=== PATIENT | female | born 1995 | race Caucasian/White ===

== ENCOUNTER 2023-07-31 13:17 | Emergency (ER) | payer MEDICARE, OTHER, SELFPAY ==
[2023-07-31 13:24] VITALS: BP 147/107
[2023-07-31 13:53] LABS: % Basophils 0.4 % (0-2); % Eosinophils 1.4 % (0-6); % Immature Granulocytes 0.5 % (0-0.5); % Lymphocytes 12.6 % (20.5-51.1); % Monocytes 3.6 % (1.7-9.3); % Neutrophils 81.5 % (42.2-75.2); Absolute Eosinophils 0.2 10^3/uL (0-0.7); Absolute Immature Granulocytes 0.1 10^3/uL (0-0.05); Absolute Lymphocytes 1.4 10^3/uL (1.2-3.4); Absolute Monocytes 0.4 10^3/uL (0.1-0.6); Hematocrit 39.5 % (37.0-47.0); Mean Corp Hgb Conc. 32.9 g/dL (33.0-37.0); Mean Corpuscular Hgb 26.1 pg (27.0-31.0); Mean Corpuscular Volume 79.3 fL (81.0-99.0); Nucleated Red Blood Cells % 0 %; Platelet Count 373 10^3/uL (130-400); Red Blood Cell Count 4.98 10^6/uL (4.20-5.40)
[2023-07-31 14:00] VITALS: BP 166/121
[2023-07-31 14:05] LABS: D-Dimer < 0.27 ug/mlFEU (0.00-0.50)
[2023-07-31 14:11] LABS: ALT (SGPT) 25 U/L (0-35); AST (SGOT) 21 U/L (14-36); Albumin 3.9 g/dl (3.5-5.0); Alkaline Phosphatase 86 U/L (38-126); Blood Urea Nitrogen 16 mg/dl (7-17); Calcium 9.4 mg/dl (8.4-10.2); Carbon Dioxide 31 mmol/L (22-30); Chloride 104 mmol/L (98-107); Glucose 126 mg/dl (70-99); Potassium 4.2 mmol/L (3.5-5.1); Sodium 138 mmol/L (135-145); Total Bilirubin 0.5 mg/dl (0.2-1.3); Total Protein 6.8 g/dl (6.3-8.2); eGFR > 60.00
[2023-07-31 14:12] LABS: Alcohol None Detected
[2023-07-31 14:18] LABS: Troponin I < 0.012 ng/ml
[2023-07-31 15:00] VITALS: BP 122/81
--- NOTE | 2023-07-31 17:02 | ED.GENMED ---
History of Present Illness
General
Chief Complaint: Chest Pain
Source: patient and family
Exam Limitations: none
Time Seen by Provider: 07/31/23 13:18
Nursing documentation reviewed up to this point in time: agreed with
Travel History
Have you had any contact with someone who has COVID-19?: No
Do you have any symptoms of coronavirus? Fever > 100 degrees, chills, cough, shortness of breath, sore throat, loss of taste or smell, muscle aches, or headache?: No
History of Present Illness
History of Present Illness:
28-year-old female with past medical history of dementia delay, hypertension, previous DVT coming Arnie to bipolar, PTSD presenting to the emergency department today with concerns of left-sided chest discomfort rating to her left arm while she was
at physical therapy. She comes this feels similar to previous episodes of anxiety. She also claims that she has thoughts of harming self and was planning on cutting or self this evening as well as potentially taking medications if the cutting of
herself did not improve her anxiety. Denies specific shortness of breath she claims the chest pain has improved denies numbness weakness vomiting fevers
Past History
Past History
ED Past Medical History: HTN, Psychiatric (Autism, alcohol syndrome, learning disability, major depression, anxiety, PTSD, Bipolar Schitzo affective disorder) and Other (Headaches, gastric emptying issues, Vertigo, Arthritis, DVT, )
ED Past Surgical History: Bowel resection, Orthopedic (Right club foot repair, ) and Other (Neck surgery )
Social History
Tobacco: 2nd hand smoke exposure
Alcohol: None
Drug: None
Personal: Single
Living: with family
Employment: Employed
Family History
Family History: Other (Noncontributory)
Review of Systems
Review of Systems
Allergies reviewed?: Yes
All Other Systems: ROS reviewed and negative except as documented in HPI and ROS
Phy Exam
Physical Exam
Physical Exam:
GENERAL: Alert , in no apparent distress
EYE: pupils equal and reactive
NECK: Supple, no significant adenopathy.
ENT: o/p clr, mmm.
CARDIAC: Regular rate and rhythm .
LUNGS: Clear breath sounds bilaterally, no acute respiratory distress, no wheezes/rales/rhonchi
ABDOMEN: Soft, without focal tenderness, no r/g, no cvat
NEUROLOGICAL: Alert and oriented, no focal neuro deficits
SKIN: Warm and dry, skin intact.
MUSCULOSKELETAL: No edema, well perfused.
PSYCH: Normal and appropriate interaction.
Scores
Heart Score for Chest Pain Patients
STEMI patient?: No
History: Slightly or Non-Suspicious
ECG: Normal
Age: </= 45 years
Risk Factors: No Risk Factors
Troponin: </= Normal Limit
Heart Score for Chest Pain Patients: 0
Heart Score Risk: 2.5% MACE over next 6 weeks
Course
Orders/Labs/Results
Orders:
Orders
07/31/23 13:30
Crisis Consult Urgent
Reason for Consult: suicidal
07/31/23 13:31
Electrocardiogram (*1) Stat
Reason for Study: Other
Other Reason for Exam: chest pain
EKG- Treatment ONCE
CR Chest Portable - 1 View Urgent
Comment:
Reason For Exam: cp
Reason Study Needs to be Portable: Unable to Transport
07/31/23 13:40
Alcohol Urgent
Complete Blood Count/With Diff Urgent
Comprehensive Metabolic Panel Urgent
Troponin I Urgent
07/31/23 13:45
Add On- LAB Urgent
Tests Added?: dimer
07/31/23 13:49
D-Dimer Urgent
07/31/23 14:53
Miscellaneous Order As Directed
Miscellaneous order: 15-minute checks please
Abnormal Lab Results
07/31/23
13:40
WBC 11.0 H 10^3/uL
(4.8-10.8)
MCV 79.3 L fL
(81.0-99.0)
MCH 26.1 L pg
(27.0-31.0)
MCHC 32.9 L g/dL
(33.0-37.0)
RDW 15.0 H %
(11.5-14.5)
Abs Immat Gran (auto) 0.1 H 10^3/uL
(0-0.05)
Absolute Neuts (auto) 9.0 H 10^3/uL
(1.4-6.5)
Neutrophils % 81.5 H %
(42.2-75.2)
Lymphocytes % 12.6 L %
(20.5-51.1)
Carbon Dioxide 31 H mmol/L
(22-30)
Glucose 126 H mg/dl
(70-99)
07/31/23 13:40
07/31/23 13:40
Vital Signs
Initial and Last Documented VS:
Initial Vital Signs
Temp Pulse Resp BP Pulse Ox
97.9 F 125 17 147/107 98
07/31/23 13:24 07/31/23 13:24 07/31/23 13:24 07/31/23 13:24 07/31/23 13:24
Last Documented Vital Signs
Temp Pulse Resp BP Pulse Ox
97.9 F 102 26 122/81 97
07/31/23 13:24 07/31/23 15:45 07/31/23 15:45 07/31/23 15:00 07/31/23 15:45
MDM/Problems Addressed
MDM/Problems Addressed:
28-year-old female presenting to the emergency department today with concerns of left-sided chest discomfort times achy while at physical therapy raise on her left arm which has resolved. Upon arrival she was tachycardic but this improved to 100
even without specific treatment. EKG without ischemic changes or concerning features for arrhythmia labs unremarkable troponin negative. Chest x-ray without emergent findings. She did claim to have concerns of harming herself. She does have a
plan. Case was discussed with crisis and patient was sent directly to [facility] for further assessment of this after being medically cleared.
*Critical Care Note
Total Time (30-74mins, 75-104mins- exclusive of procedures): Not Applicable
ED Attending Note
-
Portions of this chart may have been created with voice recognition software.� Occasional wrong word or��sound alike� substitutions may have occurred due to the inherent limitations of voice recognition software.
Discharge Plan
Departure
Patient Disposition: [facility]
Date of Disposition: 07/31/23
Time of Disposition: 16:04
Patient with high blood pressure during this ER visit?: No
Condition: Good
Covid-19: Not Applicable
Discharge Problem:
Chest pain, Suicidal ideation
Instructions: Chest Pain PCP Follow Up
Prescriptions:
No Action
loratadine 10 MG tablet
10 mg PO DAILY
amlodipine 5 MG tablet
5 mg PO DAILY Qty: 90 0RF
paroxetine HCl [Paxil] 20 mg Tablet
20 mg PO DAILY
clozapine [Clozaril] 200 mg Tablet
100 mg PO BID
prazosin 5 mg Capsule
5 mg PO HS
multivitamin Tablet
1 tab PO DAILY
acetaminophen [acetaminophen] 325 mg tablet
650 mg PO Q6HPRN PRN (Reason: mild pain) Qty: 14 0RF
ibuprofen 600 mg tablet
600 mg PO Q6H PRN (Reason: pain) Qty: 14 0RF
Referrals:
Steven Ordonez DO [Family Provider] -
Activity Restrictions/Additional Instructions:
Go immediately to crisis for placement
Interventions
Interventions:
*Risk Screen - Suicide Last Done: 07/31/23 14:12
*General Assessment Last Done: 07/31/23 13:25
*Neglect/Abuse Screening Last Done: 07/31/23 14:12
ED- Fall Risk Assessment Last Done: 07/31/23 14:12
*ED COVID-19 Vaccine History Last Done: 07/31/23 13:25
*Nursing Disposition Last Done: 07/31/23 16:05
ED- Cardiac Assessment Last Done: 07/31/23 13:28
Discharge Date and Time
Discharge Date/Time: 07/31/23 16:05
== END 2023-07-31 16:05 ==
LOC: EMR 13:17
PROVIDERS: Physician Assistant; EMERGENCY PHYSICIAN Emergency Medicine; FAMILY PHYSICIAN Family Medicine
DX: R45.851 Suicidal ideations (principal); R07.89 Other chest pain; R00.0 Tachycardia, unspecified; M79.602 Pain in left arm; F03.93 Unspecified dementia, unspecified severity, with mood disturbance; I10 Essential (primary) hypertension; F43.10 Post-traumatic stress disorder, unspecified; F31.9 Bipolar disorder, unspecified; F41.9 Anxiety disorder, unspecified; F32.9 Major depressive disorder, single episode, unspecified; F25.9 Schizoaffective disorder, unspecified; M19.90 Unspecified osteoarthritis, unspecified site; G43.909 Migraine, unspecified, not intractable, without status migrainosus; F84.0 Autistic disorder; Z77.22 Contact with and (suspected) exposure to environmental tobacco smoke (acute) (chronic); Z86.718 Personal history of other venous thrombosis and embolism; Z98.0 Intestinal bypass and anastomosis status; Z88.0 Allergy status to penicillin; Z88.1 Allergy status to other antibiotic agents; Z91.018 Allergy to other foods
CPT/HCPCS: 99284; 71045; 80053; 82077; 84484; 85025; 85379; 93005

== ENCOUNTER 2023-10-01 18:49 | Emergency (ER) | payer MEDICARE, OTHER, SELFPAY ==
[2023-10-01 18:49] VITALS: BMI 46.0
[2023-10-01 18:52] VITALS: BP 153/96
[2023-10-01 18:54] VITALS: BP 153/96
[2023-10-01 19:00] VITALS: BP 153/97
--- NOTE | 2023-10-01 19:01 | ED.GENMED ---
History of Present Illness
General
Chief Complaint: Dizziness
Time Seen by Provider: 10/01/23 19:01
Travel History
Have you had any contact with someone who has COVID-19?: No
Do you have any symptoms of coronavirus? Fever > 100 degrees, chills, cough, shortness of breath, sore throat, loss of taste or smell, muscle aches, or headache?: No
History of Present Illness
History of Present Illness:
HPI: Patient came in by ambulance. She was not feeling well earlier. She apparently was dizzy and lightheaded. She has not been taking her medication including her blood pressure medication and mental health medication. She said she is not due
for Abilify now but she is due for amlodipine and hydroxyzine. She also reports some left-sided abdominal discomfort but she has had this in the past. Her symptoms were associated with left-sided chest pain with radiation and tingling into the
left upper extremity.
EXAM:
GENERAL: Well appearing in no distress, elevated BMI
HEENT: Moist oral mucosa
CARDIOVASCULAR: No murmurs, normal heart rate, regular rhythm, No chest wall tenderness
PULMONARY: No respiratory distress, breath sounds are clear and equal
ABDOMEN: Soft with no peritoneal signs, no tenderness
NEUROLOGIC: Excellent strength all extremities, no coordination deficits
PSYCHIATRIC: Appropriate mental status, normal insight and judgement
EXTREMITIES: Nontender, no edema, moves all extremities equally
SKIN: No rash, no lesions
TIME OF INITIAL ENCOUNTER: 7:20 PM
NUMBER AND COMPLEXITY OF PROBLEMS ADDRESSED AT THE ENCOUNTER
� Chronic conditions affecting care: Developmental delay, has had dizziness, DVT, high blood pressure, anxiety/bipolar, PTSD, SI, depression
� Acute Exacerbation and/or Progression of Chronic Illness: This is an acute problem
� Differential Diagnosis includes: Nonspecific dizziness, ACS unlikely
AMOUNT AND/OR COMPLEXITY OF DATA TO BE REVIEWED AND ANALYZED
� I performed an independent evaluation of and my interpretation is:
EKG: Sinus 101, normal axis, QTc 425 ms, no acute ST abnormality
CT:
X-rays:
Laboratory Studies: White count slightly high, hemoglobin normal, chemistries and troponin negative
Other:
� Review of other/old records: I reviewed old labs�leukocytosis has been seen multiple times in the past
� Clinical information was obtained by an independent historian: I reviewed the EMS report
� Prescriptions/Medications Considered but not given:
� Further testing considered but not performed:
RISK OF COMPLICATIONS AND/OR MORBIDITY OR MORTALITY OF PATIENT MANAGEMENT
� Social determinants of health affecting care: Lives at home
� Discussion with other providers:
� Escalation of care including admission/observation vs risk of discharge considered: The patient appears comfortable throughout her stay in the ED. Other than leukocytosis which is chronic, lab work including troponin is
unremarkable. She was given IV fluids earlier. The patient appears very comfortable on reassessment at 9:40 PM
Past History
Past History
ED Past Medical History: HTN, Psychiatric (Autism, alcohol syndrome, learning disability, major depression, anxiety, PTSD, Bipolar Schitzo affective disorder) and Other (Headaches, gastric emptying issues, Vertigo, Arthritis, DVT, )
ED Past Surgical History: Bowel resection, Orthopedic (Right club foot repair, ) and Other (Neck surgery )
Social History
Tobacco: 2nd hand smoke exposure
Alcohol: None
Drug: None
Personal: Single
Living: with family
Employment: Employed
Family History
Family History: Other (Noncontributory)
Phy Exam
Physical Exam
Physical Exam:
See HPI
Course
Orders/Labs/Results
Orders:
Orders
10/01/23 18:59
Electrocardiogram (*1) Urgent
Reason for Study: QTc Monitoring
EKG- Treatment ONCE
10/01/23 19:00
Complete Blood Count/With Diff Urgent
Comprehensive Metabolic Panel Urgent
10/01/23 19:03
0.9% Sodium Chloride 1000 ml [Nss] 1,000 ml IV BOLUS
10/01/23 19:16
Troponin I Urgent
10/01/23 19:18
Amlodipine [Norvasc] 5 mg PO NOW STA
HydrOXYZINE [Atarax] 25 mg PO NOW STA
10/01/23 20:07
Electrocardiogram (*1) Urgent
Reason for Study: Chest Pain
EKG- Treatment ONCE
Abnormal Lab Results
10/01/23
19:00
WBC 13.9 H 10^3/uL
(4.8-10.8)
MCH 26.6 L pg
(27.0-31.0)
MCHC 32.0 L g/dL
(33.0-37.0)
RDW 14.6 H %
(11.5-14.5)
Absolute Neuts (auto) 11.3 H 10^3/uL
(1.4-6.5)
Neutrophils % 80.9 H %
(42.2-75.2)
Lymphocytes % 13.9 L %
(20.5-51.1)
10/01/23 19:00
10/01/23 19:00
Vital Signs
Initial and Last Documented VS:
Initial Vital Signs
Temp Pulse Resp BP Pulse Ox
98.9 F 108 21 153/96 99
10/01/23 18:52 10/01/23 18:52 10/01/23 18:52 10/01/23 18:52 10/01/23 18:52
Last Documented Vital Signs
Temp Pulse Resp BP Pulse Ox
98.9 F 102 20 140/85 100
10/01/23 18:52 10/01/23 21:15 10/01/23 21:15 10/01/23 21:00 10/01/23 21:15
*Critical Care Note
Total Time (30-74mins, 75-104mins- exclusive of procedures): Not Applicable
ED Attending Note
-
Portions of this chart may have been created with voice recognition software.� Occasional wrong word or��sound alike� substitutions may have occurred due to the inherent limitations of voice recognition software.
Discharge Plan
Departure
Patient Disposition: Home (Routine Discharge)
Date of Disposition: 10/01/23
Time of Disposition: 21:41
Patient with high blood pressure during this ER visit?: Yes
Discharge Problem:
Dizziness
Instructions: Dizziness, BLOOD PRESSURE
Prescriptions:
No Action
loratadine 10 MG tablet
10 mg PO DAILY
amlodipine 5 MG tablet
5 mg PO DAILY Qty: 90 0RF
paroxetine HCl [Paxil] 20 mg Tablet
20 mg PO DAILY
clozapine [Clozaril] 200 mg Tablet
100 mg PO BID
prazosin 5 mg Capsule
5 mg PO HS
multivitamin Tablet
1 tab PO DAILY
acetaminophen [acetaminophen] 325 mg tablet
650 mg PO Q6HPRN PRN (Reason: mild pain) Qty: 14 0RF
ibuprofen 600 mg tablet
600 mg PO Q6H PRN (Reason: pain) Qty: 14 0RF
Referrals:
Ankita Reyes MD [Family Provider] -
Activity Restrictions/Additional Instructions:
The cause of your symptoms is unclear. Basic blood work is relatively unremarkable including cardiac blood work that shows no sign of heart attack. EKG also shows no sign of heart attack. We did give you some IV fluid as well as some medication
that you missed earlier. Return here if worse.
Interventions
Interventions:
*Risk Screen - Suicide Last Done: 10/01/23 18:52
*General Assessment Last Done: 10/01/23 18:52
*Neglect/Abuse Screening Last Done: 10/01/23 18:52
ED- Fall Risk Assessment Last Done: 10/01/23 19:30
ED- Neurological Assessment Last Done: 10/01/23 19:30
ED- Cardiac Assessment Last Done: 10/01/23 19:30
ED Swallowing Screen Last Done: 10/01/23 19:30
Discharge Date and Time
Print Language: GEORGIAN
[2023-10-01 19:07] LABS: % Basophils 0.5 % (0-2); % Eosinophils 0.6 % (0-6); % Immature Granulocytes 0.3 % (0-0.5); % Lymphocytes 13.9 % (20.5-51.1); % Monocytes 3.8 % (1.7-9.3); % Neutrophils 80.9 % (42.2-75.2); Absolute Basophils 0.1 10^3/uL (0-0.2); Absolute Eosinophils 0.1 10^3/uL (0-0.7); Absolute Lymphocytes 1.9 10^3/uL (1.2-3.4); Absolute Monocytes 0.5 10^3/uL (0.1-0.6); Absolute Neutrophils 11.3 10^3/uL (1.4-6.5); Hematocrit 38.7 % (37.0-47.0); Hemoglobin 12.4 g/dL (12.0-16.0); Mean Corpuscular Hgb 26.6 pg (27.0-31.0); Mean Platelet Volume 9.2 fL (7.4-10.4); Nucleated Red Blood Cells % 0 %; Platelet Count 335 10^3/uL (130-400); Red Blood Cell Count 4.66 10^6/uL (4.20-5.40); Red Cell Dist. Width 14.6 % (11.5-14.5); White Blood Cell Count 13.9 10^3/uL (4.8-10.8)
[2023-10-01] MEDS: NSS 1000 IV (19:09)
[2023-10-01 19:21] LABS: Chloride 100 mmol/L (98-107); Sodium 135 mmol/L (135-145)
[2023-10-01] MEDS: ATARAX 25 MG PO (19:24)
[2023-10-01] MEDS: NORVASC 5 MG PO (19:24)
[2023-10-01 19:30] LABS: ALT (SGPT) 20 U/L (0-35); AST (SGOT) 19 U/L (14-36); Albumin 4.1 g/dl (3.5-5.0); Alkaline Phosphatase 99 U/L (38-126); Blood Urea Nitrogen 15 mg/dl (7-17); Calcium 9.7 mg/dl (8.4-10.2); Carbon Dioxide 28 mmol/L (22-30); Estimated Creatinine Clearance > 125 ml/min; Glucose 94 mg/dl (70-99); Total Bilirubin 0.4 mg/dl (0.2-1.3); Total Protein 7.1 g/dl (6.3-8.2); eGFR > 60.00
[2023-10-01 19:46] LABS: Troponin I < 0.012 ng/ml
[2023-10-01 20:00] VITALS: BP 142/87
[2023-10-01 21:00] VITALS: BP 140/85
== END 2023-10-01 22:14 | disposition home or self-care (01) ==
LOC: EMR 18:49
PROVIDERS: Emergency Medicine; EMERGENCY PHYSICIAN Emergency Medicine; FAMILY PHYSICIAN Emergency Medicine
DX: R42 Dizziness and giddiness (principal); I10 Essential (primary) hypertension
CPT/HCPCS: 99284; 80053; 84484; 85025; 93005

== ENCOUNTER → 2023-10-30 09:44 | Outpatient (REF) | payer MEDICARE, OTHER, SELFPAY ==
[2023-10-30 10:52] LABS: % Basophils 0.6 % (0-2); % Eosinophils 1.6 % (0-6); % Immature Granulocytes 0.3 % (0-0.5); % Lymphocytes 13.6 % (20.5-51.1); % Monocytes 3.5 % (1.7-9.3); % Neutrophils 80.4 % (42.2-75.2); Absolute Basophils 0.1 10^3/uL (0-0.2); Absolute Eosinophils 0.2 10^3/uL (0-0.7); Absolute Lymphocytes 1.8 10^3/uL (1.2-3.4); Absolute Monocytes 0.5 10^3/uL (0.1-0.6); Absolute Neutrophils 10.7 10^3/uL (1.4-6.5); Hematocrit 38.2 % (37.0-47.0); Hemoglobin 12.5 g/dL (12.0-16.0); Mean Corp Hgb Conc. 32.7 g/dL (33.0-37.0); Mean Corpuscular Hgb 26.3 pg (27.0-31.0); Mean Corpuscular Volume 80.4 fL (81.0-99.0); Mean Platelet Volume 9.3 fL (7.4-10.4); Nucleated Red Blood Cells % 0 %; Platelet Count 336 10^3/uL (130-400); Red Blood Cell Count 4.75 10^6/uL (4.20-5.40); Red Cell Dist. Width 14.4 % (11.5-14.5); White Blood Cell Count 13.3 10^3/uL (4.8-10.8)
[2023-10-30 11:26] LABS: ALT (SGPT) 18 U/L (0-35); AST (SGOT) 17 U/L (14-36); Alkaline Phosphatase 95 U/L (38-126); Blood Urea Nitrogen 19 mg/dl (7-17); Calcium 9.2 mg/dl (8.4-10.2); Carbon Dioxide 28 mmol/L (22-30); Chloride 104 mmol/L (98-107); Glucose 90 mg/dl (70-99); HDL Cholesterol 52 mg/dl; LDL Cholesterol, Calculated 95 mg/dl; Potassium 4.6 mmol/L (3.5-5.1); Sodium 139 mmol/L (135-145); Total Bilirubin 0.4 mg/dl (0.2-1.3); Total Cholesterol 174 mg/dl (50-199); Triglyceride 136 mg/dl (10-149); Very Low Density Lipoprotein 27 mg/dl (0-30); eGFR > 60.00
[2023-10-30 12:10] LABS: TSH Reflex To Free T4 1.56 uIU/ml (0.47-4.68)
[2023-10-30 13:54] LABS: Glycohemoglobin (HgbA1c) 5.5 % (4.0-5.6)
== END ==
LOC: REG 09:44
PROVIDERS: ATTENDING PHYSICIAN Emergency Medicine
DX: I10 Essential (primary) hypertension (principal); K76.0 Fatty (change of) liver, not elsewhere classified; R73.03 Prediabetes
CPT/HCPCS: 36415; 80053; 80061; 83036; 84443; 85025

== ENCOUNTER → 2023-12-31 13:50 | Outpatient (REF) | payer MEDICARE, OTHER, SELFPAY ==
[2023-12-31 14:48] LABS: % Basophils 0.5 % (0-2); % Immature Granulocytes 0.4 % (0-0.5); % Lymphocytes 10.7 % (20.5-51.1); % Monocytes 3.4 % (1.7-9.3); Absolute Basophils 0.1 10^3/uL (0-0.2); Absolute Eosinophils 0.2 10^3/uL (0-0.7); Absolute Immature Granulocytes 0.1 10^3/uL (0-0.05); Absolute Lymphocytes 1.9 10^3/uL (1.2-3.4); Absolute Monocytes 0.6 10^3/uL (0.1-0.6); Hematocrit 41.6 % (37.0-47.0); Hemoglobin 13.2 g/dL (12.0-16.0); Mean Corp Hgb Conc. 31.7 g/dL (33.0-37.0); Mean Corpuscular Hgb 25.9 pg (27.0-31.0); Mean Corpuscular Volume 81.7 fL (81.0-99.0); Mean Platelet Volume 9.1 fL (7.4-10.4); Nucleated Red Blood Cells % 0 %; Platelet Count 353 10^3/uL (130-400); Red Blood Cell Count 5.09 10^6/uL (4.20-5.40); Red Cell Dist. Width 15.3 % (11.5-14.5); White Blood Cell Count 17.9 10^3/uL (4.8-10.8)
[2023-12-31 15:40] LABS: Blood Urea Nitrogen 16 mg/dl (7-17); Calcium 10.1 mg/dl (8.4-10.2); Carbon Dioxide 31 mmol/L (22-30); Chloride 101 mmol/L (98-107); Glucose 94 mg/dl (70-99); Iron 51 ug/dl (37-170); Magnesium 2.1 mg/dl (1.6-2.3); Potassium 4.7 mmol/L (3.5-5.1); Sodium 141 mmol/L (135-145); eGFR > 60.00
[2023-12-31 16:03] LABS: Ferritin 20.1 ng/ml (6.24-137)
[2023-12-31 16:35] LABS: Folate 6.6 ng/ml (2.76-20); Vitamin B12 399 pg/ml (239-931)
== END ==
LOC: REG 13:50
PROVIDERS: ATTENDING PHYSICIAN Family Medicine
DX: D64.9 Anemia, unspecified (principal); D72.9 Disorder of white blood cells, unspecified; E87.6 Hypokalemia
CPT/HCPCS: 36415; 80048; 82607; 82728; 82746; 83540; 83735; 85025

== ENCOUNTER 2024-03-07 17:01 | Emergency (ER) | payer MEDICARE, OTHER, SELFPAY ==
[2024-03-07 17:19] VITALS: BP 176/109
--- NOTE | 2024-03-07 17:39 | ED.GENMED ---
History of Present Illness
<Abi Ewing PA-C - Last Filed: 03/07/24 20:40>
General
Chief Complaint: Musculo-Skeletal Complaint
Source: patient
Exam Limitations: none
Time Seen by Provider: 03/07/24 17:39
Nursing documentation reviewed up to this point in time: agreed with
History of Present Illness
History of Present Illness:
This is a 28 y/o female with past medical history of developmental delay, clubfoot status postrepair, PTSD, depression, anxiety presenting to the emergency department today with concerns of right foot pain. Patient notes this in the heel of her
foot as well as the posterior aspect. Patient states that she has had this pain for the past 3 days and compares it to when she had tendinopathy in the past. Patient states at that time, her symptoms were treated and resolved with physical therapy
and a walking boot. 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 Patient states that she has pain with ambulation. Patient
notes that in the same leg she has a history of a blood clot for which she still takes a blood thinner for. Patient states that she is unable to take NSAIDs.
Past History
<Abi Ewing PA-C - Last Filed: 03/07/24 20:40>
Past History
ED Past Medical History: HTN, Psychiatric (Autism, alcohol syndrome, learning disability, major depression, anxiety, PTSD, Bipolar Schitzo affective disorder) and Other (Headaches, gastric emptying issues, Vertigo, Arthritis, DVT, )
ED Past Surgical History: Bowel resection, Orthopedic (Right club foot repair, ) and Other (Neck surgery )
Social History
Tobacco: 2nd hand smoke exposure
Alcohol: None
Drug: None
Personal: Single
Living: with family
Employment: Employed
Family History
Family History: Other (Noncontributory)
Review of Systems
<Abi Ewing PA-C - Last Filed: 03/07/24 20:40>
Review of Systems
All Other Systems: ROS reviewed and negative except as documented in HPI and ROS
Phy Exam
<Abi Ewing PA-C - Last Filed: 03/07/24 20:40>
Physical Exam
Physical Exam:
General: Patient is well appearing and in no acute distress; non-toxic
Skin: Warm and dry, no rashes or lesions
Head: Normocephalic, atraumatic
Eyes: Sclera non-icteric. EOMs intact. PERRLA.
Cardiac: Regular rate
Peripheral Vascular: Mild swelling noted to right foot and lateral ankle noted
Pulm: Normal respiratory effort
Musculoskeletal: Negative brown's test. Tenderness palpation and mild swelling noted over the right Achilles tendon, tenderness palpation in the medial ankle, negative anterior drawer, no obvious ligamentous instability
Neuro: CN II-XII intact, no focal neurologic deficits.
Psychiatric: Appropriate mood and affect.
Course
<Abi Ewing PA-C - Last Filed: 03/07/24 20:40>
Orders/Labs/Results
Orders:
Orders
03/07/24 17:03
CR Ankle - Right Min 3 Views * Urgent
Comment:
Reason For Exam: injury, pain
03/07/24 18:24
Acetaminophen [Tylenol] 1,000 mg PO NOW STA
03/07/24 18:25
boot [Ortho Boot Right- Treatment] ONCE
Short or tall?: Short
Vital Signs
Initial and Last Documented VS:
Initial Vital Signs
Temp Pulse Resp BP Pulse Ox
98.4 F 108 16 176/109 98
03/07/24 17:19 03/07/24 17:19 03/07/24 17:19 03/07/24 17:19 03/07/24 17:19
Last Documented Vital Signs
Temp Pulse Resp BP Pulse Ox
98.2 F 95 20 158/98 100
03/07/24 19:01 03/07/24 19:01 03/07/24 19:01 03/07/24 19:01 03/07/24 19:01
<Alber Reeves DO - Last Filed: 03/07/24 18:27>
Orders/Labs/Results
Orders:
Orders
03/07/24 17:03
CR Ankle - Right Min 3 Views * Urgent
Comment:
Reason For Exam: injury, pain
03/07/24 18:24
Acetaminophen [Tylenol] 1,000 mg PO NOW STA
03/07/24 18:25
boot [Ortho Boot Right- Treatment] ONCE
Short or tall?: Short
Vital Signs
Initial and Last Documented VS:
Initial Vital Signs
Temp Pulse Resp BP Pulse Ox
98.4 F 108 16 176/109 98
03/07/24 17:19 03/07/24 17:19 03/07/24 17:19 03/07/24 17:19 03/07/24 17:19
Last Documented Vital Signs
Temp Pulse Resp BP Pulse Ox
98.2 F 95 20 158/98 100
03/07/24 19:01 03/07/24 19:01 03/07/24 19:01 03/07/24 19:01 03/07/24 19:01
<Abi Ewing PA-C - Last Filed: 03/07/24 20:40>
MDM/Problems Addressed
Differential Diagnosis Includes:
ddx include Achilles tendinitis, plantar fasciitis, ankle sprain, ankle fracture
MDM/Problems Addressed:
This is a 28 y/o female with past medical history of developmental delay, clubfoot status postrepair, PTSD, depression, anxiety presenting to the emergency department today with concerns of right foot pain. Patient states that this feels like when
she had tendinitis in the past. Her pain is localized to the right Achilles and medial ankle, no evidence of tendon rupture. No proximal tenderness. Patient is able to ambulate without difficulty. 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 Her x-ray is negative for any acute fracture. Suspect Achilles tendinitis. Patient states that physical therapy and walking boot has helped her with this in the past. Patient given walking boot, observed her ambulating
okay. Patient stable for discharge.
Chronic conditions affecting care:
Psychiatric illness, history of DVT, hypertension, history of clubfoot
<Abi Ewing PA-C - Last Filed: 03/07/24 20:40>
*Radiology
Radiology exam reviewed: preliminary read by ED provider (no acute fracture or dislocation)
*Pulse Oximetry
Patient hypoxic: no
*Critical Care Note
Total Time (30-74mins, 75-104mins- exclusive of procedures): Not Applicable
Data Reviewed
Review of Other/Old Records Reveals: Records (Reviewed previous ER physician documentation from 04/03/2023 oh patient was seen for ankle pain, does appear that she has chronic foot)
Source: patient and records
<Abi Ewing PA-C - Last Filed: 03/07/24 20:40>
Patient Management
Escalation/DeEscalation of care consider admission/obs:
Admit not indicated, patient stable for discharge
ED Attending Note
<ORLY Ying Last Filed: 03/07/24 20:40>
-
Portions of this chart may have been created with voice recognition software.� Occasional wrong word or��sound alike� substitutions may have occurred due to the inherent limitations of voice recognition software.
<Alber Reeves DO - Last Filed: 03/07/24 18:27>
ED Attending Note
Patient seen and examined by attending physician: Yes
I performed the substantive portion of visit, reviewed & personally made and approve the management plan that is documented in note by myself or MAT.: Yes
ED Attending Note:
Seen with PA examined independently agree with assessment and plan, status post clubfoot surgery, twisted her ankle, x-ray noted, will mobilize follow-up podiatry/orthopedics
Discharge Plan
Departure
Patient Disposition: Home (Routine Discharge)
Date of Disposition: 03/07/24
Time of Disposition: 18:34
Patient with high blood pressure during this ER visit?: Yes
Condition: Good
Discharge Problem:
Tendonitis of ankle or foot
Instructions: Achilles Tendinopathy (DC), Walking Boot, BLOOD PRESSURE
Prescriptions:
No Action
loratadine 10 MG tablet
10 mg PO DAILY
amlodipine 5 MG tablet
5 mg PO DAILY Qty: 90 0RF
paroxetine HCl [Paxil] 20 mg Tablet
20 mg PO DAILY
clozapine [Clozaril] 200 mg Tablet
100 mg PO BID
prazosin 5 mg Capsule
5 mg PO HS
multivitamin Tablet
1 tab PO DAILY
acetaminophen [acetaminophen] 325 mg tablet
650 mg PO Q6HPRN PRN (Reason: mild pain) Qty: 14 0RF
ibuprofen 600 mg tablet
600 mg PO Q6H PRN (Reason: pain) Qty: 14 0RF
Referrals:
Steven Ordonez DO [Family Provider] -
Yogi Navarro DPM [Active] - Call in 1-3 days for appt
Stand Alone Forms: Return to Work
Activity Restrictions/Additional Instructions:
Your x-ray did not show any evidence of fracture.
Please call the attached number to schedule an appointment with Dr. Navarro. Please say you were evaluated in the emergency department.
Please return emergency department should you develop the inability to ambulate.
Please return emergency department if you develop the inability to ambulate, further falls, increasing pain, redness or swelling, chest pain, shortness of breath, or any signs or symptoms concerning to you.
Interventions
Interventions:
*Risk Screen - Suicide Last Done: 03/07/24 17:19
*General Assessment Last Done: 03/07/24 17:47
*Neglect/Abuse Screening Last Done: 03/07/24 17:19
ED- Fall Risk Assessment Last Done: 03/07/24 19:01
*ED COVID-19 Vaccine History Last Done: 03/07/24 17:47
*Nursing Disposition Last Done: 03/07/24 19:01
ED-Musculoskeletal Assessment Last Done: 03/07/24 17:47
Discharge Date and Time
Discharge Date/Time: 03/07/24 20:00
Print Language: BENGALI
[2024-03-07] MEDS: TYLENOL 1000 MG PO (18:28)
[2024-03-07 19:01] VITALS: BP 158/98
== END 2024-03-07 20:00 | disposition home or self-care (01) ==
LOC: EMR 17:01
PROVIDERS: EMERGENCY PHYSICIAN Emergency Medicine; FAMILY PHYSICIAN Family Medicine
DX: M77.8 Other enthesopathies, not elsewhere classified (principal); M25.571 Pain in right ankle and joints of right foot; M79.89 Other specified soft tissue disorders; W18.39XA Other fall on same level, initial encounter; Y93.K1 Activity, walking an animal; Y92.89 Other specified places as the place of occurrence of the external cause; Y99.0 Civilian activity done for income or pay; F32.A Depression, unspecified; F41.9 Anxiety disorder, unspecified; I10 Essential (primary) hypertension; F84.0 Autistic disorder; F31.9 Bipolar disorder, unspecified; F25.9 Schizoaffective disorder, unspecified; G43.909 Migraine, unspecified, not intractable, without status migrainosus; F43.10 Post-traumatic stress disorder, unspecified; M19.90 Unspecified osteoarthritis, unspecified site; Z77.22 Contact with and (suspected) exposure to environmental tobacco smoke (acute) (chronic); Z79.01 Long term (current) use of anticoagulants; Z91.51 Personal history of suicidal behavior; Z86.718 Personal history of other venous thrombosis and embolism; Z98.0 Intestinal bypass and anastomosis status; Z88.0 Allergy status to penicillin; Z88.1 Allergy status to other antibiotic agents; Z91.018 Allergy to other foods
CPT/HCPCS: 99283; 29515; 73610

== ENCOUNTER → 2024-03-09 11:29 | Outpatient (REF) | payer MEDICARE, OTHER, SELFPAY | LOC: RAD 11:29 | PROVIDERS: ATTENDING PHYSICIAN Student in an Organized Health Care Education/Training Program; FAMILY PHYSICIAN Emergency Medicine | DX: M79.661 Pain in right lower leg (principal) | CPT/HCPCS: 93971 ==

== ENCOUNTER 2024-03-12 09:52 | Emergency (ER) | payer OTHER, MEDICARE, SELFPAY ==
[2024-03-12 09:54] VITALS: BP 154/89
--- NOTE | 2024-03-12 10:55 | ED.GENMED ---
History of Present Illness
General
Chief Complaint: Crisis Evaluation
Source: patient
Exam Limitations: none
Time Seen by Provider: 03/12/24 10:11
Nursing documentation reviewed up to this point in time: agreed with
History of Present Illness
History of Present Illness:
Patient is a 28-year-old female with past medical history of anxiety bipolar depression DVT currently on Xarelto presents to the ER for suicidal ideation. She does report she has been thinking about a plan and will take pills and is planning to do
this on her birthday [birth year].
She reports she lives with family, father and brother and took an Uber here.
Past History
Past History
ED Past Medical History: HTN, Psychiatric (Autism, alcohol syndrome, learning disability, major depression, anxiety, PTSD, Bipolar Schitzo affective disorder) and Other (Headaches, gastric emptying issues, Vertigo, Arthritis, DVT, )
ED Past Surgical History: Bowel resection, Orthopedic (Right club foot repair, ) and Other (Neck surgery )
Social History
Tobacco: 2nd hand smoke exposure
Alcohol: None
Drug: None
Personal: Single
Living: with family
Employment: Employed
Family History
Family History: Other (Noncontributory)
Review of Systems
Review of Systems
Allergies reviewed?: Yes
All Other Systems: ROS reviewed and negative except as documented in HPI and ROS
Constitutional: Reports no symptoms; Denies fever, fatigue or chills
Respiratory: Reports no symptoms
Cardiac: Reports no symptoms
ABD/GI: Reports no symptoms
: Reports no symptoms
Musculoskeletal: Reports no symptoms
Skin: Reports no symptoms
Psychiatric: Reports suicidal
Phy Exam
General Physical Exam
General Presentation: no apparent distress
General age: appears stated age
General Skin: warm and dry
General Habitus: normal
General Mental: alert
General Hydration: appears well hydrated
Cardiovascular Exam
Cardiovascular Exam: regular rate/rhythm, no murmur and normal peripheral pulses
Pulmonary Exam
Pulmonary Exam: lungs clear and no respiratory distress
Neurological Exam
Neurological Exam: alert and oriented x3
Musculoskeletal Exam
Musculoskeletal Exam: full ROM
Skin Exam
Skin Exam: normal color and warm/dry
Psychiatric Exam
Psychiatric Exam: normal mood/affect
Course
Orders/Labs/Results
Orders:
Orders
03/12/24 10:02
1:1 Observation - Suicide/ Violent Behavior As Directed
03/12/24 11:03
Crisis Consult Urgent
Reason for Consult: suicidal ideation
03/12/24 12:07
Urine Drug Abuse Screen Urgent
03/12/24 12:08
Test Result ONCE
03/12/24 12:21
Acetaminophen Urgent
Alcohol Urgent
Complete Blood Count/With Diff Urgent
Comprehensive Metabolic Panel Urgent
HCG, Serum Qualitative Screen Urgent
Salicylate Urgent
Abnormal Lab Results
03/12/24
12:21
MCV 78.3 L fL
(81.0-99.0)
MCH 24.9 L pg
(27.0-31.0)
MCHC 31.7 L g/dL
(33.0-37.0)
RDW 15.3 H %
(11.5-14.5)
Abs Immat Gran (auto) 0.1 H 10^3/uL
(0-0.05)
Absolute Neuts (auto) 7.8 H 10^3/uL
(1.4-6.5)
Absolute Lymphs (auto) 1.0 L 10^3/uL
(1.2-3.4)
Neutrophils % 84.6 H %
(42.2-75.2)
Lymphocytes % 11.1 L %
(20.5-51.1)
Glucose 111 H mg/dl
(70-99)
Salicylates < 1.0 L mg/dl
(2.0-20.0)
Acetaminophen < 10 L ug/ml
(10-30)
03/12/24 12:21
03/12/24 12:21
Vital Signs
Initial and Last Documented VS:
Initial Vital Signs
Temp Pulse Resp BP Pulse Ox
98.2 F 100 16 154/89 98
03/12/24 09:54 03/12/24 09:54 03/12/24 09:54 03/12/24 09:54 03/12/24 09:54
Last Documented Vital Signs
Temp Pulse Resp BP Pulse Ox
98.2 F 102 16 130/76 98
03/12/24 09:54 03/12/24 13:47 03/12/24 13:47 03/12/24 13:47 03/12/24 13:47
MDM/Problems Addressed
MDM/Problems Addressed:
Patient is a 28-year-old female who presented for crisis evaluation. Patient complains of feeling suicidal she is not sure if it is related to her medications but does express a plan to take pills and plans to do it on her birthday which is
[birth year]. She is volunteering to take an Uber here. She was eval by crisis she will be placed .
As requested by crisis labs ordered. Patient has no physical complaints.
1540: Patient resting comfortably as per crisis patient will be discharged to [facility]. Pt to be picked up.
Chronic conditions affecting care:
depression
*Critical Care Note
Total Time (30-74mins, 75-104mins- exclusive of procedures): Not Applicable
ED Attending Note
-
Portions of this chart may have been created with voice recognition software.� Occasional wrong word or��sound alike� substitutions may have occurred due to the inherent limitations of voice recognition software.
Discharge Plan
Departure
Patient Disposition: Psych Facility
Date of Disposition: 03/12/24
Time of Disposition: 15:38
Patient with high blood pressure during this ER visit?: Yes
Condition: Fair
Covid-19: Not Applicable
Discharge Problem:
Suicidal ideation
Prescriptions:
No Action
loratadine 10 MG tablet
10 mg PO DAILY
amlodipine 5 MG tablet
5 mg PO DAILY Qty: 90 0RF
paroxetine HCl [Paxil] 20 mg Tablet
20 mg PO DAILY
clozapine [Clozaril] 200 mg Tablet
100 mg PO BID
prazosin 5 mg Capsule
5 mg PO HS
multivitamin Tablet
1 tab PO DAILY
acetaminophen [acetaminophen] 325 mg tablet
650 mg PO Q6HPRN PRN (Reason: mild pain) Qty: 14 0RF
ibuprofen 600 mg tablet
600 mg PO Q6H PRN (Reason: pain) Qty: 14 0RF
Referrals:
Steven Ordonez DO [Family Provider] -
Interventions
Interventions:
*Risk Screen - Suicide Last Done: 03/12/24 09:54
*General Assessment Last Done: 03/12/24 09:54
*Neglect/Abuse Screening Last Done: 03/12/24 09:54
*ED COVID-19 Vaccine History Last Done: 03/12/24 10:46
ED-Psychological Assessment Last Done: 03/12/24 10:46
Discharge Date and Time
Print Language: SAMMARINESE
[2024-03-12 12:33] LABS: % Basophils 0.4 % (0-2); % Eosinophils 0.4 % (0-6); % Immature Granulocytes 0.5 % (0-0.5); % Lymphocytes 11.1 % (20.5-51.1); % Neutrophils 84.6 % (42.2-75.2); Absolute Immature Granulocytes 0.1 10^3/uL (0-0.05); Absolute Monocytes 0.3 10^3/uL (0.1-0.6); Absolute Neutrophils 7.8 10^3/uL (1.4-6.5); Hematocrit 39.7 % (37.0-47.0); Hemoglobin 12.6 g/dL (12.0-16.0); Mean Corp Hgb Conc. 31.7 g/dL (33.0-37.0); Mean Corpuscular Hgb 24.9 pg (27.0-31.0); Mean Corpuscular Volume 78.3 fL (81.0-99.0); Mean Platelet Volume 8.7 fL (7.4-10.4); Nucleated Red Blood Cells % 0 %; Platelet Count 337 10^3/uL (130-400); Red Blood Cell Count 5.07 10^6/uL (4.20-5.40); Red Cell Dist. Width 15.3 % (11.5-14.5); White Blood Cell Count 9.3 10^3/uL (4.8-10.8)
[2024-03-12 13:00] LABS: HCG, Serum Qualitative Screen Negative
[2024-03-12 13:01] LABS: ALT (SGPT) 32 U/L (0-35); AST (SGOT) 28 U/L (14-36); Acetaminophen < 10 ug/ml (10-30); Albumin 4.3 g/dl (3.5-5.0); Alkaline Phosphatase 81 U/L (38-126); Blood Urea Nitrogen 13 mg/dl (7-17); Calcium 9.9 mg/dl (8.4-10.2); Carbon Dioxide 26 mmol/L (22-30); Chloride 103 mmol/L (98-107); Glucose 111 mg/dl (70-99); Potassium 4.5 mmol/L (3.5-5.1); Salicylate < 1.0 mg/dl (2.0-20.0); Sodium 138 mmol/L (135-145); Total Bilirubin 0.5 mg/dl (0.2-1.3); Total Protein 7.3 g/dl (6.3-8.2); eGFR > 60.00
[2024-03-12 13:10] LABS: Alcohol None Detected
[2024-03-12 13:47] VITALS: BP 130/76
[2024-03-12 18:28] LABS: Amphetamines Negative (Negative); Barbiturates Negative (Negative); Benzodiazepines Negative (Negative); Buprenorphine Negative (Negative); Cocaine Negative (Negative); Marijuana Negative (Negative); Methadone Negative (Negative); Methamphetamines Negative (Negative); Opiates Negative (Negative); Phencyclidine Negative (Negative); Tricyclic Antidepressants Negative (Negative)
[2024-03-12 18:39] VITALS: BP 154/86
== END 2024-03-12 19:36 ==
LOC: EMR 09:52
PROVIDERS: Nurse Practitioner; EMERGENCY PHYSICIAN Emergency Medicine; FAMILY PHYSICIAN Family Medicine
DX: R45.851 Suicidal ideations (principal); I10 Essential (primary) hypertension; F31.9 Bipolar disorder, unspecified
CPT/HCPCS: 99285; 80053; 80143; 80179; 80306; 82077; 84703; 85025

== ENCOUNTER 2024-04-05 13:26 | Emergency (ER) | payer OTHER, MEDICARE, SELFPAY ==
[2024-04-05 14:02] VITALS: BP 164/98
[2024-04-05 14:33] LABS: % Basophils 0.4 % (0-2); % Eosinophils 0.8 % (0-6); % Immature Granulocytes 0.4 % (0-0.5); % Lymphocytes 14.6 % (20.5-51.1); % Monocytes 4.3 % (1.7-9.3); % Neutrophils 79.5 % (42.2-75.2); Absolute Basophils 0.1 10^3/uL (0-0.2); Absolute Eosinophils 0.1 10^3/uL (0-0.7); Absolute Immature Granulocytes 0.1 10^3/uL (0-0.05); Absolute Lymphocytes 2.1 10^3/uL (1.2-3.4); Absolute Monocytes 0.6 10^3/uL (0.1-0.6); Absolute Neutrophils 11.3 10^3/uL (1.4-6.5); Hematocrit 38.4 % (37.0-47.0); Hemoglobin 12.1 g/dL (12.0-16.0); Mean Corp Hgb Conc. 31.5 g/dL (33.0-37.0); Mean Corpuscular Hgb 25.9 pg (27.0-31.0); Mean Corpuscular Volume 82.2 fL (81.0-99.0); Mean Platelet Volume 8.8 fL (7.4-10.4); Nucleated Red Blood Cells % 0 %; Platelet Count 376 10^3/uL (130-400); Red Blood Cell Count 4.67 10^6/uL (4.20-5.40); Red Cell Dist. Width 15.2 % (11.5-14.5); White Blood Cell Count 14.2 10^3/uL (4.8-10.8)
[2024-04-05 14:45] LABS: HCG, Serum Qualitative Screen Negative
[2024-04-05 14:52] LABS: ALT (SGPT) 19 U/L (0-35); AST (SGOT) 14 U/L (14-36); Albumin 4.1 g/dl (3.5-5.0); Alkaline Phosphatase 82 U/L (38-126); Blood Urea Nitrogen 16 mg/dl (7-17); Calcium 9.6 mg/dl (8.4-10.2); Carbon Dioxide 31 mmol/L (22-30); Chloride 101 mmol/L (98-107); Glucose 82 mg/dl (70-99); Potassium 4.6 mmol/L (3.5-5.1); Sodium 142 mmol/L (135-145); Total Bilirubin 0.3 mg/dl (0.2-1.3); eGFR > 60.00
[2024-04-05 15:16] LABS: Lipase 74 U/L (23-300)
--- NOTE | 2024-04-05 17:36 | ED.GENMED ---
History of Present Illness
General
Chief Complaint: Abdominal Symptoms
Source: patient
Time Seen by Provider: 04/05/24 16:52
History of Present Illness
History of Present Illness:
28-year-old female with past medical history of developmental delay, psychiatric issues, 'gastric emptying issue', hypertension, DVT presenting to the emergency department for evaluation of a multitude of symptoms including upper abdominal pain,
nausea, left shoulder pain, lightheadedness, back discomfort and generally feeling unwell. Patient states that most of these issues are chronic however the upper abdominal pain is somewhat new. Patient points to the right upper quadrant as to
where the pain is the worst. Notes no change in oral intake. Yesterday was nauseous but no vomiting. Did not take anything for symptoms today. No other concerns presently.
Past History
Past History
ED Past Medical History: HTN, Psychiatric (Autism, alcohol syndrome, learning disability, major depression, anxiety, PTSD, Bipolar Schitzo affective disorder) and Other (Headaches, gastric emptying issues, Vertigo, Arthritis, DVT, )
ED Past Surgical History: Bowel resection, Orthopedic (Right club foot repair, ) and Other (Neck surgery )
Social History
Tobacco: 2nd hand smoke exposure
Alcohol: None
Drug: None
Personal: Single
Living: with family
Employment: Employed
Family History
Family History: Other (Noncontributory)
Review of Systems
Review of Systems
All Other Systems: ROS reviewed and negative except as documented in HPI and ROS
Phy Exam
Physical Exam
Physical Exam:
GENERAL: Alert , in no apparent distress, overweight
EYE: clear conjunctiva b/l
HEAD: NCAT
ENT: o/p clr, mmm.
CARDIAC: Regular rate and rhythm .
LUNGS: Clear breath sounds bilaterally, no acute respiratory distress, no wheezes/rales/rhonchi
ABDOMEN: Soft, without focal tenderness, no r/g, no cvat, negative Iniguez sign, no tenderness at McBurney's point
NEUROLOGICAL: Alert and oriented
SKIN: Warm and dry, skin intact.
MUSCULOSKELETAL: No edema, well perfused.
PSYCH: Normal and appropriate interaction.
Scores
Heart Failure Risk
Heart Failure Risk Score: Not Applicable
Heart Score for Chest Pain Patients
STEMI patient?: Not applicable
Withdrawal Assessment of Alcohol
Withdrawal Assessment Completed?: Not applicable
Course
Orders/Labs/Results
Orders:
Orders
04/05/24 14:06
Electrocardiogram (*1) Urgent
Reason for Study: Abdominal Pain
EKG- Treatment ONCE
Test Result ONCE
04/05/24 14:12
Complete Blood Count/With Diff Urgent
Comprehensive Metabolic Panel Urgent
HCG, Serum Qualitative Screen Urgent
Comment: Notify provider if positive test present
Lipase Urgent
04/05/24 16:58
Ibuprofen [Motrin] 600 mg PO NOW STA
Ondansetron Orally Disint [Zofran Odt (Orally Disintegrating)] 4 mg PO NOW STA
04/05/24 17:04
US Abdomen Complete/Upper Urgent
Comment:
Reason For Exam: RUQ abd pain
Abnormal Lab Results
04/05/24
14:12
WBC 14.2 H 10^3/uL
(4.8-10.8)
MCH 25.9 L pg
(27.0-31.0)
MCHC 31.5 L g/dL
(33.0-37.0)
RDW 15.2 H %
(11.5-14.5)
Abs Immat Gran (auto) 0.1 H 10^3/uL
(0-0.05)
Absolute Neuts (auto) 11.3 H 10^3/uL
(1.4-6.5)
Neutrophils % 79.5 H %
(42.2-75.2)
Lymphocytes % 14.6 L %
(20.5-51.1)
Carbon Dioxide 31 H mmol/L
(22-30)
04/05/24 14:12
04/05/24 14:12
Vital Signs
Initial and Last Documented VS:
Initial Vital Signs
Temp Pulse Resp BP Pulse Ox
98.4 F 101 16 164/98 98
04/05/24 14:02 04/05/24 14:02 04/05/24 14:02 04/05/24 14:02 04/05/24 14:02
Last Documented Vital Signs
Temp Pulse Resp BP Pulse Ox
98.4 F 95 18 139/77 100
04/05/24 14:02 04/05/24 19:23 04/05/24 19:23 04/05/24 19:23 04/05/24 19:23
MDM/Problems Addressed
Differential Diagnosis Includes:
GERD, gastritis, peptic ulcer disease, cholelithiasis, cholecystitis, no concern for ACS
Shoulder pain could be bursitis, tendinitis, no concern for dislocation or fracture given no trauma
MDM/Problems Addressed:
28-year-old female presenting to the emergency department for evaluation of a multitude of symptoms that have been ongoing for an extended period of time however today patient noting more symptoms in the abdomen however she is stating me her biggest
concern is her left shoulder. Patient is in no acute distress and is otherwise well-appearing. Abdominal exam reassuring. Labs were initiated in triage. Patient does have a leukocytosis but this does appear chronic based off of previous labs.
Chemistry unremarkable. EKG does show some sinus tachycardia. Will obtain an ultrasound to evaluate the gallbladder. Anticipate discharge home. Zofran and Motrin ordered for symptoms.
*Radiology
Radiology exam reviewed: radiology read reviewed
*Pulse Oximetry
Patient hypoxic: no
*EKG
Heart Rate: 101
Rate: tachycardiac
Rhythm: sinus
[place]: normal axis
Ischemia: no ischemia
*Critical Care Note
Total Time (30-74mins, 75-104mins- exclusive of procedures): Not Applicable
Data Reviewed
Review of Other/Old Records Reveals: Labs and Records
Patient Management
Escalation/DeEscalation of care consider admission/obs:
Ultrasound showing fatty liver but otherwise unremarkable study. Patient resting comfortably, tolerating p.o. and in no acute distress. Stable for discharge home and outpatient management. Patient aware of return cautions to the ER.
ED Attending Note
-
Portions of this chart may have been created with voice recognition software.� Occasional wrong word or��sound alike� substitutions may have occurred due to the inherent limitations of voice recognition software.
Discharge Plan
Departure
Patient Disposition: Home (Routine Discharge)
Date of Disposition: 04/05/24
Time of Disposition: 18:18
Patient with high blood pressure during this ER visit?: Yes
Discharge Problem:
Abdominal pain
Instructions: Abdominal Pain
Prescriptions:
New
ondansetron 4 mg Tablet,Disintegrating
4 mg PO TIDPRN PRN (Reason: nausea/vomiting) Qty: 8 0RF
No Action
loratadine 10 MG tablet
10 mg PO DAILY
amlodipine 5 MG tablet
5 mg PO DAILY Qty: 90 0RF
paroxetine HCl [Paxil] 20 mg Tablet
20 mg PO DAILY
clozapine [Clozaril] 200 mg Tablet
100 mg PO BID
prazosin 5 mg Capsule
5 mg PO HS
multivitamin Tablet
1 tab PO DAILY
acetaminophen [acetaminophen] 325 mg tablet
650 mg PO Q6HPRN PRN (Reason: mild pain) Qty: 14 0RF
ibuprofen 600 mg tablet
600 mg PO Q6H PRN (Reason: pain) Qty: 14 0RF
Referrals:
Steven Ordonez DO [Family Provider] -
Interventions
Interventions:
*Risk Screen - Suicide Last Done: 04/05/24 14:02
*General Assessment Last Done: 04/05/24 14:02
*Neglect/Abuse Screening Last Done: 04/05/24 14:02
*Nursing Disposition Last Done: 04/05/24 19:23
HI-Lshvlt-Fznpoldbbh Assessment Last Done: 04/05/24 19:23
Discharge Date and Time
Discharge Date/Time: 04/05/24 19:24
Print Language: CITIZEN OF [place]
[2024-04-05] MEDS: MOTRIN 600 MG PO (18:12)
[2024-04-05] MEDS: ZOFRAN ODT (ORALLY DISINTEGRATING) 4 MG PO (18:12)
[2024-04-05 19:23] VITALS: BP 139/77
== END 2024-04-05 19:24 | disposition home or self-care (01) ==
LOC: EMR 13:26
PROVIDERS: Emergency Medicine; EMERGENCY PHYSICIAN Emergency Medicine; FAMILY PHYSICIAN Family Medicine
DX: R10.9 Unspecified abdominal pain (principal); R62.50 Unspecified lack of expected normal physiological development in childhood; I10 Essential (primary) hypertension; F84.0 Autistic disorder; Q86.0 Fetal alcohol syndrome (dysmorphic); F81.9 Developmental disorder of scholastic skills, unspecified; F32.9 Major depressive disorder, single episode, unspecified; F41.9 Anxiety disorder, unspecified; F43.10 Post-traumatic stress disorder, unspecified; M19.90 Unspecified osteoarthritis, unspecified site; Z77.22 Contact with and (suspected) exposure to environmental tobacco smoke (acute) (chronic); Z86.718 Personal history of other venous thrombosis and embolism
CPT/HCPCS: 99284; 76700; 80053; 83690; 84703; 85025; 93005

== ENCOUNTER 2024-04-11 13:17 | Emergency (ER) | payer OTHER, MEDICARE, SELFPAY ==
[2024-04-11 13:23] VITALS: BP 147/108
[2024-04-11 13:47] LABS: % Basophils 0.2 % (0-2); % Immature Granulocytes 0.9 % (0-0.5); % Lymphocytes 8.2 % (20.5-51.1); % Monocytes 1.5 % (1.7-9.3); % Neutrophils 89.2 % (42.2-75.2); Absolute Immature Granulocytes 0.2 10^3/uL (0-0.05); Absolute Lymphocytes 1.4 10^3/uL (1.2-3.4); Absolute Monocytes 0.3 10^3/uL (0.1-0.6); Absolute Neutrophils 15.7 10^3/uL (1.4-6.5); Hematocrit 41.1 % (37.0-47.0); Hemoglobin 13.3 g/dL (12.0-16.0); Mean Corp Hgb Conc. 32.4 g/dL (33.0-37.0); Mean Corpuscular Hgb 26.3 pg (27.0-31.0); Mean Corpuscular Volume 81.4 fL (81.0-99.0); Nucleated Red Blood Cells % 0 %; Platelet Count 428 10^3/uL (130-400); Red Blood Cell Count 5.05 10^6/uL (4.20-5.40); Red Cell Dist. Width 14.9 % (11.5-14.5); White Blood Cell Count 17.6 10^3/uL (4.8-10.8)
[2024-04-11 14:09] LABS: ALT (SGPT) 20 U/L (0-35); AST (SGOT) 16 U/L (14-36); Albumin 4.6 g/dl (3.5-5.0); Alkaline Phosphatase 76 U/L (38-126); Blood Urea Nitrogen 25 mg/dl (7-17); Calcium 10.1 mg/dl (8.4-10.2); Chloride 101 mmol/L (98-107); Glucose 113 mg/dl (70-99); Lipase 71 U/L (23-300); Potassium 5.1 mmol/L (3.5-5.1); Sodium 140 mmol/L (135-145); Total Bilirubin 0.2 mg/dl (0.2-1.3); Total Protein 7.8 g/dl (6.3-8.2); eGFR > 60.00
[2024-04-11 14:11] LABS: Carbon Dioxide 27 mmol/L (22-30)
--- NOTE | 2024-04-11 15:54 | ED.GENMED ---
History of Present Illness
General
Chief Complaint: Abdominal Pain
Source: patient and records
Time Seen by Provider: 04/11/24 15:36
History of Present Illness
History of Present Illness:
28yoF with a history of bipolar disorder, hypertension, GERD, hypothyroidism, anxiety, and depression presenting for evaluation of abdominal pain. Patient reports 2 weeks of right upper quadrant pain and nausea/vomiting. She was seen in the ED
04/05/24 and upper abdominal ultrasound was normal at that time. She was discharged with Zofran which has not been effective. Her pain is now radiating to the R flank and RLQ. She was seen by her PCP today and sent back to the ED for evaluation. She
states she is urinating more than usual but she denies any dysuria or hematuria. No fevers. No previous abdominal surgeries.
Past History
Past History
ED Past Medical History: HTN, Psychiatric (Autism, alcohol syndrome, learning disability, major depression, anxiety, PTSD, Bipolar Schitzo affective disorder) and Other (Headaches, gastric emptying issues, Vertigo, Arthritis, DVT, )
ED Past Surgical History: Bowel resection, Orthopedic (Right club foot repair, ) and Other (Neck surgery )
Social History
Tobacco: 2nd hand smoke exposure
Alcohol: None
Drug: None
Personal: Single
Living: with family
Employment: Employed
Family History
Family History: Other (Noncontributory)
Phy Exam
General Physical Exam
General Presentation: well appearing and no apparent distress
General age: appears stated age
General Skin: warm and dry
General Habitus: normal
General Mental: alert
ENT Exam
ENT Exam: normocephalic
Cardiovascular Exam
Cardiovascular Exam: regular rate/rhythm and no murmur
Pulmonary Exam
Pulmonary Exam: lungs clear, no respiratory distress, no crackles and no wheezing
Gastrointestinal Exam
Gastrointestinal Exam: soft, non distended and other (+Tenderness to RUQ and RLQ. +R CVA tenderness. Abdomen soft, obese. No rebound tenderness or guarding. )
Skin Exam
Skin Exam: normal color and warm/dry
Psychiatric Exam
Psychiatric Exam: normal mood/affect
Course
Orders/Labs/Results
Orders:
Orders
04/11/24 13:32
Complete Blood Count/With Diff Urgent
Comprehensive Metabolic Panel Urgent
HCG, Serum Qualitative Screen Urgent
Comment: HCG QUALITATIVE ADDED ON BY FLOOR 4:30PM 04-11-24
Lipase Urgent
04/11/24 15:54
0.9% Sodium Chloride 500 ml [Nss] 500 ml IV BOLUS
04/11/24 15:55
CT Abd/pelvis W Iv Cont Urgent
Comment:
Reason For Exam: R sided abd pain, flank pain
04/11/24 16:29
Add On- LAB Urgent
Tests Added?: Qualitative HCG
04/11/24 16:34
[place] Urgent
04/11/24 16:47
Promethazine [Phenergan] 25 mg IM NOW STA
04/11/24 17:37
Urinalysis Reflex To Culture Urgent
Date Specimen was Collected: 04/11/24
Time Specimen was Collected: 13:26
Abnormal Lab Results
04/11/24 04/11/24
13:32 16:34
WBC 17.6 H 10^3/uL
(4.8-10.8)
MCH 26.3 L pg
(27.0-31.0)
MCHC 32.4 L g/dL
(33.0-37.0)
RDW 14.9 H %
(11.5-14.5)
Plt Count 428 H 10^3/uL
(130-400)
Abs Immat Gran (auto) 0.2 H 10^3/uL
(0-0.05)
Absolute Neuts (auto) 15.7 H 10^3/uL
(1.4-6.5)
Immature Gran % 0.9 H %
(0-0.5)
Neutrophils % 89.2 H %
(42.2-75.2)
Lymphocytes % 8.2 L %
(20.5-51.1)
Monocytes % 1.5 L %
(1.7-9.3)
BUN 25 H mg/dl
(7-17)
Glucose 113 H mg/dl
(70-99)
[place] < 0.2 L mmol/L
(0.6-1.2)
04/11/24 13:32
04/11/24 13:32
Vital Signs
Initial and Last Documented VS:
Initial Vital Signs
Temp Pulse BP Pulse Ox
98.0 F 120 147/108 95
04/11/24 13:23 04/11/24 13:23 04/11/24 13:23 04/11/24 13:23
Last Documented Vital Signs
Temp Pulse Resp BP Pulse Ox
98.0 F 100 16 152/92 99
04/11/24 13:23 04/11/24 20:45 04/11/24 20:45 04/11/24 20:45 04/11/24 20:45
MDM/Problems Addressed
Differential Diagnosis Includes:
28yoF here with RUQ pain and n/v x 2 weeks. Seen here last week for the same. Here with persistent symptoms and now pain is radiating to the R flank/RLQ. Sent here by PCP. HR 120 in triage. Remainder of vitals stable. She is well appearing in no
distress. No signs of peritonitis on abdominal exam. Differential diagnosis includes but is not limited to: appendicitis, colitis, kidney stone, pyelonephritis, gastroenteritis, nonspecific abdominal pain
Initial ED plan: Abdominal labs obtained in triage. White count is 17. Upon review of prior labs, she does appear to have a chronic leukocytosis although WBC is slightly worse than slight week (14.2 at that time). This is nonspecific and may be
reactive 2/2 vomiting. Remainder of labs unremarkable including normal electrolytes, lipase, renal function, LFTs. Will add on HCG, lithium level, UA, and CT abdomen. IM phenergan and fluid bolus for symptoms.
*Critical Care Note
Total Time (30-74mins, 75-104mins- exclusive of procedures): Not Applicable
Update Note
Update Note:
[place] level is low. HCG negative. UA bland without signs of infection. CT abdomen is negative for acute findings. There is a lung nodule seen incidentally which patient was notified of. She denies any history of smoking. She was advised to
follow-up with her PCP for this finding. Patient is feeling much better on reassessment and she states the Phenergan worked much better than Zofran. No episodes of vomiting during ED stay. She is stable for discharge. Prescription for Phenergan
provided. Advise follow-up with gastroenterology. ED return precautions discussed. She expressed understanding and is agreeable to plan. She was discharged in stable condition.
ED Attending Note
-
Portions of this chart may have been created with voice recognition software.� Occasional wrong word or��sound alike� substitutions may have occurred due to the inherent limitations of voice recognition software.
Discharge Plan
Departure
Patient Disposition: Home (Routine Discharge)
Date of Disposition: 04/11/24
Time of Disposition: 20:07
Patient with high blood pressure during this ER visit?: No
Discharge Problem:
Nonspecific abdominal pain, Nausea & vomiting, Incidental lung nodule
Instructions: Nausea and Vomiting, Adult (DC)
Prescriptions:
New
promethazine 25 mg tablet
25 mg PO TID PRN (Reason: nausea and vomiting) Qty: 15 0RF
No Action
loratadine 10 MG tablet
10 mg PO DAILY
amlodipine 5 MG tablet
5 mg PO DAILY Qty: 90 0RF
paroxetine HCl [Paxil] 20 mg Tablet
20 mg PO DAILY
clozapine [Clozaril] 200 mg Tablet
100 mg PO BID
prazosin 5 mg Capsule
5 mg PO HS
multivitamin Tablet
1 tab PO DAILY
acetaminophen [acetaminophen] 325 mg tablet
650 mg PO Q6HPRN PRN (Reason: mild pain) Qty: 14 0RF
ibuprofen 600 mg tablet
600 mg PO Q6H PRN (Reason: pain) Qty: 14 0RF
ondansetron 4 mg Tablet,Disintegrating
4 mg PO TIDPRN PRN (Reason: nausea/vomiting) Qty: 8 0RF
Referrals:
João Zelaya MD [Active] -
Steven Ordonez DO [Family Provider] -
Activity Restrictions/Additional Instructions:
Take Phenergan as needed for nausea. Do not take this with Zofran. Drink plenty of fluids and eat a bland diet (bananas, rice, applesauce, toast).
Please follow-up with your family doctor and gastroenterology. Return to the ER with any new or worsening symptoms.
Interventions
Interventions:
*Risk Screen - Suicide Last Done: 04/11/24 13:24
*General Assessment Last Done: 04/11/24 16:40
*Neglect/Abuse Screening Last Done: 04/11/24 13:24
ED- Fall Risk Assessment Last Done: 04/11/24 20:45
*ED COVID-19 Vaccine History Last Done: 04/11/24 16:40
*Nursing Disposition Last Done: 04/11/24 20:45
HP-Dkiptu-Ohrolrliai Assessment Last Done: 04/11/24 16:40
Discharge Date and Time
Discharge Date/Time: 04/11/24 20:45
Print Language: KOSOVAN
[2024-04-11 16:39] VITALS: BMI 45.7
[2024-04-11 16:42] VITALS: BP 137/87
[2024-04-11] MEDS: NSS 500 IV (17:00)
[2024-04-11 17:03] LABS: Lithium < 0.2 mmol/L (0.6-1.2)
[2024-04-11] MEDS: PHENERGAN 25 MG IM (17:34)
[2024-04-11 18:07] LABS: HCG, Serum Qualitative Screen Negative
[2024-04-11 18:09] LABS: Urine Albumin Negative (Neg - Trace); Urine Bilirubin Negative (Negative); Urine Character Clear (Clear); Urine Color Yellow; Urine Glucose Negative (Negative); Urine Ketone Negative (Negative); Urine Leukocyte Negative (Negative); Urine Nitrite Negative (Negative); Urine Occult Blood Negative (Negative); Urine Urobilinogen Negative (Neg - 1+); Urine pH 6.5 (5.0-9.0)
[2024-04-11 20:45] VITALS: BP 152/92
== END 2024-04-11 20:45 | disposition home or self-care (01) ==
LOC: EMR 13:17
PROVIDERS: Emergency Medicine; Physician Assistant; EMERGENCY PHYSICIAN Student in an Organized Health Care Education/Training Program; FAMILY PHYSICIAN Family Medicine
DX: R10.31 Right lower quadrant pain (principal); R11.2 Nausea with vomiting, unspecified; R10.11 Right upper quadrant pain; R91.1 Solitary pulmonary nodule; F31.9 Bipolar disorder, unspecified; I10 Essential (primary) hypertension; K21.9 Gastro-esophageal reflux disease without esophagitis; E03.9 Hypothyroidism, unspecified; F32.A Depression, unspecified; F84.0 Autistic disorder; F43.10 Post-traumatic stress disorder, unspecified; F41.9 Anxiety disorder, unspecified; M19.90 Unspecified osteoarthritis, unspecified site; F25.9 Schizoaffective disorder, unspecified; Z86.718 Personal history of other venous thrombosis and embolism; Z77.22 Contact with and (suspected) exposure to environmental tobacco smoke (acute) (chronic); Z88.0 Allergy status to penicillin; Z88.8 Allergy status to other drugs, medicaments and biological substances; Z88.1 Allergy status to other antibiotic agents; Z91.018 Allergy to other foods
CPT/HCPCS: 99284; 96372; 74177; 80053; 80178; 81003; 83690; 84703; 85025; Q9967

== ENCOUNTER → 2024-05-02 07:03 | Outpatient (REF) | payer MEDICARE, OTHER, SELFPAY ==
[2024-05-02 08:04] LABS: % Basophils 0.4 % (0-2); % Eosinophils 1.6 % (0-6); % Immature Granulocytes 0.4 % (0-0.5); % Lymphocytes 16.3 % (20.5-51.1); % Monocytes 3.4 % (1.7-9.3); % Neutrophils 77.9 % (42.2-75.2); Absolute Basophils 0.1 10^3/uL (0-0.2); Absolute Eosinophils 0.2 10^3/uL (0-0.7); Absolute Immature Granulocytes 0.1 10^3/uL (0-0.05); Absolute Lymphocytes 2.1 10^3/uL (1.2-3.4); Absolute Monocytes 0.4 10^3/uL (0.1-0.6); Hemoglobin 12.1 g/dL (12.0-16.0); Mean Corpuscular Hgb 26.1 pg (27.0-31.0); Mean Corpuscular Volume 84.1 fL (81.0-99.0); Mean Platelet Volume 9.1 fL (7.4-10.4); Nucleated Red Blood Cells % 0 %; Platelet Count 350 10^3/uL (130-400); Red Blood Cell Count 4.64 10^6/uL (4.20-5.40); Red Cell Dist. Width 15.4 % (11.5-14.5); White Blood Cell Count 12.8 10^3/uL (4.8-10.8)
[2024-05-02 09:18] LABS: Lithium < 0.2 mmol/L (0.6-1.2)
== END ==
LOC: REG 07:03
PROVIDERS: ATTENDING PHYSICIAN Family Medicine
DX: R79.89 Other specified abnormal findings of blood chemistry (principal); R78.89 Finding of other specified substances, not normally found in blood
CPT/HCPCS: 36415; 80178; 85025

== ENCOUNTER → 2024-05-03 14:43 | Outpatient (REF) | payer MEDICARE, OTHER, SELFPAY ==
[2024-05-03 16:35] LABS: Iron 45 ug/dl (37-170)
[2024-05-03 17:10] LABS: TSH Reflex To Free T4 1.88 uIU/ml (0.47-4.68)
[2024-05-03 17:14] LABS: Ferritin 17.2 ng/ml (6.24-137)
[2024-05-04 13:03] LABS: tTG IgA Antibody 3.3 EU/ml (0-19)
[2024-05-05 06:59] LABS: IgA 212 mg/dl (70-400); IgG 1081 mg/dl (700-1600); IgM 104 mg/dl (40-230)
[2024-05-05 20:23] LABS: Alpha-1-Antitrypsin 187 mg/dL (90-200); Ceruloplasmin 38 mg/dL (16-45)
[2024-05-05 22:54] LABS: ANA, IgG Reflex to HEp-2 None Detected (None Detected)
[2024-05-06 02:07] LABS: F-Actin Antibody IgG 10 Units (0-19); Mitochondrial M2 Ab, IgG 2.2 Units (0.0-24.9)
== END ==
LOC: REG 14:43
PROVIDERS: ATTENDING PHYSICIAN Internal Medicine Gastroenterology
DX: R19.7 Diarrhea, unspecified (principal); K76.0 Fatty (change of) liver, not elsewhere classified
CPT/HCPCS: 36415; 82103; 82390; 82728; 82784; 83516; 83540; 84443; 86015; 86038; 86376; 86381; 86704; 86706; 86708; 86803; 87340

== ENCOUNTER → 2024-05-04 11:53 | Outpatient (REF) | payer MEDICARE, OTHER, SELFPAY | LOC: REG 11:53 | PROVIDERS: ATTENDING PHYSICIAN Internal Medicine Gastroenterology; FAMILY PHYSICIAN Family Medicine | DX: R19.7 Diarrhea, unspecified (principal); K76.0 Fatty (change of) liver, not elsewhere classified | CPT/HCPCS: 83993; 87328; 87329 ==

== ENCOUNTER 2024-05-13 05:45 | Day surgery (SDC) | payer MEDICARE, OTHER, SELFPAY ==
[2024-05-13 08:15] VITALS: BP 110/64
[2024-05-13 08:20] VITALS: BMI 46.5
[2024-05-13 08:32] VITALS: BMI 46.5
[2024-05-13 10:04] VITALS: BP 99/68
[2024-05-13 10:15] VITALS: BP 109/70
[2024-05-13 10:30] VITALS: BP 116/65
== END 2024-05-13 11:09 | disposition home or self-care (01) ==
LOC: SDS 05:45
PROVIDERS: ATTENDING PHYSICIAN Internal Medicine Gastroenterology
DX: R10.84 Generalized abdominal pain (principal); R13.10 Dysphagia, unspecified; R12 Heartburn; R11.2 Nausea with vomiting, unspecified; K29.50 Unspecified chronic gastritis without bleeding; K31.89 Other diseases of stomach and duodenum
CPT/HCPCS: 43239; 88305; 88342

== ENCOUNTER 2024-05-24 10:51 | Inpatient (IN) | payer MEDICARE, OTHER, SELFPAY ==
[2024-05-23] VITALS (11 sets, daily range): BP systolic 120–150; BP diastolic 74–96; BMI 44.2
[2024-05-23] MEDS: CELEBREX 200 MG PO (11:32)
[2024-05-23] MEDS: TYLENOL 1000 MG PO (11:32)
--- NOTE | 2024-05-23 13:13 | VNURNOTE ---
Called to explain [facility] services. No answer. Left message.
--- NOTE | 2024-05-23 13:24 | VNURNOTE ---
[facility] liaison spoke with father Howie. He believes patient will stay overnight post op. He is interested in short term rehab as no one is home during the day to help patient. He would be interested in [facility] after rehab. Referral placed in
[facility]. Will watch hospital course and DC plans.
--- NOTE | 2024-05-23 18:56 | W.PN.UPDATE ---
Update Note
Progress Note Update
Patient s/p Right adult club foot reconstruction with Pantalar and midtalar arthrodesis
-NWB RLE
-PT/OT anticipate rehab placement
-Clinda q6 hours for 24 hours
-Lovenox while in house, D/C with Anticoagulation procautions
-Pain control PRN
-Dressings C/D/I
-Blood loss approximately 300mL
-Will follow
[2024-05-23] MEDS: ZOFRAN 4 MG IV (20:03)
[2024-05-23] MEDS: DILAUDID 0.5 MG IV ×2 (20:08→20:52)
--- NOTE | 2024-05-23 20:17 | W.PN.UPDATE ---
Update Note
Progress Note Update
Patient seen in conjunction with MAYNOR. I agree with the findings on history and physical as well as the assessment and plan.
This is a 28-year-old female who has complex past medical history significant for morbid obesity, hypertension, bipolar depression and anxiety, migraine headaches and GERD who presents to the hospital for elective procedure and is postop day #0
status post right clubfoot reconstruction with plantar arthrodesis. Patient seen in the PACU. She is recovering very well and has no acute complaints. No reported IntraOp complications. No immediate post operative complications.
Brief physical exam shows stable vital signs. She was afebrile with a temp of 98.7, blood pressure 131/76 pulse was 105. She was satting 93 to 95% on room air. Well-appearing no acute distress, morbidly obese, heart rate slightly tachycardic but
regular without any rubs or gallops. Abdomen obese but nondistended and nontender. The right lower extremity is in a splint to be maintained per podiatry.
Assessment and plan
Surgery - s/p R foot reconstruction per podiatry. Appreciate surgical recommendations and will follow
- regular diet in am
- non weight bearing, pancin control and dressings CDI
- clindamycin x 24 hours
- PT/OT eval for rehab
- lovenox for DVT PPX, exact d/c dvt ppx to be determined.
Hypertension
- continue amlodipine daily
Psych
- continue duloxetine bid
- lithium 300 hs
- prazosin 2mg po hs starting tomorrow
- continue citalopram
Code Status - Full Code
--- NOTE | 2024-05-23 20:23 | HPS.HSE ---
Family Physician
-
Family Physician: NO INTERVIEW UNKNOWN
Chief Complaint
-
Right Club Foot
History of Present Illness
Patient is a 28 y/o female past medical history of hypertension, anxiety/depression/bipolar/PTSD who was seen in the PACU following reconstruction surgery of her right club foot. Patient requires PT/OT evaluations as she will be required to be
non-weight bearing on the right foot post-op. She will likely need assistance at discharge and therefore will require case management consult. Hospitalist group was asked to evaluate the patient for admission to the hospital for her continued
post-op care.
Medical History
Past Medical History
Past Medical History: Reports Other
Additional Past Medical History:
Hypertension
Anxiety/Depression
Bipolar Disorder
PTSD
Hypothyroidism
GERD
Alcohol Spectrum Disorder
Past Surgical History: Reports Other
Additional Past Surgical History:
Right Club Foot Reconstruction
Lipoma Resection
Social History
Tobacco: Non-smoker
Alcohol: None
Living: With Family (Dad)
Family History
Family History: Not pertinent
Allergies / Home Medications
Allergies reflects when Allergies were last updated in [employer].
Home Medications with original date entered in [employer]
Allergy/Medication List:
Allergies
Allergy/AdvReac Type Severity Reaction Status Date / Time
gabapentin Allergy Mild Rash Verified 05/23/24 11:22
amoxicillin [Amoxicillin] Allergy Anaphylaxis Verified 05/23/24 11:22
Penicillins Allergy Hives Verified 05/23/24 11:22
tree nut Allergy Rash Verified 05/23/24 11:22
Home Medications
loratadine 10 mg tablet 10 mg PO DAILY PRN Allergies 03/20/21
amlodipine 5 mg tablet 5 mg PO DAILY #90 tabs 10/25/21
prazosin 5 mg capsule 2 mg PO HS 11/03/22
ondansetron 4 mg disintegrating tablet 4 mg PO TIDPRN PRN nausea/vomiting #8 tabs 04/05/24
promethazine 25 mg tablet 25 mg PO TID PRN nausea and vomiting #15 tabs 04/11/24
citalopram 10 mg tablet 10 mg PO DAILY 05/13/24
duloxetine 20 mg capsule,delayed release 20 mg PO BID 05/13/24
levothyroxine 25 mcg tablet 25 mcg PO DAILY 05/13/24
pantoprazole 40 mg tablet,delayed release 40 mg PO DAILY 05/13/24
rimegepant 75 mg disintegrating tablet (Nurtec ODT) 75 mg PO ONCE PRN migraine 05/13/24
lithium carbonate 300 mg tablet,extended release 300 mg PO HS 05/20/24
Review of Systems
-
A 12 point ROS was completed and negative except as noted: Yes
Abdomen/GI: Reports Nausea
Musculoskeletal: Reports Other (Right foot pain)
Physical Exam
Vital Signs
Vital Signs
Temp Pulse Resp BP Pulse Ox
97.3 F 95 13 147/83 98
05/23/24 19:45 05/23/24 20:15 05/23/24 20:15 05/23/24 20:15 05/23/24 20:15
Physical Exam
General: Well Developed, Well Nourished and Obese
HEENT: Anicteric and Moist mucous membranes
Respiratory: Clear and Non Labored Respirations
Cardiac: S1/S2, Regular Rhythm and Tachycardia (Slightly)
GI: Soft and Non Tender
Musculoskeletal: No Clubbing, No Cyanosis and Other (Right foot/ankle with splint wrapped in KANNAN)
Skin: Warm and Dry
Neuro: Awake, Alert, Oriented and Nonfocal/grossly intact
Psych: Calm
Data Reviewed
-
Old Records: Reviewed
Impression/Plan
-
Right Club Foot Reconstruction
-Care as per Podiatry
-Continue clindamycin
-Continue pain management
-Continue NWB
-Consult PT/OT
Hypertension
-Continue amlodipine and prazosin with hold parameters
Anxiety / Depression / Bipolar / PTSD
-Continue citalopram, duloxetine and lithium
Hypothyroidism
-Continue levothyroxine
GERD
-Continue Protonix
DVT Proph: Lovenox
Code Status: Full Code
--- NOTE | 2024-05-23 21:31 | PTCARENOTE ---
Patient received from PACU in bed on 2L NC; Right lower extremity splint and KANNAN wrap in place, right popliteal pulse +1 palpation; Denies N/V; Decreased sensation to RLE; Patient states pain is a zero following medications administered by PLAYGROUND DIRECTOR;
Call [facility] within reach; Patient oriented to room and unit; Bed in lowest position, wheels locked; Assessment ongoing
[2024-05-23] MEDS: MINIPRESS 2 MG PO (23:01)
[2024-05-23] MEDS: CLEOCIN 300 MG PO (23:01)
[2024-05-23] MEDS: LITHOBID (EXTENDED RELEASE) 300 MG PO (23:01)
[2024-05-24] VITALS (8 sets, daily range): BP systolic 106–140; BP diastolic 65–100; PULSE 106; O2SAT 95
[2024-05-24] MEDS: ROXICODONE 5 MG PO ×3 (01:57→12:17)
[2024-05-24] MEDS: CLEOCIN 300 MG PO ×4 (05:00→23:31)
[2024-05-24] MEDS: SYNTHROID 25 MCG PO (05:00)
[2024-05-24 07:18] LABS: Hematocrit 35.6 % (37.0-47.0); Hemoglobin 11.1 g/dL (12.0-16.0); Mean Corp Hgb Conc. 31.2 g/dL (33.0-37.0); Mean Corpuscular Hgb 25.8 pg (27.0-31.0); Mean Corpuscular Volume 82.8 fL (81.0-99.0); Mean Platelet Volume 9.4 fL (7.4-10.4); Platelet Count 378 10^3/uL (130-400); Red Cell Dist. Width 14.9 % (11.5-14.5); White Blood Cell Count 22.5 10^3/uL (4.8-10.8)
[2024-05-24 07:26] LABS: Blood Urea Nitrogen 14 mg/dl (7-17); Calcium 9.2 mg/dl (8.4-10.2); Carbon Dioxide 24 mmol/L (22-30); Chloride 103 mmol/L (98-107); Estimated Creatinine Clearance 115 ml/min; Glucose 132 mg/dl (70-99); Potassium 5.1 mmol/L (3.5-5.1); Sodium 138 mmol/L (135-145); eGFR > 60.00
--- NOTE | 2024-05-24 07:31 | W.PN.SURGUPD ---
Surgical Update
Surgical Update
Patient s/p Right adult club foot reconstruction with Pantalar arthrodesis 05/23
-Patient seen and evaluated at bedside. Recovering well but pain control could be improved
-Dressings C/D/I, to remain in place
-NWB RLE
-PT/OT - will require rehab placement
-Clinda q6 hours for 24 hours
-Lovenox while in house, D/C with Anticoagulation precautions
-Will continue to follow
[2024-05-24] MEDS: PROTONIX 40 MG PO (08:04)
[2024-05-24] MEDS: CELEXA 10 MG PO (08:04)
[2024-05-24] MEDS: CYMBALTA DELAYED RELEASE 20 MG PO ×2 (08:04→19:33)
[2024-05-24] MEDS: NORVASC PO (09:23)
--- NOTE | 2024-05-24 10:47 | CM ---
Addendum entered by Elba Snyder 05/24/24 16:43:
Auth approved [id number] for transfer tomorrow. Please call report to [phone]/fax [phone]. CM sent auth information via [employer].
Addendum entered by Elba Snyder 05/24/24 15:28:
[facility] unable to accept patient due to non acute rehab diagnosis per liaison. Referral sent to [facility] and to [place] for review.
Original Note:
Patient seen at bedside with patient father. Patient stated that she understood she would need to go to a SNF vs Acute rehab. Patient and father stated that they wanted patient to go to Acute Rehab as patient would have no help during the day.
Patient seen by therapy and per PT recommendation is for SNF. CM requested liaison from [facility] to review patient to assist in clarification of needs. Also patient requested [facility] for SNF level if that is what was appropriate. Patient has
diagnosis that need review for PASSR possible level II. Patient lives with father and brother in 2 story home. Patient has no bathroom on the first floor. Patient PCP is DR. Rushing and she uses the [facility]. Patient has been seen by [facility]
and they will follow with patient following rehab stay per father and liaison. CM will review and continue to follow for discharge planning needs.
Plan; SNF vs Acute Rehab; patient needs auth from [facility].
--- NOTE | 2024-05-24 11:02 | W.PN.HOSP.TC ---
Today's Communication/Plan
-
Discharge planning
Assessment / Plan
Assessment / Plan
Gen-AAOx3, NAD
HEENT-NC, AT, anicteric, clear oral mm
Neck-supple
CV-reg, no M, +S1/S2
Lungs-clear B/L
Abd-soft, NT, ND
Ext-no edema
Musculoskeletal-no cyanosis, clubbing
Skin-warm and dry
Neuro-grossly non-focal
Psych-calm, cooperative
Right clubfoot -underwent reconstructive surgery 05/23 by podiatry. Stable postop. Continue analgesics. Continue PT/OT. Antibiotics per podiatry.
Hypothyroidism -continue levothyroxine.
Essential hypertension
GERD
Anxiety/depression/bipolar/PTSD -continue home meds.
Morbid obesity due to excess calories
Full code
Dispo -medically stable for discharge to SNF. Case management aware.
Anticipated Discharge: Within 24 hours
Subjective/Interval History
-
Date of Service: May 24, 2024
Patient seen and examined. Complaining of anxiety. Complaining of right foot pain.
Objective Data
-
Labs:
Laboratory Results
05/24/24
06:05
WBC 22.5 H
Hgb 11.1 L
Hct 35.6 L
Plt Count 378
Sodium 138
Potassium 5.1
Chloride 103
Carbon Dioxide 24
BUN 14
Creatinine 0.9
Glucose 132 H
Calcium 9.2
Vital Signs:
Vital Signs
Temp Pulse Resp BP Pulse Ox
97.8 F 106 18 116/78 95
05/24/24 07:00 05/24/24 09:23 05/24/24 07:00 05/24/24 09:23 05/24/24 07:00
I&O
05/23/24 05/24/24 05/25/24
06:59 06:59 06:59
Intake Total 1060 / 1060
Balance 1060 / 1060
Review of Systems
-
History Source: Patient
All other systems: Reviewed and negative
[2024-05-24] MEDS: TYLENOL 1000 MG PO (14:42)
[2024-05-24] MEDS: XANAX 0.25 MG PO (16:01)
[2024-05-24] MEDS: ROXICODONE 10 MG PO ×2 (16:17→20:30)
[2024-05-24] MEDS: LOVENOX 40 MG SC (17:28)
[2024-05-24] MEDS: MIRALAX 17 GRAMS PO (20:30)
[2024-05-24] MEDS: SENOKOT 8.6 MG PO (21:15)
[2024-05-24] MEDS: LITHOBID (EXTENDED RELEASE) 300 MG PO (21:15)
[2024-05-24] MEDS: MINIPRESS 2 MG PO (21:15)
[2024-05-25] MEDS: CLEOCIN 300 MG PO (06:12)
[2024-05-25] MEDS: SYNTHROID 25 MCG PO (06:13)
[2024-05-25] MEDS: ROXICODONE 10 MG PO ×3 (06:13→14:17)
[2024-05-25] MEDS: NORVASC 5 MG PO (07:56)
[2024-05-25] MEDS: TYLENOL 1000 MG PO ×2 (07:56→15:43)
[2024-05-25] MEDS: CELEXA 10 MG PO (07:56)
[2024-05-25] MEDS: CYMBALTA DELAYED RELEASE 20 MG PO (07:57)
[2024-05-25] MEDS: PROTONIX 40 MG PO (07:57)
[2024-05-25 08:07] VITALS: BP 116/77
--- NOTE | 2024-05-25 10:36 | W.PN.HOSP.TC ---
Today's Communication/Plan
-
Discharge
Assessment / Plan
Assessment / Plan
Gen-AAOx3, NAD
HEENT-NC, AT, anicteric, clear oral mm
Neck-supple
CV-reg, no M, +S1/S2
Lungs-clear B/L
Abd-soft, NT, ND
Ext-no edema
Musculoskeletal-no cyanosis, clubbing
Skin-warm and dry
Neuro-grossly non-focal
Psych-calm, cooperative
Right clubfoot -underwent reconstructive surgery 05/23 by podiatry. Stable postop. Continue analgesics. Continue PT/OT. Antibiotics per podiatry.
Hypothyroidism -continue levothyroxine.
Essential hypertension
GERD
Anxiety/depression/bipolar/PTSD -continue home meds.
Morbid obesity due to excess calories
Full code
Dispo -medically stable for discharge to SNF. Case management aware.
This patient will likely require less than 30 days for care home services as her symptoms and behaviors are stable.
32 minutes spent in discharge process.
Anticipated Discharge: Today
Subjective/Interval History
-
Date of Service: May 25, 2024
Patient seen and examined. No complaints.
Objective Data
-
Vital Signs:
Vital Signs
Temp Pulse Resp BP Pulse Ox
98.1 F 110 20 116/77 94
05/25/24 08:07 05/25/24 08:07 05/25/24 08:07 05/25/24 08:07 05/25/24 08:07
I&O
05/24/24 05/25/24 05/26/24
06:59 06:59 06:59
Intake Total 1060 / 1060 1680 / 1680
Balance 1060 / 1060 1680 / 1680
Review of Systems
-
History Source: Patient
All other systems: Reviewed and negative
--- NOTE | 2024-05-25 10:44 | W.DS.TRANS ---
DC Summary - [employer]
-
Discharge Instructions:
Sleep Apnea Risk Intermediate
Discharge Diagnosis/Procedures Right-sided clubfoot
Diet Regular
Activity As tolerated,With assistance
Driving Restrictions No driving
Bathing Restrictions None
Instructions:
Stand-Alone Forms:
Changes to Home Medications: No
Discharge Medications:
DC Medications w/original date entered in [employer]
loratadine 10 mg tablet 10 mg PO DAILY PRN Allergies 03/20/21
amlodipine 5 mg tablet 5 mg PO DAILY #90 tabs 10/25/21
prazosin 5 mg capsule 2 mg PO HS 11/03/22
ondansetron 4 mg disintegrating tablet 4 mg PO TIDPRN PRN nausea/vomiting #8 tabs 04/05/24
promethazine 25 mg tablet 25 mg PO TID PRN nausea and vomiting #15 tabs 04/11/24
citalopram 10 mg tablet 10 mg PO DAILY 05/13/24
duloxetine 20 mg capsule,delayed release 20 mg PO BID 05/13/24
levothyroxine 25 mcg tablet 25 mcg PO DAILY 05/13/24
pantoprazole 40 mg tablet,delayed release 40 mg PO DAILY 05/13/24
rimegepant 75 mg disintegrating tablet (Nurtec ODT) 75 mg PO ONCE PRN migraine 05/13/24
lithium carbonate 300 mg tablet,extended release 300 mg PO HS 05/20/24
ibuprofen 600 mg tablet 600 mg PO Q4HPRN PRN swelling #0 tabs 05/25/24
oxycodone 5 mg tablet 5 mg PO Q4HPRN PRN moderate pain #10 tabs 05/25/24
Home Medication Changes
Pending Results: No
--- NOTE | 2024-05-25 11:26 | CM ---
Addendum entered by Lorna Suarez 05/25/24 12:49:
Transport at 3:45PM
Facility made aware
Pt and her father aware
Original Note:
Pt for discharge today
Joseline at [facility] notified of transfer
Spoke with pts father - aware of discharge today and plan - agreed with plan
Discussed IMM
Auth info given to Joseline at [facility] previously
Plan - transfer to [facility]
report - [phone]
fax - [phone]
[2024-05-25 15:43] VITALS: BP 164/106
--- NOTE | 2024-05-25 16:11 | CM ---
Received call from [place] at [facility]. Approved for level 1 SNF with admit date of 05/25, LCD 05/31, with NRD 06/01. Fax clinical updates/concurrent reviews to [phone], Concurrent review nurse is Madie at [phone]. Auth number [id number].
Update to LUANNE and CINDY left for [facility]
--- NOTE | 2024-05-25 20:32 | W.PN.SURGUPD ---
Surgical Update
Surgical Update
Patient s/p Right adult club foot reconstruction with Pantalar arthrodesis 05/23
-Patient seen and evaluated at bedside. Recovering well. Nerve block was worn off but pain appears well controlled
-Toes pink and well perfused. Denies any calf pain. Posterior splint C/D/I
-DC anticipated to rehab today
-Patient will follow up at [facility] in 10-14 days
== END 2024-05-25 17:15 | DRG 504 ==
LOC: 2 SOUTH 10:51
PROVIDERS: Physician Assistant Medical; Student in an Organized Health Care Education/Training Program; ADMITTING PHYSICIAN Hospitalist
PROC: 0L8N3ZZ Division of Right Lower Leg Tendon, Percutaneous Approach (ICD-10-PCS; 2024-05-23)
PROC: 0SGH07Z Fusion of Right Tarsal Joint with Autologous Tissue Substitute, Open Approach (ICD-10-PCS; 2024-05-23)
DX: Q66.89 Other specified congenital deformities of feet (principal); F31.89 Other bipolar disorder; Z68.41 Body mass index [BMI] 40.0-44.9, adult; M19.071 Primary osteoarthritis, right ankle and foot; E03.9 Hypothyroidism, unspecified; I10 Essential (primary) hypertension; E66.01 Morbid (severe) obesity due to excess calories; K21.9 Gastro-esophageal reflux disease without esophagitis; F43.10 Post-traumatic stress disorder, unspecified; F41.1 Generalized anxiety disorder; F25.9 Schizoaffective disorder, unspecified; Z79.890 Hormone replacement therapy; Z79.899 Other long term (current) drug therapy; Z86.718 Personal history of other venous thrombosis and embolism; Z79.01 Long term (current) use of anticoagulants; Z88.0 Allergy status to penicillin
CPT/HCPCS: 73610; 76000; 80048; 85027; 97162; 97166; 97530

== ENCOUNTER 2024-07-08 12:21 | Emergency (ER) | payer MEDICARE, OTHER, SELFPAY ==
--- NOTE | 2024-07-08 13:48 | ED.MUSCINJ ---
HPI-Injury
General
Chief Complaint: Extremity Pain (non-traumatic)
Time Seen by Provider: 07/08/24 13:18
History of Present Illness-Injury
Initial Injury comments:
Patient is a 29-year-old female with past medical history of developmental delay, migraine disorder, hypertension, hypothyroidism, anxiety, and history of prior DVT x 2 here today for evaluation of approximately 1.5 weeks of left calf pain.
Symptoms have been worsening overall. This morning, the patient noted vomiting associated with chest pain and shortness of breath. No fevers. No cough. The patient did recently undergo surgery on her right lower extremity for arthritis on
05/23/2024 with [facility] orth[facility]. She was previously on anticoagulation but stopped this secondary to the surgery. She is currently off anticoagulation now. She believes she suffered her first DVT as she was on control.
Past History
Past History
ED Past Medical History: HTN, Psychiatric (Autism, alcohol syndrome, learning disability, major depression, anxiety, PTSD, Bipolar Schitzo affective disorder) and Other (Headaches, gastric emptying issues, Vertigo, Arthritis, DVT, )
ED Past Surgical History: Bowel resection, Orthopedic (Right club foot repair, ) and Other (Neck surgery )
Social History
Tobacco: 2nd hand smoke exposure
Alcohol: None
Drug: None
Personal: Single
Living: with family
Employment: Employed
Family History
Family History: Other (Noncontributory)
Review of Systems
Review of Systems
All Other Systems: ROS reviewed and negative except as documented in HPI and ROS
Phy Exam
Physical Exam
Physical Exam:
GENERAL: Alert , in no apparent distress
EYE: pupils equal and reactive
NECK: Supple
ENT: o/p clr, mmm.
CARDIAC: Regular rate and rhythm .
LUNGS: Clear breath sounds bilaterally, no acute respiratory distress, no wheezes/rales/rhonchi
NEUROLOGICAL: Alert and oriented, no focal neuro deficits
SKIN: Warm and dry, skin intact.
MUSCULOSKELETAL: Well perfused. There is a moderate amount of tenderness along the left calf with swelling noted. No palpable cord. Pulses 2+ throughout distally. Sensation intact. Trey wrap and boot noted to right lower extremity.
PSYCH: Normal and appropriate interaction.
Injury Course
Orders/Labs/Results
Orders:
Orders
07/08/24 12:25
US Legs, Left [US Periph Venous LOWER Ext LT] Urgent
Comment:
Reason For Exam: calf pain
07/08/24 14:03
BMP [Basic Metabolic Panel] Urgent
Complete Blood Count/With Diff Urgent
07/08/24 15:53
Acetaminophen [Tylenol] 650 mg PO NOW STA
07/08/24 17:26
Electrocardiogram (*1) Urgent
Reason for Study: Chest Pain
EKG- Treatment ONCE
CR Chest Portable - 1 View Urgent
Comment:
Reason For Exam: shortness of breath
Reason Study Needs to be Portable: Other
07/08/24 17:42
D-Dimer Urgent
Abnormal Lab Results
07/08/24
14:03
WBC 14.0 H 10^3/uL
(4.8-10.8)
Hgb 11.3 L g/dL
(12.0-16.0)
MCV 79.5 L fL
(81.0-99.0)
MCH 24.1 L pg
(27.0-31.0)
MCHC 30.3 L g/dL
(33.0-37.0)
RDW 15.3 H %
(11.5-14.5)
Plt Count 414 H 10^3/uL
(130-400)
Abs Immat Gran (auto) 0.1 H 10^3/uL
(0-0.05)
Absolute Neuts (auto) 10.6 H 10^3/uL
(1.4-6.5)
Neutrophils % 75.4 H %
(42.2-75.2)
Lymphocytes % 17.5 L %
(20.5-51.1)
Carbon Dioxide 31 H mmol/L
(22-30)
BUN 23 H mg/dl
(7-17)
07/08/24 14:03
07/08/24 14:03
MDM/Problems Addressed
Differential Diagnosis Includes:
Patient is a 29-year-old female with past medical history of developmental delay, migraine disorder, hypertension, hypothyroidism, anxiety, and history of prior DVT x 2 here today for evaluation of approximately 1.5 weeks of left calf pain.
Overall, patient appears well. Vitals within normal limits. Physical examination described above. Given symptoms/findings, will begin with ultrasound.
07/08/2024 18:19: Screening labs reveal an elevated white blood cell count of 14.0. Hemoglobin mildly decreased at 11.3. BUN 23 with a normal creatinine at 0.9. Bicarbonate 31. Ultrasound negative for DVT. Given patient's reported chest
pain/shortness of breath, an EKG and chest x-ray were obtained which are negative. This was also followed with a D-dimer which is within normal limits. Do not suspect VTE. Calf pain likely secondary to a strain vs. the fact that the patient has
been putting more weight on this secondary to her recent surgery along the contralateral extremity. Will recommend supportive measures and close follow-up with her doctor. All questions answered. Stable for discharge.
*EKG
Interpreted by ED Provider?: Yes
EKG Intrepretation Date: 07/08/24
EKG Intrepretation Time: 18:21
Interpretation: normal
Heart Rate: 89
Rate: normal
Rhythm: sinus
Bowman: normal axis
Interval: normal interval
QRS Pattern: normal QRS
Ischemia: no ischemia
*Critical Care Note
Total Time (30-74mins, 75-104mins- exclusive of procedures): Not Applicable
ED Attending Note
-
Portions of this chart may have been created with voice recognition software.� Occasional wrong word or��sound alike� substitutions may have occurred due to the inherent limitations of voice recognition software.
Discharge Plan
Departure
Patient Disposition: Home (Routine Discharge)
Date of Disposition: 07/08/24
Time of Disposition: 18:22
Patient with high blood pressure during this ER visit?: No
Condition: Good
Covid-19: Not Applicable
Discharge Problem:
Pain of left calf
Instructions: Musculoskeletal Pain
Prescriptions:
No Action
loratadine 10 MG tablet
10 mg PO DAILY PRN (Reason: Allergies)
amlodipine 5 MG tablet
5 mg PO DAILY Qty: 90 0RF
prazosin 5 mg Capsule
2 mg PO HS
ondansetron 4 mg Tablet,Disintegrating
4 mg PO TIDPRN PRN (Reason: nausea/vomiting) Qty: 8 0RF
promethazine 25 mg tablet
25 mg PO TID PRN (Reason: nausea and vomiting) Qty: 15 0RF
lithium carbonate 300 mg tablet extended release
300 mg PO HS
ibuprofen 600 mg Tablet
600 mg PO Q4HPRN PRN (Reason: swelling) Qty: 0 0RF
oxycodone 5 mg Tablet
5 mg PO Q4HPRN PRN (Reason: moderate pain) Qty: 10 0RF
citalopram 10 mg Tablet
10 mg PO DAILY
levothyroxine 25 mcg Tablet
25 mcg PO DAILY
pantoprazole 40 mg Tablet,Delayed Release (Dr/Ec)
40 mg PO DAILY
duloxetine 20 mg Capsule,Delayed Release(Dr/Ec)
20 mg PO BID
Nurtec ODT 75 mg Tablet,Disintegrating
75 mg PO ONCE PRN (Reason: migraine)
Referrals:
Steven Ordonez DO [Family Provider] - Follow up in 5-7 days
Activity Restrictions/Additional Instructions:
You were seen today for evaluation of calf pain. Your workup today is largely unremarkable.
There is slight increase in your white blood cell count of 14,000. Your hemoglobin is mildly decreased at 11.3.
Your ultrasound is negative for blood clot.
Follow-up with your doctor within the next 5 to 7 days for close reevaluation.
Return for any new, worsening, or concerning symptoms.
Interventions
Interventions:
*Risk Screen - Suicide Last Done: 07/08/24 14:39
*General Assessment Last Done: 07/08/24 12:23
*Neglect/Abuse Screening Last Done: 07/08/24 14:39
*ED COVID-19 Vaccine History Last Done: 07/08/24 14:39
*Nursing Disposition Last Done: 07/08/24 18:30
ED-Skin Assessment Last Done: 07/08/24 14:39
ED-Peripheral Vascular Assessment Last Done: 07/08/24 14:39
ED-Musculoskeletal Assessment Last Done: 07/08/24 14:39
Discharge Date and Time
Print Language: CHINESE
[2024-07-08 14:12] LABS: % Basophils 0.5 % (0-2); % Eosinophils 1.6 % (0-6); % Immature Granulocytes 0.4 % (0-0.5); % Lymphocytes 17.5 % (20.5-51.1); % Monocytes 4.6 % (1.7-9.3); % Neutrophils 75.4 % (42.2-75.2); Absolute Basophils 0.1 10^3/uL (0-0.2); Absolute Eosinophils 0.2 10^3/uL (0-0.7); Absolute Immature Granulocytes 0.1 10^3/uL (0-0.05); Absolute Lymphocytes 2.5 10^3/uL (1.2-3.4); Absolute Monocytes 0.6 10^3/uL (0.1-0.6); Absolute Neutrophils 10.6 10^3/uL (1.4-6.5); Hematocrit 37.3 % (37.0-47.0); Hemoglobin 11.3 g/dL (12.0-16.0); Mean Corp Hgb Conc. 30.3 g/dL (33.0-37.0); Mean Corpuscular Hgb 24.1 pg (27.0-31.0); Mean Corpuscular Volume 79.5 fL (81.0-99.0); Mean Platelet Volume 9.1 fL (7.4-10.4); Nucleated Red Blood Cells % 0 %; Platelet Count 414 10^3/uL (130-400); Red Blood Cell Count 4.69 10^6/uL (4.20-5.40); Red Cell Dist. Width 15.3 % (11.5-14.5)
[2024-07-08 14:22] LABS: Blood Urea Nitrogen 23 mg/dl (7-17); Calcium 9.5 mg/dl (8.4-10.2); Carbon Dioxide 31 mmol/L (22-30); Chloride 100 mmol/L (98-107); Glucose 97 mg/dl (70-99); Potassium 4.5 mmol/L (3.5-5.1); Sodium 139 mmol/L (135-145); eGFR > 60.00
[2024-07-08] MEDS: TYLENOL 650 MG PO (15:59)
[2024-07-08 18:05] LABS: D-Dimer 0.43 ug/mlFEU (0.00-0.50)
[2024-07-08 18:24] VITALS: BP 131/75
[2024-07-08 18:30] VITALS: BP 131/75
== END 2024-07-08 19:08 | disposition home or self-care (01) ==
LOC: EMR 12:21
PROVIDERS: Emergency Medicine; Physician Assistant; EMERGENCY PHYSICIAN Student in an Organized Health Care Education/Training Program; FAMILY PHYSICIAN Family Medicine
DX: M79.662 Pain in left lower leg (principal); R62.50 Unspecified lack of expected normal physiological development in childhood; I10 Essential (primary) hypertension; E03.9 Hypothyroidism, unspecified; F41.9 Anxiety disorder, unspecified; F84.0 Autistic disorder; M19.90 Unspecified osteoarthritis, unspecified site; Z77.22 Contact with and (suspected) exposure to environmental tobacco smoke (acute) (chronic); Z79.01 Long term (current) use of anticoagulants; Z86.718 Personal history of other venous thrombosis and embolism
CPT/HCPCS: 99284; 71045; 80048; 85025; 85379; 93971

== ENCOUNTER 2024-07-26 12:05 | Emergency (ER) | payer MEDICARE, OTHER, SELFPAY ==
[2024-07-26 12:09] VITALS: BP 152/95
[2024-07-26 12:32] LABS: % Basophils 0.2 % (0-2); % Eosinophils 0.9 % (0-6); % Immature Granulocytes 0.4 % (0-0.5); % Lymphocytes 14.9 % (20.5-51.1); % Monocytes 3.9 % (1.7-9.3); % Neutrophils 79.7 % (42.2-75.2); Absolute Eosinophils 0.1 10^3/uL (0-0.7); Absolute Immature Granulocytes 0.1 10^3/uL (0-0.05); Absolute Lymphocytes 1.9 10^3/uL (1.2-3.4); Absolute Monocytes 0.5 10^3/uL (0.1-0.6); Absolute Neutrophils 10.1 10^3/uL (1.4-6.5); Hematocrit 39.8 % (37.0-47.0); Mean Corp Hgb Conc. 30.2 g/dL (33.0-37.0); Mean Corpuscular Hgb 23.5 pg (27.0-31.0); Mean Platelet Volume 8.9 fL (7.4-10.4); Nucleated Red Blood Cells % 0 %; Platelet Count 430 10^3/uL (130-400); White Blood Cell Count 12.7 10^3/uL (4.8-10.8)
[2024-07-26 12:48] LABS: HCG, Serum Qualitative Screen Negative
[2024-07-26 12:53] LABS: COVID-19 Antigen Negative (Negative)
[2024-07-26 12:56] LABS: ALT (SGPT) 19 U/L (0-35); AST (SGOT) 18 U/L (14-36); Alkaline Phosphatase 133 U/L (38-126); Blood Urea Nitrogen 14 mg/dl (7-17); Calcium 9.4 mg/dl (8.4-10.2); Carbon Dioxide 28 mmol/L (22-30); Chloride 103 mmol/L (98-107); Glucose 116 mg/dl (70-99); Lactic Acid 1.6 mmol/L (0.7-2.0); Potassium 4.5 mmol/L (3.5-5.1); Sodium 138 mmol/L (135-145); Total Bilirubin 0.5 mg/dl (0.2-1.3); Total Protein 7.3 g/dl (6.3-8.2); eGFR > 60.00
--- NOTE | 2024-07-26 14:01 | ED.GENMED ---
History of Present Illness
<Abi Ewing PA-C - Last Filed: 07/26/24 18:54>
General
Chief Complaint: DVT/Possible Blood Clot
Source: patient
Exam Limitations: none
Time Seen by Provider: 07/26/24 13:59
Nursing documentation reviewed up to this point in time: agreed with
History of Present Illness
History of Present Illness:
This is a 29-year-old female with a past medical history of DVT, hypertension, hypothyroidism, bipolar disorder, developmental delay, PTSD, club foot presents emergency department with concerns of right foot pain and swelling. Patient has had this
since her surgery on May 23. On May 23, she had reconstructive surgery of the right club foot with pantalar arthrodesis. 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 She
denies shortness of breath. She does note some chest pain that started yesterday. She also has noted that she had intermittent episodes of nausea and vomiting as well as tactile fevers. She denies rash of her lower extremity. She denies any
purulent drainage from anywhere in her foot. She is currently ambulating with a walker at home and wears a walking boot and notes that despite use of ibuprofen and Tylenol, she does have persistent pain.
Past History
<Abi Ewing PA-C - Last Filed: 07/26/24 18:54>
Past History
ED Past Medical History: HTN, Psychiatric (Autism, alcohol syndrome, learning disability, major depression, anxiety, PTSD, Bipolar Schitzo affective disorder) and Other (Headaches, gastric emptying issues, Vertigo, Arthritis, DVT, )
ED Past Surgical History: Bowel resection, Orthopedic (Right club foot repair, ) and Other (Neck surgery )
Social History
Tobacco: 2nd hand smoke exposure
Alcohol: None
Drug: None
Personal: Single
Living: with family
Employment: Employed
Family History
Family History: Other (Noncontributory)
Review of Systems
<Abi Ewing PA-C - Last Filed: 07/26/24 18:54>
Review of Systems
All Other Systems: ROS reviewed and negative except as documented in HPI and ROS
Phy Exam
<Abi Ewing PA-C - Last Filed: 07/26/24 18:54>
Physical Exam
Physical Exam:
General: Patient is well appearing and in no acute distress; non-toxic
Skin: Warm and dry, patch of erythema noted to the top of the right foot with no purulent drainage
Head: Normocephalic, atraumatic
Eyes: Sclera non-icteric. EOMs intact.
Cardiac: Tachycardia noted otherwise regular rhythm, no murmurs
Peripheral Vascular: Right lower extremity edema. 2+ dorsalis pedis pulses bilaterally.
Pulm: Normal respiratory effort, no wheezes, rales, or rhonchi
Abdomen: No abdominal tenderness to palpation
Musculoskeletal: Tenderness to palpation noted over the right dorsal surface of the right foot, tenderness to palpation over the right Achilles
Neuro: CN II-XII intact, no focal neurologic deficits.
Psychiatric: Appropriate mood and affect.
Course
<Abi Ewing PA-C - Last Filed: 07/26/24 18:54>
Orders/Labs/Results
Orders:
Orders
07/26/24 12:13
Electrocardiogram (*1) Urgent
Reason for Study: Tachycardia
EKG- Treatment ONCE
Test Result ONCE
US Legs, Right [US Periph Venous LOWER Ext RT] Urgent
Comment:
Reason For Exam: pain and swelling
07/26/24 12:22
COVID-19 Antigen Urgent
Source: Nasal Swab
Complete Blood Count/With Diff Urgent
Comprehensive Metabolic Panel Urgent
HCG, Serum Qualitative Screen Urgent
Lactic Acid Urgent
Influenza A+B Rapid Molecular Urgent
EDDIE Source: Nasal Swab
Specimen Description:
07/26/24 14:17
0.9% Sodium Chloride 1000 ml [Nss] 1,000 ml IV BOLUS
Acetaminophen [Tylenol] 1,000 mg PO NOW STA
Ondansetron Injectable [Zofran] 4 mg IV NOW STA
CR Chest - 2 Views Urgent
Comment:
Reason For Exam: left sided chest pain
07/26/24 14:18
Electrocardiogram (*1) Urgent
Reason for Study: Chest Pain
EKG- Treatment ONCE
07/26/24 15:06
CR Ankle - Right 2 Views Urgent
Comment:
Reason For Exam: right ankle and foot pain
CR Foot - Right 2 Views Urgent
Comment:
Reason For Exam: right ankle and foot pain
Abnormal Lab Results
07/26/24
12:22
WBC 12.7 H 10^3/uL
(4.8-10.8)
MCV 78.0 L fL
(81.0-99.0)
MCH 23.5 L pg
(27.0-31.0)
MCHC 30.2 L g/dL
(33.0-37.0)
RDW 15.0 H %
(11.5-14.5)
Plt Count 430 H 10^3/uL
(130-400)
Abs Immat Gran (auto) 0.1 H 10^3/uL
(0-0.05)
Absolute Neuts (auto) 10.1 H 10^3/uL
(1.4-6.5)
Neutrophils % 79.7 H %
(42.2-75.2)
Lymphocytes % 14.9 L %
(20.5-51.1)
Glucose 116 H mg/dl
(70-99)
Alkaline Phosphatase 133 H U/L
(38-126)
07/26/24 12:22
07/26/24 12:22
Vital Signs
Initial and Last Documented VS:
Initial Vital Signs
Temp Pulse Resp BP Pulse Ox
100.4 F H 133 18 152/95 100
07/26/24 12:09 07/26/24 12:09 07/26/24 12:09 07/26/24 12:09 07/26/24 12:09
Last Documented Vital Signs
Temp Pulse Resp BP Pulse Ox
100.4 F H 104 20 128/89 97
07/26/24 12:09 07/26/24 17:11 07/26/24 17:11 07/26/24 17:11 07/26/24 17:11
<Ole Mcginnis, DO - Last Filed: 07/26/24 16:47>
Orders/Labs/Results
Orders:
Orders
07/26/24 12:13
Electrocardiogram (*1) Urgent
Reason for Study: Tachycardia
EKG- Treatment ONCE
Test Result ONCE
US Legs, Right [US Periph Venous LOWER Ext RT] Urgent
Comment:
Reason For Exam: pain and swelling
07/26/24 12:22
COVID-19 Antigen Urgent
Source: Nasal Swab
Complete Blood Count/With Diff Urgent
Comprehensive Metabolic Panel Urgent
HCG, Serum Qualitative Screen Urgent
Lactic Acid Urgent
Influenza A+B Rapid Molecular Urgent
EDDIE Source: Nasal Swab
Specimen Description:
07/26/24 14:17
0.9% Sodium Chloride 1000 ml [Nss] 1,000 ml IV BOLUS
Acetaminophen [Tylenol] 1,000 mg PO NOW STA
Ondansetron Injectable [Zofran] 4 mg IV NOW STA
CR Chest - 2 Views Urgent
Comment:
Reason For Exam: left sided chest pain
07/26/24 14:18
Electrocardiogram (*1) Urgent
Reason for Study: Chest Pain
EKG- Treatment ONCE
07/26/24 15:06
CR Ankle - Right 2 Views Urgent
Comment:
Reason For Exam: right ankle and foot pain
CR Foot - Right 2 Views Urgent
Comment:
Reason For Exam: right ankle and foot pain
Abnormal Lab Results
07/26/24
12:22
WBC 12.7 H 10^3/uL
(4.8-10.8)
MCV 78.0 L fL
(81.0-99.0)
MCH 23.5 L pg
(27.0-31.0)
MCHC 30.2 L g/dL
(33.0-37.0)
RDW 15.0 H %
(11.5-14.5)
Plt Count 430 H 10^3/uL
(130-400)
Abs Immat Gran (auto) 0.1 H 10^3/uL
(0-0.05)
Absolute Neuts (auto) 10.1 H 10^3/uL
(1.4-6.5)
Neutrophils % 79.7 H %
(42.2-75.2)
Lymphocytes % 14.9 L %
(20.5-51.1)
Glucose 116 H mg/dl
(70-99)
Alkaline Phosphatase 133 H U/L
(38-126)
07/26/24 12:22
07/26/24 12:22
Vital Signs
Initial and Last Documented VS:
Initial Vital Signs
Temp Pulse Resp BP Pulse Ox
100.4 F H 133 18 152/95 100
07/26/24 12:09 07/26/24 12:09 07/26/24 12:09 07/26/24 12:09 07/26/24 12:09
Last Documented Vital Signs
Temp Pulse Resp BP Pulse Ox
100.4 F H 104 20 128/89 97
07/26/24 12:09 07/26/24 17:11 07/26/24 17:11 07/26/24 17:11 07/26/24 17:11
<Abi Ewing PA-C - Last Filed: 07/26/24 18:54>
MDM/Problems Addressed
Differential Diagnosis Includes:
ddx include cellulitis, dvt, osteomyelitis, foot fracture, osteoarthritis
MDM/Problems Addressed:
29-year-old female with past medical history of clubfoot presents emergency department today with concerns of right foot pain. Foot pain has been present for months since she had surgery but has gotten increasingly worse this past week. She notes
difficulty with ambulation. She denies any recent falls. She started develop some nausea vomiting as well as subjective fever. Upon arrival to the emergency department she is febrile has mild leukocytosis however she is flu positive. Physical
exam she is tenderness palpation over the right foot and she does have some erythema noted over the dorsum as well as pitting edema. DVT study negative for DVT x-rays nonconcerning for osteomyelitis suspicion is low. Suspect potential sequela of
chronic foot pain/postoperative changes versus the beginnings of a cellulitis. 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 Navarro who feels the patient can be safely discharged and follow-up with a sooner outpt appointment and feels we should
cover with antibiotics incase of cellulitis. Patient has allergeies to amxoicillin and penicillins. Will start on doxycycline.
<Abi Ewing PA-C - Last Filed: 07/26/24 18:54>
*Pulse Oximetry
Patient hypoxic: no
*[employer] Interpretation
Rate: tachycardiac
Heart Rate: 109
Rhythm: sinus
*Critical Care Note
Total Time (30-74mins, 75-104mins- exclusive of procedures): Not Applicable
Data Reviewed
Review of Other/Old Records Reveals: Records (Madie reviewed discharge summary from 05/26/2024, reviewed operative report from 05/23/2024)
Source: patient
ED Attending Note
<Abi Ewing PA-C - Last Filed: 07/26/24 18:54>
-
Portions of this chart may have been created with voice recognition software.� Occasional wrong word or��sound alike� substitutions may have occurred due to the inherent limitations of voice recognition software.
<Ole Mcginnis DO - Last Filed: 07/26/24 16:47>
ED Attending Note
Patient seen and examined by attending physician: Yes
I performed the substantive portion of visit, reviewed & personally made and approve the management plan that is documented in note by myself or MAT.: Yes
ED Attending Note:
I evaluated the patient at bedside. No clear obvious signs of cellulitis/postoperative wound infection. However Dr. Navarro was notified by the ELISA who recommended antibiotics. Will start doxycycline. She has been on clindamycin in the past. She
has penicillin allergy. Mild leukocytosis is noted. She is flu positive. She was tachycardic upon arrival and is improving with IV fluids. I personally reviewed x-rays and see no clear evidence for osteomyelitis.
Discharge Plan
Departure
Patient Disposition: Home (Routine Discharge)
Date of Disposition: 07/26/24
Time of Disposition: 17:16
Patient with high blood pressure during this ER visit?: Yes
Condition: Good
Discharge Problem:
Influenza, Foot pain, right
Instructions: Cellulitis (Skin Infection), Adult (DC), Flu in adults - Discharge instructions, BLOOD PRESSURE
Prescriptions:
New
doxycycline hyclate 100 mg tablet
100 mg PO BID 5 Days Qty: 10 0RF
No Action
loratadine 10 MG tablet
10 mg PO DAILY PRN (Reason: Allergies)
amlodipine 5 MG tablet
5 mg PO DAILY Qty: 90 0RF
prazosin 5 mg Capsule
2 mg PO HS
ondansetron 4 mg Tablet,Disintegrating
4 mg PO TIDPRN PRN (Reason: nausea/vomiting) Qty: 8 0RF
promethazine 25 mg tablet
25 mg PO TID PRN (Reason: nausea and vomiting) Qty: 15 0RF
lithium carbonate 300 mg tablet extended release
300 mg PO HS
ibuprofen 600 mg Tablet
600 mg PO Q4HPRN PRN (Reason: swelling) Qty: 0 0RF
oxycodone 5 mg Tablet
5 mg PO Q4HPRN PRN (Reason: moderate pain) Qty: 10 0RF
citalopram 10 mg Tablet
10 mg PO DAILY
levothyroxine 25 mcg Tablet
25 mcg PO DAILY
pantoprazole 40 mg Tablet,Delayed Release (Dr/Ec)
40 mg PO DAILY
duloxetine 20 mg Capsule,Delayed Release(Dr/Ec)
20 mg PO BID
Nurtec ODT 75 mg Tablet,Disintegrating
75 mg PO ONCE PRN (Reason: migraine)
Referrals:
Steven Ordonez DO [Family Provider] -
Yogi Navarro DPM [Active] - Call in 1-3 days for appt
Activity Restrictions/Additional Instructions:
You can take Tylenol and Motrin on an alternating schedule to help manage your fever from the flu.
Doxycycline has been sent to your pharmacy to cover for potential skin infection. You can take 1 tablet twice daily for [address] call [address] Navarro's office to get a sooner follow up appointment.
PLEASE RETURN TO THE ER SHOULD YOU DEVELOP LOSS OF SENSATION IN YOUR FOOT, INTRACTABLE FEVERS/CHILLS, INTRACTABLE NAUSEA OR VOMITING, DIZZINES, LIGHTHEADEDNESS, OR ANY OTHER SIGNS OR SYMPTOMS WORRISOME TO YOU.
Interventions
Interventions:
*Risk Screen - Suicide Last Done: 07/26/24 12:09
*General Assessment Last Done: 07/26/24 12:09
*Neglect/Abuse Screening Last Done: 07/26/24 12:09
*ED COVID-19 Vaccine History Last Done: 07/26/24 12:09
*Nursing Disposition Last Done: 07/26/24 17:34
ED- Cardiac Assessment Last Done: 07/26/24 15:37
ED- Pulmonary Assessment Last Done: 07/26/24 15:37
ED-Peripheral Vascular Assessment Last Done: 07/26/24 15:37
ED-Skin Assessment Last Done: 07/26/24 15:37
Discharge Date and Time
Discharge Date/Time: 07/26/24 17:34
Print Language: TURKISH
[2024-07-26] MEDS: TYLENOL 1000 MG PO (15:37)
[2024-07-26] MEDS: ZOFRAN 4 MG IV (15:37)
[2024-07-26] MEDS: NSS 1000 IV (15:37)
[2024-07-26 17:11] VITALS: BP 128/89
== END 2024-07-26 17:34 | disposition home or self-care (01) ==
LOC: EMR 12:05
PROVIDERS: Emergency Medicine; EMERGENCY PHYSICIAN Emergency Medicine; FAMILY PHYSICIAN Family Medicine
DX: J10.1 Influenza due to other identified influenza virus with other respiratory manifestations (principal); M79.671 Pain in right foot; I10 Essential (primary) hypertension; E03.9 Hypothyroidism, unspecified; F31.9 Bipolar disorder, unspecified; Z11.52 Encounter for screening for COVID-19
CPT/HCPCS: 99285; 96374; 96361; 71046; 73600; 73620; 80053; 83605; 84703; 85025; 87502; 87811; 93005; 93971

== ENCOUNTER 2024-07-31 20:36 | Emergency (ER) | payer MEDICARE, OTHER, SELFPAY ==
[2024-07-31 20:52] VITALS: BP 155/107
[2024-07-31 20:54] VITALS: BMI 43.2
--- NOTE | 2024-07-31 21:04 | ED.GENMED ---
History of Present Illness
General
Chief Complaint: Crisis Evaluation
Time Seen by Provider: 07/31/24 21:02
History of Present Illness
History of Present Illness:
29-year-old female with multiple psychiatric diagnoses presenting to the emergency department for suicidal ideation. Patient reports prior to arrival she was having thoughts of wanting to hurt herself, reports wanting to ingest multiple
medications, however did not do so. Reports history of self-harm in the past and multiple admissions for inpatient psychiatric care. Also notes that on Thursday earlier this week, was diagnosed with flu. Denies any present difficulty breathing or
chest pain. In May, recently had foot surgery, notes that she has been having chronic pain from the foot surgery, for which she is taking oxycodone. She saw her doctor on the , notes that everything was healing as expected. Patient
presents today, requesting inpatient placement. Denies additional acute medical complaints
Past History
Past History
ED Past Medical History: HTN, Psychiatric (Autism, alcohol syndrome, learning disability, major depression, anxiety, PTSD, Bipolar Schitzo affective disorder) and Other (Headaches, gastric emptying issues, Vertigo, Arthritis, DVT, )
ED Past Surgical History: Bowel resection, Orthopedic (Right club foot repair, ) and Other (Neck surgery )
Social History
Tobacco: 2nd hand smoke exposure
Alcohol: None
Drug: None
Personal: Single
Living: with family
Employment: Employed
Family History
Family History: Other (Noncontributory)
Phy Exam
Physical Exam
Physical Exam:
General: Well-appearing, no clinical signs of dehydration, nontoxic and in no acute distress
HEENT: protecting airway
Neck: appears supple
CV: Normal heart rate, regular rhythm
Resp: No accessory muscle use, no increased work of breathing, lungs clear to auscultation bilaterally
Abd: no distension
Extremities: No deformities, no distal swelling to RLE, in boot. Distal sensation in tact
Neuro: alert, no focal neurologic deficit
: deferred
Rectal: deferred
Psych: Normal affect
Skin: Intact
Course
Orders/Labs/Results
Orders:
Orders
07/31/24 20:47
1:1 Observation - Suicide/ Violent Behavior As Directed
Crisis Consult Urgent
Reason for Consult: +SI thoughts with a plan
07/31/24 21:33
EKG- Treatment ONCE
07/31/24 22:00
Complete Blood Count/With Diff Urgent
Comprehensive Metabolic Panel Urgent
07/31/24 22:03
Ondansetron Orally Disint [Zofran Odt (Orally Disintegrating)] 4 mg .ROUTE .STK-MED ONE
07/31/24 22:04
Ondansetron Orally Disint [Zofran Odt (Orally Disintegrating)] 4 mg PO NOW STA
08/01/24
Electrocardiogram (*1) Stat
Reason for Study: Tachycardia
Comment: NEW ORDER FOR TODAYS DATE
08/01/24 10:10
Test Result ONCE
08/01/24 10:12
Fentanyl, Urine Urgent
HCG, Urine Qualitative Screen Urgent
Date Specimen was Collected: 08/01/24
Time Specimen was Collected: 10:10
Urine Drug Abuse Screen Urgent
Date Specimen was Collected: 08/01/24
Time Specimen was Collected: 10:10
08/01/24 11:17
Oxycodone [Roxicodone] 5 mg PO NOW STA
08/01/24 12:00
Rivaroxaban [Xarelto] 10 mg PO ONCE ONE
08/01/24 17:36
Ondansetron Orally Disint [Zofran Odt (Orally Disintegrating)] 4 mg PO NOW STA
Oxycodone/Acetaminophen [Percocet 5/325] 1 tablet PO NOW STA
08/02/24 07:16
[place] Urgent
Abnormal Lab Results
02/08/01/24 08/02/24
22:00 10:12 07:16
WBC 14.5 H 10^3/uL
(4.8-10.8)
Hgb 10.9 L g/dL
(12.0-16.0)
Hct 35.5 L %
(37.0-47.0)
MCV 76.8 L fL
(81.0-99.0)
MCH 23.6 L pg
(27.0-31.0)
MCHC 30.7 L g/dL
(33.0-37.0)
RDW 15.2 H %
(11.5-14.5)
Plt Count 455 H 10^3/uL
(130-400)
Abs Immat Gran (auto) 0.1 H 10^3/uL
(0-0.05)
Absolute Neuts (auto) 10.8 H 10^3/uL
(1.4-6.5)
Absolute Monos (auto) 0.7 H 10^3/uL
(0.1-0.6)
Lymphocytes % 18.9 L %
(20.5-51.1)
Glucose 101 H mg/dl
(70-99)
Alkaline Phosphatase 135 H U/L
(38-126)
Ur Oxycodone Screen Positive H
(Negative)
[place] < 0.2 L mmol/L
(0.6-1.2)
07/31/24 22:00
07/31/24 22:00
Vital Signs
Initial and Last Documented VS:
Initial Vital Signs
Temp Pulse Resp BP Pulse Ox
36.9 C 85 20 155/107 100
07/31/24 20:52 07/31/24 20:52 07/31/24 20:52 07/31/24 20:52 07/31/24 20:52
Last Documented Vital Signs
Temp Pulse Resp BP Pulse Ox
36.7 C 94 18 130/79 95
08/01/24 11:45 08/01/24 22:38 08/01/24 22:38 08/01/24 22:38 08/01/24 22:38
MDM/Problems Addressed
MDM/Problems Addressed:
29-year-old female with multiple psychiatric diagnoses presenting for suicidal ideation. Vital signs are significant for mild tachycardia.
On exam patient is resting comfortably, no acute distress or discomfort. Unremarkable cardiac and pulmonary exam. Patient afebrile, nontoxic. From a psychiatric perspective, reports suicidal ideations, requesting inpatient therapy. Will discuss
with crisis. Denies any toxic ingestion.
22:00 - Per crisis, requesting screening laboratory analysis.
22:40 - Labs show leukocytosis, however appears to be chronic. Without concern for systemic infection. Pending placement by crisis
*Critical Care Note
Total Time (30-74mins, 75-104mins- exclusive of procedures): Not Applicable
ED Attending Note
-
Portions of this chart may have been created with voice recognition software.� Occasional wrong word or��sound alike� substitutions may have occurred due to the inherent limitations of voice recognition software.
Discharge Plan
Departure
Patient Disposition: Psych Facility
Date of Disposition: 08/01/24
Time of Disposition: 11:24
Discharge Problem:
Suicidal ideation
Prescriptions:
No Action
loratadine 10 MG tablet
10 mg PO DAILY PRN (Reason: Allergies)
amlodipine 5 MG tablet
5 mg PO DAILY Qty: 90 0RF
prazosin 5 mg Capsule
2 mg PO HS
ondansetron 4 mg Tablet,Disintegrating
4 mg PO TIDPRN PRN (Reason: nausea/vomiting) Qty: 8 0RF
promethazine 25 mg tablet
25 mg PO TID PRN (Reason: nausea and vomiting) Qty: 15 0RF
lithium carbonate 300 mg tablet extended release
300 mg PO HS
ibuprofen 600 mg Tablet
600 mg PO Q4HPRN PRN (Reason: swelling) Qty: 0 0RF
oxycodone 5 mg Tablet
5 mg PO Q4HPRN PRN (Reason: moderate pain) Qty: 10 0RF
citalopram 10 mg Tablet
10 mg PO DAILY
levothyroxine 25 mcg Tablet
25 mcg PO DAILY
pantoprazole 40 mg Tablet,Delayed Release (Dr/Ec)
40 mg PO DAILY
duloxetine 20 mg Capsule,Delayed Release(Dr/Ec)
20 mg PO BID
Nurtec ODT 75 mg Tablet,Disintegrating
75 mg PO ONCE PRN (Reason: migraine)
doxycycline hyclate 100 mg tablet
100 mg PO BID 5 Days Qty: 10 0RF
Referrals:
UNKNOWN - PT NOT,INTERVIEWE [Family Provider] -
Interventions
Interventions:
*Risk Screen - Suicide Last Done: 07/31/24 20:45
*General Assessment Last Done: 07/31/24 20:52
*Neglect/Abuse Screening Last Done: 07/31/24 20:47
*ED COVID-19 Vaccine History Last Done: 07/31/24 20:48
ED-Psychological Assessment Last Done: 07/31/24 20:52
Discharge Date and Time
Print Language: CANADIAN
[2024-07-31] MEDS: ZOFRAN ODT (ORALLY DISINTEGRATING) 4 MG PO (22:04)
[2024-07-31 22:08] LABS: % Basophils 0.5 % (0-2); % Immature Granulocytes 0.4 % (0-0.5); % Lymphocytes 18.9 % (20.5-51.1); % Monocytes 4.8 % (1.7-9.3); % Neutrophils 74.4 % (42.2-75.2); Absolute Basophils 0.1 10^3/uL (0-0.2); Absolute Eosinophils 0.1 10^3/uL (0-0.7); Absolute Immature Granulocytes 0.1 10^3/uL (0-0.05); Absolute Lymphocytes 2.7 10^3/uL (1.2-3.4); Absolute Monocytes 0.7 10^3/uL (0.1-0.6); Absolute Neutrophils 10.8 10^3/uL (1.4-6.5); Hematocrit 35.5 % (37.0-47.0); Hemoglobin 10.9 g/dL (12.0-16.0); Mean Corp Hgb Conc. 30.7 g/dL (33.0-37.0); Mean Corpuscular Hgb 23.6 pg (27.0-31.0); Mean Corpuscular Volume 76.8 fL (81.0-99.0); Mean Platelet Volume 8.8 fL (7.4-10.4); Nucleated Red Blood Cells % 0 %; Platelet Count 455 10^3/uL (130-400); Red Blood Cell Count 4.62 10^6/uL (4.20-5.40); Red Cell Dist. Width 15.2 % (11.5-14.5); White Blood Cell Count 14.5 10^3/uL (4.8-10.8)
[2024-07-31 22:35] LABS: ALT (SGPT) 15 U/L (0-35); AST (SGOT) 16 U/L (14-36); Albumin 3.5 g/dl (3.5-5.0); Alkaline Phosphatase 135 U/L (38-126); Blood Urea Nitrogen 16 mg/dl (7-17); Carbon Dioxide 28 mmol/L (22-30); Chloride 101 mmol/L (98-107); Estimated Creatinine Clearance 112 ml/min; Glucose 101 mg/dl (70-99); Potassium 4.6 mmol/L (3.5-5.1); Sodium 135 mmol/L (135-145); Total Bilirubin 0.3 mg/dl (0.2-1.3); Total Protein 6.6 g/dl (6.3-8.2); eGFR > 60.00
[2024-08-01 10:38] LABS: HCG, Urine Qualitative Screen Negative
[2024-08-01 10:50] LABS: Amphetamines Negative (Negative); Barbiturates Negative (Negative); Benzodiazepines Negative (Negative); Buprenorphine Negative (Negative); Cocaine Negative (Negative); Marijuana Negative (Negative); Methadone Negative (Negative); Methamphetamines Negative (Negative); Opiates Negative (Negative); Phencyclidine Negative (Negative); Tricyclic Antidepressants Negative (Negative)
[2024-08-01 11:06] LABS: Fentanyl, Urine Negative (Negative)
--- NOTE | 2024-08-01 11:21 | ED.CRISIS ---
ED Crisis Note
ED Crisis Note
Subjective:
29-year-old female here for suicidal ideation with a plan to overdose. She is pending voluntary inpatient psychiatric placement. I was asked by crisis to evaluate for medical clearance as she has a bed at [facility] pending medical clearance. She
denies any acute complaints. She has chronic pain in her right foot status post surgery 2 months ago; she says she is due for her normal oxycodone.
Objective:
Awake alert resting comfortably not in distress. Splint in place on right lower extremity. She is breathing comfortably with no respiratory distress or accessory muscle use. Regular heart rate, vital signs reviewed and stable.
Assessment/Plan:
29-year-old female presents for suicidal ideation with a plan; she has a bed at [facility] pending medical clearance. I spoke with her at length and reviewed all records�she does have marginal leukocytosis and marginal anemia neither is likely of
acute clinical significance. CMP shows no clinically significant abnormalities. UDS positive for oxycodone which she has been taking postoperatively. She has no acute issues requiring inpatient medical treatment and from my perspective is
medically cleared for inpatient psychiatric placement to address this acute need. She should be maintained on her normal postop pain medication, should follow instructions regarding limited weightbearing on the right leg. She has a history of DVT
and is on Xarelto and should be maintained as well. Updated crisis staff.
[2024-08-01 11:45] VITALS: BP 132/86
[2024-08-01] MEDS: ROXICODONE 5 MG PO (12:00)
[2024-08-01] MEDS: XARELTO 10 MG PO (12:00)
[2024-08-01] MEDS: PERCOCET 5/325 1 TABLET PO (17:39)
[2024-08-01] MEDS: ZOFRAN ODT (ORALLY DISINTEGRATING) 4 MG PO (17:39)
[2024-08-01 22:38] VITALS: BP 130/79
[2024-08-02 07:31] LABS: Lithium < 0.2 mmol/L (0.6-1.2)
--- NOTE | 2024-08-02 10:18 | VNURNOTE ---
Chart reviewed.� Patient is current with [facility].� Will continue to follow hospital course and DC plans.
--- NOTE | 2024-08-02 10:33 | ED.CRISIS ---
ED Crisis Note
ED Crisis Note
Subjective:
I spoke to crisis at 10:30 AM. Still bed searching. Either no beds available or has been denied due to medical acuity.
Objective:
I have ordered patient's usual medications that reportedly has been verified by pharmacy
Assessment/Plan:
29-year-old female presents for suicidal ideation with a plan; I spoke with her at length and reviewed all records�she does have marginal leukocytosis and marginal anemia neither is likely of acute clinical significance. CMP shows no clinically
significant abnormalities. UDS positive for oxycodone which she has been taking postoperatively. She has no acute issues requiring inpatient medical treatment and from my perspective is medically cleared for inpatient psychiatric placement to
address this acute need. She should be maintained on her normal postop pain medication, should follow instructions regarding limited weightbearing on the right leg. She has a history of DVT and is on Xarelto and should be maintained as well.
Updated crisis staff.
[2024-08-02 10:53] VITALS: BP 128/74
--- NOTE | 2024-08-02 14:46 | ED.CRISIS ---
ED Crisis Note
ED Crisis Note
Subjective:
I spoke to crisis at 10:30 AM. Still bed searching. Either no beds available or has been denied due to medical acuity.
Objective:
I have ordered patient's usual medications that reportedly has been verified by pharmacy
Assessment/Plan:
29-year-old female presents for suicidal ideation with a plan; I spoke with her at length and reviewed all records�she does have marginal leukocytosis and marginal anemia neither is likely of acute clinical significance. CMP shows no clinically
significant abnormalities. UDS positive for oxycodone which she has been taking postoperatively. She has no acute issues requiring inpatient medical treatment and from my perspective is medically cleared for inpatient psychiatric placement to
address this acute need. She should be maintained on her normal postop pain medication, should follow instructions regarding limited weightbearing on the right leg. She has a history of DVT and is on Xarelto and should be maintained as well.
Updated crisis staff.
Update, crisis has requested a PT evaluation per [facility]
[2024-08-02 15:47] VITALS: BP 138/91
[2024-08-02] MEDS: NORVASC 5 MG PO (15:48)
[2024-08-02] MEDS: TOPROL XL 50 MG PO ×2 (15:49→22:24)
[2024-08-02] MEDS: SYNTHROID 25 MCG PO (15:49)
[2024-08-02] MEDS: LITHOBID (EXTENDED RELEASE) 300 MG PO ×2 (15:49→22:23)
[2024-08-02] MEDS: PERCOCET 5/325 1 TABLET PO (15:50)
[2024-08-02] MEDS: XARELTO 20 MG PO (17:49)
[2024-08-02 22:22] VITALS: BP 152/104
[2024-08-02] MEDS: MINIPRESS 2 MG PO (22:24)
[2024-08-02] MEDS: CYMBALTA DELAYED RELEASE 20 MG PO (22:29)
[2024-08-03] MEDS: TYLENOL 1000 MG PO (00:19)
--- NOTE | 2024-08-03 02:47 | DOWNTIME ---
There was a [facility] [employer] Downtime on 08/03/2024 from 0100 to 08/03/2023 at 0235 . Downtime documentation of patient's care, including medication administrations, has been reconciled in the electronic record per guidelines. Refer to the
patient's paper chart under the miscellaneous tab to see printed paper medication records and downtime forms.
[2024-08-03] MEDS: SYNTHROID 25 MCG PO (06:13)
[2024-08-03] MEDS: CELEXA 10 MG PO (08:25)
[2024-08-03] MEDS: TOPROL XL 50 MG PO ×2 (08:25→20:43)
[2024-08-03] MEDS: LITHOBID (EXTENDED RELEASE) 300 MG PO ×2 (08:25→20:42)
[2024-08-03] MEDS: CYMBALTA DELAYED RELEASE 20 MG PO ×2 (08:25→20:42)
[2024-08-03] MEDS: NORVASC 5 MG PO (08:26)
[2024-08-03 08:38] VITALS: BP 113/69; BP 133/82; PULSE 97; O2SAT 97
[2024-08-03 16:26] VITALS: BP 124/72
[2024-08-03] MEDS: XARELTO 20 MG PO (18:23)
[2024-08-03] MEDS: PERCOCET 5/325 1 TABLET PO (18:27)
[2024-08-03 20:29] VITALS: BP 127/76
== END 2024-08-03 21:30 ==
LOC: EMR 20:36
PROVIDERS: Student in an Organized Health Care Education/Training Program; EMERGENCY PHYSICIAN Emergency Medicine
DX: R45.851 Suicidal ideations (principal); F32.9 Major depressive disorder, single episode, unspecified; F41.9 Anxiety disorder, unspecified; F84.0 Autistic disorder; D72.829 Elevated white blood cell count, unspecified; D64.9 Anemia, unspecified; I10 Essential (primary) hypertension; Z86.718 Personal history of other venous thrombosis and embolism; Z79.01 Long term (current) use of anticoagulants; G89.29 Other chronic pain; Z77.22 Contact with and (suspected) exposure to environmental tobacco smoke (acute) (chronic); Z91.52 Personal history of nonsuicidal self-harm
CPT/HCPCS: 99285; 80053; 80178; 80306; 80307; 81025; 85025; 93005

== ENCOUNTER → 2024-08-11 11:03 | Outpatient (REF) | payer MEDICARE, OTHER, SELFPAY ==
[2024-08-11 11:32] LABS: % Basophils 0.4 % (0-2); % Eosinophils 1.6 % (0-6); % Immature Granulocytes 0.4 % (0-0.5); % Lymphocytes 16.3 % (20.5-51.1); % Monocytes 3.2 % (1.7-9.3); % Neutrophils 78.1 % (42.2-75.2); Absolute Basophils 0.1 10^3/uL (0-0.2); Absolute Eosinophils 0.2 10^3/uL (0-0.7); Absolute Lymphocytes 1.9 10^3/uL (1.2-3.4); Absolute Monocytes 0.4 10^3/uL (0.1-0.6); Absolute Neutrophils 8.9 10^3/uL (1.4-6.5); Hemoglobin 10.9 g/dL (12.0-16.0); Mean Corp Hgb Conc. 30.3 g/dL (33.0-37.0); Mean Corpuscular Hgb 23.7 pg (27.0-31.0); Mean Corpuscular Volume 78.4 fL (81.0-99.0); Mean Platelet Volume 8.9 fL (7.4-10.4); Nucleated Red Blood Cells % 0 %; Platelet Count 412 10^3/uL (130-400); Red Blood Cell Count 4.59 10^6/uL (4.20-5.40); Red Cell Dist. Width 15.7 % (11.5-14.5); White Blood Cell Count 11.4 10^3/uL (4.8-10.8)
[2024-08-11 12:09] LABS: ALT (SGPT) 27 U/L (0-35); AST (SGOT) 20 U/L (14-36); Albumin 3.7 g/dl (3.5-5.0); Alkaline Phosphatase 123 U/L (38-126); Blood Urea Nitrogen 15 mg/dl (7-17); Calcium 9.3 mg/dl (8.4-10.2); Carbon Dioxide 28 mmol/L (22-30); Chloride 105 mmol/L (98-107); Glucose 100 mg/dl (70-99); Potassium 4.9 mmol/L (3.5-5.1); Sodium 139 mmol/L (135-145); Total Bilirubin 0.3 mg/dl (0.2-1.3); Total Protein 6.8 g/dl (6.3-8.2); eGFR > 60.00
[2024-08-11 12:30] LABS: Vitamin D, 25-OH*** 14.2 ng/mL (30-80)
[2024-08-11 12:43] LABS: TSH 2.13 uIU/ml (0.47-4.68)
[2024-08-11 13:07] LABS: Erythrocyte Sed Rate 26 mm/hour (0-20)
[2024-08-12 11:58] LABS: Intact PTH 80.3 pg/ml (13.6-85.8)
== END ==
LOC: REG 11:03
PROVIDERS: ATTENDING PHYSICIAN Student in an Organized Health Care Education/Training Program
DX: Z98.1 Arthrodesis status (principal); E55.9 Vitamin D deficiency, unspecified
CPT/HCPCS: 36415; 80053; 82306; 83970; 84443; 85025; 85652; 86140

== ENCOUNTER 2024-09-28 18:27 | Emergency (ER) | payer MEDICARE, OTHER, SELFPAY ==
[2024-09-28 18:30] VITALS: BP 206/134
[2024-09-28 19:00] LABS: % Basophils 0.4 % (0-2); % Eosinophils 0.6 % (0-6); % Immature Granulocytes 0.5 % (0-0.5); % Lymphocytes 12.9 % (20.5-51.1); % Monocytes 3.3 % (1.7-9.3); % Neutrophils 82.3 % (42.2-75.2); Absolute Basophils 0.1 10^3/uL (0-0.2); Absolute Eosinophils 0.1 10^3/uL (0-0.7); Absolute Immature Granulocytes 0.1 10^3/uL (0-0.05); Absolute Lymphocytes 2.5 10^3/uL (1.2-3.4); Absolute Monocytes 0.6 10^3/uL (0.1-0.6); Absolute Neutrophils 15.9 10^3/uL (1.4-6.5); Hematocrit 40.1 % (37.0-47.0); Hemoglobin 12.3 g/dL (12.0-16.0); Mean Corp Hgb Conc. 30.7 g/dL (33.0-37.0); Mean Corpuscular Hgb 23.2 pg (27.0-31.0); Mean Corpuscular Volume 75.7 fL (81.0-99.0); Mean Platelet Volume 8.8 fL (7.4-10.4); Nucleated Red Blood Cells % 0 %; Platelet Count 435 10^3/uL (130-400); Red Cell Dist. Width 16.9 % (11.5-14.5); White Blood Cell Count 19.4 10^3/uL (4.8-10.8)
[2024-09-28 19:06] LABS: HCG, Serum Qualitative Screen Negative
[2024-09-28 19:10] LABS: COVID-19 Antigen Negative (Negative); Urine Albumin 1+ (Neg - Trace); Urine Bilirubin Negative (Negative); Urine Character Slightly Cloudy (Clear); Urine Color Yellow; Urine Glucose Negative (Negative); Urine Ketone Negative (Negative); Urine Leukocyte 1+ (Negative); Urine Nitrite Negative (Negative); Urine Occult Blood 2+ (Negative); Urine Specific Gravity 1.015 (<1.030); Urine Urobilinogen Negative (Neg - 1+)
[2024-09-28 19:11] LABS: ALT (SGPT) 18 U/L (0-35); AST (SGOT) 17 U/L (14-36); Albumin 4.5 g/dl (3.5-5.0); Alkaline Phosphatase 104 U/L (38-126); Blood Urea Nitrogen 14 mg/dl (7-17); Calcium 9.6 mg/dl (8.4-10.2); Carbon Dioxide 25 mmol/L (22-30); Chloride 103 mmol/L (98-107); Glucose 133 mg/dl (70-99); Potassium 4.5 mmol/L (3.5-5.1); Sodium 140 mmol/L (135-145); Total Bilirubin 0.5 mg/dl (0.2-1.3); Total Protein 7.7 g/dl (6.3-8.2); eGFR > 60.00
[2024-09-28 19:12] LABS: Lipase 107 U/L (23-300)
[2024-09-28 20:01] LABS: Urine Bacteria Moderate (Negative); Urine Squamous Cell >30 /LPF (Few)
--- NOTE | 2024-09-28 21:34 | ED.GENMED ---
History of Present Illness
General
Chief Complaint: Abdominal Symptoms
Exam Limitations: none
Time Seen by Provider: 09/28/24 21:24
Nursing documentation reviewed up to this point in time: agreed with
History of Present Illness
History of Present Illness:
Patient is a 29-year-old female with past medical history of learning disability autism bipolar schizoaffective disorder hypertension presents to the ER complaining of nausea and vomiting abdominal pain and dizziness/diarrhea She reports nausea and
vomiting started in the beginning of September and she has not been able to eat without vomiting. She reports she vomited several times today complains of generalized abdominal pain.
She feels dizzy reports not feeling well. She is unsure if she is because she missed her period which is due the beginning of September.
She denies any urine frequency urgency or dysuria.
Past History
Past History
ED Past Medical History: HTN, Psychiatric (Autism, alcohol syndrome, learning disability, major depression, anxiety, PTSD, Bipolar Schitzo affective disorder) and Other (Headaches, gastric emptying issues, Vertigo, Arthritis, DVT, )
ED Past Surgical History: Bowel resection, Orthopedic (Right club foot repair, ) and Other (Neck surgery )
Social History
Tobacco: 2nd hand smoke exposure
Alcohol: None
Drug: None
Personal: Single
Living: with family
Employment: Employed
Family History
Family History: Other (Noncontributory)
Review of Systems
Review of Systems
Allergies reviewed?: Yes
All Other Systems: ROS reviewed and negative except as documented in HPI and ROS
Constitutional: Reports no symptoms; Denies fever, fatigue or chills
EENT: Reports no symptoms
Respiratory: Reports no symptoms; Denies cough or trouble breathing
Cardiac: Reports no symptoms; Denies chest pain, palpitations or syncope
ABD/GI: Reports abdominal pain, nausea and vomiting
: Reports no symptoms; Denies flank pain, urgency or discharge
Musculoskeletal: Reports no symptoms
Skin: Reports no symptoms
Neurological: Reports no symptoms
Psychiatric: Reports no symptoms
Phy Exam
General Physical Exam
General Presentation: no apparent distress
General age: appears stated age
General Skin: warm and dry
General Habitus: normal
General Mental: alert
General Hydration: appears well hydrated
Gastrointestinal Exam
Gastrointestinal Exam: soft and other (mild left sided non specific tenderness no guarding )
Neurological Exam
Neurological Exam: alert and oriented x3
Musculoskeletal Exam
Musculoskeletal Exam: full ROM
Skin Exam
Skin Exam: normal color and warm/dry
Psychiatric Exam
Psychiatric Exam: normal mood/affect
Course
Orders/Labs/Results
Orders:
Orders
09/28/24 18:33
Test Result ONCE
09/28/24 18:43
COVID-19 Antigen Urgent
Source: Nasal Swab
Complete Blood Count/With Diff Urgent
Comprehensive Metabolic Panel Urgent
HCG, Serum Qualitative Screen Urgent
Lipase Urgent
Urine Culture Reflexed from UA [Urinalysis Reflex To Culture] Urgent
Date Specimen was Collected: 09/28/24
Time Specimen was Collected: 18:33
Urine Microscopic Reflex Cult Urgent
Influenza A+B Rapid Molecular Urgent
EDDIE Source: Nasal Swab
Specimen Description:
Urine Culture Urgent
EDDIE Source: U
Specimen Description:
Date Specimen was Collected: 09/28/24
Time Specimen was Collected: 18:33
09/28/24 21:49
0.9% Sodium Chloride 1000 ml [Nss] 1,000 ml IV BOLUS
Ondansetron Injectable [Zofran] 4 mg IV NOW STA
09/28/24 22:31
Crisis Consult Urgent
Reason for Consult: suicidal thought
09/28/24 22:50
CT Abd/pelvis W Iv Cont Urgent
Comment:
Reason For Exam: left sided abd pain
09/28/24 23:06
ED Special Safety Observation ONCE
Observation level: Intermittent Observation
Abnormal Lab Results
09/28/24
18:43
WBC 19.4 H 10^3/uL
(4.8-10.8)
MCV 75.7 L fL
(81.0-99.0)
MCH 23.2 L pg
(27.0-31.0)
MCHC 30.7 L g/dL
(33.0-37.0)
RDW 16.9 H %
(11.5-14.5)
Plt Count 435 H 10^3/uL
(130-400)
Abs Immat Gran (auto) 0.1 H 10^3/uL
(0-0.05)
Absolute Neuts (auto) 15.9 H 10^3/uL
(1.4-6.5)
Neutrophils % 82.3 H %
(42.2-75.2)
Lymphocytes % 12.9 L %
(20.5-51.1)
Glucose 133 H mg/dl
(70-99)
Ur Occult Blood Reflex 2+ A
(Negative)
Leukocyte Esterase Rfl 1+ A
(Negative)
Urine RBC 3-6 A /HPF
(0-2)
Urine Bacteria (Reflex) Moderate A
(Negative)
Urine Albumin (Reflex) 1+ A
(Neg - Trace)
09/28/24 18:43
09/28/24 18:43
Vital Signs
Initial and Last Documented VS:
Initial Vital Signs
Temp Pulse Resp BP Pulse Ox
98.5 F 129 20 206/134 99
09/28/24 18:30 09/28/24 18:30 09/28/24 18:30 09/28/24 18:30 09/28/24 18:30
Last Documented Vital Signs
Temp Pulse Resp BP Pulse Ox
98.5 F 107 20 161/94 99
09/28/24 18:30 09/28/24 21:56 09/28/24 21:56 09/28/24 21:56 09/28/24 21:56
MDM/Problems Addressed
MDM/Problems Addressed:
As documented patient a 29-year-old female with developmental delay anxiety depression psychiatric issues well-known to this ER presented for abdominal pain nausea vomiting. She was concerned that she was because she missed her period.
She presents awake alert no acute distress denies any fever however white count is elevated 19,000. In prior records she was noted to have a leukocytosis however this is slightly more elevated than previous. Her chemistry is unremarkable she has
no UTI symptoms her urinalysis is contaminated we will send for culture. Patient negative COVID-negative flu. She does complain of mild left side abdominal pain nonspecific mild tenderness however patient in no acute distress. Case discussed with
ED physician who ordered CAT scan.
Patient was asked screening questions during nurse exam and when asked about suicidal ideation she reported she has had suicidal thoughts. When I ask pt about this she that states that she 'often has suicidal thoughts 'however with this episode
she decided to ,'hang out with her friends instead.' She currently denies suicidal thoughts for me. Will have crisis evaluate patient
0022: Crisis evaluated patient cleared to follow-up as an outpatient she is well-connected with a [facility]
Patient has been resting no acute distress CAT scan negative for any acute findings. Patient with no nausea vomiting or diarrhea here in the ER feeling much better. As documented she has history of chronic leukocytosis however is afebrile here and
stable for d/c home.
Chronic conditions affecting care:
Chronic psychiatric issues hypertension
*Critical Care Note
Total Time (30-74mins, 75-104mins- exclusive of procedures): Not Applicable
ED Attending Note
-
Portions of this chart may have been created with voice recognition software.� Occasional wrong word or��sound alike� substitutions may have occurred due to the inherent limitations of voice recognition software.
Discharge Plan
Departure
Patient Disposition: Home (Routine Discharge)
Date of Disposition: 09/29/24
Time of Disposition: 00:54
Patient with high blood pressure during this ER visit?: Yes
Condition: Fair
Covid-19: Not Applicable
Discharge Problem:
Nausea and vomiting, Diarrhea
Instructions: Diarrhea in teens and adults, Nausea and Vomiting, Adult (DC)
Prescriptions:
No Action
loratadine 10 MG tablet
10 mg PO DAILYPRN PRN (Reason: Allergies)
amlodipine 5 MG tablet
5 mg PO DAILY Qty: 90 0RF
prazosin 5 mg Capsule
2 mg PO HS
ondansetron 4 mg Tablet,Disintegrating
4 mg PO TIDPRN PRN (Reason: nausea/vomiting) Qty: 8 0RF
lithium carbonate 300 mg tablet extended release
600 mg PO HS
citalopram 10 mg Tablet
10 mg PO DAILY
levothyroxine 25 mcg Tablet
25 mcg PO DAILY
pantoprazole 40 mg Tablet,Delayed Release (Dr/Ec)
40 mg PO DAILY
duloxetine 20 mg Capsule,Delayed Release(Dr/Ec)
20 mg PO BID
Nurtec ODT 75 mg Tablet,Disintegrating
75 mg PO DAILYPRN PRN (Reason: migraine)
lidocaine 4 % Adhesive Patch,Medicated
1 patch TOPICAL DAILYPRN PRN (Reason: LEFT SHOULDER)
metoprolol succinate 50 mg Tablet Extended Release 24 Hr
50 mg PO BID
Xarelto 20 mg Tablet
20 mg PO QPM
oxycodone 5 mg tablet
5 mg PO Q4HPRN PRN (Reason: SEVERE pain)
Referrals:
Steven Ordonez DO [Family Provider] -
Activity Restrictions/Additional Instructions:
As discussed follow-up with your family doctor in the next several days for re-evaluation. Return if any worsening of symptoms.
Interventions
Interventions:
*Risk Screen - Suicide Last Done: 09/28/24 21:58
*General Assessment Last Done: 09/28/24 21:57
*Neglect/Abuse Screening Last Done: 09/28/24 21:58
*ED COVID-19 Vaccine History Last Done: 09/28/24 21:58
[facility]-Brat[facility] Assessment Last Done: 09/28/24 22:38
Discharge Date and Time
Print Language: MALAY
[2024-09-28 21:56] VITALS: BP 161/94
[2024-09-28] MEDS: NSS 1000 IV (22:14)
[2024-09-28] MEDS: ZOFRAN 4 MG IV (22:18)
[2024-09-28 22:40] VITALS: BMI 43.0
--- NOTE | 2024-09-29 00:23 | EDRN ---
This RN spoke w/ crisis. Per crisis, pt. is appropriate to f/u w/ outpt. therapist, troy does not feel pt. is at risk of self-harm, pt. indicates she has no plan/intention for SI, provider aware, okay to d/c one to one orders.
[2024-09-29 01:18] VITALS: BP 140/86
== END 2024-09-29 01:20 | disposition home or self-care (01) ==
LOC: EMR 18:27
PROVIDERS: Emergency Medicine; EMERGENCY PHYSICIAN Emergency Medicine; FAMILY PHYSICIAN Family Medicine
DX: R11.2 Nausea with vomiting, unspecified (principal); R19.7 Diarrhea, unspecified; I10 Essential (primary) hypertension; F84.0 Autistic disorder; F25.0 Schizoaffective disorder, bipolar type; Z77.22 Contact with and (suspected) exposure to environmental tobacco smoke (acute) (chronic); Z11.52 Encounter for screening for COVID-19
CPT/HCPCS: 99284; 96374; 96361; 74177; 80053; 81003; 81015; 83690; 84703; 85025; 87086; 87502; 87811; Q9967

== ENCOUNTER 2024-09-30 13:48 | Emergency (ER) | payer MEDICARE, OTHER, SELFPAY ==
[2024-09-30 13:58] VITALS: BP 168/100
--- NOTE | 2024-09-30 14:31 | ED.GENMED ---
History of Present Illness
General
Chief Complaint: Crisis Evaluation
Source: patient
Exam Limitations: none
Time Seen by Provider: 09/30/24 14:06
History of Present Illness
History of Present Illness:
29-year-old female with history of developmental delay, migraines, bulimia presents with feelings of suicidality worsening over the past 2 weeks. She has a history of cutting. She has the urge to cut but has not cut herself recently. She also
states her bulimia is acting up with ongoing vomiting or nausea. She denies thoughts of harming others. She denies hallucinations. Poke with her doctor who recommended she come in for evaluation for potential inpatient treatment.
Past History
Past History
ED Past Medical History: HTN, Psychiatric (Autism, alcohol syndrome, learning disability, major depression, anxiety, PTSD, Bipolar Schitzo affective disorder) and Other (Headaches, gastric emptying issues, Vertigo, Arthritis, DVT, )
ED Past Surgical History: Bowel resection, Orthopedic (Right club foot repair, ) and Other (Neck surgery )
Social History
Tobacco: 2nd hand smoke exposure
Alcohol: None
Drug: None
Personal: Single
Living: with family
Employment: Employed
Family History
Family History: Other (Noncontributory)
Phy Exam
Physical Exam
Physical Exam:
General: Well-appearing female no acute respiratory distress
HEENT: Normocephalic atraumatic
Heart: Regular rate and rhythm
Lungs: Clear no wheeze
Psychiatric exam: Calm cooperative admits to suicidal ideation with plan and cutting herself with history of similar. Denies thoughts of harming others or patient's. Logical thought process
Course
Orders/Labs/Results
Orders:
Orders
09/30/24 14:00
1:1 Observation - Suicide/ Violent Behavior As Directed
Crisis Consult Urgent
Reason for Consult: +SI
09/30/24 14:25
observation [ED Special Safety Observation] ONCE
Observation level: One to Two
09/30/24 14:27
Test Result ONCE
09/30/24 16:46
Complete Blood Count/With Diff Urgent
Comprehensive Metabolic Panel Urgent
HCG, Serum Qualitative Screen Urgent
09/30/24 16:59
Drug Screen, Urine [Urine Drug Abuse Screen] Urgent
Date Specimen was Collected: 09/30/24
Time Specimen was Collected: 16:58
09/30/24 18:23
Acetaminophen Urgent
Comment: ADD ON
Alcohol Urgent
Abnormal Lab Results
09/30/24 09/30/24 09/30/24
16:46 16:59 18:23
WBC 13.5 H 10^3/uL
(4.8-10.8)
Hgb 11.6 L g/dL
(12.0-16.0)
MCV 75.9 L fL
(81.0-99.0)
MCH 23.1 L pg
(27.0-31.0)
MCHC 30.4 L g/dL
(33.0-37.0)
RDW 16.9 H %
(11.5-14.5)
Abs Immat Gran (auto) 0.1 H 10^3/uL
(0-0.05)
Absolute Neuts (auto) 10.4 H 10^3/uL
(1.4-6.5)
Neutrophils % 77.5 H %
(42.2-75.2)
Lymphocytes % 16.5 L %
(20.5-51.1)
Chloride 109 H mmol/L
(98-107)
Carbon Dioxide 21 L mmol/L
(22-30)
AST 48 H U/L
(14-36)
Acetaminophen < 10 L ug/ml
(10-30)
U Marijuana (THC) Screen Positive H
(Negative)
09/30/24 16:46
09/30/24 16:46
Vital Signs
Initial and Last Documented VS:
Initial Vital Signs
Temp Pulse Resp BP Pulse Ox
98.2 F 110 17 168/100 99
09/30/24 13:58 09/30/24 13:58 09/30/24 13:58 09/30/24 13:58 09/30/24 13:58
Last Documented Vital Signs
Temp Pulse Resp BP Pulse Ox
98.7 F 86 22 146/86 98
09/30/24 17:37 09/30/24 17:37 09/30/24 17:37 09/30/24 17:37 09/30/24 17:37
MDM/Problems Addressed
Differential Diagnosis Includes:
Patient here voluntarily admitting to suicidality with plans on cutting herself. History of cutting in the past. Will check labs. Crisis consult placed.
*Critical Care Note
Total Time (30-74mins, 75-104mins- exclusive of procedures): Not Applicable
Update Note
Update Note:
Labs reviewed patient with chronic leukocytosis and today's values are better than baseline.. Drug screen negative. Blood pressure improved. Patient is medically clear for psychiatric disposition
Spoke with crisis department who are currently looking for a bed
ED Attending Note
-
Portions of this chart may have been created with voice recognition software.� Occasional wrong word or��sound alike� substitutions may have occurred due to the inherent limitations of voice recognition software.
Discharge Plan
Departure
Patient Disposition: Psych Facility
Date of Disposition: 09/30/24
Time of Disposition: 18:19
Discharge Problem:
Suicidal ideation
Prescriptions:
No Action
loratadine 10 MG tablet
10 mg PO DAILYPRN PRN (Reason: Allergies)
amlodipine 5 MG tablet
5 mg PO DAILY Qty: 90 0RF
prazosin 5 mg Capsule
2 mg PO HS
ondansetron 4 mg Tablet,Disintegrating
4 mg PO TIDPRN PRN (Reason: nausea/vomiting) Qty: 8 0RF
lithium carbonate 300 mg tablet extended release
600 mg PO HS
citalopram 10 mg Tablet
10 mg PO DAILY
levothyroxine 25 mcg Tablet
25 mcg PO DAILY
pantoprazole 40 mg Tablet,Delayed Release (Dr/Ec)
40 mg PO DAILY
duloxetine 20 mg Capsule,Delayed Release(Dr/Ec)
20 mg PO BID
Nurtec ODT 75 mg Tablet,Disintegrating
75 mg PO DAILYPRN PRN (Reason: migraine)
lidocaine 4 % Adhesive Patch,Medicated
1 patch TOPICAL DAILYPRN PRN (Reason: LEFT SHOULDER)
metoprolol succinate 50 mg Tablet Extended Release 24 Hr
50 mg PO BID
Xarelto 20 mg Tablet
20 mg PO QPM
oxycodone 5 mg tablet
5 mg PO Q4HPRN PRN (Reason: SEVERE pain)
Referrals:
Ankita Reyes MD [Family Provider] -
Activity Restrictions/Additional Instructions:
Please seek further treatment at psychiatric facility
Interventions
Interventions:
*Risk Screen - Suicide Last Done: 09/30/24 13:59
*General Assessment Last Done: 09/30/24 13:59
*Neglect/Abuse Screening Last Done: 09/30/24 13:59
*ED- Fall Risk Assessment Last Done: 09/30/24 21:06
*ED COVID-19 Vaccine History Last Done: 09/30/24 13:59
*Nursing Disposition Last Done: 09/30/24 21:06
ED-Psychological Assessment Last Done: 09/30/24 14:15
Discharge Date and Time
Discharge Date/Time: 09/30/24 21:07
Print Language: MALAWIAN
[2024-09-30 17:00] LABS: % Basophils 0.4 % (0-2); % Eosinophils 1.4 % (0-6); % Immature Granulocytes 0.4 % (0-0.5); % Lymphocytes 16.5 % (20.5-51.1); % Monocytes 3.8 % (1.7-9.3); % Neutrophils 77.5 % (42.2-75.2); Absolute Basophils 0.1 10^3/uL (0-0.2); Absolute Eosinophils 0.2 10^3/uL (0-0.7); Absolute Immature Granulocytes 0.1 10^3/uL (0-0.05); Absolute Lymphocytes 2.2 10^3/uL (1.2-3.4); Absolute Monocytes 0.5 10^3/uL (0.1-0.6); Absolute Neutrophils 10.4 10^3/uL (1.4-6.5); Hematocrit 38.2 % (37.0-47.0); Hemoglobin 11.6 g/dL (12.0-16.0); Mean Corp Hgb Conc. 30.4 g/dL (33.0-37.0); Mean Corpuscular Hgb 23.1 pg (27.0-31.0); Mean Corpuscular Volume 75.9 fL (81.0-99.0); Mean Platelet Volume 8.7 fL (7.4-10.4); Nucleated Red Blood Cells % 0 %; Platelet Count 352 10^3/uL (130-400); Red Blood Cell Count 5.03 10^6/uL (4.20-5.40); Red Cell Dist. Width 16.9 % (11.5-14.5); White Blood Cell Count 13.5 10^3/uL (4.8-10.8)
[2024-09-30 17:14] LABS: HCG, Serum Qualitative Screen Negative
[2024-09-30 17:16] LABS: ALT (SGPT) 18 U/L (0-35); AST (SGOT) 48 U/L (14-36); Albumin 3.9 g/dl (3.5-5.0); Alkaline Phosphatase 106 U/L (38-126); Blood Urea Nitrogen 10 mg/dl (7-17); Calcium 9.4 mg/dl (8.4-10.2); Carbon Dioxide 21 mmol/L (22-30); Chloride 109 mmol/L (98-107); Glucose 95 mg/dl (70-99); Potassium 4.6 mmol/L (3.5-5.1); Sodium 139 mmol/L (135-145); Total Bilirubin 0.6 mg/dl (0.2-1.3); eGFR > 60.00
[2024-09-30 17:24] LABS: Amphetamines Negative (Negative); Barbiturates Negative (Negative); Benzodiazepines Negative (Negative); Buprenorphine Negative (Negative); Cocaine Negative (Negative); Marijuana Positive (Negative); Methadone Negative (Negative); Methamphetamines Negative (Negative); Opiates Negative (Negative); Phencyclidine Negative (Negative); Tricyclic Antidepressants Negative (Negative)
[2024-09-30 17:37] VITALS: BP 146/86
[2024-09-30 18:50] LABS: Acetaminophen < 10 ug/ml (10-30)
[2024-09-30 18:52] LABS: Alcohol None Detected
== END 2024-09-30 21:07 ==
LOC: EMR 13:48
PROVIDERS: Physician Assistant; EMERGENCY PHYSICIAN Emergency Medicine; FAMILY PHYSICIAN Emergency Medicine
DX: R45.851 Suicidal ideations (principal); Z91.52 Personal history of nonsuicidal self-harm; F50.20 Bulimia nervosa, unspecified
CPT/HCPCS: 99285; 80053; 80143; 80306; 82077; 84703; 85025

== ENCOUNTER 2024-10-19 11:39 | Emergency (ER) | payer MEDICARE, OTHER, SELFPAY ==
[2024-10-19 11:40] VITALS: BP 163/115
--- NOTE | 2024-10-19 12:17 | ED.GENMED ---
History of Present Illness
General
Chief Complaint: Musculo-Skeletal Complaint
Time Seen by Provider: 10/19/24 11:48
History of Present Illness
History of Present Illness:
29-year-old female presents to the emergency department for evaluation of right foot and ankle pain. She is approximately 6 months status post clubfoot surgery performed by Dr. Navarro. She notes that she removed her boot and brace last week upon
direction from the orthopedist, since that time has had increasing pain. She states the day after orthopedic device removal she was feeling quite well however over the past few days she is unable to bear weight secondary to pain. Denies any fevers
or chills. No skin changes or redness
Past History
Past History
ED Past Medical History: HTN, Psychiatric (Autism, alcohol syndrome, learning disability, major depression, anxiety, PTSD, Bipolar Schitzo affective disorder) and Other (Headaches, gastric emptying issues, Vertigo, Arthritis, DVT, )
ED Past Surgical History: Bowel resection, Orthopedic (Right club foot repair, ) and Other (Neck surgery )
Social History
Tobacco: 2nd hand smoke exposure
Alcohol: None
Drug: None
Personal: Single
Living: with family
Employment: Employed
Family History
Family History: Other (Noncontributory)
Review of Systems
Review of Systems
Allergies reviewed?: Yes
All Other Systems: ROS reviewed and negative except as documented in HPI and ROS
Phy Exam
Physical Exam
Physical Exam:
GEN: Well appearing, NAD, WDWN
HEENT: Oral mucosa moist, no scleral icterus
Cardiac: Regular rate
Lung: No respiratory distress, no tachypnea
MSK: Baseline deformity from clubfoot, incisions to the lower leg and right foot are well-approximated with no dehiscence. No erythema. Exquisitely tender to palpation of the entire foot and ankle area
Skin: Good color, no pallor or jaundice, no rashes
Neuro: AO x3, moves all extremities freely
Psych: Calm, cooperative
Course
Orders/Labs/Results
Orders:
Orders
10/19/24 12:15
CR Ankle - Right Min 3 Views * Urgent
Comment:
Reason For Exam: post operative pain
Venous Doppler Lwr Ext Rt [US Periph Venous LOWER Ext RT] Urgent
Comment:
Reason For Exam: RLE edema after ortho boot removal
Vital Signs
Initial and Last Documented VS:
Initial Vital Signs
Temp Pulse Resp BP Pulse Ox
98.4 F 119 18 163/115 98
10/19/24 11:40 10/19/24 11:40 10/19/24 11:40 10/19/24 11:40 10/19/24 11:40
Last Documented Vital Signs
Temp Pulse Resp BP Pulse Ox
98.4 F 101 16 157/96 100
10/19/24 11:40 10/19/24 13:36 10/19/24 13:36 10/19/24 13:36 10/19/24 13:36
MDM/Problems Addressed
MDM/Problems Addressed:
Imaging studies reviewed with patient's actuarial science professor Dr. Navarro who has no concerns for osteomyelitis. Informs me that this is simply delayed union. He will follow-up with her in the office as an outpatient
*Critical Care Note
Total Time (30-74mins, 75-104mins- exclusive of procedures): Not Applicable
ED Attending Note
-
Portions of this chart may have been created with voice recognition software.� Occasional wrong word or��sound alike� substitutions may have occurred due to the inherent limitations of voice recognition software.
Discharge Plan
Departure
Patient Disposition: Home (Routine Discharge)
Date of Disposition: 10/19/24
Time of Disposition: 14:37
Patient with high blood pressure during this ER visit?: No
Discharge Problem:
Acute pain of right foot
Prescriptions:
No Action
loratadine 10 MG tablet
10 mg PO DAILYPRN PRN (Reason: Allergies)
amlodipine 5 MG tablet
5 mg PO DAILY Qty: 90 0RF
prazosin 5 mg Capsule
2 mg PO HS
ondansetron 4 mg Tablet,Disintegrating
4 mg PO TIDPRN PRN (Reason: nausea/vomiting) Qty: 8 0RF
lithium carbonate 300 mg tablet extended release
600 mg PO HS
citalopram 10 mg Tablet
10 mg PO DAILY
levothyroxine 25 mcg Tablet
25 mcg PO DAILY
pantoprazole 40 mg Tablet,Delayed Release (Dr/Ec)
40 mg PO DAILY
duloxetine 20 mg Capsule,Delayed Release(Dr/Ec)
20 mg PO BID
Nurtec ODT 75 mg Tablet,Disintegrating
75 mg PO DAILYPRN PRN (Reason: migraine)
lidocaine 4 % Adhesive Patch,Medicated
1 patch TOPICAL DAILYPRN PRN (Reason: LEFT SHOULDER)
metoprolol succinate 50 mg Tablet Extended Release 24 Hr
50 mg PO BID
Xarelto 20 mg Tablet
20 mg PO QPM
oxycodone 5 mg tablet
5 mg PO Q4HPRN PRN (Reason: SEVERE pain)
Referrals:
Steven Ordonez DO [Family Provider] -
Yogi Navarro DPM [Active] -
Activity Restrictions/Additional Instructions:
Please follow-up with your actuarial science professor office for reevaluation. At this time there is no evidence for a blood clot or surgical complication. Please continue PT
Interventions
Interventions:
*Risk Screen - Suicide Last Done: 10/19/24 11:40
*General Assessment Last Done: 10/19/24 11:40
*Neglect/Abuse Screening Last Done: 10/19/24 11:40
*ED- Fall Risk Assessment Last Done: 10/19/24 13:00
*ED COVID-19 Vaccine History Last Done: 10/19/24 13:00
*Nursing Disposition Last Done: 10/19/24 14:53
ED-Musculoskeletal Assessment Last Done: 10/19/24 12:59
Discharge Date and Time
Discharge Date/Time: 10/19/24 14:54
Print Language: MOHAWK
[2024-10-19 13:36] VITALS: BP 157/96
== END 2024-10-19 14:54 | disposition home or self-care (01) ==
LOC: EMR 11:39
PROVIDERS: EMERGENCY PHYSICIAN Emergency Medicine; FAMILY PHYSICIAN Family Medicine
DX: M79.671 Pain in right foot (principal); F84.0 Autistic disorder; I10 Essential (primary) hypertension; Z86.718 Personal history of other venous thrombosis and embolism; Z77.22 Contact with and (suspected) exposure to environmental tobacco smoke (acute) (chronic)
CPT/HCPCS: 99284; 73610; 93971

== ENCOUNTER 2024-10-24 10:10 | Emergency (ER) | payer MEDICARE, OTHER, SELFPAY ==
[2024-10-24 10:31] VITALS: BP 159/98
[2024-10-24 11:07] LABS: % Basophils 0.8 % (0-2); % Eosinophils 2.3 % (0-6); % Immature Granulocytes 0.2 % (0-0.5); % Lymphocytes 17.9 % (20.5-51.1); % Monocytes 3.4 % (1.7-9.3); % Neutrophils 75.4 % (42.2-75.2); Absolute Basophils 0.1 10^3/uL (0-0.2); Absolute Eosinophils 0.2 10^3/uL (0-0.7); Absolute Lymphocytes 1.7 10^3/uL (1.2-3.4); Absolute Monocytes 0.3 10^3/uL (0.1-0.6); Hematocrit 37.1 % (37.0-47.0); Hemoglobin 11.3 g/dL (12.0-16.0); Mean Corp Hgb Conc. 30.5 g/dL (33.0-37.0); Mean Corpuscular Hgb 23.2 pg (27.0-31.0); Mean Corpuscular Volume 76.2 fL (81.0-99.0); Mean Platelet Volume 8.6 fL (7.4-10.4); Nucleated Red Blood Cells % 0 %; Platelet Count 402 10^3/uL (130-400); Red Blood Cell Count 4.87 10^6/uL (4.20-5.40); Red Cell Dist. Width 16.6 % (11.5-14.5); White Blood Cell Count 9.3 10^3/uL (4.8-10.8)
[2024-10-24 11:22] LABS: HCG, Serum Qualitative Screen Negative
[2024-10-24 11:48] LABS: ALT (SGPT) 17 U/L (0-35); AST (SGOT) 14 U/L (14-36); Alkaline Phosphatase 86 U/L (38-126); Blood Urea Nitrogen 15 mg/dl (7-17); Calcium 9.3 mg/dl (8.4-10.2); Chloride 106 mmol/L (98-107); Glucose 124 mg/dl (70-99); Total Bilirubin 0.4 mg/dl (0.2-1.3); Total Protein 6.9 g/dl (6.3-8.2); eGFR > 60.00
[2024-10-24 11:57] LABS: Carbon Dioxide 29 mmol/L (22-30); Lipase 98 U/L (23-300); Potassium 4.6 mmol/L (3.5-5.1); Sodium 142 mmol/L (135-145)
[2024-10-24] MEDS: ZOFRAN ODT (ORALLY DISINTEGRATING) 4 MG PO (13:33)
--- NOTE | 2024-10-24 13:56 | ED.GENMED ---
History of Present Illness
General
Chief Complaint: Musculo-Skeletal Complaint
Source: patient
Exam Limitations: none
Time Seen by Provider: 10/24/24 12:35
Nursing documentation reviewed up to this point in time: agreed with
History of Present Illness
History of Present Illness:
Patient status post right foot surgery in 2023, seen by her museum security chief, Dr. Navarro on Thursday, secondary to ongoing pain with redness, presents to ED secondary to intermittent episodes of redness and warmth of her right foot along with pain, which
sometimes does cause her to throw up. Patient was prescribed Toradol and Zofran by Dr. Navarro last week, as well as MRI ordered, with concern for potential infection. Denies fever or chills. Denies headache or dizziness. Patient states that she
has developed some cramping sensation in her abdomen, after multiple vomiting episodes. Patient thought she was given Zofran ODT, but when she went to the pharmacy with Zofran tablet, which is not working for her.
Past History
Past History
ED Past Medical History: HTN, Psychiatric (Autism, alcohol syndrome, learning disability, major depression, anxiety, PTSD, Bipolar Schitzo affective disorder) and Other (Headaches, gastric emptying issues, Vertigo, Arthritis, DVT, )
ED Past Surgical History: Bowel resection, Orthopedic (Right club foot repair, ) and Other (Neck surgery )
Social History
Tobacco: 2nd hand smoke exposure
Alcohol: None
Drug: None
Personal: Single
Living: with family
Employment: Employed
Family History
Family History: Other (Noncontributory)
Review of Systems
Review of Systems
Allergies reviewed?: Yes
All Other Systems: ROS reviewed and negative except as documented in HPI and ROS
Constitutional: Reports no symptoms
Respiratory: Reports no symptoms
Cardiac: Reports no symptoms
ABD/GI: Reports abdominal pain, nausea and vomiting
Musculoskeletal: Reports other (foot pain)
Skin: Reports no symptoms
Neurological: Reports no symptoms
Phy Exam
Physical Exam
Physical Exam:
Physical Exam
General: no apparent distress, not acutely ill. afebrile.
Head: nc/at. eomi
Neck: supple. normal range of motion
Abdomen: normal bowel sounds. not tender. no distention
Neuro: alert and oriented x 3. no focal neurological deficits
Skin: no rash
Psychiatric: well kept. interactive and cooperative
Extremities: right foot: well healed surgical scar noted over lateral/medial aspect without erythema/warmth/open wound
Course
Orders/Labs/Results
Orders:
Orders
10/24/24 10:34
Test Result ONCE
10/24/24 10:50
Complete Blood Count/With Diff Urgent
Comprehensive Metabolic Panel Urgent
HCG, Serum Qualitative Screen Urgent
Lipase Urgent
10/24/24 13:18
Ondansetron Orally Disint [Zofran Odt (Orally Disintegrating)] 4 mg PO NOW STA
Abnormal Lab Results
10/24/24
10:50
Hgb 11.3 L g/dL
(12.0-16.0)
MCV 76.2 L fL
(81.0-99.0)
MCH 23.2 L pg
(27.0-31.0)
MCHC 30.5 L g/dL
(33.0-37.0)
RDW 16.6 H %
(11.5-14.5)
Plt Count 402 H 10^3/uL
(130-400)
Absolute Neuts (auto) 7.0 H 10^3/uL
(1.4-6.5)
Neutrophils % 75.4 H %
(42.2-75.2)
Lymphocytes % 17.9 L %
(20.5-51.1)
Glucose 124 H mg/dl
(70-99)
10/24/24 10:50
10/24/24 10:50
Vital Signs
Initial and Last Documented VS:
Initial Vital Signs
Temp Pulse Resp BP Pulse Ox
98.2 F 110 16 159/98 99
10/24/24 10:31 10/24/24 10:31 10/24/24 10:31 10/24/24 10:31 10/24/24 10:31
Last Documented Vital Signs
Temp Pulse Resp BP Pulse Ox
98.2 F 94 16 159/98 96
10/24/24 10:31 10/24/24 14:05 10/24/24 10:31 10/24/24 10:31 10/24/24 14:05
MDM/Problems Addressed
MDM/Problems Addressed:
Patient with an unremarkable workup in ED, including blood work, and remains hemodynamically stable. Patient given Zofran ODT with improvement and is able to tolerate crackers prior to discharge. Patient will continue to follow-up with her
museum security chief, including scheduling outpatient MRI of the affected foot.
*Critical Care Note
Total Time (30-74mins, 75-104mins- exclusive of procedures): Not Applicable
ED Attending Note
-
Portions of this chart may have been created with voice recognition software.� Occasional wrong word or��sound alike� substitutions may have occurred due to the inherent limitations of voice recognition software.
Discharge Plan
Departure
Patient Disposition: Home (Routine Discharge)
Date of Disposition: 10/24/24
Time of Disposition: 14:28
Patient with high blood pressure during this ER visit?: Yes
Condition: Good
Discharge Problem:
Foot pain
Instructions: Managing pain after surgery, Nausea and vomiting in adults
Prescriptions:
New
ondansetron 4 mg Tablet,Disintegrating
4 mg PO TIDPRN PRN (Reason: nausea/vomiting) Qty: 12 0RF
No Action
loratadine 10 MG tablet
10 mg PO DAILYPRN PRN (Reason: Allergies)
amlodipine 5 MG tablet
5 mg PO DAILY Qty: 90 0RF
prazosin 5 mg Capsule
2 mg PO HS
ondansetron 4 mg Tablet,Disintegrating
4 mg PO TIDPRN PRN (Reason: nausea/vomiting) Qty: 8 0RF
lithium carbonate 300 mg tablet extended release
600 mg PO HS
citalopram 10 mg Tablet
10 mg PO DAILY
levothyroxine 25 mcg Tablet
25 mcg PO DAILY
pantoprazole 40 mg Tablet,Delayed Release (Dr/Ec)
40 mg PO DAILY
duloxetine 20 mg Capsule,Delayed Release(Dr/Ec)
20 mg PO BID
Nurtec ODT 75 mg Tablet,Disintegrating
75 mg PO DAILYPRN PRN (Reason: migraine)
lidocaine 4 % Adhesive Patch,Medicated
1 patch TOPICAL DAILYPRN PRN (Reason: LEFT SHOULDER)
metoprolol succinate 50 mg Tablet Extended Release 24 Hr
50 mg PO BID
Xarelto 20 mg Tablet
20 mg PO QPM
oxycodone 5 mg tablet
5 mg PO Q4HPRN PRN (Reason: SEVERE pain)
Referrals:
Steven Ordonez DO [Family Provider] -
Activity Restrictions/Additional Instructions:
As discussed, please follow up with your foot surgeon for continual evaluation and treatment, including MRI foot. Your prescription has been sent electronically to [facility] [place].
Interventions
Interventions:
*Risk Screen - Suicide Last Done: 10/24/24 10:33
*General Assessment Last Done: 10/24/24 14:52
*Neglect/Abuse Screening Last Done: 10/24/24 10:33
*ED- Fall Risk Assessment Last Done: 10/24/24 14:52
*ED COVID-19 Vaccine History Last Done: 10/24/24 14:52
*Nursing Disposition Last Done: 10/24/24 14:52
ED-Musculoskeletal Assessment Last Done: 10/24/24 14:52
Discharge Date and Time
Discharge Date/Time: 10/24/24 14:53
Print Language: AZERI
== END 2024-10-24 14:53 | disposition home or self-care (01) ==
LOC: EMR 10:10
PROVIDERS: Emergency Medicine; EMERGENCY PHYSICIAN Emergency Medicine; FAMILY PHYSICIAN Family Medicine
DX: M79.671 Pain in right foot (principal); M79.604 Pain in right leg; R11.2 Nausea with vomiting, unspecified; R10.9 Unspecified abdominal pain; R19.7 Diarrhea, unspecified; I10 Essential (primary) hypertension; F84.0 Autistic disorder; F32.9 Major depressive disorder, single episode, unspecified; F41.9 Anxiety disorder, unspecified; F43.10 Post-traumatic stress disorder, unspecified; F25.9 Schizoaffective disorder, unspecified; M19.90 Unspecified osteoarthritis, unspecified site; G43.909 Migraine, unspecified, not intractable, without status migrainosus; F31.9 Bipolar disorder, unspecified; Z77.22 Contact with and (suspected) exposure to environmental tobacco smoke (acute) (chronic); Z86.718 Personal history of other venous thrombosis and embolism; Z91.51 Personal history of suicidal behavior; Z98.0 Intestinal bypass and anastomosis status; Z88.0 Allergy status to penicillin; Z88.8 Allergy status to other drugs, medicaments and biological substances; Z88.1 Allergy status to other antibiotic agents; Z91.018 Allergy to other foods
CPT/HCPCS: 99283; 80053; 83690; 84703; 85025

== ENCOUNTER 2024-10-26 02:05 | Observation (INO) | payer MEDICARE, OTHER, SELFPAY ==
[2024-10-25 16:50] VITALS: BP 157/96
[2024-10-25 22:03] VITALS: BP 152/104
[2024-10-25 22:04] VITALS: BMI 44.5
--- NOTE | 2024-10-25 22:08 | ED.MUSCINJ ---
HPI-Injury
General
Chief Complaint: Musculo-Skeletal Complaint
Source: patient
Exam Limitations: none
Time Seen by Provider: 10/25/24 21:56
Nursing documentation reviewed up to this point in time: agreed with
History of Present Illness-Injury
Initial Injury comments:
29-year-old female presents to the emergency right foot pain. She states that her right foot was operated on several months back for clubfoot. She states that she has had increased redness and some swelling with pain. She spoke with her
adolescent specialist, the surgeon, who recommended that she come to the emergency department 'for admission to the hospital '. Patient was seen multiple times in the past most recently several days ago. Had full lab work and imaging at that point. Denies
fever, chills, nausea or vomiting. She states that the foot is no longer red but it is still painful.
Past History
Past History
ED Past Medical History: HTN, Psychiatric (Autism, alcohol syndrome, learning disability, major depression, anxiety, PTSD, Bipolar Schitzo affective disorder) and Other (Headaches, gastric emptying issues, Vertigo, Arthritis, DVT, )
ED Past Surgical History: Bowel resection, Orthopedic (Right club foot repair, ) and Other (Neck surgery )
Social History
Tobacco: 2nd hand smoke exposure
Alcohol: None
Drug: None
Personal: Single
Living: with family
Employment: Employed
Family History
Family History: Other (Noncontributory)
Phy Exam
General Physical Exam
General Presentation: well appearing and no apparent distress
General Skin: warm and dry
General Habitus: normal
General Mental: alert
General Hydration: appears well hydrated
ENT Exam
ENT Exam: EOMI, pharynx normal, neck supple and normocephalic
Eye Exam
Eye Exam: PERRL, cornea clear and conjunctiva normal
Cardiovascular Exam
Cardiovascular Exam: regular rate/rhythm, no edema, no murmur and normal peripheral pulses
Pulmonary Exam
Pulmonary Exam: lungs clear, no respiratory distress, no rales, no crackles, no rhonchi, no stridor, no wheezing and no cough
Gastrointestinal Exam
Gastrointestinal Exam: normal bowel sounds, non tender, soft, no organomegaly, no pulsatile mass and non distended
Neurological Exam
Neurological Exam: alert, oriented x3, no motor deficits and speech normal
Musculoskeletal Exam
Musculoskeletal Exam: full ROM, no edema and other (Scarring from surgery. Well-healing. No evidence of infection or inflammation.)
Skin Exam
Skin Exam: normal color, warm/dry, no rash and no petechia
Psychiatric Exam
Psychiatric Exam: normal mood/affect
Injury Course
Orders/Labs/Results
Orders:
Orders
10/25/24 23:23
CRP [C-Reactive Protein] Urgent
Complete Blood Count/With Diff Urgent
Comprehensive Metabolic Panel Urgent
Sed Rate [Erythrocyte Sed Rate] Urgent
10/26/24 01:00
Flush (0.9% Sodium Chloride) [Flush (Nss)] See Dose Instructions IV PER PROTOCOL
Abnormal Lab Results
10/25/24
23:23
WBC 12.2 H 10^3/uL
(4.8-10.8)
Hgb 11.4 L g/dL
(12.0-16.0)
MCV 76.0 L fL
(81.0-99.0)
MCH 23.2 L pg
(27.0-31.0)
MCHC 30.5 L g/dL
(33.0-37.0)
RDW 16.4 H %
(11.5-14.5)
Plt Count 414 H 10^3/uL
(130-400)
Absolute Neuts (auto) 8.8 H 10^3/uL
(1.4-6.5)
C-Reactive Protein 16.90 H mg/L
(0.0-10.00)
10/25/24 23:23
10/25/24 23:23
*Critical Care Note
Total Time (30-74mins, 75-104mins- exclusive of procedures): Not Applicable
Update Note
Update Note:
Attempts via [facility] text to contact Dr. Navarro unsuccessful.
X-ray from this week shows possible osteomyelitis.
Will admit on those grounds. Given normal lab work, no antibiotics to be started.
MRI in the morning.
Ultrasound from this week showed no DVT.
White blood cell count went up slightly since last visit.
Still no response from podiatry.
Will admit. Holding antibiotics at this point until MRI.
ED Attending Note
-
Portions of this chart may have been created with voice recognition software.� Occasional wrong word or��sound alike� substitutions may have occurred due to the inherent limitations of voice recognition software.
Discharge Plan
Departure
Patient Disposition: Admit
Date of Disposition: 10/26/24
Time of Disposition: 00:06
Presentation/result/management discussed w/ accepting MD/DO: Hospitalist
Condition: Good
Discharge Problem:
Postoperative pain
Prescriptions:
No Action
loratadine 10 MG tablet
10 mg PO DAILYPRN PRN (Reason: Allergies)
amlodipine 5 MG tablet
5 mg PO DAILY Qty: 90 0RF
prazosin 5 mg Capsule
2 mg PO HS
ondansetron 4 mg Tablet,Disintegrating
4 mg PO TIDPRN PRN (Reason: nausea/vomiting) Qty: 8 0RF
lithium carbonate 300 mg tablet extended release
600 mg PO HS
citalopram 10 mg Tablet
10 mg PO DAILY
levothyroxine 25 mcg Tablet
25 mcg PO DAILY
pantoprazole 40 mg Tablet,Delayed Release (Dr/Ec)
40 mg PO DAILY
duloxetine 20 mg Capsule,Delayed Release(Dr/Ec)
20 mg PO BID
Nurtec ODT 75 mg Tablet,Disintegrating
75 mg PO DAILYPRN PRN (Reason: migraine)
lidocaine 4 % Adhesive Patch,Medicated
1 patch TOPICAL DAILYPRN PRN (Reason: LEFT SHOULDER)
metoprolol succinate 50 mg Tablet Extended Release 24 Hr
50 mg PO BID
Xarelto 20 mg Tablet
20 mg PO QPM
oxycodone 5 mg tablet
5 mg PO Q4HPRN PRN (Reason: SEVERE pain)
ondansetron 4 mg Tablet,Disintegrating
4 mg PO TIDPRN PRN (Reason: nausea/vomiting) Qty: 12 0RF
Referrals:
Steven Ordonez DO [Family Provider] -
Interventions
Interventions:
*Risk Screen - Suicide Last Done: 10/25/24 16:57
*General Assessment Last Done: 10/25/24 22:05
*Neglect/Abuse Screening Last Done: 10/25/24 16:57
*ED- Fall Risk Assessment Last Done: 10/25/24 22:05
*ED COVID-19 Vaccine History Last Done: 10/25/24 22:05
ED-Musculoskeletal Assessment Last Done: 10/25/24 22:05
Discharge Date and Time
Print Language: INDONESIAN
[2024-10-25 23:39] LABS: % Basophils 0.4 % (0-2); % Immature Granulocytes 0.3 % (0-0.5); % Lymphocytes 21.3 % (20.5-51.1); % Monocytes 3.9 % (1.7-9.3); % Neutrophils 72.1 % (42.2-75.2); Absolute Basophils 0.1 10^3/uL (0-0.2); Absolute Eosinophils 0.3 10^3/uL (0-0.7); Absolute Lymphocytes 2.6 10^3/uL (1.2-3.4); Absolute Monocytes 0.5 10^3/uL (0.1-0.6); Absolute Neutrophils 8.8 10^3/uL (1.4-6.5); Hematocrit 37.4 % (37.0-47.0); Hemoglobin 11.4 g/dL (12.0-16.0); Mean Corp Hgb Conc. 30.5 g/dL (33.0-37.0); Mean Corpuscular Hgb 23.2 pg (27.0-31.0); Nucleated Red Blood Cells % 0 %; Platelet Count 414 10^3/uL (130-400); Red Blood Cell Count 4.92 10^6/uL (4.20-5.40); Red Cell Dist. Width 16.4 % (11.5-14.5); White Blood Cell Count 12.2 10^3/uL (4.8-10.8)
[2024-10-25 23:46] LABS: Erythrocyte Sed Rate 1 mm/hour (0-20)
[2024-10-25 23:53] LABS: ALT (SGPT) 21 U/L (0-35); AST (SGOT) 17 U/L (14-36); Albumin 3.9 g/dl (3.5-5.0); Alkaline Phosphatase 97 U/L (38-126); Blood Urea Nitrogen 11 mg/dl (7-17); Calcium 9.5 mg/dl (8.4-10.2); Carbon Dioxide 29 mmol/L (22-30); Chloride 107 mmol/L (98-107); Estimated Creatinine Clearance 124 ml/min; Glucose 91 mg/dl (70-99); Potassium 4.7 mmol/L (3.5-5.1); Sodium 140 mmol/L (135-145); Total Bilirubin 0.4 mg/dl (0.2-1.3); Total Protein 7.1 g/dl (6.3-8.2); eGFR > 60.00
[2024-10-26 01:10] VITALS: BP 139/84
[2024-10-26] MEDS: FLUSH (NSS) 1 FLUSH IV (01:12)
--- NOTE | 2024-10-26 01:22 | HPS.HSE ---
Family Physician
-
Family Physician: Steven Ordonez,
Chief Complaint
-
Right Club Foot
History of Present Illness
Patient is a 29-year-old female with history of PTSD, hypertension, right clubfoot status post reconstruction who presents to the emergency department with complaints of pain in the foot and requested to come to the ED by Dr. Navarro after an
outpatient x-ray shows possible osteomyelitis.
Patient reported that she had actually been doing well since her surgery in May. She graduated from the [employer] and [employer] and was able to ambulate up until October 13. Then she started having severe pain radiating up her legs. Anytime she puts
pressure on the feet she has pain as radiating up her legs. She reports feeling intermittently cold and hot. She has been having nausea and has been unable to tolerate oral medications. She was given additional pain medications (ketorolac and
ondansetron) but she was not able to tolerate these due to will vomiting up anything she tries to take down. She called Dr. Navarro on Thursday who requested that she come to the emergency department for MRI and admission.
In the emergency department she was afebrile, blood pressure was 139/84 with a pulse rate of 76. She is satting 100% on room air.
Had a white count of 12.2, the rest of the CBC is unremarkable stop electrolyte BUN/creatinine were normal. ESR was negative.
The ankle x-ray from 10/19 shows periosteal reaction along the distal medial tibia which is new from the prior study. This may be a reaction to chronic inflammation but osteomyelitis is difficult to exclude completely.
There is an increase in density within the soft tissues consistent with edema and inflammation both medially and laterally.
Medical History
Past Medical History
Past Medical History: Reports Other
Additional Past Medical History:
Hypertension
Anxiety/Depression
Bipolar Disorder
PTSD
Hypothyroidism
GERD
Alcohol Spectrum Disorder
Past Surgical History: Reports Other
Additional Past Surgical History:
Right Club Foot Reconstruction
Lipoma Resection
Social History
Tobacco: Non-smoker
Alcohol: None
Living: With Family (Dad)
Family History
Family History: Not pertinent
Allergies / Home Medications
Allergies reflects when Allergies were last updated in [facility].
Home Medications with original date entered in [facility]
Allergy/Medication List:
Allergies
Allergy/AdvReac Type Severity Reaction Status Date / Time
gabapentin Allergy Mild Rash Verified 05/23/24 11:22
amoxicillin [Amoxicillin] Allergy Anaphylaxis Verified 05/23/24 11:22
Penicillins Allergy Hives Verified 05/23/24 11:22
tree nut Allergy Rash Verified 05/23/24 11:22
Home Medications
loratadine 10 mg tablet 10 mg PO DAILY PRN Allergies 03/20/21
amlodipine 5 mg tablet 5 mg PO DAILY #90 tabs 10/25/21
prazosin 5 mg capsule 2 mg PO HS 11/03/22
ondansetron 4 mg disintegrating tablet 4 mg PO TIDPRN PRN nausea/vomiting #8 tabs 04/05/24
promethazine 25 mg tablet 25 mg PO TID PRN nausea and vomiting #15 tabs 04/11/24
citalopram 10 mg tablet 10 mg PO DAILY 05/13/24
duloxetine 20 mg capsule,delayed release 20 mg PO BID 05/13/24
levothyroxine 25 mcg tablet 25 mcg PO DAILY 05/13/24
pantoprazole 40 mg tablet,delayed release 40 mg PO DAILY 05/13/24
rimegepant 75 mg disintegrating tablet (Nurtec ODT) 75 mg PO ONCE PRN migraine 05/13/24
lithium carbonate 300 mg tablet,extended release 300 mg PO HS 05/20/24
Review of Systems
-
A 12 point ROS was completed and negative except as noted: Yes
Constitutional: Reports No Symptoms
EENT: Reports No Symptoms
Respiratory: Reports No Symptoms
Cardiac: Reports No Symptoms
Abdomen/GI: Reports No Symptoms
: Reports No Symptoms
Musculoskeletal: Reports Other (Right foot pain)
Skin: Reports No Symptoms
Neurological: Reports No Symptoms
Endocrine: Reports No Symptoms
Hematologic/Lymphatic: Reports No Symptoms
Psych: Reports No Symptoms
Physical Exam
Vital Signs
Vital Signs
Temp Resp BP Pulse Ox
98.6 F 16 139/84 100
10/25/24 16:50 10/25/24 16:50 10/26/24 01:10 10/26/24 01:11
Physical Exam
General: Well Developed, Well Nourished and Obese
HEENT: Anicteric and Moist mucous membranes
Respiratory: Clear and Non Labored Respirations
Cardiac: S1/S2, Regular Rhythm and Tachycardia (Slightly)
GI: Soft and Non Tender
Musculoskeletal: No Clubbing, No Cyanosis and Other
Skin: Warm and Dry
Neuro: Awake, Alert, Oriented and Nonfocal/grossly intact
Psych: Calm
Laboratory Results
-
10/25/24 23:23
10/25/24 23:23
Laboratory Results
Total Bilirubin 0.4 mg/dl (0.2-1.3) 10/25/24 23:23
AST 17 U/L (14-36) 10/25/24 23:23
ALT 21 U/L (0-35) 10/25/24 23:23
Alkaline Phosphatase 97 U/L (38-126) 10/25/24 23:23
Data Reviewed
-
Diagnostic Radiology: Report Reviewed by me
Lab Data: Labs Reviewed by me
Old Records: Reviewed
Impression/Plan
-
IMPRESSION:
Patient with right clubfoot status post surgical reconstruction in May who now presents with approximately 2 weeks of worsening right foot pain when applied pressure. She reports that the pain is at the ankle and radiates up her legs up the
way to her thigh. She reports intermittent chills and feeling hot. No enrike fevers measured. She has no worsening swelling or redness and no exudate. The nausea has been persistent and has prevented management as an outpatient orally. Here in
the emergency department she had an x-ray few days ago which showed possible periosteal changes consistent with osteomyelitis. ESR was negative today. CRP was abnormal. Mild leukocytosis. She is afebrile now hemodynamically stable.
PLAN:
Possible osteomyelitis -given that she is afebrile and hemodynamically stable, will hold off antibiotics for now pending further investigation with an MRI.
-Admit to MedSurg
-Blood cultures afebrile,
- Pain control and antiemetics
-MRI with contrast in a.m.
-Podiatry consult (patient of Dr. Navarro)
Hypertension
-Continue amlodipine and prazosin
Anxiety / Depression / Bipolar / PTSD
-Continue citalopram, duloxetine and lithium
- continue topamax in am when dose available
Hypothyroidism
-Continue levothyroxine
GERD
-Continue Protonix
DVT Proph: on rivaroxaban for prior DVTs
Code Status: Full Code
[2024-10-26] MEDS: REGLAN 10 MG IV (01:53)
[2024-10-26] MEDS: TORADOL 15 MG IV ×2 (01:53→10:01)
[2024-10-26 02:00] VITALS: BP 134/87
[2024-10-26 02:51] VITALS: BMI 43.6
[2024-10-26 02:52] VITALS: BP 151/99
[2024-10-26] MEDS: DILAUDID 0.25 MG IV (03:31)
--- NOTE | 2024-10-26 03:40 | PTCARENOTE ---
Pt received from ED via stretcher. Ambulated to bed w/assist, w/o incident. AAOx3, flat affect. Oriented to surroundings and plan of care discussed. Admission and assessment completed. During intake pt answered yes to Suicide Screen questions,
secondary screening = mild risk. Denies active plan. [facility] [employer] covering house and Nursing Supervsor made aware. No new orders at this time. Pt appears unkempt, MASD to bilateral groin and abdominal fold. Miconazole powder to be obtained from
pharmacy. Instructed to call for assist when getting OOB, verbalizes understanding. Call silvana w/in reach.
--- NOTE | 2024-10-26 03:52 | W.PN.UPDATE ---
Update Note
Progress Note Update
RN reports patient with positive suicide screen with fleeting thoughts/ideation. Patient seen and evaluated. Patient Ox3, reports she has suicide thoughts comes and goes all the time, but not with any ideas or plans now. Reports she has history of
suicide attempt ten years ago with medication overdose and trying to cut her self. Reports she has not attempted or has any plans to attempt suicide anymore. States she is home alone most of the time and hasn't had any issues. Since patient is
without any active ideas or plans will not place patient 1:1.
[2024-10-26] MEDS: SYNTHROID 25 MCG PO (06:23)
--- NOTE | 2024-10-26 07:38 | W.PN.SURGUPD ---
Surgical Update
Surgical Update
29 yo F s/p R clubfoot reconstruction presents to with post operative pain
-New CBC today pending
-Multimodal analgesia per primary team
-Will obtain MRI of right ankle to evaluate surgical site
-Suspect ankle nonunion, low suspicious for infection at this point although cannot be definitively ruled out at this point
[2024-10-26 07:55] VITALS: BP 117/80
--- NOTE | 2024-10-26 08:09 | W.PN.HOSP.TC ---
Addendum entered and electronically signed by Williams Delacruz DO 10/26/24 13:43:
CT of the foot and ankle negative for obvious osteomyelitis, does show postoperative changes.
Unfortunately unable to do MRI due to significant hardware causing artifact.
Bone scan will be nonspecific as well and not very helpful, discussed with podiatry. In addition the isotope will take time to order and the scan will not be completed till next week. Discussed with radiology department.
I spoke with podiatry, Dr. Navarro, lauryn to discharge home today with outpatient follow-up. Prescription for Ultram sent to pharmacy for as needed use for foot and ankle pain. Stop ketorolac.
Recommend abstaining from marijuana use as this may cause her nausea. Discussed with patient and her father.
Follow-up with GI as an outpatient if nausea persists. Continue Protonix and Zofran on discharge.
Patient tolerating diet and eating Wolof fries in her room without any complaints of nausea.
Original Note:
Today's Communication/Plan
-
Bone scan
Podiatry consult
Update home medication list
Assessment / Plan
Assessment / Plan
Gen-AAOx3, NAD
HEENT-NC, AT, anicteric, clear oral mm
Neck-supple
CV-reg, no M, +S1/S2
Lungs-clear B/L
Abd-soft, NT, ND
Ext-no edema
Musculoskeletal-no cyanosis, right foot clubbing, healed scar, mild pedal edema, limited range of motion of right ankle
Skin-warm and dry
Neuro-grossly non-focal
Psych-calm, cooperative
Right clubfoot pain -elevated inflammatory markers. Concern for osteomyelitis. Patient states the pain started about 2 weeks ago. She was seen in the emergency room on October 19 for right foot and ankle pain and then again on October 24. Ankle x-ray
from October 19 shows periosteal reaction along the distal medial tibia which is new. Increase in density within the soft tissues consistent with edema and inflammation both medially and laterally. Mild leukocytosis noted. Afebrile.
MRI department states they cannot perform MRI due to her hardware. Spoke with podiatry Dr. Navarro, will plan to get bone scan.
Continue analgesics.
Right clubfoot -with reconstructive surgery May 23, 2024 by podiatry.
Nausea -unclear if adverse drug reaction versus other etiology. Continue antiemetics. Please update home medication list.
Essential hypertension -stable. Continue home medications. Please update home medication list.
PTSD
Bipolar disorder
Hypothyroidism
GERD
alcohol spectrum disorder
Schizoaffective disorder
History of VTE -still on rivaroxaban.
Morbid obesity due to excess calories
Full code
Anticipated Discharge: > 48 hours
Subjective/Interval History
-
Date of Service: October 26, 2024
Patient seen and examined. Complaining of mild nausea, mild right foot pain.
Objective Data
-
Labs:
Laboratory Results
10/25/24 10/26/24
23:23 07:15
WBC 12.2 H Pending
Hgb 11.4 L Pending
Hct 37.4 Pending
Plt Count 414 H Pending
Sodium 140 Pending
Potassium 4.7 Pending
Chloride 107 Pending
Carbon Dioxide 29 Pending
BUN 11 Pending
Creatinine 0.8 Pending
Glucose 91 Pending
Calcium 9.5 Pending
Total Bilirubin 0.4
AST 17
ALT 21
Alkaline Phosphatase 97
Vital Signs:
Vital Signs
Temp Pulse Resp BP Pulse Ox
97.5 F 85 20 117/80 98
10/26/24 07:55 10/26/24 07:55 10/26/24 07:55 10/26/24 07:55 10/26/24 07:55
Review of Systems
-
History Source: Patient
All other systems: Reviewed and negative
[2024-10-26 08:15] LABS: Hematocrit 32.9 % (37.0-47.0); Hemoglobin 10.4 g/dL (12.0-16.0); Mean Corp Hgb Conc. 31.6 g/dL (33.0-37.0); Mean Corpuscular Hgb 23.3 pg (27.0-31.0); Mean Corpuscular Volume 73.6 fL (81.0-99.0); Mean Platelet Volume 9.7 fL (7.4-10.4); Platelet Count 300 10^3/uL (130-400); Red Blood Cell Count 4.47 10^6/uL (4.20-5.40); Red Cell Dist. Width 16.5 % (11.5-14.5); White Blood Cell Count 10.9 10^3/uL (4.8-10.8)
[2024-10-26 08:46] LABS: Blood Urea Nitrogen 14 mg/dl (7-17); Calcium 9.2 mg/dl (8.4-10.2); Carbon Dioxide 27 mmol/L (22-30); Chloride 108 mmol/L (98-107); Estimated Creatinine Clearance 122 ml/min; Glucose 85 mg/dl (70-99); Potassium 4.6 mmol/L (3.5-5.1); Sodium 140 mmol/L (135-145); eGFR > 60.00
[2024-10-26] MEDS: NORVASC 5 MG PO (10:00)
[2024-10-26] MEDS: TOPROL XL 50 MG PO (10:00)
[2024-10-26] MEDS: CELEXA 10 MG PO (10:00)
[2024-10-26] MEDS: PROTONIX 40 MG PO (10:00)
[2024-10-26] MEDS: CYMBALTA DELAYED RELEASE 20 MG PO (10:00)
[2024-10-26] MEDS: ZOFRAN 4 MG IV (10:08)
--- NOTE | 2024-10-26 10:53 | W.PN.UPDATE ---
Update Note
Progress Note Update
dr marmolejo tells me patient being dc'ed and consult for psych no longer needed. i did check the [facility] record. she has services through [facility] and can return there for followup.
--- NOTE | 2024-10-26 13:40 | W.DS.TRANS ---
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
-
Discharge Instructions:
Discharge Diagnosis/Procedures Right sided foot and ankle pain, nausea
Diet Low Fat,Low Cholesterol
Activity As tolerated
Driving Restrictions Not until seen by your Dr
Bathing Restrictions None
Instructions:
Stand-Alone Forms:
Changes to Home Medications: Yes
Discharge Medications:
DC Medications w/original date entered in [facility]
loratadine 10 mg tablet 10 mg PO DAILYPRN PRN Allergies 03/20/21
amlodipine 5 mg tablet 5 mg PO DAILY #90 tabs 10/25/21
prazosin 5 mg capsule 2 mg PO HS 11/03/22
citalopram 10 mg tablet 10 mg PO DAILY 05/13/24
duloxetine 20 mg capsule,delayed release 20 mg PO BID 05/13/24
levothyroxine 25 mcg tablet 25 mcg PO DAILY 05/13/24
pantoprazole 40 mg tablet,delayed release 40 mg PO DAILY 05/13/24
rimegepant 75 mg disintegrating tablet (Nurtec ODT) 75 mg PO DAILYPRN PRN migraine 05/13/24
lithium carbonate 300 mg tablet,extended release 600 mg PO HS 05/20/24
lidocaine 4 % topical patch 1 patch topical DAILYPRN PRN LEFT SHOULDER 08/02/24
metoprolol succinate 50 mg tablet,extended release 24 hr 50 mg PO BID 08/02/24
rivaroxaban 20 mg tablet (Xarelto) 20 mg PO QPM 08/02/24
ondansetron 4 mg disintegrating tablet 4 mg PO QIDPRN PRN nausea/vomiting #14 tabs 10/26/24
sennosides 8.6 mg-docusate sodium 50 mg tablet 1 tab PO BIDPRN PRN constipation #0 tabs 10/26/24
tramadol 50 mg tablet 50 mg PO Q6HPRN PRN foot pain #20 tabs 10/26/24
Home Medication Changes
Stop ketorolac
Pending Results: No
--- NOTE | 2024-10-26 13:41 | CON.MD ---
Addendum entered and electronically signed by Yves Lao MD 10/27/24 15:44:
note this consult done on oct 26 2024
Original Note:
Consultation - Medical
-
patient seen chart reviewed. spoke with nursing. this consult was ordered bc ? of suicidality. the patient is a 29 year woman who has had several hospitalizations the most recent in september for depression and suicidal thoughts. she is currently
denying suicidal thoughts. she says she feels much better since her psych admit recently . she has occasionally had fleeting suicidal thoughts but no intent or plan and she has not attempted to harm herself in many many years. (over ten). her
medications were changed when she was in the hospital. she was not prescribed celexa which i have dc'ed. she thinks she was put on topamax and continued on cymbalta and prazosin. she does not know if she was prescribed lithium.she is also on
injectable ability (trinza) but not due till november. we called her father but he was not at home and could not verify what she was taking. he will see if he can reach her brother who may be at home. the patient is in some pain after he surgery for
club foot. she was admitted bc of issues with her lower extremity and it is my understanding from dr marmolejo that he is trying to reach her finance officer to make a plan for her. her sleep is disturbed by pain. appetite is okay. she is not experiencing
hallucinations.
past psych hx patient is followed at [facility]. she has a therapist a case repairer and a prescriber. she has seen her therapist ms brock this month but missed prescriber meeting yesterday bc was here. she has had several psych
hospitalizations. says her psych dx have been depression dissociative identity d.o and ptsd. she says she has heard voices but from the did perspective. 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
is also mention of autism in the record
past medical hx patient has a number of medical issues. see above re complications of surgery on club foot. hx gerd arthritis dvt obesity htn migraine allergy to gabapentin hypothyroid fatty liver carpal tunnel
fh non contributory
substance abuse none
social resides w father in their home. father takes care of meds etc. hx psychological trauma which i did not ask patient to relate
mse alert ox3 cooperative pleasant. speech and thought process organized no overt psychosis aver intelligence mood is neutral affect ok currently denies si insight judgment seem fair to okay
dx patient does not appear psychotic to me but she has been maintained on abilify hence likely some mood d/o with possible psychosis. she tells me abilify is for 'mood' but injectable abilify is often for a primary psychotic disorder at this
point would say bipolar depression with likely psychotic fx in remission
plan would dc the celexa which i don't see the need for with cymbalta on board. cymbalta dose could be inc. continue other meds as they are. i will email those caring for her to apprise. it is my impression she will be dc soon and she can see
providers at [facility] to followup
[2024-10-26 14:11] LABS: Lithium < 0.2 mmol/L (0.6-1.2)
--- NOTE | 2024-10-26 14:44 | CM ---
Patient stable for d/c today. Patient seen bedside, initial assessment completed. Patient is a 29-year-old female with history of PTSD, hypertension, right clubfoot status post reconstruction who presents to the emergency department with complaints
of pain in the foot. Patient had surgery in May. She graduated from the boot and crutches and was able to ambulate up until October 13.
Patient resides w/ father and son in a 2 story split level home- no steps. Patient prev independent w/o device, recently was encouraged to use RW to support foot as she has boot on now. Independent w/ ADLs. Patient current w/ OP therapy, patient
shared it is on hold at this time due to foot. Patient currently w/ services at [facility]
Address, point of contact and insurance verified
PCP: Steven Ordonez
Pharmacy: [facility]
Patient admitted as obs. BLACK form verbally reviewed, copy given to patient, copy on chart
CM consulted for suicide risk, psych shared patient is current w/ [facility] and patient to resume services at d/c
Patient's brother will transport home
Plan: Home. Cont services w/ [facility]
[2024-10-26] MEDS: ULTRAM 50 MG PO (14:58)
[2024-10-26 16:02] VITALS: BP 134/75
[2024-10-26] MEDS: XARELTO 20 MG PO (17:23)
== END 2024-10-26 18:24 | disposition home or self-care (01) ==
LOC: 1 ACUTE 02:05
PROVIDERS: ADMITTING PHYSICIAN Internal Medicine; ATTENDING PHYSICIAN Hospitalist; EMERGENCY PHYSICIAN Student in an Organized Health Care Education/Training Program; FAMILY PHYSICIAN Family Medicine; OTHER PHYSICIAN Psychiatry & Neurology Psychiatry
DX: M79.671 Pain in right foot (principal); Z77.22 Contact with and (suspected) exposure to environmental tobacco smoke (acute) (chronic); G89.18 Other acute postprocedural pain; I10 Essential (primary) hypertension; F41.9 Anxiety disorder, unspecified; F43.10 Post-traumatic stress disorder, unspecified; E03.9 Hypothyroidism, unspecified; K21.9 Gastro-esophageal reflux disease without esophagitis
CPT/HCPCS: 73701; 80048; 80053; 80178; 85025; 85027; 85652; 86140; 97162; 99284; G0378; Q9967

== ENCOUNTER 2024-12-10 14:05 | Emergency (ER) | payer MEDICARE, OTHER, SELFPAY ==
[2024-12-10 14:08] VITALS: BP 144/105
--- NOTE | 2024-12-10 16:57 | ED.GENMED ---
History of Present Illness
General
Chief Complaint: Crisis Evaluation
Source: patient
Exam Limitations: none
Time Seen by Provider: 12/10/24 15:45
History of Present Illness
History of Present Illness:
Patient is a 29-year-old female past medical history of PTSD bipolar hypothyroidism clubfoot/surgery(May 2024) presents to the ER complaining of creasing pain and swelling to the right ankle. She reports because of the pain and swelling she is
now having difficulty walking she did have surgery in May by Dr. Navarro and he did see her yesterday. He is recommending a possible another surgery as well as a CAT scan and additional imaging.
She is on pain medicine, tramadol and taking Tylenol. She denies any fever or chills.
Past History
Past History
ED Past Medical History: HTN, Psychiatric (Autism, alcohol syndrome, learning disability, major depression, anxiety, PTSD, Bipolar Schitzo affective disorder) and Other (Headaches, gastric emptying issues, Vertigo, Arthritis, DVT, )
ED Past Surgical History: Bowel resection, Orthopedic (Right club foot repair, ) and Other (Neck surgery )
Social History
Tobacco: 2nd hand smoke exposure
Alcohol: None
Drug: None
Personal: Single
Living: with family
Employment: Employed
Family History
Family History: Other (Noncontributory)
Phy Exam
General Physical Exam
General Presentation: no apparent distress
General age: appears stated age
General Skin: warm and dry
General Habitus: normal
General Mental: alert
General Hydration: appears well hydrated
Neurological Exam
Neurological Exam: alert and oriented x3
Musculoskeletal Exam
Musculoskeletal Exam: other (Strong pulses to right lower extremity mild swelling to right ankle and foot no erythema no calf tenderness or swelling)
Skin Exam
Skin Exam: normal color and warm/dry
Psychiatric Exam
Psychiatric Exam: normal mood/affect
Course
Orders/Labs/Results
Orders:
Orders
12/10/24 14:13
1:1 Observation - Suicide/ Violent Behavior As Directed
12/10/24 16:53
Venous Doppler Lwr Ext Rt [US Periph Venous LOWER Ext RT] Urgent
Comment:
Reason For Exam: pain
12/10/24 17:01
IV Insert/Care/Rem.- Treatment PRN
12/10/24 17:27
Complete Blood Count/With Diff Urgent
Comprehensive Metabolic Panel Urgent
Abnormal Lab Results
12/10/24
17:27
WBC 11.5 H 10^3/uL
(4.8-10.8)
Hgb 10.4 L g/dL
(12.0-16.0)
Hct 34.0 L %
(37.0-47.0)
MCV 76.9 L fL
(81.0-99.0)
MCH 23.5 L pg
(27.0-31.0)
MCHC 30.6 L g/dL
(33.0-37.0)
RDW 16.9 H %
(11.5-14.5)
Absolute Neuts (auto) 8.5 H 10^3/uL
(1.4-6.5)
Lymphocytes % 19.7 L %
(20.5-51.1)
Chloride 109 H mmol/L
(98-107)
12/10/24 17:27
12/10/24 17:27
Vital Signs
Initial and Last Documented VS:
Initial Vital Signs
Temp Pulse Resp BP Pulse Ox
98.4 F 106 14 144/105 98
12/10/24 14:08 12/10/24 14:08 12/10/24 14:08 12/10/24 14:08 12/10/24 14:08
Last Documented Vital Signs
Temp Pulse Resp BP Pulse Ox
98.4 F 106 14 144/105 98
12/10/24 14:08 12/10/24 14:08 12/10/24 14:08 12/10/24 14:08 12/10/24 16:59
MDM/Problems Addressed
Differential Diagnosis Includes:
Not limited pain status post surgery, less likely DVT less likely infection
MDM/Problems Addressed:
As documented patient is a 29-year-old female with past medical history including psychiatric, bipolar panic anxiety suicidal ideation who had reconstruction for clubfoot surgery May 2024 presents with right foot and ankle pain and swelling.
She was just seen by her chocolate refining roller yesterday.
I did contact Dr. Navarro who had no acute concerns. They are going to be planning a revision to help with the pain. Here in the ER there is no evidence of infection there is no DVT. Her white count is minimally elevated however this is not new.
She denies any recent fevers and is afebrile. Patient has been taking Tylenol and tramadol I did instruct her to continue doing so.
*Radiology
Radiology exam reviewed: radiology read reviewed
*Pulse Oximetry
SaO2: 98
Oxygen Mode of Delivery: Room air
Patient hypoxic: no
*Critical Care Note
Total Time (30-74mins, 75-104mins- exclusive of procedures): Not Applicable
Patient Management
Discussion with other providers: Size Roller Operator (Podiatry Dr. Navarro)
ED Attending Note
-
Portions of this chart may have been created with voice recognition software.� Occasional wrong word or��sound alike� substitutions may have occurred due to the inherent limitations of voice recognition software.
Discharge Plan
Departure
Patient Disposition: Home (Routine Discharge)
Date of Disposition: 12/10/24
Time of Disposition: 19:51
Patient with high blood pressure during this ER visit?: Yes
Condition: Fair
Covid-19: Not Applicable
Discharge Problem:
Foot and ankle pain
Instructions: Muscle and Bone Pain (DC)
Prescriptions:
No Action
loratadine 10 MG tablet
10 mg PO DAILYPRN PRN (Reason: Allergies)
amlodipine 5 MG tablet
5 mg PO DAILY Qty: 90 0RF
prazosin 5 mg Capsule
2 mg PO HS
lithium carbonate 300 mg tablet extended release
600 mg PO HS
citalopram 10 mg Tablet
10 mg PO DAILY
levothyroxine 25 mcg Tablet
25 mcg PO DAILY
pantoprazole 40 mg Tablet,Delayed Release (Dr/Ec)
40 mg PO DAILY
duloxetine 20 mg Capsule,Delayed Release(Dr/Ec)
20 mg PO BID
Nurtec ODT 75 mg Tablet,Disintegrating
75 mg PO DAILYPRN PRN (Reason: migraine)
lidocaine 4 % Adhesive Patch,Medicated
1 patch TOPICAL DAILYPRN PRN (Reason: LEFT SHOULDER)
metoprolol succinate 50 mg Tablet Extended Release 24 Hr
50 mg PO BID
Xarelto 20 mg Tablet
20 mg PO QPM
sennosides-docusate sodium 8.6-50 mg Tablet
1 tab PO BIDPRN PRN (Reason: constipation) Qty: 0 0RF
tramadol 50 mg Tablet
50 mg PO Q6HPRN PRN (Reason: foot pain) Qty: 20 0RF
ondansetron 4 mg Tablet,Disintegrating
4 mg PO QIDPRN PRN (Reason: nausea/vomiting) Qty: 14 0RF
Referrals:
Steven Ordonez DO [Family Provider, Family Practice]
Yogi Navarro DPM [Active, Podiatry]
Activity Restrictions/Additional Instructions:
You may continue to take your current medications for discomfort. Follow-up with your chocolate refining roller as scheduled return if any worsening of symptoms. Keep elevated as much as possible.
Interventions
Interventions:
*Risk Screen - Suicide Last Done: 12/10/24 14:08
*General Assessment Last Done: 12/10/24 16:51
*Neglect/Abuse Screening Last Done: 12/10/24 16:51
*ED- Fall Risk Assessment Last Done: 12/10/24 16:51
ED-Musculoskeletal Assessment Last Done: 12/10/24 16:51
ED-Psychological Assessment Last Done: 12/10/24 16:51
Discharge Date and Time
Print Language: GREEK
[2024-12-10 17:51] LABS: % Basophils 0.5 % (0-2); % Immature Granulocytes 0.3 % (0-0.5); % Lymphocytes 19.7 % (20.5-51.1); % Monocytes 4.2 % (1.7-9.3); % Neutrophils 73.3 % (42.2-75.2); Absolute Basophils 0.1 10^3/uL (0-0.2); Absolute Eosinophils 0.2 10^3/uL (0-0.7); Absolute Lymphocytes 2.3 10^3/uL (1.2-3.4); Absolute Monocytes 0.5 10^3/uL (0.1-0.6); Absolute Neutrophils 8.5 10^3/uL (1.4-6.5); Hemoglobin 10.4 g/dL (12.0-16.0); Mean Corp Hgb Conc. 30.6 g/dL (33.0-37.0); Mean Corpuscular Hgb 23.5 pg (27.0-31.0); Mean Corpuscular Volume 76.9 fL (81.0-99.0); Mean Platelet Volume 9.2 fL (7.4-10.4); Nucleated Red Blood Cells % 0 %; Platelet Count 366 10^3/uL (130-400); Red Blood Cell Count 4.42 10^6/uL (4.20-5.40); Red Cell Dist. Width 16.9 % (11.5-14.5); White Blood Cell Count 11.5 10^3/uL (4.8-10.8)
[2024-12-10 17:57] LABS: ALT (SGPT) 24 U/L (0-35); AST (SGOT) 22 U/L (14-36); Albumin 3.9 g/dl (3.5-5.0); Alkaline Phosphatase 100 U/L (38-126); Blood Urea Nitrogen 14 mg/dl (7-17); Calcium 9.1 mg/dl (8.4-10.2); Carbon Dioxide 26 mmol/L (22-30); Chloride 109 mmol/L (98-107); Glucose 88 mg/dl (70-99); Potassium 4.5 mmol/L (3.5-5.1); Sodium 140 mmol/L (135-145); Total Bilirubin 0.3 mg/dl (0.2-1.3); Total Protein 6.9 g/dl (6.3-8.2); eGFR > 60.00
== END 2024-12-10 20:14 | disposition home or self-care (01) ==
LOC: EMR 14:05
PROVIDERS: Nurse Practitioner; EMERGENCY PHYSICIAN Emergency Medicine; FAMILY PHYSICIAN Family Medicine
DX: M25.571 Pain in right ankle and joints of right foot (principal); R26.2 Difficulty in walking, not elsewhere classified; M25.471 Effusion, right ankle; M79.604 Pain in right leg; I10 Essential (primary) hypertension; F43.10 Post-traumatic stress disorder, unspecified; F31.9 Bipolar disorder, unspecified; E03.9 Hypothyroidism, unspecified; F32.9 Major depressive disorder, single episode, unspecified; M19.90 Unspecified osteoarthritis, unspecified site; F25.9 Schizoaffective disorder, unspecified; F41.9 Anxiety disorder, unspecified; F84.0 Autistic disorder; Z77.22 Contact with and (suspected) exposure to environmental tobacco smoke (acute) (chronic); Z86.718 Personal history of other venous thrombosis and embolism; Z98.0 Intestinal bypass and anastomosis status; Z88.0 Allergy status to penicillin; Z88.8 Allergy status to other drugs, medicaments and biological substances; Z88.1 Allergy status to other antibiotic agents; Z91.018 Allergy to other foods
CPT/HCPCS: 99284; 80053; 85025; 93971

== ENCOUNTER → 2024-12-13 12:27 | Outpatient (REF) | payer MEDICARE, OTHER, SELFPAY | LOC: HWRAD 12:27 | PROVIDERS: ATTENDING PHYSICIAN Student in an Organized Health Care Education/Training Program; FAMILY PHYSICIAN Family Medicine | DX: M79.671 Pain in right foot (principal) | CPT/HCPCS: 73700 ==

== ENCOUNTER → 2024-12-19 16:51 | Outpatient (REF) | payer MEDICARE, OTHER, SELFPAY | LOC: RAD 16:51 | PROVIDERS: ATTENDING PHYSICIAN Student in an Organized Health Care Education/Training Program; FAMILY PHYSICIAN Family Medicine | DX: M79.671 Pain in right foot (principal) | CPT/HCPCS: 73706; Q9967 ==

== ENCOUNTER 2025-01-11 12:46 | Emergency (ER) | payer MEDICARE, SELFPAY ==
[2025-01-11 12:47] VITALS: BP 162/112
[2025-01-11 13:02] LABS: Hematocrit 38.6 % (37.0-47.0); Hemoglobin 11.8 g/dL (12.0-16.0); Mean Corp Hgb Conc. 30.6 g/dL (33.0-37.0); Mean Corpuscular Volume 77.0 fL (81.0-99.0); Nucleated Red Blood Cells % 0 %; Platelet Count 368 10^3/uL (130-400); Red Cell Dist. Width 16.4 % (11.5-14.5)
[2025-01-11 13:21] LABS: ALT (SGPT) 19 U/L (0-35); AST (SGOT) 15 U/L (14-36); Acetaminophen < 10 ug/ml (10-30); Albumin 4.2 g/dl (3.5-5.0); Alkaline Phosphatase 93 U/L (38-126); Blood Urea Nitrogen 18 mg/dl (7-17); Calcium 9.3 mg/dl (8.4-10.2); Carbon Dioxide 29 mmol/L (22-30); Chloride 105 mmol/L (98-107); Glucose 126 mg/dl (70-99); Potassium 4.4 mmol/L (3.5-5.1); Salicylate < 1.0 mg/dl (2.0-20.0); Sodium 139 mmol/L (135-145); Total Protein 7.5 g/dl (6.3-8.2); eGFR > 60.00
[2025-01-11 13:27] VITALS: BMI 43.9
[2025-01-11 13:31] VITALS: BP 145/97
[2025-01-11 14:11] LABS: HCG, Serum Qualitative Screen Negative
--- NOTE | 2025-01-11 14:14 | ED.GENMED ---
History of Present Illness
General
Chief Complaint: Crisis Evaluation
Source: patient and records
Exam Limitations: none
Time Seen by Provider: 01/11/25 13:28
Nursing documentation reviewed up to this point in time: agreed with
History of Present Illness
History of Present Illness:
29-year-old female with medical history as noted presents to the ER from [facility] where she is currently in a partial inpatient program; she presents for evaluation of suicidality. Patient reports that over the past few days she has had increasing
suicidal thoughts with a plan to 'stab myself or overdose on pills.' Denies any homicidal ideation. She denies any hallucinations. She denies any attempts at self-harm. She denies any drug or alcohol use. She has no acute physical complaints.
Past History
Past History
ED Past Medical History: HTN, Psychiatric (Autism, alcohol syndrome, learning disability, major depression, anxiety, PTSD, Bipolar Schitzo affective disorder) and Other (Headaches, gastric emptying issues, Vertigo, Arthritis, DVT, )
ED Past Surgical History: Bowel resection, Orthopedic (Right club foot repair, ) and Other (Neck surgery )
Social History
Tobacco: 2nd hand smoke exposure
Alcohol: None
Drug: None
Personal: Single
Living: with family
Employment: Employed
Family History
Family History: Other (Noncontributory)
Review of Systems
Review of Systems
All Other Systems: ROS reviewed and negative except as documented in HPI and ROS
Constitutional: Denies fever
Respiratory: Denies cough or trouble breathing
Cardiac: Denies chest pain
ABD/GI: Denies abdominal pain
: Denies flank pain
Musculoskeletal: Denies neck pain or back pain
Neurological: Denies dizzy or headache
Psychiatric: Reports depression; Denies suicidal or hallucinations
Phy Exam
Physical Exam
Physical Exam:
General: Well appearing and non-toxic
HEENT: protecting airway
Neck: appears supple
CV: No evidence of cyanosis
Resp: No accessory muscle use
Abd: Non-distended
Extremities: Postsurgical changes noted right foot, no erythema, warmth, tenderness or swelling and pulses are present right lower extremity
Neuro: Alert
Psych: Depressed mood, normal affect
Scores
Heart Failure Risk
Heart Failure Risk Score: Not Applicable
Heart Score for Chest Pain Patients
STEMI patient?: Not applicable
Withdrawal Assessment of Alcohol
Withdrawal Assessment Completed?: Not applicable
Course
Orders/Labs/Results
Orders:
Orders
01/11/25 12:53
Acetaminophen Urgent
Alcohol Urgent
Complete Blood Count/With Diff Urgent
Comprehensive Metabolic Panel Urgent
HCG, Serum Qualitative Screen Urgent
Comment: ADD ON
Salicylate Urgent
01/11/25 13:18
Crisis Consult Urgent
Reason for Consult: +SI with plan
01/11/25 13:19
1:1 Observation - Suicide/ Violent Behavior As Directed
01/11/25 13:34
Urine Drug Abuse Screen Urgent
Date Specimen was Collected: 01/11/25
Time Specimen was Collected: 12:51
01/11/25 13:37
Add On- LAB Urgent
Tests Added?: HCG qual
01/11/25 14:18
Electrocardiogram (*1) Urgent
Reason for Study: QTc Monitoring
EKG- Treatment ONCE
Abnormal Lab Results
01/11/25 01/11/25
12:53 13:34
WBC 11.2 H 10^3/uL
(4.8-10.8)
Hgb 11.8 L g/dL
(12.0-16.0)
MCV 77.0 L fL
(81.0-99.0)
MCH 23.6 L pg
(27.0-31.0)
MCHC 30.6 L g/dL
(33.0-37.0)
RDW 16.4 H %
(11.5-14.5)
Abs Immat Gran (auto) 0.1 H 10^3/uL
(0-0.05)
Absolute Neuts (auto) 8.2 H 10^3/uL
(1.4-6.5)
BUN 18 H mg/dl
(7-17)
Glucose 126 H mg/dl
(70-99)
Salicylates < 1.0 L mg/dl
(2.0-20.0)
Acetaminophen < 10 L ug/ml
(10-30)
U Marijuana (THC) Screen Positive H
(Negative)
01/11/25 12:53
01/11/25 12:53
Vital Signs
Initial and Last Documented VS:
Initial Vital Signs
Temp Pulse Resp BP Pulse Ox
37.0 C 122 20 162/112 99
01/11/25 12:47 01/11/25 12:47 01/11/25 12:47 01/11/25 12:47 01/11/25 12:47
Last Documented Vital Signs
Temp Pulse Resp BP Pulse Ox
36.5 C 114 20 145/97 99
01/11/25 13:31 01/11/25 13:31 01/11/25 13:31 01/11/25 13:31 01/11/25 14:18
MDM/Problems Addressed
Differential Diagnosis Includes:
Suicidal ideation
MDM/Problems Addressed:
29-year-old female with history as noted presents from [facility] for worsening suicidal ideations in the setting of intensive outpatient treatment for depression. No acute physical complaints. Tachycardic and hypertensive in triage, vitals improved
by my assessment. Screening labs sent off including a CBC and a CMP which showed no clinically significant abnormalities. Tylenol and salicylate levels negative. UDS positive for THC but otherwise negative. Alcohol level negative. Case
discussed with crisis, patient will go for voluntary inpatient psychiatric treatment. Will continue to monitor pending placement.
Chronic conditions affecting care:
Bipolar disorder, PTSD, depression
Acute Exacerbation and/or Progression of Chronic Illness: HTN
*Pulse Oximetry
SaO2: 99
Oxygen Mode of Delivery: Room air
Patient hypoxic: no (99%)
*EKG
Interpreted by ED Provider?: Yes
Heart Rate: 101
Rate: tachycardiac
Rhythm: sinus and sinus tachycardia
Gile: normal axis
Interval: normal interval
QRS Pattern: normal QRS
Ischemia: no ischemia
*Critical Care Note
Total Time (30-74mins, 75-104mins- exclusive of procedures): Not Applicable
Data Reviewed
Review of Other/Old Records Reveals: Labs and Records
Source: patient and records
Patient Management
Discussion with other providers: Other (Discussed with crisis staff)
Escalation/DeEscalation of care consider admission/obs:
Inpatient psychiatric treatment indicated
ED Attending Note
-
Portions of this chart may have been created with voice recognition software.� Occasional wrong word or��sound alike� substitutions may have occurred due to the inherent limitations of voice recognition software.
Discharge Plan
Departure
Patient Disposition: Psych Facility
Date of Disposition: 01/11/25
Time of Disposition: 14:14
Discharge Problem:
Suicidal ideation
Prescriptions:
No Action
loratadine 10 MG tablet
10 mg PO DAILYPRN PRN (Reason: Allergies)
amlodipine 5 MG tablet
5 mg PO DAILY Qty: 90 0RF
prazosin 5 mg Capsule
2 mg PO HS
lithium carbonate 300 mg tablet extended release
600 mg PO HS
citalopram 10 mg Tablet
10 mg PO DAILY
levothyroxine 25 mcg Tablet
25 mcg PO DAILY
pantoprazole 40 mg Tablet,Delayed Release (Dr/Ec)
40 mg PO DAILY
duloxetine 20 mg Capsule,Delayed Release(Dr/Ec)
20 mg PO BID
Nurtec ODT 75 mg Tablet,Disintegrating
75 mg PO DAILYPRN PRN (Reason: migraine)
lidocaine 4 % Adhesive Patch,Medicated
1 patch TOPICAL DAILYPRN PRN (Reason: LEFT SHOULDER)
metoprolol succinate 50 mg Tablet Extended Release 24 Hr
50 mg PO BID
Xarelto 20 mg Tablet
20 mg PO QPM
sennosides-docusate sodium 8.6-50 mg Tablet
1 tab PO BIDPRN PRN (Reason: constipation) Qty: 0 0RF
tramadol 50 mg Tablet
50 mg PO Q6HPRN PRN (Reason: foot pain) Qty: 20 0RF
ondansetron 4 mg Tablet,Disintegrating
4 mg PO QIDPRN PRN (Reason: nausea/vomiting) Qty: 14 0RF
Referrals:
UNKNOWN - PT NOT,INTERVIEWE [Family Provider]
Interventions
Interventions:
*Risk Screen - Suicide Last Done: 01/11/25 12:48
*General Assessment Last Done: 01/11/25 12:47
*Neglect/Abuse Screening Last Done: 01/11/25 13:23
*ED- Fall Risk Assessment Last Done: 01/11/25 13:23
*ED COVID-19 Vaccine History Last Done: 01/11/25 13:23
ED-Psychological Assessment Last Done: 01/11/25 13:25
Discharge Date and Time
Print Language: LAO
--- NOTE | 2025-01-11 15:39 | ED.GENMED ---
History of Present Illness
General
Chief Complaint: Crisis Evaluation
Time Seen by Provider: 01/11/25 13:28
Past History
Past History
ED Past Medical History: HTN, Psychiatric (Autism, alcohol syndrome, learning disability, major depression, anxiety, PTSD, Bipolar Schitzo affective disorder) and Other (Headaches, gastric emptying issues, Vertigo, Arthritis, DVT, )
ED Past Surgical History: Bowel resection, Orthopedic (Right club foot repair, ) and Other (Neck surgery )
Social History
Tobacco: 2nd hand smoke exposure
Alcohol: None
Drug: None
Personal: Single
Living: with family
Employment: Employed
Family History
Family History: Other (Noncontributory)
Course
Orders/Labs/Results
Orders:
Orders
01/11/25 12:53
Acetaminophen Urgent
Alcohol Urgent
Complete Blood Count/With Diff Urgent
Comprehensive Metabolic Panel Urgent
HCG, Serum Qualitative Screen Urgent
Comment: ADD ON
Salicylate Urgent
01/11/25 13:18
Crisis Consult Urgent
Reason for Consult: +SI with plan
01/11/25 13:19
1:1 Observation - Suicide/ Violent Behavior As Directed
01/11/25 13:34
Urine Drug Abuse Screen Urgent
Date Specimen was Collected: 01/11/25
Time Specimen was Collected: 12:51
01/11/25 13:37
Add On- LAB Urgent
Tests Added?: HCG qual
01/11/25 14:18
Electrocardiogram (*1) Urgent
Reason for Study: QTc Monitoring
EKG- Treatment ONCE
Abnormal Lab Results
01/11/25 01/11/25
12:53 13:34
WBC 11.2 H 10^3/uL
(4.8-10.8)
Hgb 11.8 L g/dL
(12.0-16.0)
MCV 77.0 L fL
(81.0-99.0)
MCH 23.6 L pg
(27.0-31.0)
MCHC 30.6 L g/dL
(33.0-37.0)
RDW 16.4 H %
(11.5-14.5)
Abs Immat Gran (auto) 0.1 H 10^3/uL
(0-0.05)
Absolute Neuts (auto) 8.2 H 10^3/uL
(1.4-6.5)
BUN 18 H mg/dl
(7-17)
Glucose 126 H mg/dl
(70-99)
Salicylates < 1.0 L mg/dl
(2.0-20.0)
Acetaminophen < 10 L ug/ml
(10-30)
U Marijuana (THC) Screen Positive H
(Negative)
01/11/25 12:53
01/11/25 12:53
Vital Signs
Pulse: 101
Initial and Last Documented VS:
Initial Vital Signs
Temp Pulse Resp BP Pulse Ox
37.0 C 122 20 162/112 99
01/11/25 12:47 01/11/25 12:47 01/11/25 12:47 01/11/25 12:47 01/11/25 12:47
Last Documented Vital Signs
Temp Pulse Resp BP Pulse Ox
36.5 C 114 20 145/97 99
01/11/25 13:31 01/11/25 13:31 01/11/25 13:31 01/11/25 13:31 01/11/25 14:18
*Pulse Oximetry
SaO2: 99
Oxygen Mode of Delivery: Room air
ED Attending Note
-
Portions of this chart may have been created with voice recognition software.� Occasional wrong word or��sound alike� substitutions may have occurred due to the inherent limitations of voice recognition software.
Discharge Plan
Departure
Patient Disposition: Psych Facility
Date of Disposition: 01/11/25
Time of Disposition: 14:14
Discharge Problem:
Suicidal ideation
Prescriptions:
No Action
loratadine 10 MG tablet
10 mg PO DAILYPRN PRN (Reason: Allergies)
amlodipine 5 MG tablet
5 mg PO DAILY Qty: 90 0RF
prazosin 5 mg Capsule
2 mg PO HS
lithium carbonate 300 mg tablet extended release
600 mg PO HS
citalopram 10 mg Tablet
10 mg PO DAILY
levothyroxine 25 mcg Tablet
25 mcg PO DAILY
pantoprazole 40 mg Tablet,Delayed Release (Dr/Ec)
40 mg PO DAILY
duloxetine 20 mg Capsule,Delayed Release(Dr/Ec)
20 mg PO BID
Nurtec ODT 75 mg Tablet,Disintegrating
75 mg PO DAILYPRN PRN (Reason: migraine)
lidocaine 4 % Adhesive Patch,Medicated
1 patch TOPICAL DAILYPRN PRN (Reason: LEFT SHOULDER)
metoprolol succinate 50 mg Tablet Extended Release 24 Hr
50 mg PO BID
Xarelto 20 mg Tablet
20 mg PO QPM
sennosides-docusate sodium 8.6-50 mg Tablet
1 tab PO BIDPRN PRN (Reason: constipation) Qty: 0 0RF
tramadol 50 mg Tablet
50 mg PO Q6HPRN PRN (Reason: foot pain) Qty: 20 0RF
ondansetron 4 mg Tablet,Disintegrating
4 mg PO QIDPRN PRN (Reason: nausea/vomiting) Qty: 14 0RF
Referrals:
UNKNOWN - PT NOT,INTERVIEWE [Family Provider]
Interventions
Interventions:
*Risk Screen - Suicide Last Done: 01/11/25 12:48
*General Assessment Last Done: 01/11/25 12:47
*Neglect/Abuse Screening Last Done: 01/11/25 13:23
*ED- Fall Risk Assessment Last Done: 01/11/25 13:23
*ED COVID-19 Vaccine History Last Done: 01/11/25 13:23
ED-Psychological Assessment Last Done: 01/11/25 13:25
Discharge Date and Time
Print Language: JAPANESE
== END 2025-01-11 19:18 ==
LOC: EMR 12:46
PROVIDERS: Emergency Medicine; EMERGENCY PHYSICIAN Emergency Medicine
DX: R45.851 Suicidal ideations (principal); F31.9 Bipolar disorder, unspecified; F43.10 Post-traumatic stress disorder, unspecified; F41.9 Anxiety disorder, unspecified; F84.0 Autistic disorder; I10 Essential (primary) hypertension; M19.90 Unspecified osteoarthritis, unspecified site; Z79.01 Long term (current) use of anticoagulants; Z77.22 Contact with and (suspected) exposure to environmental tobacco smoke (acute) (chronic); Z86.718 Personal history of other venous thrombosis and embolism; Z90.49 Acquired absence of other specified parts of digestive tract
CPT/HCPCS: 99285; 80053; 80143; 80179; 80306; 82077; 84703; 85025; 93005

== ENCOUNTER → 2025-01-18 07:55 | Outpatient (REF) | payer MEDICARE, OTHER, SELFPAY | LOC: RAD 07:55 | PROVIDERS: ATTENDING PHYSICIAN Internal Medicine Gastroenterology; FAMILY PHYSICIAN Family Medicine | DX: R11.2 Nausea with vomiting, unspecified (principal) | CPT/HCPCS: 78264; A9541 ==

== ENCOUNTER 2025-01-23 06:14 | Day surgery (SDC) | payer MEDICARE, OTHER, SELFPAY ==
[2025-01-23] VITALS (24 sets, daily range): BP systolic 113–135; BP diastolic 55–89; BMI 45.5
--- NOTE | 2025-01-23 08:14 | W.SUR.PREOP ---
Pre-Operative Surgical Note
-
I have examined this patient prior to the performance of the scheduled procedure.
The patient's condition is unchanged from the time of the current History and
Physical and the patient is able to undergo the scheduled procedure.
--- NOTE | 2025-01-23 08:46 | W.IMMPOSTOP ---
Surgical Immed Post Op Note
-
Primary Surgeon: Ashlyn
Assisting Surgeon: Amaris
Pre-op Diagnosis: Prior ankle fusion operation
Post-op Diagnosis: Occlusion of PT branch, open collaterals
Procedure Performed: Diagnostic LLE angiogram
Anesthesia Type: Light sedation/local
Specimen / Cultures: None
Estimated Blood Loss: 2 cc
Complications: None
Operative Findings: L fem access. Occluded PT branch near prior operative site. Patent collaterals around occlusion.
--- NOTE | 2025-01-23 09:13 | OR.RPT ---
Operative Report
Operative Report
Date of Operation: 01/23/2025
Pre Op Diagnosis:
1. Planned revision ankle fusion surgery
2. Possible tibial artery occlusion seen on CT angiography
Post Op Diagnosis:
1. Planned revision ankle fusion surgery
2. Possible tibial artery occlusion seen on CT angiography
Procedure:
1. Selective catheterization of third order lower extremity artery
2. Diagnostic aortobiiliac arteriogram
3. Diagnostic right lower extremity arteriogram
Surgeon: Nirmal Goldberg III, MD
Kiln Tester: Nathan Glez MD PGY2
Anesthesia: Sedation with local
Fluoroscopy:
7.7 min
129 mGy
57.10 gy.cm2
Complications: None
Estimated Blood Loss: Less than 10 cc
History and Indications for Procedure: 29-year-old female who is scheduled to have revision right ankle surgery. Preoperative workup by her state wildlife officer included CT angiogram and there was question of distal tibial artery occlusion which was
challenging to see in the setting of her existing ankle hardware. I recommended a right lower extremity arteriogram to further evaluate this.
Procedure in Detail: Adolfo Watters was correctly identified and placed supine on the operating table. After adequate induction of anesthesia the bilateral groins were prepped and draped in the usual sterile fashion. A timeout was performed
with the nursing and anesthesia staff confirming the patient's identity as well as the nature and laterality of the procedure.
The left common femoral artery was identified under ultrasound guidance. The artery was patent. The superior and inferior aspects of the femoral head were identified with radiographic guidance and marked at the skin level. The proposed puncture site
was infiltrated with local anesthesia. Under ultrasound guidance we accessed the left common femoral artery with a micropuncture needle and upsized to a 5 Fr sheath over a Bentson wire. The wire and a [employer] hook flush catheter were advanced into
the distal abdominal aorta and a diagnostic aorto-biiliac arteriogram was performed:
AORTO-ILIAC ARTERIOGRAM:
Aorta: Patent with no stenosis identified
Right common iliac artery: Patent with no stenosis identified
Right external iliac artery: Patent with no stenosis identified
Left common iliac artery: Patent with no stenosis identified
Left external iliac artery: Patent with no stenosis identified
Under roadmap guidance using a Glidewire and the [employer] hook catheter we selected the right common iliac artery and then the external iliac artery. A catheter was tracked up and over the aortic bifurcation and placed in the right common femoral
artery. A diagnostic right lower extremity arteriogram was then performed which demonstrated the following:
RIGHT LOWER EXTREMITY:
Common femoral artery: Patent with no stenosis identified
Profunda femoral artery: Patent with no stenosis identified
Superficial femoral artery: Patent with no stenosis identified
Popliteal artery: Patent with no stenosis identified
Anterior tibial artery: Dominant tibial artery runoff distally. Patent with no stenosis identified. The AT continues across the ankle to form the dorsalis pedis artery.
Tibioperoneal trunk: Patent with no stenosis identified
Peroneal artery: Patent to the ankle with no stenosis identified
Posterior tibial artery: Patent to the ankle. Small diameter diffusely. No stenosis identified along the patent portions of the PT. Surgical clips are identified at the ankle. There is an abrupt occlusion of the distal posterior tibial artery at
the level of the surgical clips. A large dilated collateral branch is identified at the point of occlusion which continues distally. There is some reconstitution of plantar branches in the foot.
Satisfied with this diagnostic information we concluded the procedure. The catheter was pulled from the 5 Fr sheath. The sheath was secured with the plan to pull it in the recovery area.
The patient tolerated the procedure well and was taken to the recovery area in stable condition.
Attestation: I was present and responsible for the entire procedure.
Signed:
Nirmal Goldberg III, MD
Vascular Surgery
[facility]
[2025-01-23] MEDS: DILAUDID 0.5 MG IV (09:31)
[2025-01-23] MEDS: NSS 1000 IV (11:13)
[2025-01-23] MEDS: TYLENOL 650 MG PO (13:07)
== END 2025-01-23 14:30 | disposition home or self-care (01) ==
LOC: CATH 06:14
PROVIDERS: ATTENDING PHYSICIAN Surgery Vascular Surgery; PRIMARYCARE PHYSICIAN Family Medicine
DX: Z01.818 Encounter for other preprocedural examination (principal); I77.1 Stricture of artery; Z98.1 Arthrodesis status; Z79.01 Long term (current) use of anticoagulants; Z79.899 Other long term (current) drug therapy
CPT/HCPCS: 36247; 75625; 75710; 93005; C1769; C1894; Q9967

== ENCOUNTER → 2025-01-26 10:44 | Outpatient (REF) | payer MEDICARE, OTHER, SELFPAY | LOC: RAD 10:44 | PROVIDERS: ATTENDING PHYSICIAN Family Medicine | DX: M79.662 Pain in left lower leg (principal) | CPT/HCPCS: 93971 ==

== ENCOUNTER 2025-02-06 10:03 | Day surgery (SDC) | payer MEDICARE, OTHER, SELFPAY ==
--- NOTE | 2025-01-30 10:48 | CM ---
CM was advised that patient is pending surgery on 02/06 and patient will need placement. CM reviewed medical records and spoke with patient. Patient stated that she had an inpatient psychiatric stay for suicidal ideations with plan from 01/11-01/20 at
[facility]. Patient was in a PHP program at [facility]. Patient further stated that she does have a [employer] Thalia Pena at [facility].
Patient stated that she would be agreeable to [facility] again. CM sent preliminary referral to [facility]. Of note, patient stated that she shared a room with her mother at [facility].
CM advised patient that she would be a Level II evaluation, unless patient's surgeon is willing to sign PASSR with an exception.
Patient understood.
PLAN: SNF, pending Level II evaluation.
[2025-02-06] VITALS (17 sets, daily range): BP systolic 129–157; BP diastolic 70–100; BMI 44.2
[2025-02-06] MEDS: EMEND 40 MG PO (10:37)
[2025-02-06] MEDS: TYLENOL 1000 MG PO (10:37)
[2025-02-06] MEDS: CELEBREX 200 MG PO (10:37)
[2025-02-06] MEDS: VANCOCIN 530 MG IV (10:38)
[2025-02-06] MEDS: NORMOSOL-R/PLASMALYTE-A 1000 IV (10:38)
--- NOTE | 2025-02-06 11:49 | W.PN.UPDATE ---
Update Note
Progress Note Update
29F s/p AARON, revision of TT arthrodesis using autograft and TTC nail
- Strict NWB RLE
- PT/OTl
- 3 doses abx vs 24 hrs sx ppx
- dressings C/D/I
- will follow
--- NOTE | 2025-02-06 15:28 | HPS.HSE ---
Family Physician
-
Family Physician: Steven Ordonez DO
Chief Complaint
-
Pain
History of Present Illness
Patient 29 years old female who has multiple comorbidities presented to the hospital with right foot pain and surgical revision. Patient had a right plantar arthrodesis and planning to have revision today and she underwent surgical intervention by
podiatry. Seen her postop in PACU and she denies any chest pain or shortness of breath or nausea or vomiting. She is quite alert and oriented. She denies any fevers or chills. Her pain has been an issue but pain medications are working as per
patient report. She was referred to the hospitalist service for further evaluation.
Medical History
Past Medical History
Past Medical History: Reports Other
Additional Past Medical History:
Hypertension
Anxiety/Depression
Bipolar Disorder
PTSD
Hypothyroidism
GERD
Alcohol Spectrum Disorder
Past Surgical History: Reports Other
Additional Past Surgical History:
Right Club Foot Reconstruction
Lipoma Resection
Social History
Tobacco: Non-smoker
Alcohol: None
Living: With Family (Dad)
Family History
Family History: Not pertinent
Allergies / Home Medications
Allergies reflects when Allergies were last updated in [employer].
Home Medications with original date entered in [employer]
Allergy/Medication List:
Allergies
Allergy/AdvReac Type Severity Reaction Status Date / Time
amoxicillin (Amoxicillin) Allergy Anaphylaxis Verified 02/06/25 10:27
gabapentin Allergy Rash Verified 02/06/25 10:27
Penicillins Allergy Hives-Anaph Verified 02/06/25 10:27
ylaxis
tree nut Allergy Rash/throat Verified 02/06/25 10:27
closes
Home Medications
prazosin 5 mg capsule 2 mg PO HS 11/03/22
rimegepant 75 mg disintegrating tablet (Nurtec ODT) 75 mg PO DAILYPRN PRN migraine 11/29/24
rivaroxaban 20 mg tablet (Xarelto) 20 mg PO QPM 08/02/24
tramadol 50 mg tablet 50 mg PO Q6HPRN PRN foot pain #20 tabs 10/26/24
Abilify 1,064 mg IM Q8W 01/19/25
acetaminophen 325 mg tablet (Tylenol) 650 mg PO Q4H PRN pain 01/19/25
famotidine 20 mg tablet 20 mg PO DAILY 01/19/25
ferrous sulfate 325 mg (65 mg iron) tablet 325 mg PO DAILY 01/19/25
omeprazole 20 mg tablet,delayed release 20 mg PO DAILY 01/19/25
topiramate 50 mg tablet (Topamax) 50 mg PO BID 01/19/25
ubrogepant 50 mg tablet (Ubrelvy) 50 mg PO PRN PRN migraine 02/01/25
venlafaxine 1 tab-cap PO DAILY 02/06/25
Review of Systems
-
A 12 point ROS was completed and negative except as noted: Yes
Physical Exam
Vital Signs
Vital Signs
Temp Pulse Resp BP Pulse Ox
97.3 F 104 20 148/100 99
02/06/25 10:43 02/06/25 10:43 02/06/25 10:43 02/06/25 10:43 02/06/25 10:43
Physical exam:
General: Well Developed, Well Nourished and No Apparent Distress
HEENT: Normocephalic, Atraumatic and Moist Mucous Membranes
Respiratory: Clear to Auscultation; Negative Wheezes, Rales or Rhonchi
Cardiac: Regular Rhythm and S1/S2
GI: Soft, Nontender and Nondistended
Musculoskeletal: Postop findings right foot wrapped up. No Clubbing, No Cyanosis
Neuro: Awake, Alert and Oriented
Psych: Calm
Physical Exam
General: Other
Impression/Plan
-
IMPRESSION:
Patient 29 years old female presents with pain in the foot s/p AARON, revision of TT arthrodesis using autograft and TTC nail. Podiatry asked us to see her while observing her in the hospital.
PLAN:
Right foot surgery revision today:
Continue pain medications
Per podiatry is already following recommendations:
- Strict NWB RLE
- PT/OT
- 3 doses abx vs 24 hrs sx ppx
- dressings C/D/I
Hypertension:
Continue home antihypertensives
Bipolar and PTSD and schizoaffective disorder:
Continue home regimen
Obesity:
Lifestyle changes modifications
DVT prophylaxis:
Will resume anticoagulation tomorrow or earlier if podiatry okay
CODE STATUS:
Full code
Time spent 55 minutes
[2025-02-06] MEDS: DILAUDID 0.5 MG IV (16:05)
[2025-02-06] MEDS: CLEOCIN 50 IV ×2 (16:06→22:09)
[2025-02-06] MEDS: DILAUDID 0.25 MG IV (17:10)
--- NOTE | 2025-02-06 19:23 | PTCARENOTE ---
Received patient from PACU via bed around 1805. Patient oriented to room. Call pina in reach.
[2025-02-06] MEDS: FEOSOL 325 MG PO (20:36)
[2025-02-06] MEDS: PEPCID 20 MG PO (20:37)
[2025-02-06] MEDS: TOPAMAX 50 MG PO (20:37)
[2025-02-06] MEDS: MORPHINE SULFATE 2 MG IV (20:52)
[2025-02-06] MEDS: MINIPRESS 2 MG PO (22:08)
[2025-02-06] MEDS: ZOFRAN 4 MG IV (22:09)
[2025-02-07] MEDS: MORPHINE SULFATE 2 MG IV ×3 (01:54→15:35)
[2025-02-07 03:15] VITALS: BP 132/86
[2025-02-07] MEDS: CLEOCIN 50 IV ×4 (05:00→22:24)
[2025-02-07 07:30] VITALS: BP 142/84
[2025-02-07 08:01] LABS: Hematocrit 33.1 % (37.0-47.0); Hemoglobin 10.3 g/dL (12.0-16.0); Mean Corp Hgb Conc. 31.1 g/dL (33.0-37.0); Mean Corpuscular Volume 78.1 fL (81.0-99.0); Platelet Count 348 10^3/uL (130-400); Red Cell Dist. Width 16.0 % (11.5-14.5)
--- NOTE | 2025-02-07 08:36 | W.PN.HOSP.TC ---
Today's Communication/Plan
-
Pain control. Discharge planning
Assessment / Plan
Assessment / Plan
Physical exam:
General: Well Developed, Well Nourished and No Apparent Distress
HEENT: Normocephalic, Atraumatic and Moist Mucous Membranes
Respiratory: Clear to Auscultation; Negative Wheezes, Rales or Rhonchi
Cardiac: Regular Rhythm and S1/S2
GI: Soft, Nontender and Nondistended
Musculoskeletal: Postop findings right foot wrapped up. No Clubbing, No Cyanosis
Neuro: Awake, Alert and Oriented
Psych: Calm
A/P:
Right foot surgery revision:
- Continue pain medications but adjustments per podiatry
- Strict NWB RLE
- PT/OT
- 3 doses abx vs 24 hrs sx ppx
- dressings C/D/I
- Discharge disposition once cleared by podiatry and case management for discharge disposition
Leukocytosis:
Likely reactive but rule out infectious process
Check chest x-ray and UA
Sepsis parameters
Elevated blood pressure:
Expected perioperatively. Continue to monitor
History of hypertension in the past. Not on any antihypertensives at home
Continue IV hydralazine as needed
Bipolar and PTSD and schizoaffective disorder:
Continue home regimen
History of DVT:
Resume Xarelto today
Migraines:
Continue her home medications if possible
Obesity:
Lifestyle changes modifications
DVT prophylaxis:
Xarelto
CODE STATUS:
Full code
Anticipated Discharge: 24 - 48 hours
Subjective/Interval History
-
Date of Service: February 07, 2025
Patient still having some pain and not very agreeable with initial pain medication management. No chest pain or shortness of breath. Afebrile
Objective Data
-
Labs:
Laboratory Results
02/07/25
07:36
WBC 20.0 H
Hgb 10.3 L
Hct 33.1 L
Plt Count 348
Sodium Pending
Potassium Pending
Chloride Pending
Carbon Dioxide Pending
BUN Pending
Creatinine Pending
Glucose Pending
Calcium Pending
Vital Signs:
Vital Signs
Temp Pulse Resp BP Pulse Ox
98.3 F 90 18 142/84 96
02/07/25 07:30 02/07/25 07:30 02/07/25 07:30 02/07/25 07:30 02/07/25 07:30
I&O
02/06/25 02/07/25 02/08/25
06:59 06:59 06:59
Intake Total 1020 / 1020
Balance 1020 / 1020
[2025-02-07 08:44] LABS: Blood Urea Nitrogen 11 mg/dl (7-17); Calcium 8.9 mg/dl (8.4-10.2); Carbon Dioxide 25 mmol/L (22-30); Chloride 106 mmol/L (98-107); Estimated Creatinine Clearance 123 ml/min; Glucose 129 mg/dl (70-99); Potassium 4.6 mmol/L (3.5-5.1); Sodium 137 mmol/L (135-145); eGFR > 60.00
[2025-02-07] MEDS: TOPAMAX 50 MG PO (08:58)
[2025-02-07] MEDS: FEOSOL 325 MG PO (08:58)
[2025-02-07] MEDS: PEPCID 20 MG PO (08:58)
[2025-02-07] MEDS: PROTONIX 40 MG PO (08:58)
[2025-02-07] MEDS: ROXICODONE 5 MG PO ×3 (09:07→19:43)
--- NOTE | 2025-02-07 09:09 | W.PN.UPDATE ---
Update Note
Progress Note Update
29F s/p AARON, revision of TT arthrodesis using autograft and TTC nail. Incisional/postop pain this AM. CFT wnl, sensation intact to pedal distributions, motor function intact.
- will reassess splint later today for any prominences
- Strict NWB RLE
- PT/OT
- 3 doses abx vs 24 hrs sx ppx
- dressings C/D/I
- will continue to follow
[2025-02-07] MEDS: MOTRIN 600 MG PO (10:36)
[2025-02-07 11:30] VITALS: BP 147/86
[2025-02-07 13:18] VITALS: BP 140/90; PULSE 112; O2SAT 98
[2025-02-07] MEDS: EFFEXOR 25 MG PO (13:33)
[2025-02-07] MEDS: ZOFRAN 4 MG PO (13:33)
--- NOTE | 2025-02-07 13:39 | CM ---
CM following re: discharge planning.
Reviewed pt's chart, met with pt.
Pt is a 29 year old female, admitted with primary dx of s/p AARON, revision of TT arthrodesis using autograft and TTC nail.
Pt reports she lives with father and a brother in a split level house, 3 steps to enter. Pt reports her mother who was a fci care resident at [facility] last Herbert. Emotional support offered and provided.
PT and OT evaluations noted - SNF level of care recommended. Pt is aware and she requested [facility].
Pt was at [facility] from from 01/11-01/20, was in a PHP program at [facility]. Patient further stated that she does have a [employer] Thalia Pena at [facility].
A referral to [facility] made.
CM spoke to [facility] liaison and she confirmed that pt will be accepted with exceptional admission PASRR.
D/C plan: [facility] for a short term rehab.
CM will follow to assist pt with discharge to [facility] with exceptional admission PASRR.
[2025-02-07 15:30] VITALS: BP 134/87
[2025-02-07] MEDS: FLUSH (NSS) 1 FLUSH IV (15:36)
[2025-02-07] MEDS: XARELTO 20 MG PO (17:24)
[2025-02-07 20:15] LABS: Urine Character Clear (Clear)
[2025-02-07] MEDS: NEURONTIN 300 MG PO (22:23)
[2025-02-07] MEDS: MINIPRESS 2 MG PO (22:23)
[2025-02-07 23:05] VITALS: BP 146/95
[2025-02-08] MEDS: ROXICODONE 5 MG PO ×3 (03:32→12:55)
[2025-02-08] MEDS: CLEOCIN 50 IV ×4 (03:33→21:24)
[2025-02-08 07:25] VITALS: BP 148/98
[2025-02-08 07:36] LABS: Hematocrit 31.0 % (37.0-47.0); Hemoglobin 9.4 g/dL (12.0-16.0); Mean Corp Hgb Conc. 30.3 g/dL (33.0-37.0); Mean Corpuscular Volume 79.1 fL (81.0-99.0); Platelet Count 322 10^3/uL (130-400); Red Cell Dist. Width 16.7 % (11.5-14.5)
[2025-02-08] MEDS: EFFEXOR 25 MG PO (08:10)
[2025-02-08] MEDS: FEOSOL 325 MG PO (08:12)
[2025-02-08] MEDS: NEURONTIN 300 MG PO ×3 (08:14→21:20)
[2025-02-08] MEDS: PEPCID 20 MG PO (08:14)
[2025-02-08] MEDS: PROTONIX 40 MG PO (08:15)
[2025-02-08] MEDS: ZOFRAN 4 MG PO (08:16)
[2025-02-08 08:22] LABS: Blood Urea Nitrogen 16 mg/dl (7-17); Calcium 8.2 mg/dl (8.4-10.2); Carbon Dioxide 29 mmol/L (22-30); Chloride 107 mmol/L (98-107); Estimated Creatinine Clearance 109 ml/min; Glucose 86 mg/dl (70-99); Potassium 4.4 mmol/L (3.5-5.1); Sodium 138 mmol/L (135-145); eGFR > 60.00
--- NOTE | 2025-02-08 09:39 | W.PN.HOSP.TC ---
Today's Communication/Plan
-
Pain control. Postop care. Discharge planning
Assessment / Plan
Assessment / Plan
Physical exam:
General: Well Developed, Well Nourished and No Apparent Distress
HEENT: Normocephalic, Atraumatic and Moist Mucous Membranes
Respiratory: Clear to Auscultation; Negative Wheezes, Rales or Rhonchi
Cardiac: Regular Rhythm and S1/S2
GI: Soft, Nontender and Nondistended
Musculoskeletal: Postop findings right foot wrapped up. No Clubbing, No Cyanosis
Neuro: Awake, Alert and Oriented
Psych: Calm
A/P:
Right foot surgery revision:
- Continue pain medications but adjustments per podiatry
- Strict NWB RLE
- PT/OT
- 3 doses abx vs 24 hrs sx ppx
- dressings C/D/I
- Discharge disposition once cleared by podiatry and case management for discharge disposition
Leukocytosis:
Likely reactive and it is trending down
Check chest x-ray and UA both unremarkable
Elevated blood pressure:
Expected perioperatively. Continue to monitor
History of hypertension in the past. Not on any antihypertensives at home
Continue IV hydralazine as needed
Bipolar and PTSD and schizoaffective disorder:
Continue home regimen
History of DVT:
Resume Xarelto today
Migraines:
Continue her home medications if possible
Obesity:
Lifestyle changes modifications
DVT prophylaxis:
Xarelto
CODE STATUS:
Full code
Anticipated Discharge: Within 24 hours
Subjective/Interval History
-
Date of Service: February 08, 2025
Patient describes the pain is better but still having some pain more proximally in her leg. Afebrile
Objective Data
-
Labs:
Laboratory Results
02/08/25
07:14
WBC 12.5 H
Hgb 9.4 L
Hct 31.0 L
Plt Count 322
Sodium 138
Potassium 4.4
Chloride 107
Carbon Dioxide 29
BUN 16
Creatinine 0.9
Glucose 86
Calcium 8.2 L
Vital Signs:
Vital Signs
Temp Pulse Resp BP Pulse Ox
98.7 F 102 18 148/98 100
02/08/25 07:25 02/08/25 07:25 02/08/25 07:25 02/08/25 07:25 02/08/25 07:25
I&O
02/07/25 02/08/25 02/09/25
06:59 06:59 06:59
Intake Total 1020 / 1020 2790 / 2790
Balance 1020 / 1020 2790 / 2790
[2025-02-08] MEDS: NON-FORMULARY ITEM 75 MG PO (09:52)
[2025-02-08 12:28] VITALS: BP 141/87; PULSE 108; O2SAT 97
--- NOTE | 2025-02-08 14:13 | CM ---
CM following re: discharge planning.
Reviewed pt's chart, met with pt.
According to MD pt possibly will be ready or discharge tomorrow.
PT and OT evaluations noted - SNF level of care recommended. Pt preferred [facility]. CM spoke to [facility] liaison and she confirmed that pt will be accepted and an auth requested.
CM initiated an auth from [facility] for SNF level ocare at [facility] for tomorrow, pending auth number: [id number]. Requested pt's clinical faxed to [facility] for review: [phone]
Awaiting for an auth.
D/C plan: [facility] when an auth available.
CM will follow to assist pt with discharge to [facility].
--- NOTE | 2025-02-08 15:16 | W.PN.UPDATE ---
Update Note
Progress Note Update
29F s/p AARON, revision of TT arthrodesis using autograft and TTC nail. Doing better today adding Gabapentin to pain regimen, continues to have Incisional/postop pain this AM. tolerating well padded splint. CFT wnl, sensation intact to pedal
distributions, motor function intact.
- Strict NWB RLE
- PT/OT
- dc abx for sx ppx
- dressings C/D/I
- will continue to follow, may follow up outpatient
[2025-02-08 15:49] VITALS: BP 147/98; PULSE 108; O2SAT 100
[2025-02-08 15:50] VITALS: BP 147/98
[2025-02-08] MEDS: XARELTO 20 MG PO (17:06)
[2025-02-08] MEDS: MINIPRESS 2 MG PO (21:20)
[2025-02-08] MEDS: MORPHINE SULFATE 2 MG IV (22:00)
[2025-02-08 23:00] VITALS: BP 133/74
[2025-02-09] MEDS: CLEOCIN 50 IV ×2 (03:25→09:58)
[2025-02-09] MEDS: ROXICODONE 5 MG PO ×3 (03:25→15:28)
[2025-02-09] MEDS: SENOKOT-S 1 TABLET PO (03:25)
[2025-02-09 07:00] VITALS: BP 124/71
[2025-02-09 07:38] LABS: Hematocrit 29.8 % (37.0-47.0); Hemoglobin 9.0 g/dL (12.0-16.0); Mean Corp Hgb Conc. 30.2 g/dL (33.0-37.0); Mean Corpuscular Volume 79.3 fL (81.0-99.0); Platelet Count 327 10^3/uL (130-400); Red Cell Dist. Width 17.1 % (11.5-14.5)
[2025-02-09 08:02] LABS: Blood Urea Nitrogen 19 mg/dl (7-17); Calcium 8.7 mg/dl (8.4-10.2); Carbon Dioxide 29 mmol/L (22-30); Chloride 105 mmol/L (98-107); Estimated Creatinine Clearance 109 ml/min; Glucose 89 mg/dl (70-99); Potassium 4.5 mmol/L (3.5-5.1); Sodium 136 mmol/L (135-145); eGFR > 60.00
[2025-02-09] MEDS: NEURONTIN 300 MG PO ×2 (08:15→15:29)
[2025-02-09] MEDS: MIRALAX 17 GRAMS PO (08:15)
[2025-02-09] MEDS: PEPCID 20 MG PO (08:15)
[2025-02-09] MEDS: ZOFRAN 4 MG PO (08:15)
[2025-02-09] MEDS: FEOSOL 325 MG PO (08:15)
[2025-02-09] MEDS: EFFEXOR 25 MG PO (08:15)
[2025-02-09] MEDS: PROTONIX 40 MG PO (08:15)
[2025-02-09] MEDS: SENOKOT 8.6 MG PO (10:12)
[2025-02-09] MEDS: MILK OF MAGNESIA 30 ML PO (10:12)
--- NOTE | 2025-02-09 11:47 | W.PN.HOSP.TC ---
Addendum entered and electronically signed by Dedrick Snowden MD 02/09/25 16:14:
Anemia, due to acute blood loss and hemodilution
Original Note:
Today's Communication/Plan
-
Discharge planning today
Assessment / Plan
Assessment / Plan
Physical exam:
General: Well Developed, Well Nourished and No Apparent Distress
HEENT: Normocephalic, Atraumatic and Moist Mucous Membranes
Respiratory: Clear to Auscultation; Negative Wheezes, Rales or Rhonchi
Cardiac: Regular Rhythm and S1/S2
GI: Soft, Nontender and Nondistended
Musculoskeletal: Postop findings right foot wrapped up. No Clubbing, No Cyanosis
Neuro: Awake, Alert and Oriented
Psych: Calm
A/P:
Right foot surgery revision:
- Continue pain medications but adjustments per podiatry
- Strict NWB RLE
- PT/OT
- 3 doses abx vs 24 hrs sx ppx
- dressings C/D/I
- Discharge disposition once cleared by podiatry and case management for discharge disposition. Plan to discharge today
Patient will require no more than 30 days of shelter facility services and patient mood and behavior stable.
Leukocytosis:
Likely reactive and it is trending down
Check chest x-ray and UA both unremarkable
Elevated blood pressure:
Expected perioperatively. Continue to monitor
History of hypertension in the past. Not on any antihypertensives at home
Continue IV hydralazine as needed
Bipolar and PTSD and schizoaffective disorder:
Continue home regimen
History of DVT:
Resume Xarelto today
Migraines:
Continue her home medications if possible
Obesity:
Lifestyle changes modifications
DVT prophylaxis:
Xarelto
CODE STATUS:
Full code
Anticipated Discharge: Today
Subjective/Interval History
-
Date of Service: February 09, 2025
No new complaints. Patient feels well
Objective Data
-
Labs:
Laboratory Results
02/09/25
07:02
WBC 12.5 H
Hgb 9.0 L
Hct 29.8 L
Plt Count 327
Sodium 136
Potassium 4.5
Chloride 105
Carbon Dioxide 29
BUN 19 H
Creatinine 0.9
Glucose 89
Calcium 8.7
Vital Signs:
Vital Signs
Temp Pulse Resp BP Pulse Ox
98.4 F 104 16 124/71 96
02/09/25 07:00 02/09/25 07:00 02/09/25 07:00 02/09/25 07:00 02/09/25 07:00
I&O
02/08/25 02/09/25 02/10/25
06:59 06:59 06:59
Intake Total 2790 / 2790 2069
Output Total 350 / 350
Balance 2790 / 2790 1720 / 1720
--- NOTE | 2025-02-09 11:47 | CM ---
Addendum entered by Akhil Rice 02/09/25 16:05:
electronic assembler group leader time 5:00 p.m.
Both pt, RN and [facility] liaison are aware.
Original Note:
CM following re: discharge planning.
Reviewed pt's chart, met with pt.
According to MD pt is medically stable to be discharged today. Pt is aware, expressed her agreement. IMM reviewed, placed on chart, pt has a copy.
CM received approval confirmation from [facility]. Pt is approved for SNF level of care at [facility] for 7 initial days from today 02/09/25 till 02/15/25 with LCD and NRD 02/15/25. Auth: [id number]. For additional days fax: [phone].
Auth information forwarded to [facility] liaison and she confirmed that pt is accepted for admission today.
Exceptional admission PASRR completed and with MD note regarding 30 [address] [facility] faxed to [facility] [phone]
to arrange ambulance transport BLS. [facility]NC completed and left with [facility] nursing report: [phone]
Discharge instructions fax: [phone]
D/C plan: [facility] today.
--- NOTE | 2025-02-09 11:48 | W.DCSUMMARY ---
Discharge Summary
Discharge Data
Date of Admission: 02/06/25
Date of Discharge: 02/09/25
-
Pending Results: No
Hospital Course
Patient 29 years old female with multiple comorbidities who has right ankle nonunion and she went to the OR by senior electronics engineer and they did right ankle and foot had work removal x 6 and ankle fusion revision as well as subtalar joint fusion revision.
Postop she needed to be observed for pain control. Podiatry has adjusted her pain medications. She did well rest of the hospital stay. She has been cleared by podiatry to be discharged. She will be discharged to skilled rehab today.
Discharge Plan
-
Patient Disposition: Alf/SNF
Discharge Diagnosis/Procedures: Revision right ankle arthrodesis.
Diet: Regular
Activity: Other activity
Additional Activity: As instructed by senior electronics engineer.
Blood Work: Please PCP to order CBC, BMP within 1 week
Referrals:
Deep Andrew DPM [Active, Orthopedics] - in one to two weeks
Steven Ordonez DO [Family Provider, Family Practice] - in less than 1 week
Yogi Navarro DPM [Active, Podiatry] - in one to two weeks
Prescriptions:
New
gabapentin 300 mg Capsule
300 mg PO TID Qty: 90 0RF
ibuprofen 600 mg Tablet
600 mg PO Q6HPRN PRN (Reason: mild pain) Qty: 30 0RF
polyethylene glycol 3350 17 gram Powder In Packet
17 g PO DAILY Qty: 14 0RF
Continued
prazosin 5 mg Capsule
2 mg PO HS
Nurtec ODT 75 mg Tablet,Disintegrating
75 mg PO DAILYPRN PRN (Reason: migraine)
Xarelto 20 mg Tablet
20 mg PO QPM
acetaminophen [Tylenol] 325 mg Tablet
650 mg PO Q4H PRN (Reason: pain)
famotidine 20 mg Tablet
20 mg PO DAILY
ferrous sulfate 325 mg (65 mg iron) Tablet
325 mg PO DAILY
omeprazole 20 mg Tablet,Delayed Release (Dr/Ec)
20 mg PO DAILY
Abilify
1,064 mg IM Q8W
Ubrelvy 50 mg Tablet
50 mg PO PRN PRN (Reason: migraine)
venlafaxine
1 tab-cap PO DAILY
Patient Comments:
pt is unsure of the dosage
Discontinued
tramadol 50 mg Tablet
50 mg PO Q6HPRN PRN (Reason: foot pain) Qty: 20 0RF
topiramate [Topamax] 50 mg Tablet
50 mg PO BID
Discharge Orders:
Discharge Patient (As Directed); Ordered 02/09/25
Ordered By: Dedrick Snowden
Discharge Date and Time
Print Language: PERSIAN
[2025-02-09] MEDS: MOTRIN 600 MG PO (12:10)
[2025-02-09] MEDS: DULCOLAX 10 MG RECTAL (13:02)
--- NOTE | 2025-02-09 14:51 | PN.CDI ---
CDI
- -
CDI:
Physician Documentation Request
Admit Date: 02/06/25 10:03
Dear Doctor Sp,
Clinical Indicators:
Patient admitted with Right foot surgery revision 02/06.
Home medications include: Ferrous sulfate 325 mg PO DAILY
02/06 Anesthesia report, IVF: 800 ml EBL 50 ml
Hgb/Hct trend:
02/07/25 02/08/25 02/09/25
07:36 07:14 07:02
Hgb 10.3 L 9.4 L 9.0 L
Hct 33.1 L 31.0 L 29.8 L
Based on the above, could you clarify in the progress notes, the appropriate diagnosis, if significant, that supports the above abnormalities and additional evaluation, monitoring and/or treatment rendered:
Anemia, due to acute blood loss and hemodilution
Anemia due to hemodilution only
Anemia, other (please specify)
Other
Use of terms such as suspected, likely, concern for, or probable (associated with a specific diagnosis that is being evaluated, monitored, or treated as if it exists) are acceptable and can be coded in the inpatient setting, when documented at the
time of discharge.
Thank you,
NORBERTO Woodard RN
CDI Specialist
available via tiger text
Please use your independent medical judgment in providing your response.
[2025-02-09 16:37] VITALS: BP 143/82
== END 2025-02-09 17:05 ==
LOC: PACU 10:03
PROVIDERS: Hospitalist; FAMILY PHYSICIAN Family Medicine
DX: M96.0 Pseudarthrosis after fusion or arthrodesis (principal); T84.84XA Pain due to internal orthopedic prosthetic devices, implants and grafts, initial encounter; Y83.1 Surgical operation with implant of artificial internal device as the cause of abnormal reaction of the patient, or of later complication, without mention of misadventure at the time of the procedure; F31.9 Bipolar disorder, unspecified; F25.9 Schizoaffective disorder, unspecified; F43.10 Post-traumatic stress disorder, unspecified; I10 Essential (primary) hypertension; G43.909 Migraine, unspecified, not intractable, without status migrainosus; E66.9 Obesity, unspecified; E03.9 Hypothyroidism, unspecified; F41.9 Anxiety disorder, unspecified; D62 Acute posthemorrhagic anemia; Z68.41 Body mass index [BMI] 40.0-44.9, adult; Z79.01 Long term (current) use of anticoagulants; Z79.899 Other long term (current) drug therapy; Z86.718 Personal history of other venous thrombosis and embolism
CPT/HCPCS: 28725; 20680; 20902; 71045; 73600; 76000; 80048; 81003; 85027; 97116; 97162; 97167; 97535; 97542; C1713

== ENCOUNTER 2025-02-12 19:36 | Emergency (ER) | payer MEDICARE, OTHER, SELFPAY ==
[2025-02-12 19:41] VITALS: BMI 45.4
[2025-02-12 19:44] VITALS: BP 157/92
[2025-02-12 20:18] LABS: Hematocrit 33.2 % (37.0-47.0); Hemoglobin 10.3 g/dL (12.0-16.0); Mean Corp Hgb Conc. 31.0 g/dL (33.0-37.0); Mean Corpuscular Volume 77.2 fL (81.0-99.0); Nucleated Red Blood Cells % 0 %; Platelet Count 381 10^3/uL (130-400); Red Cell Dist. Width 16.8 % (11.5-14.5)
[2025-02-12 20:39] LABS: Blood Urea Nitrogen 18 mg/dl (7-17); Calcium 9.8 mg/dl (8.4-10.2); Carbon Dioxide 29 mmol/L (22-30); Chloride 106 mmol/L (98-107); Estimated Creatinine Clearance 111 ml/min; Glucose 116 mg/dl (70-99); Lipase 85 U/L (23-300); Sodium 137 mmol/L (135-145); eGFR > 60.00
[2025-02-12 20:50] LABS: Troponin I < 0.012 ng/ml
[2025-02-12 21:00] VITALS: BP 120/87
[2025-02-12 22:00] VITALS: BP 126/91
[2025-02-12 23:00] VITALS: BP 147/89
[2025-02-12] MEDS: ZOFRAN 4 MG IV (23:31)
[2025-02-13] VITALS: BP 129/81
[2025-02-13] MEDS: LIDOCAINE 4% PATCH 1 PATCH TOPICAL (00:23)
--- NOTE | 2025-02-13 00:25 | ED.GENMED ---
History of Present Illness
General
Chief Complaint: Chest Pain
Source: patient and previous hospital records (Recent hospitalization February 06 to February 09 for postoperative pain control after right foot/ankle surgery.)
Exam Limitations: none
Time Seen by Provider: 02/12/25 22:44
Nursing documentation reviewed up to this point in time: agreed with
History of Present Illness
History of Present Illness:
The patient is a 29-year-old female with multiple comorbidities including right foot/ankle pain, right clubfoot with multiple previous surgeries including most recently February 06 for which she was hospitalized until February 09 for postop pain
control. Her other medical issues include hypertension, bipolar disorder, PTSD, GERD, alcohol spectrum disorder and prior history of DVT, maintained on Xarelto. She presents with chest pain that started today. She reports that the chest pain
is on and off and describes it as a sudden sharp pain, stating, 'I had this really shooting pain.' Pain has been off and on throughout the day today. She does admit to some nausea and vomiting this evening. The pain did not start after vomiting;
rather, she experienced nausea and vomiting due to the intensification of the pain. She vomited three times today, with this being a new symptom for her. She also notes stress from personal circumstances, including the recent passing of her mother 1
week ago and her current stay in a senior care for rehabilitation. Her past medical history includes an episode of bronchitis and the use of Rivaroxaban for blood clots in her leg identified last year. She denies fever but mentions occasional cough
that makes breathing difficult. The patient also reports left shoulder pain, a somewhat chronic issue but worse for the past few days, exacerbated after starting physical therapy.
Past History
Past History
ED Past Medical History: HTN, Psychiatric (Autism, alcohol syndrome, learning disability, major depression, anxiety, PTSD, Bipolar Schizo affective disorder) and Other (Headaches, gastric emptying issues, Vertigo, Arthritis, DVT, chronic right
foot pain/clubfoot)
ED Past Surgical History: Bowel resection, Orthopedic (Right club foot repair) and Other (Neck surgery )
Social History
Tobacco: 2nd hand smoke exposure
Alcohol: None
Drug: None
Personal: Single
Living: with family (Currently residing in a senior care for rehabilitation after right foot/ankle surgery February 2025)
Employment: Disabled
Family History
Family History: Other (Noncontributory)
Phy Exam
Physical Exam
Physical Exam:
GENERAL: 29-year-old obese female appears her stated age, bright and alert, easily communicative, in no acute distress.
EYE: anicteric
NECK: Supple, nontender, no meningismus, no significant adenopathy.
ENT: oral mucosa is moist. No rhinorrhea.
CARDIAC: Regular rate and rhythm at 100. no murmur.
LUNGS: Clear breath sounds bilaterally, no acute respiratory distress, no wheezes/rales/rhonchi
ABDOMEN: Rotund, soft, nondistended, without focal tenderness, no r/g, no cvat. normoactive BS.
NEUROLOGICAL: Alert and oriented x3, no focal neuro deficits.
SKIN: Warm and dry, normal color, skin intact. No rash.
MUSCULOSKELETAL: No C/C/E. Right lower extremity posterior splint in place. Peripheral pulses are full and equal b/l. Mild tenderness about the left anterior shoulder. No joint effusion. Mild pain with abduction greater than 100 degrees. No
crepitus.
PSYCH: Normal and appropriate interaction.
Scores
Heart Score for Chest Pain Patients
STEMI patient?: No
History: Slightly or Non-Suspicious
ECG: Normal
Age: </= 45 years
Risk Factors: 1 or 2 Risk Factors
Troponin: </= Normal Limit
Heart Score for Chest Pain Patients: 1
Heart Score Risk: 2.5% MACE over next 6 weeks
Course
Orders/Labs/Results
Orders:
Orders
02/12/25 19:38
Electrocardiogram (*1) Urgent
Reason for Study: Chest Pain
Cardiac Monitoring- Treatment ONCE
EKG- Treatment ONCE
IV Insert/Care/Rem.- Treatment PRN
O2 Therapy [RESP] Urgent
Titrate/Wean O2 to maintain O2 sat greater than (%): 90
Special Instructions: Maintain sats >/=90%
Pulse Ox/spot Check [RESP] Urgent
Quantity: 1
Special Instructions: ON ROOM AIR
02/12/25 19:53
1:1 Observation - Suicide/ Violent Behavior As Directed
Crisis Consult Routine
Reason for Consult: SI and patient request
02/12/25 20:08
Basic Metabolic Panel Urgent
Complete Blood Count/With Diff Urgent
Lipase Urgent
Troponin I Urgent
02/12/25 23:08
CT Chest PE Study Urgent
Comment:
Reason For Exam: acute CP, tachycardia, recent foot surgery
02/12/25 23:09
Ondansetron Injectable [Zofran] 4 mg IV NOW STA
02/13/25 00:21
Lidocaine [Lidocaine 4% Patch] 1 patch TOPICAL NOW STA
Apply Lidocaine patch(s) to:: left shoulder
Abnormal Lab Results
02/12/25
20:08
WBC 15.6 H 10^3/uL
(4.8-10.8)
Hgb 10.3 L g/dL
(12.0-16.0)
Hct 33.2 L %
(37.0-47.0)
MCV 77.2 L fL
(81.0-99.0)
MCH 24.0 L pg
(27.0-31.0)
MCHC 31.0 L g/dL
(33.0-37.0)
RDW 16.8 H %
(11.5-14.5)
Abs Immat Gran (auto) 0.1 H 10^3/uL
(0-0.05)
Absolute Neuts (auto) 11.9 H 10^3/uL
(1.4-6.5)
Absolute Monos (auto) 0.7 H 10^3/uL
(0.1-0.6)
Immature Gran % 0.7 H %
(0-0.5)
Neutrophils % 76.3 H %
(42.2-75.2)
Lymphocytes % 15.6 L %
(20.5-51.1)
BUN 18 H mg/dl
(7-17)
Glucose 116 H mg/dl
(70-99)
02/12/25 20:08
02/12/25 20:08
Vital Signs
Initial and Last Documented VS:
Initial Vital Signs
Temp Pulse Resp
98.7 F 110 20
02/12/25 19:41 02/12/25 19:41 02/12/25 19:41
Last Documented Vital Signs
Temp Pulse Resp BP Pulse Ox
98.7 F 109 25 126/91 100
02/12/25 19:41 02/12/25 22:00 02/12/25 22:00 02/12/25 22:00 02/13/25 00:27
MDM/Problems Addressed
Differential Diagnosis Includes:
The Differential Diagnosis includes, in no particular order and is not limited to:
1. Pulmonary embolism
2. Gastroesophageal reflux disease
3. Acute gastritis
4. Myocardial infarction
5. Costochondritis
6. Panic attack
7. Pneumonia
8. Pleural effusion
9. Pericarditis
10. Tendonitis of the shoulder
MDM/Problems Addressed:
Patient presents with acute chest pain, somewhat acute on chronic left shoulder pain.
Recent surgical procedure on right foot/ankle.
History of DVT, chronically maintained on Xarelto however anticoagulants had been held prior to surgery and for at least 1 to 2 days postoperatively. Therefore concern for thromboembolism/PE.
EKG shows sinus tachycardia which is new compared to previous as well as rightward axis which is new compared to previous. Somewhat more concerning for potential PE. There is no evidence of NM on EKG.
Thus far labs reveal mildly elevated white blood cell count of 15, has trended up slightly from previous. Mild but stable/improving anemia. Chemistries are unremarkable. Troponin is negative.
Will check CT of the chest/PE study.
Will trial lidocaine patch to left shoulder for what I suspect is musculoskeletal pain. No recent trauma.
Chronic conditions affecting care:
Prior history of DVT, hypertension
Chronic conditions affecting care: Psychiatric illness
*Radiology
Radiology exam reviewed: radiology read reviewed
*Pulse Oximetry
SaO2: 100
Oxygen Mode of Delivery: Room air
Patient hypoxic: no
*EKG
Interpreted by ED Provider?: Yes
Interpretation: abnormal
Comparison EKG: changes noted
Rate: tachycardiac
Rhythm: sinus
[place]: right axis deviation
Interval: normal interval
QRS Pattern: normal QRS
Ischemia: no ischemia
*Adhesion Tester Interpretation
Rate: tachycardiac
Interpretation: abnormal
Rhythm: sinus
*Critical Care Note
Total Time (30-74mins, 75-104mins- exclusive of procedures): Not Applicable
Update Note
Update Note:
00:45
CT chest/PE study shows no evidence of PE. There is minor regions of air trapping otherwise lungs are clear. No evidence of pneumonia.
Patient resting comfortably, sleeps when undisturbed. Lidocaine patch in place on left shoulder.
I suspect chest pain may be an element of GERD, musculoskeletal pain.
Will plan for discharge back to senior care for continued care.
ED Attending Note
-
Portions of this chart may have been created with voice recognition software.� Occasional wrong word or��sound alike� substitutions may have occurred due to the inherent limitations of voice recognition software.
Discharge Plan
Departure
Patient Disposition: Halfway/SNF
Date of Disposition: 02/13/25
Time of Disposition: 00:48
Patient with high blood pressure during this ER visit?: No
Condition: Good
Discharge Problem:
Acute nonspecific chest pain with low risk of coronary artery disease, Chest pain due to GERD
Instructions: Acid Reflux and GERD in Adults (DC), Chest Pain PCP Follow Up
Prescriptions:
No Action
acetaminophen [Tylenol] 325 mg Tablet
650 mg PO Q4H PRN (Reason: pain)
famotidine 20 mg Tablet
20 mg PO DAILY
ferrous sulfate 325 mg (65 mg iron) Tablet
325 mg PO DAILY
omeprazole 20 mg Tablet,Delayed Release (Dr/Ec)
20 mg PO DAILY
gabapentin 300 mg Capsule
300 mg PO TID Qty: 90 0RF
ibuprofen 600 mg Tablet
600 mg PO Q6HPRN PRN (Reason: mild pain) Qty: 30 0RF
venlafaxine 25 mg Tablet
25 mg PO DAILY
polyethylene glycol 3350 [Miralax] 17 gram/dose Powder
4 g PO DAILY
prazosin 2 mg Capsule
2 mg PO HS
Xarelto 20 mg Tablet
20 mg PO QPM
rimegepant 75 mg Tablet,Disintegrating
75 mg PO DAILY PRN (Reason: migraines)
Referrals:
UNKNOWN - PT DOES,NOT KNOW [Family Provider]
Interventions
Interventions:
*Risk Screen - Suicide Last Done: 02/12/25 19:41
*General Assessment Last Done: 02/12/25 19:41
*Neglect/Abuse Screening Last Done: 02/12/25 19:41
*ED- Fall Risk Assessment Last Done: 02/12/25 19:41
ED- Cardiac Assessment Last Done: 02/12/25 20:36
Discharge Date and Time
Print Language: CANADIAN
[2025-02-13 01:00] VITALS: BP 114/74
[2025-02-13 02:00] VITALS: BP 128/75
== END 2025-02-13 02:27 ==
LOC: EMR 19:36
PROVIDERS: Emergency Medicine; EMERGENCY PHYSICIAN Emergency Medicine
DX: K21.9 Gastro-esophageal reflux disease without esophagitis (principal); D64.9 Anemia, unspecified; D72.829 Elevated white blood cell count, unspecified; R00.0 Tachycardia, unspecified; R45.851 Suicidal ideations; I10 Essential (primary) hypertension; F41.9 Anxiety disorder, unspecified; F84.0 Autistic disorder; F31.9 Bipolar disorder, unspecified; F43.10 Post-traumatic stress disorder, unspecified; F25.9 Schizoaffective disorder, unspecified; M19.90 Unspecified osteoarthritis, unspecified site; Z63.4 Disappearance and death of family member; Z79.01 Long term (current) use of anticoagulants; Z86.718 Personal history of other venous thrombosis and embolism; Z77.22 Contact with and (suspected) exposure to environmental tobacco smoke (acute) (chronic)
CPT/HCPCS: 99285; 96374; 71275; 80048; 83690; 84484; 85025; 93005; Q9967

== ENCOUNTER 2025-04-02 17:20 | Emergency (ER) | payer MEDICARE, OTHER, SELFPAY ==
[2025-04-02 17:20] VITALS: BMI 43.8
--- NOTE | 2025-04-02 18:33 | ED.GENMED ---
History of Present Illness
<Tony Desai MD - Last Filed: 04/02/25 21:58>
General
Chief Complaint: Abdominal Symptoms
Source: patient
Exam Limitations: none
Time Seen by Provider: 04/02/25 17:55
Nursing documentation reviewed up to this point in time: agreed with
History of Present Illness
History of Present Illness:
Patient presents to ED secondary to continual abdominal discomfort with nausea and vomiting, making it difficult for patient to eat anything at home recently. Patient is currently working with [facility] GI physician and is being evaluated
for potential Crohn's disease. Unfortunately workup has been put on hold, including colonoscopy, as patient recently underwent right foot surgery. Denies fever or chills. Denies diarrhea. Denies trauma. Denies recent change in medications or
diet. In addition, patient is complaining of pressure in her right leg, and feels as though cast may be too tight on her. However, patient denies a tingling station or discoloration of the foot. Patient is scheduled to see her surgeon in 1 week,
to be evaluated for cast removal.
Past History
<Tony Desai MD - Last Filed: 04/02/25 21:58>
Past History
ED Past Medical History: HTN, Psychiatric (Autism, alcohol syndrome, learning disability, major depression, anxiety, PTSD, Bipolar Schizo affective disorder) and Other (Headaches, gastric emptying issues, Vertigo, Arthritis, DVT, chronic right
foot pain/clubfoot)
ED Past Surgical History: Bowel resection, Orthopedic (Right club foot repair) and Other (Neck surgery )
Social History
Tobacco: 2nd hand smoke exposure
Alcohol: None
Drug: None
Personal: Single
Living: with family (Currently residing in a [facility] for rehabilitation after right foot/ankle surgery February 2025)
Employment: Disabled
Family History
Family History: Other (Noncontributory)
Review of Systems
<Tony Desai MD - Last Filed: 04/02/25 21:58>
Review of Systems
Allergies reviewed?: Yes
All Other Systems: ROS reviewed and negative except as documented in HPI and ROS
Constitutional: Reports no symptoms
Respiratory: Reports no symptoms; Denies trouble breathing
Cardiac: Reports no symptoms; Denies chest pain
ABD/GI: Reports abdominal pain, nausea and vomiting; Denies diarrhea
Musculoskeletal: Reports other (leg pain)
Skin: Reports no symptoms
Neurological: Reports no symptoms
Phy Exam
<Tony Desai MD - Last Filed: 04/02/25 21:58>
Physical Exam
Physical Exam:
Physical Exam
General: no apparent distress, not acutely ill. afebrile
Head: nc/at. eomi
Neck: supple. normal range of motion.
Heart: s1/s2 regular rate and rhythm
Lungs: no acute respiratory distress. clear bilaterally
Abdomen: normal bowel sounds. not tender. no distention
Neuro: alert and oriented x 3. no focal neurological deficits
Skin: no rash
Psychiatric: well kept. interactive and cooperative
Extremities: no edema. RLE with cast in place, foot without discoloration and normal sensation
Course
<Tony Desai MD - Last Filed: 04/02/25 21:58>
Orders/Labs/Results
Orders:
Orders
04/02/25 17:36
Crisis Consult Urgent
Reason for Consult: +SI
04/02/25 17:41
EKG [Electrocardiogram (*1)] Urgent
Reason for Study: Chest Pain
EKG- Treatment ONCE
04/02/25 18:30
0.9% Sodium Chloride 1000 ml [Nss] 1,000 ml IV BOLUS
Mag Hydrox/Al Hydrox/Simeth [Maalox] 30 ml Phenobarb/Hyoscy/Atropine/Scop [] 10 ml PO NOW
Ondansetron Injectable [Zofran] 4 mg IV NOW STA
Pantoprazole [Protonix IV] 40 mg IV NOW STA
Test Result ONCE
04/02/25 18:31
Gabapentin [Neurontin] 300 mg PO NOW STA
04/02/25 18:52
Basic Metabolic Panel Urgent
Comment: BMP NO K
Complete Blood Count/With Diff Urgent
HCG, Serum Qualitative Screen Urgent
Lipase Urgent
04/02/25 20:03
Add On- LAB Urgent
Comments:: blood in lab already
Tests Added?: magnesium
04/02/25 22:54
Magnesium Urgent
Comment: MUST BE COLLECTED. SPECIMEN IN LAB IS HEMOLYZED
04/03/25 01:38
Consult Notification Routine
Specialty to Notify: Psychiatry
Date consulting provider notified: 04/03/25
Time consulting provider notified: 07:41
Notified:: Office
PSYCHIATRY CONSULT Urgent
Consulting Provider: Billy Grissom
Was physician already notified: No
Reason for consult: depression, placement issues
04/03/25 03:56
Gabapentin [Neurontin] 400 mg .ROUTE .STK-MED ONE
04/03/25 03:59
Gabapentin [Neurontin] 400 mg PO NOW STA
04/03/25 14:51
Urine Drug Abuse Screen Urgent
Date Specimen was Collected: 04/03/25
Time Specimen was Collected: 14:50
04/03/25 17:36
Acetaminophen [Tylenol] 650 mg .ROUTE .STK-MED ONE
Abnormal Lab Results
04/02/25
18:52
Hgb 11.4 L g/dL
(12.0-16.0)
MCV 78.5 L fL
(81.0-99.0)
MCH 23.6 L pg
(27.0-31.0)
MCHC 30.1 L g/dL
(33.0-37.0)
RDW 15.1 H %
(11.5-14.5)
Absolute Neuts (auto) 8.2 H 10^3/uL
(1.4-6.5)
Neutrophils % 77.4 H %
(42.2-75.2)
Lymphocytes % 17.1 L %
(20.5-51.1)
BUN 18 H mg/dl
(7-17)
Glucose 116 H mg/dl
(70-99)
04/02/25 18:52
04/02/25 18:52
Vital Signs
Initial and Last Documented VS:
Initial Vital Signs
Temp BP
97.8 F 155/100
04/02/25 19:45 04/02/25 19:45
Last Documented Vital Signs
Temp Pulse Resp BP Pulse Ox
98.1 F 89 14 144/90 98
04/03/25 05:41 04/03/25 05:41 04/03/25 05:41 04/03/25 05:41 04/03/25 05:41
<Jeannine Barahona, DO - Last Filed: 04/03/25 20:30>
Orders/Labs/Results
Orders:
Orders
04/02/25 17:36
Crisis Consult Urgent
Reason for Consult: +SI
04/02/25 17:41
EKG [Electrocardiogram (*1)] Urgent
Reason for Study: Chest Pain
EKG- Treatment ONCE
04/02/25 18:30
0.9% Sodium Chloride 1000 ml [Nss] 1,000 ml IV BOLUS
Mag Hydrox/Al Hydrox/Simeth [Maalox] 30 ml Phenobarb/Hyoscy/Atropine/Scop [] 10 ml PO NOW
Ondansetron Injectable [Zofran] 4 mg IV NOW STA
Pantoprazole [Protonix IV] 40 mg IV NOW STA
Test Result ONCE
04/02/25 18:31
Gabapentin [Neurontin] 300 mg PO NOW STA
04/02/25 18:52
Basic Metabolic Panel Urgent
Comment: BMP NO K
Complete Blood Count/With Diff Urgent
HCG, Serum Qualitative Screen Urgent
Lipase Urgent
04/02/25 20:03
Add On- LAB Urgent
Comments:: blood in lab already
Tests Added?: magnesium
04/02/25 22:54
Magnesium Urgent
Comment: MUST BE COLLECTED. SPECIMEN IN LAB IS HEMOLYZED
04/03/25 01:38
Consult Notification Routine
Specialty to Notify: Psychiatry
Date consulting provider notified: 04/03/25
Time consulting provider notified: 07:41
Notified:: Office
PSYCHIATRY CONSULT Urgent
Consulting Provider: Billy Grissom
Was physician already notified: No
Reason for consult: depression, placement issues
04/03/25 03:56
Gabapentin [Neurontin] 400 mg .ROUTE .STK-MED ONE
04/03/25 03:59
Gabapentin [Neurontin] 400 mg PO NOW STA
04/03/25 14:51
Urine Drug Abuse Screen Urgent
Date Specimen was Collected: 04/03/25
Time Specimen was Collected: 14:50
04/03/25 17:36
Acetaminophen [Tylenol] 650 mg .ROUTE .STK-MED ONE
Abnormal Lab Results
04/02/25
18:52
Hgb 11.4 L g/dL
(12.0-16.0)
MCV 78.5 L fL
(81.0-99.0)
MCH 23.6 L pg
(27.0-31.0)
MCHC 30.1 L g/dL
(33.0-37.0)
RDW 15.1 H %
(11.5-14.5)
Absolute Neuts (auto) 8.2 H 10^3/uL
(1.4-6.5)
Neutrophils % 77.4 H %
(42.2-75.2)
Lymphocytes % 17.1 L %
(20.5-51.1)
BUN 18 H mg/dl
(7-17)
Glucose 116 H mg/dl
(70-99)
04/02/25 18:52
04/02/25 18:52
Vital Signs
Initial and Last Documented VS:
Initial Vital Signs
Temp BP
97.8 F 155/100
04/02/25 19:45 04/02/25 19:45
Last Documented Vital Signs
Temp Pulse Resp BP Pulse Ox
98.1 F 89 14 144/90 98
04/03/25 05:41 04/03/25 05:41 04/03/25 05:41 04/03/25 05:41 04/03/25 05:41
<Tony Desai MD - Last Filed: 04/02/25 21:58>
MDM/Problems Addressed
MDM/Problems Addressed:
Right lower leg cast removed by podiatry at bedside, with posterior splint applied afterwards.
Patient will be evaluated by psychiatrist in a.m. to determine potential inpatient treatment, secondary to ongoing depression with suicidal thoughts. Patient otherwise is medically cleared. Patient will require continual evaluation with her GI
physician, regarding her continual nausea and vomiting episodes, as an outpatient. Patient without any further vomiting episodes in ED.
<Jeannine Barahona DO - Last Filed: 04/03/25 20:30>
*Pulse Oximetry
Patient hypoxic: no
*Critical Care Note
Total Time (30-74mins, 75-104mins- exclusive of procedures): Not Applicable
<Jeannine Barahona DO - Last Filed: 04/03/25 20:30>
Update Note
Update Note:
Jeannine Barahona DO
15:50 -patient has a 29-year-old female with history of PTSD, bipolar disorder, anxiety, depression presenting for auditory hallucinations. Patient seen by preceding physician, pending possible placement per crisis as well as psych consultation.
Discussed with psychiatry, and patient is appropriate for discharge. She will be placed in a residential facility tomorrow. Family to pick her up. Patient is not on the 302. Hemodynamically stable and appropriate for
ED Attending Note
<Tony Desai MD - Last Filed: 04/02/25 21:58>
-
Portions of this chart may have been created with voice recognition software.� Occasional wrong word or��sound alike� substitutions may have occurred due to the inherent limitations of voice recognition software.
Discharge Plan
Departure
Patient Disposition: Home (Routine Discharge)
Date of Disposition: 04/02/25
Time of Disposition: 21:54
Patient with high blood pressure during this ER visit?: Yes
Condition: Good
Discharge Problem:
Nausea and vomiting, Depression, Auditory hallucinations
Instructions: Bipolar disorder (DC), BLOOD PRESSURE
Prescriptions:
No Action
acetaminophen [Tylenol] 325 mg Tablet
650 mg PO Q4H PRN (Reason: pain)
famotidine 20 mg Tablet
20 mg PO HS
ferrous sulfate 325 mg (65 mg iron) Tablet
325 mg PO DAILY
omeprazole 20 mg Tablet,Delayed Release (Dr/Ec)
40 mg PO DAILY
Rx Instructions:
Takes 30 minutes to 1 hour before breakfast
venlafaxine 25 mg Tablet
50 mg PO DAILY
polyethylene glycol 3350 [Miralax] 17 gram/dose Powder
17 g PO DAILY
prazosin 2 mg Capsule
2 mg PO HS
Xarelto 20 mg Tablet
20 mg PO DAILY
rimegepant 75 mg Tablet,Disintegrating
75 mg PO DAILY PRN (Reason: migraines)
[place] 1,064 mg/3.9 mL suspension,extended rel syring
1,064 mg IM Q2M
ondansetron HCl 4 mg tablet
4 mg PO DAILY PRN (Reason: Nausea and vomiting)
Rx Instructions:
Just takes one tablet a day
alprazolam 0.25 mg tablet
0.25 mg PO TID
gabapentin 300 mg capsule
300 mg PO TID
topiramate 50 mg tablet
50 mg PO DAILY
Referrals:
Steven Ordonez DO [Family Provider, Family Practice]
Activity Restrictions/Additional Instructions:
You were seen in the emergency department for hallucinations
You were seen by crisis and psychiatry. You are going to a residential facility tomorrow.
Please follow-up closely with your primary care physician.
Return to the emergency department for any worsening of your symptoms or any thoughts of any to hurt yourself or others, or any development of chest pain, difficulty breathing, abdominal pain with persistent vomiting and inability to tolerate food
or liquid by mouth (concern for dehydration), weakness, headache or confusion, fever greater than 100.4, or any additional symptoms that are concerning to you.
Thank you for choosing [facility].
Interventions
Interventions:
*Risk Screen - Suicide Last Done: 04/02/25 19:00
*General Assessment Last Done: 04/02/25 17:32
*Neglect/Abuse Screening Last Done: 04/02/25 17:32
*ED- Fall Risk Assessment Last Done: 04/02/25 17:32
*ED COVID-19 Vaccine History Last Done: 04/02/25 17:32
*ED Influenza Vaccine History Last Done: 04/02/25 17:32
KF-Yhqoxs-Fmwoynczvc Assessment Last Done: 04/02/25 20:39
Discharge Date and Time
Print Language: GABONESE
[2025-04-02 19:06] LABS: Hematocrit 37.9 % (37.0-47.0); Hemoglobin 11.4 g/dL (12.0-16.0); Mean Corp Hgb Conc. 30.1 g/dL (33.0-37.0); Mean Corpuscular Volume 78.5 fL (81.0-99.0); Nucleated Red Blood Cells % 0 %; Platelet Count 345 10^3/uL (130-400); Red Cell Dist. Width 15.1 % (11.5-14.5)
[2025-04-02 19:19] LABS: HCG, Serum Qualitative Screen Negative
[2025-04-02 19:25] LABS: Blood Urea Nitrogen 18 mg/dl (7-17); Calcium 9.2 mg/dl (8.4-10.2); Carbon Dioxide 28 mmol/L (22-30); Chloride 107 mmol/L (98-107); Estimated Creatinine Clearance > 125 ml/min; Glucose 116 mg/dl (70-99); Sodium 139 mmol/L (135-145); eGFR > 60.00
[2025-04-02 19:45] VITALS: BP 155/100
[2025-04-02 20:16] LABS: Lipase 94 U/L (23-300)
[2025-04-02] MEDS: NSS 1000 IV (20:29)
[2025-04-02] MEDS: NEURONTIN 300 MG PO (20:30)
[2025-04-02] MEDS: ZOFRAN 4 MG IV (20:30)
[2025-04-02] MEDS: PROTONIX IV 40 MG IV (20:30)
[2025-04-02 23:04] VITALS: BP 120/72
[2025-04-02 23:28] LABS: Magnesium 2.0 mg/dl (1.6-2.3)
[2025-04-03] MEDS: NEURONTIN 400 MG PO (04:00)
[2025-04-03 04:03] VITALS: BP 108/71
[2025-04-03 05:41] VITALS: BP 144/90
--- NOTE | 2025-04-03 10:12 | ED.CRISIS ---
ED Crisis Note
ED Crisis Note
Subjective:
Hearing voices
Objective:
201
Assessment/Plan:
Patient resting comfortably. Patient evaluated by psychiatry who feels that patient either needs placement in the [place] or a psychiatric hospital
--- NOTE | 2025-04-03 10:24 | CS.PSYCHR ---
Consult Summary - Psychiatry
-
pt seen by me for assessment 04/03/25 due to concerns about suicidal statements
29 yo woman came to ED due to discomfort with cast on leg (2 mos ago surgery to help correct club foot) as well as abdominal and chest pain. Screened positive for suicidality. States she has been upset about hurtful things said by father and
brother, as well as auditory hallucinations.
Long history of emotional instability, states has learning disability from alcohol effect, placed in foster care and then adopted age 4. Currently in treatment at [facility], sees therapist (has appt today at 1 pm) and gets long
acting injectable medication Abilfy lauroxil 1 gram q 2 months last given 03/29/25 as well as oral prazosin 2 mg hs, effeor 25 mg hs, topiramate 50 bid, neurontin 300 tid.
Review of records and discussion with outpatient therapist reveals that all of pt's preoccupation with suicide and self cutting are chronic. Current stressors of of mother in January, as well as impending relocation of family due to house in
foreclosure, are similarly things that pt has been dealing with for some time. Efforts have been made to place her in a residential program, but not currently available.
Medical issues of obesity, chronic abdonimal pain pending workup by GI with colonoscopy scheduled once foot heals.
On exam pt is lying on stretcher. Reports great relief from leg pain now that cast has been removed and is only splinted. States can walk with crutches, has been given ok to put some weight on ball of foot. Had used walker in past. Pt greatly
desires inpatient care, is afraid she will cut herself if she goes home. No outward signs of psychosis (pt claims to have multiple personaltities in her head arguing about her killing herself) no gross cognitive impairment. Speech impediment noted
but understandable. Uses good vocabulatry, with a great deal of psychobabble terms.
Impression: borderline personality disorder, learning disability
Rec: will work with therapist on a plan to try to avoid hospital stay, either by placement in residential program if available, or by increasing other outpatient supports. Crisis workers investigating altermatives. Awaiting call from therapist
== END 2025-04-03 20:36 | disposition home or self-care (01) ==
LOC: EMR 17:20
PROVIDERS: Student in an Organized Health Care Education/Training Program; CONSULT PHYSICIAN Psychiatry & Neurology Psychiatry; EMERGENCY PHYSICIAN Emergency Medicine; FAMILY PHYSICIAN Family Medicine
DX: R11.2 Nausea with vomiting, unspecified (principal); I10 Essential (primary) hypertension; Q86.0 Fetal alcohol syndrome (dysmorphic); F84.0 Autistic disorder; F81.9 Developmental disorder of scholastic skills, unspecified; F60.3 Borderline personality disorder; E66.9 Obesity, unspecified; F25.9 Schizoaffective disorder, unspecified; F31.9 Bipolar disorder, unspecified; F41.9 Anxiety disorder, unspecified; F43.10 Post-traumatic stress disorder, unspecified; M19.071 Primary osteoarthritis, right ankle and foot; Z77.22 Contact with and (suspected) exposure to environmental tobacco smoke (acute) (chronic); Z98.1 Arthrodesis status
CPT/HCPCS: 99283; 96374; 96375; 96361; 80048; 80306; 83690; 83735; 84703; 85025; 93005

== ENCOUNTER 2025-05-19 15:45 | Emergency (ER) | payer MEDICARE, OTHER, SELFPAY ==
[2025-05-19 15:54] VITALS: BP 160/106
[2025-05-19 18:10] VITALS: BMI 46.1
--- NOTE | 2025-05-19 18:15 | EDRN ---
Addendum entered by Daniela Longo RN 05/19/25 18:27:
Pt states she discovered areas just yesterday.
Addendum entered by Daniela Longo RN 05/19/25 18:24:
Below lump pt has large reddened area around an abscess, red area 10cm across and central open area 1 cm.
Original Note:
Pt arrives for a lump in her mid R axilla area to the R of her R lateral breast. Area has been 9/10 but pain increased to 10/10 when palpated by this RN, area size of a walnut and hard. area 10cm of surrounding redness and central open area 1 cm and
round. area has redness around it and is open and draining. Pt also has area under abdominal fold that is red and moist.
[2025-05-19 18:21] VITALS: BP 133/84
--- NOTE | 2025-05-19 18:23 | EDRN ---
Bradly PÉREZ in room w/ pt.
[2025-05-19] MEDS: CLEOCIN 300 MG PO (19:19)
[2025-05-19 19:37] VITALS: BP 130/85
--- NOTE | 2025-05-19 19:50 | ED.GENMED ---
Addendum entered and electronically signed by David Dukes Jr., PA-C 05/22/25 12:46:
Patient's listed phone number was called. Would have a discussion if there is any ongoing redness or inflammation that she may need Bactrim rather than clindamycin. Otherwise may not need oral antibiotic if symptoms are improving. Voicemail left.
Original Note:
History of Present Illness
<Alba Miller PA-C - Last Filed: 05/19/25 19:53>
General
Chief Complaint: Skin Problem
Time Seen by Provider: 05/19/25 17:50
History of Present Illness
History of Present Illness:
Patient is a 29-year-old female with extensive past medical history including DVT on Xarelto who presents complaining of pain in her right axilla with drainage that began today. Reports that she woke up and noticed that there. Denies any fevers,
chills, nausea, vomiting.
Past History
<Alba Miller PA-C - Last Filed: 05/19/25 19:53>
Past History
ED Past Medical History: HTN, Psychiatric (Autism, alcohol syndrome, learning disability, major depression, anxiety, PTSD, Bipolar Schizo affective disorder) and Other (Headaches, gastric emptying issues, Vertigo, Arthritis, DVT, chronic right
foot pain/clubfoot)
ED Past Surgical History: Bowel resection, Orthopedic (Right club foot repair) and Other (Neck surgery )
Social History
Tobacco: 2nd hand smoke exposure
Alcohol: None
Drug: None
Personal: Single
Living: with family (Currently residing in a fdc for rehabilitation after right foot/ankle surgery February 2025)
Employment: Disabled
Family History
Family History: Other (Noncontributory)
Phy Exam
<Alba Miller PA-C - Last Filed: 05/19/25 19:53>
General Physical Exam
General Presentation: well appearing and no apparent distress
General Skin: warm and dry
General Habitus: normal
General Mental: alert
General Hydration: appears well hydrated
ENT Exam
ENT Exam: EOMI, pharynx normal, neck supple and normocephalic
Eye Exam
Eye Exam: PERRL, cornea clear and conjunctiva normal
Cardiovascular Exam
Cardiovascular Exam: regular rate/rhythm, no edema, no murmur and normal peripheral pulses
Pulmonary Exam
Pulmonary Exam: lungs clear, no respiratory distress, no rales, no crackles, no rhonchi, no stridor, no wheezing and no cough
Gastrointestinal Exam
Gastrointestinal Exam: normal bowel sounds, non tender, soft, no organomegaly, no pulsatile mass and non distended
Neurological Exam
Neurological Exam: alert, oriented x3, no motor deficits and speech normal
Musculoskeletal Exam
Musculoskeletal Exam: full ROM and no edema
Skin Exam
Skin Exam: normal color, warm/dry, no rash, no petechia and other (Circular area of erythema and induration with central opening in right axilla. No areas of fluctuance)
Psychiatric Exam
Psychiatric Exam: normal mood/affect
Course
Loislt;Alba Miller PA-C - Last Filed: 05/19/25 19:53>
Orders/Labs/Results
Orders:
Orders
05/19/25 19:14
Clindamycin HCl [Cleocin] 300 mg PO NOW STA
05/19/25 19:21
Wound Culture [Wound/Abscess/Other Culture] Urgent
EDDIE Source: Abscess
Specimen Description:
Date Specimen was Collected: 05/19/25
Time Specimen was Collected: 19:18
Vital Signs
Initial and Last Documented VS:
Initial Vital Signs
Temp Pulse Resp BP Pulse Ox
97.8 F 102 18 160/106 100
05/19/25 15:54 05/19/25 15:54 05/19/25 15:54 05/19/25 15:54 05/19/25 15:54
Last Documented Vital Signs
Temp Pulse Resp BP Pulse Ox
97.8 F 101 20 130/85 100
05/19/25 15:54 05/19/25 19:37 05/19/25 19:37 05/19/25 19:37 05/19/25 19:53
<Jeannine Barahona DO - Last Filed: 05/19/25 20:22>
Orders/Labs/Results
Orders:
Orders
05/19/25 19:14
Clindamycin HCl [Cleocin] 300 mg PO NOW STA
05/19/25 19:21
Wound Culture [Wound/Abscess/Other Culture] Urgent
EDDIE Source: Abscess
Specimen Description:
Date Specimen was Collected: 05/19/25
Time Specimen was Collected: 19:18
Vital Signs
Initial and Last Documented VS:
Initial Vital Signs
Temp Pulse Resp BP Pulse Ox
97.8 F 102 18 160/106 100
05/19/25 15:54 05/19/25 15:54 05/19/25 15:54 05/19/25 15:54 05/19/25 15:54
Last Documented Vital Signs
Temp Pulse Resp BP Pulse Ox
97.8 F 101 20 130/85 100
05/19/25 15:54 05/19/25 19:37 05/19/25 19:37 05/19/25 19:37 05/19/25 19:53
<Alba Miller PA-C - Last Filed: 05/19/25 19:53>
MDM/Problems Addressed
Differential Diagnosis Includes:
Exam consistent with abscess and cellulitis. Bedside ultrasound performed and shows no deep collection. No further drainage indicated at this time. Patient given dose of clindamycin in the ER. Will discharge patient on clindamycin. Cussed
importance of taking entire course of antibiotic even if this begins to improve. Return precautions discussed.
<Alba Miller PA-C - Last Filed: 05/19/25 19:53>
*Pulse Oximetry
SaO2: 100
Oxygen Mode of Delivery: Room air
Patient hypoxic: no
*Critical Care Note
Total Time (30-74mins, 75-104mins- exclusive of procedures): Not Applicable
ED Attending Note
<Alba Miller PA-C - Last Filed: 05/19/25 19:53>
-
Portions of this chart may have been created with voice recognition software.� Occasional wrong word or��sound alike� substitutions may have occurred due to the inherent limitations of voice recognition software.
<Jeannine Barahona DO - Last Filed: 05/19/25 20:22>
ED Attending Note
Patient seen and examined by attending physician: Yes
I performed the substantive portion of visit, reviewed & personally made and approve the management plan that is documented in note by myself or MAT.: Yes
I performed a history and physical exam of patient and discussed management with resident, I reviewed resident's note and agree with documented findings and plan of care.: Yes
ED Attending Note:
29-year-old female presenting for evaluation of right sided skin abscess. Patient notes swelling and redness to the right mid axillary region since yesterday. The area started draining today. Reports some localized pain. Notes history of
cellulitis in the past to her foot, denies any history of diabetes. Denies fever. Vital signs are significant for hypertension, however resolved without intervention.
On exam, patient noted to have circumferential area of redness to the right mid axillary region with area of central induration, no fluctuance. Surrounding cellulitis. No active drainage. Bedside ultrasound placed on the area, no significant
drainable collection. Plan for antibiotic therapy for cellulitis with close outpatient follow-up. Feel stable for discharge.
Discharge Plan
Departure
Patient Disposition: Home (Routine Discharge)
Date of Disposition: 05/19/25
Time of Disposition: 19:15
Patient with high blood pressure during this ER visit?: No
Discharge Problem:
Cellulitis, Abscess
Prescriptions:
New
clindamycin HCl [Cleocin HCl] 300 mg capsule
300 mg PO Q6H 7 Days Qty: 28 0RF
No Action
acetaminophen [Tylenol] 325 mg Tablet
650 mg PO Q4H PRN (Reason: pain)
famotidine 20 mg Tablet
20 mg PO HS
ferrous sulfate 325 mg (65 mg iron) Tablet
325 mg PO DAILY
omeprazole 20 mg Tablet,Delayed Release (Dr/Ec)
40 mg PO DAILY
Rx Instructions:
Takes 30 minutes to 1 hour before breakfast
venlafaxine 25 mg Tablet
50 mg PO DAILY
polyethylene glycol 3350 [Miralax] 17 gram/dose Powder
17 g PO DAILY
prazosin 2 mg Capsule
2 mg PO HS
Xarelto 20 mg Tablet
20 mg PO DAILY
rimegepant 75 mg Tablet,Disintegrating
75 mg PO DAILY PRN (Reason: migraines)
Aristada 1,064 mg/3.9 mL suspension,extended rel syring
1,064 mg IM Q2M
ondansetron HCl 4 mg tablet
4 mg PO DAILY PRN (Reason: Nausea and vomiting)
Rx Instructions:
Just takes one tablet a day
alprazolam 0.25 mg tablet
0.25 mg PO TID
gabapentin 300 mg capsule
300 mg PO TID
topiramate 50 mg tablet
50 mg PO DAILY
Referrals:
Steven Ordonez DO [Family Provider, Family Practice]
Activity Restrictions/Additional Instructions:
Please take entire course of antibiotics any begin to feel better. Follow-up with your primary care physician to ensure this resolves. Follow-up sooner if redness spreads or wound begins to return.. Return to the ER for worsening fever over 100.4
that is not responsive to Tylenol or Motrin or if you are unable to see your primary care physician for worsening symptoms..
Interventions
Interventions:
*Risk Screen - Suicide Last Done: 05/19/25 18:12
*General Assessment Last Done: 05/19/25 18:11
*Neglect/Abuse Screening Last Done: 05/19/25 18:12
*ED COVID-19 Vaccine History Last Done: 05/19/25 18:11
*ED Influenza Vaccine History Last Done: 05/19/25 18:11
[facility] Fall Risk Assessment Tool Last Done: 05/19/25 18:11
*Nursing Disposition Last Done: 05/19/25 19:41
ED-Skin Assessment Last Done: 05/19/25 18:25
Discharge Date and Time
Discharge Date/Time: 05/19/25 19:42
Print Language: POLISH
== END 2025-05-19 19:42 | disposition home or self-care (01) ==
LOC: EMR 15:45
PROVIDERS: EMERGENCY PHYSICIAN Student in an Organized Health Care Education/Training Program; FAMILY PHYSICIAN Family Medicine
DX: L02.411 Cutaneous abscess of right axilla (principal); I10 Essential (primary) hypertension; F84.0 Autistic disorder; Z77.22 Contact with and (suspected) exposure to environmental tobacco smoke (acute) (chronic); Z79.01 Long term (current) use of anticoagulants
CPT/HCPCS: 99283; 87070; 87147; 87186; 87205

== ENCOUNTER 2025-05-22 06:24 | Outpatient (RCR) | payer MEDICARE, OTHER, SELFPAY ==
--- NOTE | 2025-04-02 22:02 | W.PN.UPDATE ---
Update Note
Progress Note Update
29F presents 2 months s/p TT arthrodesis revision using autograft. cast pain torrey 2/2 edema, no soi
- cast removed, well padded PS applied
- Dressings remian C/D/I
- NWB RLE
- will order xrays R ankle
- may follow up in office for scheduled appointment
== END 2025-05-22 23:59 | disposition home or self-care (01) ==
LOC: RPT 06:24
PROVIDERS: ATTENDING PHYSICIAN Family Medicine
DX: N32.81 Overactive bladder (principal); Z73.6 Limitation of activities due to disability; R10.20 Pelvic and perineal pain unspecified side; R39.15 Urgency of urination
CPT/HCPCS: 97161; 97530

== ENCOUNTER 2025-05-22 13:06 | Emergency (ER) | payer MEDICARE, OTHER, SELFPAY ==
[2025-05-22 13:14] VITALS: BP 179/110
--- NOTE | 2025-05-22 14:04 | ED.GENMED ---
History of Present Illness
<Tony Desai MD - Last Filed: 05/22/25 18:40>
General
Chief Complaint: Skin Problem
Time Seen by Provider: 05/22/25 13:22
<Alba Miller PA-C - Last Filed: 05/22/25 16:43>
History of Present Illness
History of Present Illness:
Is a 29-year-old female who was seen on Thursday for right chest wall cellulitis and abscess. She was discharged on clindamycin however wound cultures were not sensitive to this and a voicemail was left this morning instructing her to return to the
ER if her pain was not improving. She reports that she has had subjective fevers and chills for the last 24 hours and that her pain in her chest wall is severe. 1 episode of nausea and vomiting.
Past History
<Tony Desai MD - Last Filed: 05/22/25 18:40>
Past History
ED Past Medical History: HTN, Psychiatric (Autism, alcohol syndrome, learning disability, major depression, anxiety, PTSD, Bipolar Schizo affective disorder) and Other (Headaches, gastric emptying issues, Vertigo, Arthritis, DVT, chronic right
foot pain/clubfoot)
ED Past Surgical History: Bowel resection, Orthopedic (Right club foot repair) and Other (Neck surgery )
Social History
Tobacco: 2nd hand smoke exposure
Alcohol: None
Drug: None
Personal: Single
Living: with family (Currently residing in a half-way for rehabilitation after right foot/ankle surgery January/February 2025)
Employment: Disabled
Family History
Family History: Other (Noncontributory)
Phy Exam
<Alba Miller PA-C - Last Filed: 05/22/25 16:43>
General Physical Exam
General Presentation: well appearing and no apparent distress
General Skin: warm and dry
General Habitus: normal
General Mental: alert
General Hydration: appears well hydrated
ENT Exam
ENT Exam: EOMI, pharynx normal, neck supple and normocephalic
Eye Exam
Eye Exam: PERRL, cornea clear and conjunctiva normal
Cardiovascular Exam
Cardiovascular Exam: regular rate/rhythm, no edema, no murmur and normal peripheral pulses
Pulmonary Exam
Pulmonary Exam: lungs clear, no respiratory distress, no rales, no crackles, no rhonchi, no stridor, no wheezing and no cough
Gastrointestinal Exam
Gastrointestinal Exam: normal bowel sounds, non tender, soft, no organomegaly, no pulsatile mass and non distended
Neurological Exam
Neurological Exam: alert, oriented x3, no motor deficits and speech normal
Musculoskeletal Exam
Musculoskeletal Exam: full ROM and no edema
Skin Exam
Skin Exam: normal color, warm/dry, no rash, no petechia and other (Improving cellulitis, wound healing without any drainage)
Psychiatric Exam
Psychiatric Exam: normal mood/affect
Course
<Tony Desai MD - Last Filed: 05/22/25 18:40>
Orders/Labs/Results
Orders:
Orders
05/22/25 13:42
US Chest - Right Urgent
Comment:
Reason For Exam: evaluate soft tissues, pain swelling
05/22/25 13:44
0.9% Sodium Chloride 1000 ml [Nss] 1,000 ml IV BOLUS
Ketorolac [Toradol] 10 mg PO NOW STA
05/22/25 13:46
Ketorolac [Toradol] 15 mg IV NOW STA
05/22/25 15:16
BMP [Basic Metabolic Panel] Urgent
CBC/With Diff [Complete Blood Count/With Diff] Urgent
Lactic Acid Urgent
Blood Culture Q30M
EDDIE Source: Blood/Venous
Specimen Description:
Blood Culture Q30M
EDDIE Source: Blood/Venous
Specimen Description:
Abnormal Lab Results
05/22/25
15:16
WBC 11.4 H 10^3/uL
(4.8-10.8)
MCV 77.8 L fL
(81.0-99.0)
MCH 24.6 L pg
(27.0-31.0)
MCHC 31.7 L g/dL
(33.0-37.0)
RDW 16.3 H %
(11.5-14.5)
Absolute Neuts (auto) 8.7 H 10^3/uL
(1.4-6.5)
Neutrophils % 75.8 H %
(42.2-75.2)
Lymphocytes % 17.3 L %
(20.5-51.1)
Potassium 5.3 H mmol/L
(3.5-5.1)
BUN 19 H mg/dl
(7-17)
05/22/25 15:16
05/22/25 15:16
Vital Signs
Initial and Last Documented VS:
Initial Vital Signs
Temp Pulse Resp BP Pulse Ox
98.1 F 109 16 179/110 100
05/22/25 13:14 05/22/25 13:14 05/22/25 13:14 05/22/25 13:14 05/22/25 13:14
Last Documented Vital Signs
Temp Pulse Resp BP Pulse Ox
98.1 F 93 22 153/94 100
05/22/25 13:14 05/22/25 17:00 05/22/25 17:00 05/22/25 17:00 05/22/25 17:00
Loislt;Alba Miller PA-C - Last Filed: 05/22/25 16:43>
Orders/Labs/Results
Orders:
Orders
05/22/25 13:42
US Chest - Right Urgent
Comment:
Reason For Exam: evaluate soft tissues, pain swelling
05/22/25 13:44
0.9% Sodium Chloride 1000 ml [Nss] 1,000 ml IV BOLUS
Ketorolac [Toradol] 10 mg PO NOW STA
05/22/25 13:46
Ketorolac [Toradol] 15 mg IV NOW STA
05/22/25 15:16
BMP [Basic Metabolic Panel] Urgent
CBC/With Diff [Complete Blood Count/With Diff] Urgent
Lactic Acid Urgent
Blood Culture Q30M
EDDIE Source: Blood/Venous
Specimen Description:
Blood Culture Q30M
EDDIE Source: Blood/Venous
Specimen Description:
Abnormal Lab Results
05/22/25
15:16
WBC 11.4 H 10^3/uL
(4.8-10.8)
MCV 77.8 L fL
(81.0-99.0)
MCH 24.6 L pg
(27.0-31.0)
MCHC 31.7 L g/dL
(33.0-37.0)
RDW 16.3 H %
(11.5-14.5)
Absolute Neuts (auto) 8.7 H 10^3/uL
(1.4-6.5)
Neutrophils % 75.8 H %
(42.2-75.2)
Lymphocytes % 17.3 L %
(20.5-51.1)
Potassium 5.3 H mmol/L
(3.5-5.1)
BUN 19 H mg/dl
(7-17)
05/22/25 15:16
05/22/25 15:16
Vital Signs
Initial and Last Documented VS:
Initial Vital Signs
Temp Pulse Resp BP Pulse Ox
98.1 F 109 16 179/110 100
05/22/25 13:14 05/22/25 13:14 05/22/25 13:14 05/22/25 13:14 05/22/25 13:14
Last Documented Vital Signs
Temp Pulse Resp BP Pulse Ox
98.1 F 93 22 153/94 100
05/22/25 13:14 05/22/25 17:00 05/22/25 17:00 05/22/25 17:00 05/22/25 17:00
<Alba Miller PA-C - Last Filed: 05/22/25 16:43>
MDM/Problems Addressed
Differential Diagnosis Includes:
Patient reports increased pain and irritation. On my exam the wound and erythema do appear slightly improved from when I saw her on Thursday. However given her subjective systemic symptoms obtain CBC and BMP. WBC 11.6. Lactic acid normal. Patient
given Toradol with improvement in pain. Given a fluid bolus as she was tachycardic on arrival and reports decreased p.o. intake. After bolus and Toradol she is feeling much better and is no longer tachycardic. Blood pressure was elevated on
arrival but is now down trended. Will discharge patient home with a course of Bactrim for his cellulitis. Patient instructed to stop taking the clindamycin. She is concerned about her planned foot surgery at the end of this week and I have
instructed her to follow-up with her surgeon for decision of surgery as she has no evidence of systemic infection at this time.
<Tony Desai MD - Last Filed: 05/22/25 18:40>
*Pulse Oximetry
SaO2: 100
Oxygen Mode of Delivery: Room air
<Alba Miller PA-C - Last Filed: 05/22/25 16:43>
*Pulse Oximetry
Patient hypoxic: no
*Critical Care Note
Total Time (30-74mins, 75-104mins- exclusive of procedures): Not Applicable
ED Attending Note
<Tony Desai MD - Last Filed: 05/22/25 18:40>
ED Attending Note
Patient seen and examined by attending physician: Yes
ED Attending Note:
Patient presents to ED for evaluation after she received phone call at home secondary to wound culture obtained 3 days ago revealed organism resistant to clindamycin prescribed. Patient reports continual sensation of subjective fever with chills,
along with nausea and vomiting with meals for the past 3 days. Denies diarrhea. Denies abdominal pain. Denies shortness of breath. Denies headache. Denies dizziness. Patient states that her wound has not gotten bigger in size, but feels as
though redness has increased in size.
Physical Exam
General: mild distress, not acutely ill. afebrile
Head: nc/at. eomi
Neck: supple. normal range of motion.
Abdomen: normal bowel sounds. not tender.
Neuro: alert and oriented x 3. no focal neurological deficits
Skin: an approx 1cm diameter area of ulcer noted along right midaxillary line at the level of rib#6-7, with mild surrounding erythema. no open drainage. minimal fluctuance noted
Psychiatric: well kept. interactive and cooperative
Extremities: no edema. no calf tenderness.
Will obtain blood work and soft tissue US along with IVF/toradol, and reassess
Ultrasound report reviewed and discussed with the patient, as well as blood work. Patient otherwise remains afebrile, hemodynamically stable, and nontoxic-appearing. Initial mild tachycardia improved with IV fluid administration. As there is no
significant fluid collection noted on ultrasound, no indication for repeat I&D. Reviewed wound culture results, and will switch antibiotics to Bactrim, along with recommendation for PCP follow-up.
Blood culture pending. Return precautions provided.
-
Portions of this chart may have been created with voice recognition software.� Occasional wrong word or��sound alike� substitutions may have occurred due to the inherent limitations of voice recognition software.
Discharge Plan
Departure
Patient Disposition: Home (Routine Discharge)
Date of Disposition: 05/22/25
Time of Disposition: 16:37
Patient with high blood pressure during this ER visit?: Yes
Discharge Problem:
Cellulitis
Instructions: Cellulitis (Skin Infection), Adult (DC)
Prescriptions:
New
sulfamethoxazole-trimethoprim [Bactrim] 400-80 mg tablet
1 tab PO BID 7 Days Qty: 14 0RF
nystatin 100,000 unit/gram powder
1 applic topical BID Qty: 60 0RF
No Action
acetaminophen [Tylenol] 325 mg Tablet
650 mg PO Q4H PRN (Reason: pain)
famotidine 20 mg Tablet
20 mg PO HS
ferrous sulfate 325 mg (65 mg iron) Tablet
325 mg PO DAILY
omeprazole 20 mg Tablet,Delayed Release (Dr/Ec)
40 mg PO DAILY
Rx Instructions:
Takes 30 minutes to 1 hour before breakfast
venlafaxine 25 mg Tablet
50 mg PO DAILY
polyethylene glycol 3350 [Miralax] 17 gram/dose Powder
17 g PO DAILY
prazosin 2 mg Capsule
2 mg PO HS
Xarelto 20 mg Tablet
20 mg PO DAILY
rimegepant 75 mg Tablet,Disintegrating
75 mg PO DAILY PRN (Reason: migraines)
Aristada 1,064 mg/3.9 mL suspension,extended rel syring
1,064 mg IM Q2M
ondansetron HCl 4 mg tablet
4 mg PO DAILY PRN (Reason: Nausea and vomiting)
Rx Instructions:
Just takes one tablet a day
alprazolam 0.25 mg tablet
0.25 mg PO TID
gabapentin 300 mg capsule
300 mg PO TID
topiramate 50 mg tablet
50 mg PO DAILY
clindamycin HCl [Cleocin HCl] 300 mg capsule
300 mg PO Q6H 7 Days Qty: 28 0RF
Referrals:
Steven Ordonez DO [Family Provider, Family Practice]
Activity Restrictions/Additional Instructions:
You should stop taking the clindamycin that was originally prescribed for you and begin taking Bactrim for your chest wall cellulitis. In addition a prescription of nystatin has been sent to you for your groin irritation. Return to the ER for any
fevers over 100.4 that do not respond to Tylenol or Motrin new concerning symptoms.
Interventions
Interventions:
*Risk Screen - Suicide Last Done: 05/22/25 13:14
*General Assessment Last Done: 05/22/25 16:29
*Neglect/Abuse Screening Last Done: 05/22/25 16:29
*ED COVID-19 Vaccine History Last Done: 05/22/25 16:29
*ED Influenza Vaccine History Last Done: 05/22/25 16:29
[facility] Fall Risk Assessment Tool Last Done: 05/22/25 15:00
*Nursing Disposition Last Done: 05/22/25 17:20
ED-Skin Assessment Last Done: 05/22/25 16:31
Discharge Date and Time
Discharge Date/Time: 05/22/25 17:21
Print Language: IRISH
[2025-05-22] MEDS: TORADOL 15 MG IV (15:18)
[2025-05-22] MEDS: NSS 1000 IV (15:18)
[2025-05-22 15:22] VITALS: BP 145/80
[2025-05-22 15:27] LABS: Hematocrit 38.2 % (37.0-47.0); Hemoglobin 12.1 g/dL (12.0-16.0); Mean Corp Hgb Conc. 31.7 g/dL (33.0-37.0); Mean Corpuscular Volume 77.8 fL (81.0-99.0); Nucleated Red Blood Cells % 0 %; Platelet Count 345 10^3/uL (130-400); Red Cell Dist. Width 16.3 % (11.5-14.5)
[2025-05-22 15:41] LABS: Blood Urea Nitrogen 19 mg/dl (7-17); Calcium 9.7 mg/dl (8.4-10.2); Carbon Dioxide 28 mmol/L (22-30); Chloride 104 mmol/L (98-107); Glucose 94 mg/dl (70-99); Potassium 5.3 mmol/L (3.5-5.1); Sodium 138 mmol/L (135-145); eGFR > 60.00
[2025-05-22 16:00] VITALS: BP 151/96
[2025-05-22 17:00] VITALS: BP 153/94
== END 2025-05-22 17:21 | disposition home or self-care (01) ==
LOC: EMR 13:06
PROVIDERS: Surgery Trauma Surgery; EMERGENCY PHYSICIAN Emergency Medicine; FAMILY PHYSICIAN Family Medicine
DX: L03.313 Cellulitis of chest wall (principal); F43.10 Post-traumatic stress disorder, unspecified; F31.9 Bipolar disorder, unspecified; F25.9 Schizoaffective disorder, unspecified; F41.9 Anxiety disorder, unspecified; F81.9 Developmental disorder of scholastic skills, unspecified; F84.0 Autistic disorder; I10 Essential (primary) hypertension; M19.071 Primary osteoarthritis, right ankle and foot; Z77.22 Contact with and (suspected) exposure to environmental tobacco smoke (acute) (chronic)
CPT/HCPCS: 99284; 76604; 80048; 83605; 85025; 87040

== ENCOUNTER 2025-05-26 09:08 | Inpatient (IN) | payer MEDICARE, OTHER, SELFPAY ==
[2025-05-26] VITALS (12 sets, daily range): BP systolic 115–176; BP diastolic 70–116; BMI 46.3; BMI 45.7
[2025-05-26] MEDS: BACTROBAN NASAL 1 GRAM NASAL (09:57)
[2025-05-26] MEDS: PERIDEX 0.12% ORAL RINSE 15 ML PO (09:57)
[2025-05-26 10:10] LABS: Hematocrit 37.6 % (37.0-47.0); Hemoglobin 12.0 g/dL (12.0-16.0); Mean Corp Hgb Conc. 31.9 g/dL (33.0-37.0); Mean Corpuscular Volume 78.2 fL (81.0-99.0); Platelet Count 377 10^3/uL (130-400); Red Cell Dist. Width 16.0 % (11.5-14.5)
[2025-05-26 10:15] LABS: INR 1.03; PT 13.7 Sec (11.4-14.6)
[2025-05-26 10:15] LABS: HCG, Urine Qualitative Screen Negative
[2025-05-26 10:16] LABS: APTT 27.3 Sec (23.4-35.0)
[2025-05-26 10:19] LABS: Blood Urea Nitrogen 16 mg/dl (7-17); Calcium 9.3 mg/dl (8.4-10.2); Carbon Dioxide 25 mmol/L (22-30); Chloride 103 mmol/L (98-107); Estimated Creatinine Clearance 101 ml/min; Glucose 96 mg/dl (70-99); Potassium 4.4 mmol/L (3.5-5.1); Sodium 134 mmol/L (135-145); eGFR > 60.00
[2025-05-26] MEDS: NSS 500 IV (10:20)
[2025-05-26] MEDS: VANCOCIN 530 MG IV (10:20)
--- NOTE | 2025-05-26 13:06 | OR.RPT ---
Operative Report
Operative Report
Date of Operation: 05/26/2025
Pre Op Diagnosis:
1. Nonunion of right ankle fracture
2. Chronic pain syndrome
Post Op Diagnosis:
1. Nonunion of right ankle fracture
2. Chronic pain syndrome
Procedure: Right lower extremity amputation below the knee
Surgeon: Nirmal Goldberg III, MD
Facility Manager: Diana Hall MD PGY-4
Anesthesia: General
Complications: None
Estimated Blood Loss: 150 cc
History and Indications for Procedure: 29-year-old female with mental illness, alcohol syndrome and chronic pain syndrome related to nonunion of right ankle fracture. She has undergone several surgeries on her right ankle with no improvement.
The foot and ankle surgeons had no additional options for her and BKA was recommended.
Procedure in Detail: Adolfo Watters was correctly identified and placed supine on the operating table. After adequate induction of anesthesia the right leg was prepped and draped in the usual sterile fashion. A timeout procedure was performed
with the nursing and anesthesia staff confirming the patient's identity as well as the nature and laterality of the procedure. A transverse incision was made approximately 1 hands-breadth below the tibial tuberosity and carried medially and
laterally to the care home points on the calf. The incision was then turned along the long axis of the calf and carried down towards the ankle to create the posterior flap. Electrocautery was used on the subcutaneous tissue and muscle of the anterior
and lateral tissue. The anterior tibial artery and vein were identified and then ligated and divided between ties. The tibia and fibula were each circumferentially exposed. A periosteal elevator was used on each to elevate the periosteum more
proximally. A thigh tourniquet was then inflated after exsanguinating the lower leg with an Esmarch drape. The tibia was then divided with a saw. The anterior surface was beveled and smoothed with the saw and a rasp. The fibula was then divided
more proximally than the tibia and all edges were smoothed with the assistance of a rasp. The amputation was then completed using electrocautery and sharp dissection along the posterior flap. The leg was then passed off to the back table to be sent
to pathology. Hemostasis was achieved along the posterior flap using a combination of electrocautery and silk ties. The tourniquet was then released and the wound closely inspected for hemostasis. Once hemostasis was achieved the wound was
irrigated with copious amounts of warm saline solution. The wound was then closed in multiple layers. Sterile dressings were applied. The patient's residual limb was then wrapped gently with an Trey wrap.
The patient tolerated the procedure well and was taken to the PACU in stable condition.
Attestation: I was present and responsible for the entire procedure
Signed:
Nirmal Goldberg III, MD
Vascular Surgery
[facility]
[2025-05-26] MEDS: DILAUDID 0.5 MG IV ×2 (13:22→13:48)
[2025-05-26] MEDS: DILAUDID PCA 30 IV (13:55)
[2025-05-26] MEDS: NSS 1000 IV (15:44)
--- NOTE | 2025-05-26 16:11 | PTCARENOTE ---
When answering admission questions post-surgery this afternoon, patient endorsed suicidal ideation without intent as well as a past suicide attempt 'as a teenager'. These answers entered in [employer] prompted a one-to-one observation on the worklist
and notification of MD (Dr. Goldberg, whom she was admitted under post-surgery, was notified). As patient does not currently have a suicide plan or intent, patient does not need a one-to-one observation.
[2025-05-26] MEDS: HEPARIN 5000 UNITS SC ×2 (16:51→22:42)
[2025-05-26 17:56] LABS: Blood Urea Nitrogen 14 mg/dl (7-17); Calcium 8.5 mg/dl (8.4-10.2); Carbon Dioxide 21 mmol/L (22-30); Chloride 101 mmol/L (98-107); Estimated Creatinine Clearance > 125 ml/min; Glucose 154 mg/dl (70-99); Potassium 5.2 mmol/L (3.5-5.1); Sodium 131 mmol/L (135-145); eGFR > 60.00
[2025-05-26 18:43] LABS: Hematocrit 39.3 % (37.0-47.0); Hemoglobin 12.0 g/dL (12.0-16.0); Mean Corp Hgb Conc. 30.5 g/dL (33.0-37.0); Mean Corpuscular Volume 80.2 fL (81.0-99.0); Platelet Count 383 10^3/uL (130-400); Red Cell Dist. Width 16.0 % (11.5-14.5)
[2025-05-26] MEDS: DESENEX/MITRAZOL/ZEASORB 1 APPLIC TOPICAL ×2 (19:57→20:39)
[2025-05-26] MEDS: TOPAMAX 50 MG PO (19:57)
[2025-05-26] MEDS: ABILIFY 5 MG PO (22:42)
[2025-05-26] MEDS: ABILIFY 2 MG PO (22:42)
[2025-05-26] MEDS: REMERON 7.5 MG PO (22:42)
[2025-05-26] MEDS: MINIPRESS 3 MG PO (22:43)
[2025-05-27] MEDS: NSS 1000 IV ×2 (02:01→14:42)
[2025-05-27] MEDS: TYLENOL 650 MG PO (02:07)
[2025-05-27 03:05] VITALS: BP 110/66
[2025-05-27 07:00] VITALS: BP 108/70
--- NOTE | 2025-05-27 07:04 | W.PN.VS ---
Addendum entered and electronically signed by Nirmal Goldberg III, MD 05/27/25 07:09:
This patient was seen and examined in collaboration with MAYNOR Ramsey. I agree with the history and physical exam as well as the assessment and plan. I have the following additions:
Modify TURN DOWN WORKER for better pain control
Tylenol
Dressing clean/dry - will unveil tomorrow on POD2
Trapeze
Restart oral anticoag this evening
Signed:
Nirmal Goldberg III, MD
Vascular Surgery
[facility]
Original Note:
Today's Communication / Plan
-
Seen and assessed with Dr. Goldberg
Assessment/Plan
-
Postop day 1 right BKA
Plan:
DC IV fluids
Regular diet
Increase TURN DOWN WORKER
Remove Goldberg tomorrow
PT/OT tomorrow
Will order stump protector on Thursday
Subjective Data
-
Date of Service: May 27, 2025
Patient seen at bedside today with Dr. Goldberg. Patient resting comfortably in bed. No events overnight. She states that the TURN DOWN WORKER ' only works a little bit.'
Objective Data
-
Vital Signs
Temp Pulse Resp BP Pulse Ox
98.1 F 107 16 110/66 93
05/27/25 03:05 05/27/25 03:05 05/27/25 03:05 05/27/25 03:05 05/27/25 03:05
Intake and Output
05/26/25 05/27/25 05/28/25
06:59 06:59 06:59
Intake Total 960 / 960
Output Total 1100 / 1100
Balance -140 / -140
Intake:
Oral fluids 960 / 960
Output:
UrineRenateey 1100 / 1100
Calcium 8.5 mg/dl (8.4-10.2) 05/26/25 17:30
Physical Exam
-
AO x 3
No tachypnea on room air
No tachycardia
Abdomen soft
Stump site dressing clean, dry, intact, soft
No drainage noted
[2025-05-27 07:34] LABS: Hematocrit 31.3 % (37.0-47.0); Hemoglobin 9.8 g/dL (12.0-16.0); Mean Corp Hgb Conc. 31.3 g/dL (33.0-37.0); Mean Corpuscular Volume 80.1 fL (81.0-99.0); Platelet Count 333 10^3/uL (130-400); Red Cell Dist. Width 16.1 % (11.5-14.5)
[2025-05-27 07:58] LABS: Blood Urea Nitrogen 10 mg/dl (7-17); Calcium 8.5 mg/dl (8.4-10.2); Carbon Dioxide 25 mmol/L (22-30); Chloride 105 mmol/L (98-107); Estimated Creatinine Clearance > 125 ml/min; Glucose 118 mg/dl (70-99); Potassium 4.3 mmol/L (3.5-5.1); Sodium 135 mmol/L (135-145); eGFR > 60.00
[2025-05-27] MEDS: HEPARIN 5000 UNITS SC ×2 (08:21→17:40)
[2025-05-27] MEDS: DESENEX/MITRAZOL/ZEASORB 1 APPLIC TOPICAL ×3 (08:21→19:38)
[2025-05-27] MEDS: OFIRMEV 100 IV ×3 (08:21→18:30)
[2025-05-27] MEDS: EFFEXOR XR 75 MG PO (08:22)
[2025-05-27] MEDS: TOPAMAX 50 MG PO ×2 (08:22→19:37)
[2025-05-27] MEDS: PEPCID 20 MG PO (08:22)
[2025-05-27 11:00] VITALS: BP 117/70
--- NOTE | 2025-05-27 14:39 | CM ---
NEW RLE BELOW KNEE AMPUTATION. Initial assessment completed with patient who lives with her father and 24 y/o brother in a 2 story plus basement home with B/B on 2nd 6 steps up and 1 step to enter the home. 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
ambulation with crutches. She also has a RW, w/ch and commode. No in-home services. No HC-POA. No VA benefits. Does have a history of approximately 10 psychiatric hospitalizations. Last was in April 2025 at [facility] in [place]. History of
Bipolar, anxiety, depression and '2 personality disorders'. PCP is Dr. Steven Ordonez. Pharmacy is [facility]. Discharge POC: Awaiting therapy evaluation. If SNF, preference is [facility]. If Acute, preference is [facility]. Will need
insurance auth and level II PASRR.
[2025-05-27 15:00] VITALS: BP 119/80
[2025-05-27] MEDS: XANAX 0.25 MG PO (19:44)
[2025-05-27] MEDS: MINIPRESS 3 MG PO (21:10)
[2025-05-27] MEDS: ABILIFY 5 MG PO (21:10)
[2025-05-27] MEDS: REMERON 7.5 MG PO (21:10)
[2025-05-27] MEDS: ABILIFY 2 MG PO (21:10)
[2025-05-27] MEDS: XARELTO 20 MG PO (21:10)
[2025-05-27 23:15] VITALS: BP 107/69
[2025-05-28] VITALS (8 sets, daily range): BP systolic 109–169; BP diastolic 62–110; PULSE 95; O2SAT 99
[2025-05-28] MEDS: OFIRMEV 100 IV (01:55)
[2025-05-28] MEDS: NSS 1000 IV (07:00)
[2025-05-28] MEDS: PEPCID 20 MG PO (08:04)
[2025-05-28] MEDS: EFFEXOR XR 75 MG PO (08:05)
[2025-05-28] MEDS: DESENEX/MITRAZOL/ZEASORB 1 APPLIC TOPICAL ×2 (08:05→19:35)
[2025-05-28] MEDS: TOPAMAX 50 MG PO ×2 (08:05→19:27)
--- NOTE | 2025-05-28 08:25 | W.PN.VS ---
Today's Communication / Plan
-
Postop day 2 right BKA
Plan:
Regular diet
Bowel regimen
Resume Bactrim for Right chest wall cellulitis (on as outpatient)
DC PRIVACY OFFICER and start po Dilaudid
PT/OT
Will order stump protector on Thursday
Assessment/Plan
-
Postop day 2 right BKA
Plan:
Regular diet
Bowel regimen
Resume Bactrim for Right chest wall cellulitis (on as outpatient)
DC PRIVACY OFFICER and start po Dilaudid
PT/OT
Will order stump protector on Thursday
Subjective Data
-
Date of Service: May 28, 2025
No events overnight
Complaining of appropriate pain in R BKA
Eating well
No N/V
Objective Data
-
Vital Signs
Temp Pulse Resp BP Pulse Ox
98.0 F 104 20 113/65 93
05/28/25 07:16 05/28/25 07:16 05/28/25 07:16 05/28/25 07:16 05/28/25 07:16
Intake and Output
05/27/25 05/28/25 05/29/25
06:59 06:59 06:59
Intake Total 960 / 960 1440 / 1440
Output Total 1100 / 1100 2149
Balance -140 / -140 -710 / -710
Intake:
Oral fluids 960 / 960 1440 / 1440
Output:
Urine, Goldberg 1100 / 1100 2149 / 2149
Lab Results
05/27/25 06:25
05/27/25 06:25
Calcium 8.5 mg/dl (8.4-10.2) 05/27/25 06:25
Physical Exam
-
NAD
Non labored breathing
R BKA dressing removed. Wound clean/dry. Redressed
[2025-05-28] MEDS: BACTRIM DS 800 MG/160 MG 1 TABLET PO ×2 (09:04→19:27)
[2025-05-28] MEDS: COLACE 100 MG PO ×2 (09:04→19:27)
[2025-05-28] MEDS: DILAUDID 2 MG PO ×4 (09:04→20:19)
--- NOTE | 2025-05-28 17:27 | PTCARENOTE ---
pt's DE IONIZER OPERATOR discontinued today, stump assessed while DR Otero at bedside, he did the care and re wrapped with KANNAN bandage. no bleeding , rednes or swelling noted on assessment. Has been requesting PRN Oxycodone every 4 hours, no BM with this admission
colace and senna started, otero catheter removed and able to void without issues.
[2025-05-28] MEDS: XANAX 0.25 MG PO (19:45)
[2025-05-28] MEDS: XARELTO 20 MG PO (20:59)
[2025-05-28] MEDS: ABILIFY 2 MG PO (20:59)
[2025-05-28] MEDS: ABILIFY 5 MG PO (20:59)
[2025-05-28] MEDS: REMERON 7.5 MG PO (20:59)
[2025-05-28] MEDS: SENNA SYRUP 8.8 MG PO (21:00)
[2025-05-28] MEDS: MINIPRESS 3 MG PO (21:03)
[2025-05-29] VITALS (7 sets, daily range): BP systolic 112–175; BP diastolic 73–105
[2025-05-29] MEDS: DILAUDID 2 MG PO (06:44)
[2025-05-29 07:56] LABS: Hematocrit 32.5 % (37.0-47.0); Hemoglobin 10.2 g/dL (12.0-16.0); Mean Corp Hgb Conc. 31.4 g/dL (33.0-37.0); Mean Corpuscular Volume 78.7 fL (81.0-99.0); Platelet Count 350 10^3/uL (130-400); Red Cell Dist. Width 16.1 % (11.5-14.5)
--- NOTE | 2025-05-29 08:29 | W.PN.VS ---
Today's Communication / Plan
-
Below plan reviewed with attending.
Assessment/Plan
-
Postop day 3 right BKA
Plan:
Bowel regimen
Continue Bactrim for Right chest wall cellulitis (on as outpatient)
Continue as needed pain medication
PT/OT
Stump protector ordered for today
Cleared for discharge once placement to rehab is established, case management following
Subjective Data
-
Date of Service: May 29, 2025
Patient seen and examined at bedside, reports intermittent breakthrough pain otherwise postoperative pain well-managed. Denies nausea, vomiting, fever, and chills. Reports tolerating p.o. diet.
Objective Data
-
Vital Signs
Temp Pulse Resp BP Pulse Ox
98.5 F 119 18 174/98 96
05/29/25 07:58 05/29/25 07:58 05/29/25 07:58 05/29/25 07:58 05/29/25 07:58
Intake and Output
05/28/25 05/29/25 05/30/25
06:59 06:59 06:59
Intake Total 1440 / 1440 1640 / 1640
Output Total 2150 / 2150
Balance -710 / -710 1640 / 1640
Intake:
Oral fluids 1440 / 1440 1560 / 1560
IV fluids (Total) 80 / 80
Output:
Urine, Goldberg 2149 / 2149
Other:
Number of approximated MODERATE 1
amounts of urine
Number of approximated LARGE 1
amounts of urine
Lab Results
05/29/25 07:41
05/27/25 06:25
Calcium 8.5 mg/dl (8.4-10.2) 05/27/25 06:25
Physical Exam
-
NAD
Non labored breathing
R BKA dressing removed. Wound clean/dry. Redressed
[2025-05-29] MEDS: TYLENOL 650 MG PO ×4 (08:53→19:29)
[2025-05-29] MEDS: COLACE 100 MG PO ×2 (08:53→19:28)
[2025-05-29] MEDS: TOPAMAX 50 MG PO ×2 (08:53→19:29)
[2025-05-29] MEDS: EFFEXOR XR 75 MG PO (08:53)
[2025-05-29] MEDS: PEPCID 20 MG PO (08:53)
[2025-05-29] MEDS: BACTRIM DS 800 MG/160 MG 1 TABLET PO ×2 (08:53→19:29)
[2025-05-29] MEDS: DESENEX/MITRAZOL/ZEASORB 1 APPLIC TOPICAL ×2 (08:55→19:29)
[2025-05-29] MEDS: DILAUDID 4 MG PO ×3 (08:56→18:44)
[2025-05-29] MEDS: DILAUDID 0.25 MG IV ×2 (10:34→15:54)
--- NOTE | 2025-05-29 13:58 | CM ---
CM reviewed chart and pt with VS team- ready for dc pending placement
Pt is POD#3 R BKA
Acute recs per therapy
Bedside meeting with pt- acute and back up SNF discussed
She is in agreement
Referrals sent to 1). [facility] and 2). [facility] per request
PMR eval requested and pending
Pt will require level II evaluation if SNF placement on dc
Consent forms signed and faxed to [facility] for scheduling
Psych consult requested for level II assessment
Pt will require [employer] auth for acute vs SNF
Multiple outreach attempts to father per request- VM box full
MA51 will need physician signature
Left on chart for signature in AM
Will need to fax MA51 and pysch eval once completed to [facility]
Dishcrage Disposition- [facility] or backup SNF
[2025-05-29] MEDS: TOPROL XL 25 MG PO (16:49)
--- NOTE | 2025-05-29 21:21 | CS.PSYCHR ---
Consult Summary - Psychiatry
-
pt seen by me this afternoon in consultation due to need for assessment for placement appropriateness
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 Known to me from recent ED assessment for suicidality/self injury. From that consult on 04/03/25
Long history of emotional instability, states has learning disability from alcohol effect, placed in foster care and then adopted age 4. Currently in treatment at [facility], sees therapist (has appt today at 1 pm) and gets long
acting injectable medication Abilfy lauroxil 1 gram q 2 months last given 03/29/25 as well as oral prazosin 2 mg hs, effeor 25 mg hs, topiramate 50 bid, neurontin 300 tid.
Review of records and discussion with outpatient therapist reveals that all of pt's preoccupation with suicide and self cutting are chronic. Current stressors of of mother in January, as well as impending relocation of family due to house in
foreclosure, are similarly things that pt has been dealing with for some time.
Pt has been living at [facility], with worsening pain in foot. Emotionally doing ok, looking forward to getting better function with rehab.
On exam pt sitting in chair with right stump bandaged, getting EKG (had increased BP.) Pleasant, conversant, remembers me from ED, grateful I had been able to get her into [facility] program. No thoughts of suicide, working with therapist,
medications on time. Fair insight and judgment, no acute cognitive impairments.
Impression: Adjustment disorder with mixed features, borderline personality disorder, mild intellectual disability
Rec: no indication for acute psychiatric care at this time
[2025-05-29] MEDS: SENNA SYRUP 8.8 MG PO (21:42)
[2025-05-29] MEDS: XARELTO 20 MG PO (21:42)
[2025-05-29] MEDS: REMERON 7.5 MG PO (21:42)
[2025-05-29] MEDS: ABILIFY 5 MG PO (21:42)
[2025-05-29] MEDS: ABILIFY 2 MG PO (21:42)
[2025-05-29] MEDS: ROXICODONE 5 MG PO (21:48)
[2025-05-29] MEDS: MINIPRESS 3 MG PO (21:48)
[2025-05-30] VITALS (7 sets, daily range): BP systolic 96–150; BP diastolic 65–85; PULSE 96; O2SAT 95
[2025-05-30] MEDS: TYLENOL PO ×3 (01:23→23:17)
[2025-05-30] MEDS: DILAUDID 4 MG PO ×2 (02:09→14:30)
[2025-05-30] MEDS: ROXICODONE 5 MG PO ×3 (07:48→18:03)
[2025-05-30] MEDS: PEPCID 20 MG PO (07:48)
[2025-05-30] MEDS: TYLENOL 650 MG PO ×4 (07:48→20:41)
[2025-05-30] MEDS: COLACE 100 MG PO ×2 (07:48→20:41)
[2025-05-30] MEDS: TOPROL XL 25 MG PO (07:48)
[2025-05-30] MEDS: BACTRIM DS 800 MG/160 MG 1 TABLET PO ×2 (07:49→20:42)
[2025-05-30] MEDS: DESENEX/MITRAZOL/ZEASORB 1 APPLIC TOPICAL ×2 (07:49→20:45)
[2025-05-30] MEDS: EFFEXOR XR 75 MG PO (07:49)
[2025-05-30] MEDS: TOPAMAX 50 MG PO ×2 (07:49→20:41)
--- NOTE | 2025-05-30 08:44 | W.PN.VS ---
Addendum entered and electronically signed by Nirmal Goldberg III, MD 05/30/25 11:35:
This patient was seen and examined in collaboration with MAYNOR Ramsey. I agree with the history and physical exam as well as the assessment and plan. I have the following additions:
Stump clean and dry
Continue pain management
Discharge planning
Signed:
Nirmal Goldberg III, MD
Vascular Surgery
[facility]
Original Note:
Today's Communication / Plan
-
Seen and assessed with Dr. Goldberg
Assessment/Plan
-
Postop day 4 right BKA
Plan:
Bowel regimen
Continue Bactrim for Right chest wall cellulitis (on as outpatient)
Continue as needed pain medication
PT/OT
Stump protector when out of bed
Cleared for discharge once placement to rehab is established, case management following
Subjective Data
-
Date of Service: May 30, 2025
Seen at bedside this a.m. with Dr. Goldberg. Patient offers no complaints this time. No events overnight. Pain well-controlled with regimen at this time.
Objective Data
-
Vital Signs
Temp Pulse Resp BP Pulse Ox
98.0 F 107 18 150/80 95
05/30/25 07:52 05/30/25 07:52 05/30/25 07:52 05/30/25 07:52 05/30/25 07:52
Intake and Output
05/29/25 05/30/25 05/31/25
06:59 06:59 06:59
Intake Total 1640 / 1640 1740 / 1740
Balance 1640 / 1640 1740 / 1740
Intake:
Oral fluids 1560 / 1560 1740 / 1740
IV fluids (Total) 80 / 80
Other:
How many times incontinent 2
SATURATED amount urine
Number of approximated MODERATE 1
amounts of urine
Number of approximated LARGE 1 1 1
amounts of urine
Lab Results
05/29/25 07:41
05/27/25 06:25
Calcium 8.5 mg/dl (8.4-10.2) 05/27/25 06:25
Physical Exam
-
Awake alert and oriented
Flat affect
No tachypnea on room air
R BKA dressing removed. Wound clean/dry. Redressed
--- NOTE | 2025-05-30 08:50 | CON.MD ---
Addendum entered and electronically signed by Navneet Molina MD 05/30/25 17:53:
Attending Statement:
I saw and examined the patient today. Reviewed care plan with patient, therapy, nursing, and physician miller head assistant wet process. I agree with the above subjective and physical exam, and plan as documented by ELISA Barber with adjustments made as necessary. A
total of 60 minutes were spent with the patient preparing for the evaluation, obtaining history, performing examination and evaluation, counseling, data review, case management, care coordination, work order clerk, and EMR documentation.
Original Note:
Documented by User: Karlie Barber PA-C 05/30/25 11:48
Consultation - Medical
-
Referring Provider:�Nirmal Cohen
Chief Complaint:�Ambulatory dysfunction, s/p right BKA
�
History of Present Illness:�Patient is a 29 year old female with PMH of (Nonunion right ankle fracture, chronic pain syndrome, DVT x 2 on Xarelto, right foot club, s/p ankle fusion , peripheral arterial occlusion disease, Autism, alcohol
syndrome, learning disability, major depression, anxiety, PTSD, Bipolar Schizo affective disorder Currently in treatment at [facility], sees therapist (has appt today at 1 pm) and gets long acting injectable medication Abilfy lauroxil
1 gram q 2 months last given 03/29/25 as well as oral medications , headaches, gastric emptying issues, Vertigo, Arthritis ) who was discharged from [facility] on 05/22 with right chest wall cellulitis and abscess on Clindamycin presented to [facility] on 05/26
for elective right BKA after discussion with vascular surgery for chronic severe right ankle pain not responding to medical management and with no other surgical intervention available by podiatry. Patient agreeable to surgery and underwent right
below knee amputation by Dr. Goldberg.
Seen at bedside this morning.Sleeping ok at night. Feeling tired and intermittently closing eyes. Says that it is part of taking her medications. She is engaging and interactive. Has a wet cough. Says past 2-3 days. Says did not mention to
providers. Denies chest pain, sob, freeman, dizziness. Claims appetite and hydration are good. Per nursing, last BM was 4 days ago. Will give Colace.
Shared high level of education was High school. She enjoys writing, [place]. Lives at home with Dad and brother. Sleep downstairs in family room. Dad does the cooking. Brother is at home and takes her to her appointments.
�
Past Medical History:�HTN, Right foot club, alcohol spectrum, h/o DVT x 2 on Xarelto, major depression, anxiety, PTSD, Bipolar Schizo affective disorder, headaches, gastric emptying issues, Vertigo, Arthritis
Procedure History:�right ankle fusion, Bowel resection,Right club foot repair, Neck surgery
Family History:�non contributory
�
Social History:�
Functional Level Premorbidly:�Independent with all activities
Functional Level Currently:�bed mobility- supervision, transfer-min assist, UE ADL- min assist, LE ADL-dependent, eating, [id number]
�
Tobacco:�second hand smoke
Alcohol:�Denies�
Drug use:�Denies�
�
Lives with: father and 24 y/o brother
24-hour assistance available:�
Number of floors:�2
# steps to enter:�1
# steps to second floor: 6 steps
Potential First floor set up:�
Driving:�no
Occupation:�disabled
�
�
Allergies:�
Allergy/AdvReac Type Severity Reaction Status Date / Time
amoxicillin (Amoxicillin) Allergy Anaphylaxis Verified 05/26/25 09:48
Penicillins Allergy Hives-Anaph Verified 05/26/25 09:48
ylaxis
tree nut Allergy Rash/throat Verified 05/26/25 09:48
closes
�
Review of Systems:�
Constitutional: (x) abNormal _tired
Eye: (x) Normal _
Ear/Nose/Throat: (x) Normal _
Respiratory: (x) Normal _
Cardiovascular: (x) Normal _
Gastrointestinal: (x) abNormal _last BM 4 days ago
Genitourinary: (x) Normal _
Musculoskeletal: (x) abNormal _right BKA
Integumentary: (x) abNormal _Right chest wall cellulitis-resolving
Neurologic: (x) Normal _
Psychiatric: (x) abNormal _depression, anxiety, schizo affective, PTSD
Endocrine: (x) Normal _
Hematologic/Lymphatic: (x) Normal _
Allergic/Immunologic: (x) Normal _
�
Medications:�
Active Current Visit Medication List
Category Date Time Status
0.9% Sodium Chloride [Nss (Preservative Free)] Med 05/26/25 11:57 Active
0.9 ml IV Q2MPRN PRN
ARIPiprazole [Abilify] Med 05/26/25 22:00 Active
5 mg PO HS
Acetaminophen [Tylenol] Med 05/29/25 08:00 Active
650 mg PO Q4HWA
Alprazolam [Xanax] Med 05/26/25 12:01 Active
0.25 mg PO Q8HPRN PRN anxiety
Aripiprazole [Abilify] Med 05/26/25 22:00 Active
2 mg PO HS
Bisacodyl [Dulcolax] Med 05/26/25 11:52 Active
10 mg RECTAL DAILYPRN PRN
Docusate Sodium [Colace] Med 05/28/25 09:00 Active
100 mg PO BID
Famotidine [Pepcid] Med 05/27/25 08:00 Active
20 mg PO DAILY
Flush (0.9% Sodium Chloride) [Flush (Nss)] Med 05/26/25 16:00 Active
See Dose Instructions IV PER PROTOCOL
HYDROmorphone [Dilaudid] Med 05/28/25 12:30 Active
2 mg PO Q4HPRN PRN
HYDROmorphone [Dilaudid] Med 05/29/25 07:34 Active
4 mg PO Q4HPRN PRN
Metoprolol Xl [Toprol Xl] Med 05/29/25 17:00 Active
25 mg PO DAILY
Miconazole Nitrate [Desenex/Mitrazol/Zeasorb] Med 05/26/25 20:00 Active
See Dose Instructions TOPICAL BID
Miconazole Nitrate [Desenex/Mitrazol/Zeasorb] Med 05/26/25 15:43 Active
See Dose Instructions TOPICAL BID PRN
Mirtazapine [Remeron] Med 05/26/25 22:00 Active
7.5 mg PO HS
Naloxone [Narcan] Med 05/26/25 11:57 Active
0.04 mg IV Q2MPRN PRN
Ondansetron Injectable [Zofran] Med 05/26/25 11:52 Active
4 mg IV Q6HPRN PRN
Oxycodone [Roxicodone] Med 05/29/25 07:35 Active
5 mg PO Q4HPRN PRN
Prazosin HCl [Minipress] Med 05/26/25 22:00 Active
3 mg PO HS
Rivaroxaban [Xarelto] Med 05/27/25 22:00 Active
20 mg PO HS
Sennosides [Senna Syrup] Med 05/28/25 22:00 Active
8.8 mg PO HS
Sulfamethox./Trimethoprim Ds [Bactrim Ds 800 mg/160 mg] Med 05/28/25 09:00 Active
1 tablet PO BID
Topiramate [Topamax] Med 05/26/25 20:00 Active
50 mg PO BID
Venlafaxine Extended Release [Effexor Xr] Med 05/27/25 08:00 Active
75 mg PO DAILY
rimegepant [Nurtec ODT] Med 05/26/25 12:01 Pending
See Dose Instructions PO DAILYPRN PRN
�
Vitals:�
Temp Pulse Resp BP Pulse Ox
98.0 F 107 18 150/80 95
05/30/25 07:52 05/30/25 07:52 05/30/25 07:52 05/30/25 07:52 05/30/25 07:52
Height 5 ft 2 in
Actual Weight 113.115 kg
Body Mass Index (BMI) 45.7
�
Physical Exam:�
General Appearance/Observation: Well-developed, well-nourished individual in no apparent distress.� Flushed cheeks, mildly diaphoretic
Pain/Comfort Assessment: right residual limb pain
Mood/Affect: Appropriate, flat affect, pleasant
�
Integumentary/Operative Site:�
�� Pressure Ulcer Evaluation: absent over left heel.�
��
�� Other Type of Wound: absent�
��
�
Eyes: Conjunctiva/Lids: normal���� Pupils: pupils equal round and reactive to light and Accommodation�
Ears/Nose/Throat: oral mucosa moist,� throat clear.������������ Lips/Teeth/Gums: Lips - dry�
Neck: No muscle spasm or tenderness�
Cardiovascular: Heart: regular, no murmur�
Pulses: dorsalis pedis 2+ left�
Respiratory: Respiratory Effort/Chest Expansion: normal������� Auscultation: Clear to auscultation bilaterally�
Gastrointestinal: abdomen not tender, no distension, normal abdominal bowel sounds
Genitourinary: No Goldberg�
Extremities:�Edema: right residual limb�Cyanosis: None�Trophic�changes: None
Skin: 1 small skin tear- healing - right lateral mid axillary line, flushed cheeks
Neurology Exam:
Orientation: Alert, Oriented to self, Time, Place�
Memory: Intact for basic medical information
Comprehension: Intact
Two step command: Intact
Naming: Intact
Clock: could not tell time. Says that it is part of her learning disability
Cranial Nerves:
�� CNII:�Pupillary light reflex: Intact����Visual Field: Intact
�� CN III, IV, : Extraocular muscles: Intact�
�� CN V:�Facial Sensation�at�Forehead: Intact,�Maxilla: Intact,�Mandible: Intact
�� CN VII:�Facial movement: Symmetric
�� CN VIII:�Hearing: Normal
�� CN IX/X:�Speech & swallow: Normal,�Position of Uvula: Midline
�� CN XI:�Shoulder shrug: Symmetric
�� CN XII:�Tongue protrusion: Midline
Sensory:
�� Light touch: Intact in bilateral upper and lower extremities
��
�
Reflexes:
�� Biceps: 2+ bilaterally
�� Brachioradialis: 2+ bilaterally
�� Triceps: 2+ bilaterally
�� Patellar: 2+ bilaterally
�� Achilles: 2+ left
�� Babinski: Down going left
�� Clonus: None
�� Kai: Negative bilaterally�
Cerebellar: Dysmetria/Ataxia: None�
Musculoskeletal:
Motor: (Manual muscle scale 0-5)�
Muscle SA EF WE EE FF FA HF KE DF EHL PF
Right� 5 5 5 5 5 5 *3 3+ - - -
Left 5 5 5 5 5 5 5 5 5 5 5
* pain and liset wrapped�
Tone: Normal in all extremities�
Range of Motion: Passively within normal limits in all extremities�
�
Lab Results:
Labs
WBC 12.4 10^3/uL (4.8-10.8) H 05/29/25 07:41
RBC 4.13 10^6/uL (4.20-5.40) L 05/29/25 07:41
Hgb 10.2 g/dL (12.0-16.0) L 05/29/25 07:41
Hct 32.5 % (37.0-47.0) L 05/29/25 07:41
MCV 78.7 fL (81.0-99.0) L 05/29/25 07:41
MCH 24.7 pg (27.0-31.0) L 05/29/25 07:41
MCHC 31.4 g/dL (33.0-37.0) L 05/29/25 07:41
RDW 16.1 % (11.5-14.5) H 05/29/25 07:41
Plt Count 350 10^3/uL (130-400) 05/29/25 07:41
MPV 8.8 fL (7.4-10.4) 05/29/25 07:41
CBC Comment Cancelled 05/26/25 17:30
PT 13.7 Sec (11.4-14.6) 05/26/25 09:45
INR 1.03 05/26/25 09:45
APTT 27.3 Sec (23.4-35.0) 05/26/25 09:45
Sodium 135 mmol/L (135-145) 05/27/25 06:25
Potassium 4.3 mmol/L (3.5-5.1) 05/27/25 06:25
Chloride 105 mmol/L (98-107) 05/27/25 06:25
Carbon Dioxide 25 mmol/L (22-30) 05/27/25 06:25
BUN 10 mg/dl (7-17) 05/27/25 06:25
Creatinine 0.8 mg/dL (0.6-1.0) 05/27/25 06:25
Estimated Creat Clear > 125 ml/min 05/27/25 06:25
eGFR > 60.00 05/27/25 06:25
Glucose 118 mg/dl (70-99) H 05/27/25 06:25
Calcium 8.5 mg/dl (8.4-10.2) 05/27/25 06:25
Urine HCG, Qual Negative 05/26/25 09:37
Blood Type A POS 05/26/25 09:45
Blood Type Confirm A POS 05/26/25 10:18
Antibody Screen Negative (Negative) 05/26/25 09:45
�
Diagnostic Results:�as per HPI�
�
Assessment: 29 year old female with PMH of (Nonunion right ankle fracture, chronic pain syndrome, DVT x 2 on Xarelto, right foot club, s/p ankle fusion , peripheral arterial occlusion disease, Autism, alcohol syndrome, with chronic ankle pain
s/p right BKA on 05/[address] Goldberg
�
Plan�
PM&R�PT/OT to increase independence with ADLs, improve balance, coordination, endurance, strength, mobility, community reintegration, decreased burden of care on others and family education.�
�
Ambulatory Dysfunction/Debility: PT/OT
Right Transtibial Amputation: by Dr. Goldberg on 05/26/25, pain control, liset wrap, Bactrim DS 800/160mg bid,
Cough: May added Mucinex or Robitussin
Leukocytosis: Trending down- post op and most likely reactive
HTN:Metoprolol XL 25mg
Psych/Anxiety/PTSD/Depression:Remeron 7.5mg HS, prazosin, 3mg HS, Effexor 75mg daily alprazolam 0.25mg q 8 hours prn, Abiify 5 and 2 mg HS
Migraine: nurtec prn
Anemia: Hgb 10.2 - Post op and Likely multifactorial.� Continue to monitor.�
Skin/cellulitis: monitor, bacitracin
Pain: acetaminophen or oxycodone 5mg q 4 hours as needed, Dilaudid 2, 4 mg q 4 hours prn
Bowel: Colace and Senna, PRN bisacodyl.�
Bladder: Time void, PVRs, PRN straight cath.�
GI Prophylaxis: famotidine 20mg
H/o DVT x 2: Xarelto 20mg bedtime
Pulmonary: Incentive spirometry�
Obesity type III: Continue to addictions counselor patient about diet adjustments to control obesity. Body habitus and increased force to move body and extremities causes further difficulty with functional tasks.�
Safety: Continue to reinforce assistance with all transfers.�
Code Status:� Full code
Dispo�(date/plan/equipment needs): Home with family care.� Social history reviewed.�
�
Functional and Medical Goals:�Modified Independent with ADL�s, ambulation, transfers�
�
�
Discharge Destination:� Recommending SNF for recovery, and continuation of PT/OT with uncertainty of availability of family to assist and timing of potentially relocating.�
Summary of recommendations:
HTN: Occasional tachycardia. Systolic BP elevated. Adjust dosing of Metoprolol XL as needed
Cough: Wet cough. Add Robitussin or Mucinex. Monitor
Bowel: Colace and Senna, PRN bisacodyl.� Last BM 4 days ago. If refuses suppository add bisacodyl po, Miralax
�Pain: Must be controlled for 24 hours on oral pain medications only prior to transfer
Safety: Continue to reinforce assistance with all transfers.�
�
Thank you for allowing me to care for your patient. Please contact me with any questions or concerns.

Documented by User: Navneet Molina MD 05/30/25 17:41
Consultation - Medical
-
Chief Complaint:�Ambulatory dysfunction, s/p right BKA
�
History of Present Illness:�29 year old female with PMH of (Nonunion right ankle fracture, chronic pain syndrome, DVT x 2 on Xarelto, right club foot, s/p ankle fusion, peripheral arterial occlusion disease, Autism, alcohol syndrome, learning
disability, major depression, anxiety, PTSD, Bipolar Schizo affective disorder Currently in treatment at [facility], sees therapist (has appt today at 1 pm) and gets long acting injectable medication Abilfy lauroxil 1 gram q 2 months
last given 03/29/25 as well as oral medications , headaches, gastric emptying issues, Vertigo, Arthritis) who was discharged from [facility] on 05/22 with right chest wall cellulitis and abscess on Clindamycin presented to [facility] on 05/26/25 for elective
right BKA after discussion with vascular surgery for chronic severe right ankle pain not responding to medical management, and with no other surgical intervention available by podiatry. Patient agreeable to surgery and underwent right below knee
amputation by Dr. Goldberg.
Seen at bedside this morning. Sleeping OK at night. Feeling tired and intermittently closing eyes. Says that it is part of taking her medications. She is engaging and interactive. Has a wet cough. Says past 2-3 days. Says did not mention to
providers. Denies chest pain, sob, freeman, dizziness. Claims appetite and hydration are good. Per nursing, last BM was 4 days ago. Will give Colace.
Shared high level of education was High school. She enjoys writing, [place]. Lives at home with Dad and brother. Sleep downstairs in family room. Dad does the cooking. Brother is at home and takes her to her appointments.
�
Past Medical History:�HTN, Right foot club, alcohol spectrum, h/o DVT x 2 on Xarelto, major depression, anxiety, PTSD, Bipolar Schizo affective disorder, headaches, gastric emptying issues, Vertigo, Arthritis
Procedure History:�right ankle fusion, Bowel resection,Right club foot repair, Neck surgery
Family History:�non contributory
�
Social History:�
Functional Level Premorbidly:�Independent with all activities
Functional Level Currently:�bed mobility- supervision, transfer-min assist, UE ADL- min assist, LE ADL-dependent, eating, [id number]
�
Tobacco:�second hand smoke
Alcohol:�Denies�
Drug use:�Denies�
�
Lives with: father and 24 y/o brother
24-hour assistance available:�Yes
Number of floors:�2
# steps to enter:�1
# steps to second floor: 6 steps
Potential First floor set up:�Yes
Driving:�no
Occupation:�disabled
�
�
Allergies:�
Allergy/AdvReac Type Severity Reaction Status Date / Time
amoxicillin (Amoxicillin) Allergy Anaphylaxis Verified 05/26/25 09:48
Penicillins Allergy Hives-Anaph Verified 05/26/25 09:48
ylaxis
tree nut Allergy Rash/throat Verified 05/26/25 09:48
closes
�
Review of Systems:�
Constitutional: (x) abNormal _tired
Eye: (x) Normal _
Ear/Nose/Throat: (x) Normal _
Respiratory: (x) Normal _
Cardiovascular: (x) Normal _
Gastrointestinal: (x) abNormal _last BM 4 days ago
Genitourinary: (x) Normal _
Musculoskeletal: (x) abNormal _right BKA
Integumentary: (x) abNormal _Right chest wall cellulitis-resolving
Neurologic: (x) Normal _
Psychiatric: (x) abNormal _depression, anxiety, schizo affective, PTSD
Endocrine: (x) Normal _
Hematologic/Lymphatic: (x) Normal _
Allergic/Immunologic: (x) Normal _
�
Medications:�
Active Current Visit Medication List
Category Date Time Status
0.9% Sodium Chloride [Nss (Preservative Free)] Med 05/26/25 11:57 Active
0.9 ml IV Q2MPRN PRN
ARIPiprazole [Abilify] Med 05/26/25 22:00 Active
5 mg PO HS
Acetaminophen [Tylenol] Med 05/29/25 08:00 Active
650 mg PO Q4HWA
Alprazolam [Xanax] Med 05/26/25 12:01 Active
0.25 mg PO Q8HPRN PRN anxiety
Aripiprazole [Abilify] Med 05/26/25 22:00 Active
2 mg PO HS
Bisacodyl [Dulcolax] Med 05/26/25 11:52 Active
10 mg RECTAL DAILYPRN PRN
Docusate Sodium [Colace] Med 05/28/25 09:00 Active
100 mg PO BID
Famotidine [Pepcid] Med 05/27/25 08:00 Active
20 mg PO DAILY
Flush (0.9% Sodium Chloride) [Flush (Nss)] Med 05/26/25 16:00 Active
See Dose Instructions IV PER PROTOCOL
HYDROmorphone [Dilaudid] Med 05/28/25 12:30 Active
2 mg PO Q4HPRN PRN
HYDROmorphone [Dilaudid] Med 05/29/25 07:34 Active
4 mg PO Q4HPRN PRN
Metoprolol Xl [Toprol Xl] Med 05/29/25 17:00 Active
25 mg PO DAILY
Miconazole Nitrate [Desenex/Mitrazol/Zeasorb] Med 05/26/25 20:00 Active
See Dose Instructions TOPICAL BID
Miconazole Nitrate [Desenex/Mitrazol/Zeasorb] Med 05/26/25 15:43 Active
See Dose Instructions TOPICAL BID PRN
Mirtazapine [Remeron] Med 05/26/25 22:00 Active
7.5 mg PO HS
Naloxone [Narcan] Med 05/26/25 11:57 Active
0.04 mg IV Q2MPRN PRN
Ondansetron Injectable [Zofran] Med 05/26/25 11:52 Active
4 mg IV Q6HPRN PRN
Oxycodone [Roxicodone] Med 05/29/25 07:35 Active
5 mg PO Q4HPRN PRN
Prazosin HCl [Minipress] Med 05/26/25 22:00 Active
3 mg PO HS
Rivaroxaban [Xarelto] Med 05/27/25 22:00 Active
20 mg PO HS
Sennosides [Senna Syrup] Med 05/28/25 22:00 Active
8.8 mg PO HS
Sulfamethox./Trimethoprim Ds [Bactrim Ds 800 mg/160 mg] Med 05/28/25 09:00 Active
1 tablet PO BID
Topiramate [Topamax] Med 05/26/25 20:00 Active
50 mg PO BID
Venlafaxine Extended Release [Effexor Xr] Med 05/27/25 08:00 Active
75 mg PO DAILY
rimegepant [Nurtec ODT] Med 05/26/25 12:01 Pending
See Dose Instructions PO DAILYPRN PRN
�
Vitals:�
Temp Pulse Resp BP Pulse Ox
98.0 F 107 18 150/80 95
05/30/25 07:52 05/30/25 07:52 05/30/25 07:52 05/30/25 07:52 05/30/25 07:52
Height 5 ft 2 in
Actual Weight 113.115 kg
Body Mass Index (BMI) 45.7
�
Physical Exam:�
General Appearance/Observation: Well-developed, well-nourished female in no apparent distress.�
Pain/Comfort Assessment: right residual limb pain
Mood/Affect: Appropriate, mildly flat affect, pleasant
�
Integumentary/Operative Site:�Right residual limb not evaluated, in limb protector.
�� Pressure Ulcer Evaluation: absent over left heel.�
��
�
Eyes: Conjunctiva/Lids: normal���� Pupils: pupils equal round and reactive to light and Accommodation�
Ears/Nose/Throat: oral mucosa moist,� throat clear.������������ Lips/Teeth/Gums: Lips - dry�
Neck: No muscle spasm or tenderness�
Cardiovascular: Heart: regular, no murmur�
Pulses: dorsalis pedis 2+ left�
Respiratory: Respiratory Effort/Chest Expansion: normal������� Auscultation: Clear to auscultation bilaterally�
Gastrointestinal: abdomen not tender, no distension, normal abdominal bowel sounds
Genitourinary: No Goldberg�
Extremities:�Edema: right residual limb�Cyanosis: None�Trophic�changes: None
Skin: 1 small skin tear- healing - right lateral mid axillary line, flushed cheeks
Neurology Exam:
Orientation: Alert, Oriented to self, Time, Place�
Memory: Intact for basic medical information
Comprehension: Intact
Two step command: Intact
Naming: Intact
Clock: could not tell time. Says that it is part of her learning disability
Cranial Nerves:
�� CNII:�Pupillary light reflex: Intact����Visual Field: Intact
�� CN III, IV, : Extraocular muscles: Intact�
�� CN V:�Facial Sensation�at�Forehead: Intact,�Maxilla: Intact,�Mandible: Intact
�� CN VII:�Facial movement: Symmetric
�� CN VIII:�Hearing: Normal
�� CN IX/X:�Speech & swallow: Normal,�Position of Uvula: Midline
�� CN XI:�Shoulder shrug: Symmetric
�� CN XII:�Tongue protrusion: Midline
Sensory:
�� Light touch: Intact in bilateral upper and lower extremities
��
�
Reflexes:
�� Biceps: 2+ bilaterally
�� Brachioradialis: 2+ bilaterally
�� Triceps: 2+ bilaterally
�� Patellar: 2+ bilaterally
�� Achilles: 2+ left
�� Babinski: Down going left
�� Clonus: None
�� Kai: Negative bilaterally�
Cerebellar: Dysmetria/Ataxia: None�
Musculoskeletal: Motor: (Manual muscle scale 0-5)�
Muscle SA EF WE EE FF FA HF KE DF EHL PF
Right� 5 5 5 5 5 5 *3 3+ - - -
Left 5 5 5 5 5 5 5 5 5 5 5
* pain limited
Tone: Normal in all extremities�
Range of Motion: Passively within normal limits in all extremities�
�
Lab Results:
Labs
WBC 12.4 10^3/uL (4.8-10.8) H 05/29/25 07:41
RBC 4.13 10^6/uL (4.20-5.40) L 05/29/25 07:41
Hgb 10.2 g/dL (12.0-16.0) L 05/29/25 07:41
Hct 32.5 % (37.0-47.0) L 05/29/25 07:41
MCV 78.7 fL (81.0-99.0) L 05/29/25 07:41
MCH 24.7 pg (27.0-31.0) L 05/29/25 07:41
MCHC 31.4 g/dL (33.0-37.0) L 05/29/25 07:41
RDW 16.1 % (11.5-14.5) H 05/29/25 07:41
Plt Count 350 10^3/uL (130-400) 05/29/25 07:41
MPV 8.8 fL (7.4-10.4) 05/29/25 07:41
CBC Comment Cancelled 05/26/25 17:30
PT 13.7 Sec (11.4-14.6) 05/26/25 09:45
INR 1.03 05/26/25 09:45
APTT 27.3 Sec (23.4-35.0) 05/26/25 09:45
Sodium 135 mmol/L (135-145) 05/27/25 06:25
Potassium 4.3 mmol/L (3.5-5.1) 05/27/25 06:25
Chloride 105 mmol/L (98-107) 05/27/25 06:25
Carbon Dioxide 25 mmol/L (22-30) 05/27/25 06:25
BUN 10 mg/dl (7-17) 05/27/25 06:25
Creatinine 0.8 mg/dL (0.6-1.0) 05/27/25 06:25
Estimated Creat Clear > 125 ml/min 05/27/25 06:25
eGFR > 60.00 05/27/25 06:25
Glucose 118 mg/dl (70-99) H 05/27/25 06:25
Calcium 8.5 mg/dl (8.4-10.2) 05/27/25 06:25
Urine HCG, Qual Negative 05/26/25 09:37
Blood Type A POS 05/26/25 09:45
Blood Type Confirm A POS 05/26/25 10:18
Antibody Screen Negative (Negative) 05/26/25 09:45
�
Diagnostic Results:�as per HPI�
�
Assessment:
29 year old female with PMH of (Nonunion right ankle fracture, chronic pain syndrome, DVT x 2 on Xarelto, right foot club, s/p ankle fusion , peripheral arterial occlusion disease, Autism, alcohol syndrome, with chronic ankle pain s/p right
BKA on 05/26/[address] Goldberg with ADL and ambulatory dysfunction.
�
Plan�
PM&R�PT/OT to increase independence with ADLs, improve balance, coordination, endurance, strength, mobility, community reintegration, decreased burden of care on others and family education.�
�
Ambulatory Dysfunction/Debility: PT/OT
Right Transtibial Amputation: by Dr. Goldberg on 05/26/25, pain control, liset wrap, Bactrim DS 800/160mg bid,
Cough: May added Mucinex or Robitussin
Leukocytosis: Trending down- post op and most likely reactive
HTN:Metoprolol XL 25mg
Psych/Anxiety/PTSD/Depression:Remeron 7.5mg HS, prazosin, 3mg HS, Effexor 75mg daily alprazolam 0.25mg q 8 hours prn, Abiify 5 and 2 mg HS
Migraine: nurtec prn
Anemia: Hgb 10.2 - Post op and Likely multifactorial.� Continue to monitor.�
Skin/cellulitis: monitor, bacitracin
Pain: acetaminophen or oxycodone 5mg q 4 hours as needed, Dilaudid 2, 4 mg q 4 hours prn. Could consider low dose gabapentin and decrease Dliaudid
Bowel: Notes being constipated. Colace 100 mg BID and Senna 2 tabs at noon, PRN oral and/or bisacodyl.�
Bladder: Time void, PVRs, PRN straight cath.�
GI Prophylaxis: famotidine 20mg
H/o DVT x 2: Xarelto 20 mg bedtime
Pulmonary: Incentive spirometry�
Obesity type III: Continue to addictions counselor patient about diet adjustments to control obesity. Body habitus and increased force to move body and extremities causes further difficulty with functional tasks.�
Safety: Continue to reinforce assistance with all transfers.�
Code Status:� Full code
Dispo�(date/plan/equipment needs): Home with family care.� Social history reviewed.�
Functional and Medical Goals:�Modified Independent with ADL�s, ambulation, transfers�
Discharge Destination:�Extensive discussion with patient, nursing, liaison. After discussion best disposition is for patient to go to longterm facility at this time.
Summary of recommendations:
Discharge Destination:�[facility]it[facility] facility
HTN: Occasional tachycardia. Systolic BP elevated. Adjust dosing of Metoprolol XL as needed
Cough: Wet cough. Add Robitussin or Mucinex. Monitor
Bowel: Colace 100 mg BID and Senna 2 tabs at noon, PRN oral and/or bisacodyl.� Last BM 4 days ago. If refuses suppository add bisacodyl po, Miralax
Pain: consider gabapentin 100 mg TID and titrate upwards with goal to reduce Dilaudid.
Safety: Continue to reinforce assistance with all transfers.�
�
Thank you for allowing me to care for your patient. Please contact me with any questions or concerns.
Consultation
-
Date/Time Consultation Requested: 05/29/25
Date/Time Consultation Performed: 05/30/25
Requesting Provider: Dr. Nirmal Goldberg
Performing Provider: Dr. Navneet Molina
Reason for Consultation: Rehab placement
[2025-05-30] MEDS: DULCOLAX 10 MG PO (09:40)
--- NOTE | 2025-05-30 15:01 | CM ---
Addendum entered by Marii Bolden 05/30/25 16:23:
Father visited patient and discussed home situation with this CM. House has been foreclosed upon and anticipate sale within 4-8 weeks. Father does not have definitive plan for living arrangements. He was turned down to purchase a trailer. He and
patient discussed situation and both have decided patient should be in LTC. This CM contacted [facility] with pending POC. Liaison spoke with Dr. Molina who said patient is not appropriate for Acute Rehab if that is the ultimate discharge plan.
This CM spoke with liaison for [facility] who is willing to accept patient for SNF and then transition to LTC. Patient will need insurance auth and contact with [facility] for the previous Level II Review. Patient has been at [facility] in
past and is amenable to this plan. Referral previously placed as it was patient SNF preference.
Addendum entered by Marii Bolden 05/30/25 15:10:
Per Joseline with [facility]: PATIENT ALREADY HAS LEVEL II SUBMITTED WITH [facility] FROM PAST SNF ADMISSION TO [facility].
Original Note:
[facility] is interested in admitting patient. They are requesting aftercare placement. Patient lives with her father and brother. Psychiatry note mentions house is in process of foreclosure. Father has been called multiple time on 05/29 and today.
Answering machine full. Met with patient who said father will be coming in to visit her this afternoon. When CM followed up, patient said he is coming, he is on his way. Discharge POC: Need to determine if patient will return home after rehab.
Awaiting contact with father. Will need insurance auth.
[2025-05-30] MEDS: SENNA SYRUP 8.8 MG PO (20:40)
[2025-05-30] MEDS: ABILIFY 2 MG PO (20:41)
[2025-05-30] MEDS: XARELTO 20 MG PO (20:41)
[2025-05-30] MEDS: REMERON 7.5 MG PO (20:41)
[2025-05-30] MEDS: ABILIFY 5 MG PO (20:41)
[2025-05-30] MEDS: MINIPRESS 3 MG PO (23:14)
[2025-05-31] VITALS (7 sets, daily range): BP systolic 116–150; BP diastolic 33–81; PULSE 110
[2025-05-31] MEDS: TYLENOL PO (04:48)
[2025-05-31] MEDS: BACTRIM DS 800 MG/160 MG 1 TABLET PO ×2 (08:24→20:40)
[2025-05-31] MEDS: TOPROL XL 25 MG PO (08:24)
[2025-05-31] MEDS: PEPCID 20 MG PO (08:24)
[2025-05-31] MEDS: COLACE 100 MG PO ×2 (08:24→20:40)
[2025-05-31] MEDS: TOPAMAX 50 MG PO ×2 (08:24→20:40)
[2025-05-31] MEDS: TYLENOL 650 MG PO ×4 (08:25→20:39)
[2025-05-31] MEDS: EFFEXOR XR 75 MG PO (08:25)
[2025-05-31] MEDS: DESENEX/MITRAZOL/ZEASORB 1 APPLIC TOPICAL ×2 (08:25→20:45)
[2025-05-31] MEDS: DILAUDID 4 MG PO ×3 (08:31→18:33)
--- NOTE | 2025-05-31 09:54 | W.PN.VS ---
Addendum entered and electronically signed by Jose Singh MD 05/31/25 11:00:
Seen and examined with [employer]. Agree with findings and plan as noted and discussed below. BKA site looks good, skin flaps pink/viable. Staple line intact. No hematoma.
Original Note:
Today's Communication / Plan
-
Patient seen and examined at bedside with Dr. Jose Singh M.D., below plan reviewed with attending.
Assessment/Plan
-
Postop day 4 right BKA
Plan:
Bowel regimen
Continue Bactrim for Right chest wall cellulitis (on as outpatient)
Continue as needed pain medication
PT/OT
Stump protector when out of bed
Cleared for discharge once placement to rehab is established, case management following
Subjective Data
-
Date of Service: May 31, 2025
Patient seen examined at bedside, offers no complaints. Does endorse intermittent pain at right BKA site currently well-managed with current as needed pain medication. Reports bowel movement yesterday.
Objective Data
-
Vital Signs
Temp Pulse Resp BP Pulse Ox
98 F 98 20 133/76 96
05/31/25 07:00 05/31/25 08:24 05/31/25 07:00 05/31/25 08:24 05/31/25 07:00
Intake and Output
05/30/25 05/31/25 06/01/25
06:59 06:59 06:59
Intake Total 1740 / 1740 2940 / 2940
Balance 1740 / 1740 2940 / 2940
Intake:
Oral fluids 1740 / 1740 2940 / 2940
Other:
How many times incontinent 2
SATURATED amount urine
Number of approximated MODERATE 2
amounts of urine
Number of approximated LARGE 1 3
amounts of urine
Lab Results
05/29/25 07:41
05/27/25 06:25
Calcium 8.5 mg/dl (8.4-10.2) 05/27/25 06:25
Physical Exam
-
Awake alert and oriented
Flat affect
No tachypnea on room air
R BKA dressing removed. Wound clean/dry. Redressed
[2025-05-31] MEDS: DILAUDID 2 MG PO (11:56)
--- NOTE | 2025-05-31 15:00 | CM ---
Poncho from [facility] will be out to do assessment for level 2 eval tomorrow late afternoon.
--- NOTE | 2025-05-31 17:16 | CM ---
Discharge POC: Accepted to [facility] for STR and then will transition to LTC. Level II assessment to be completed by [facility] at on 06/01/25. Will need insurance auth. Mayra NPI #: [id number], Dr. Lauro Mcgregor NPI #:[id number].
Nurse to Nurse Report #: [phone]
Fax #: [phone].
[2025-05-31] MEDS: SENNA SYRUP 8.8 MG PO (20:39)
[2025-05-31] MEDS: ABILIFY 2 MG PO (20:40)
[2025-05-31] MEDS: ABILIFY 5 MG PO (20:40)
[2025-05-31] MEDS: REMERON 7.5 MG PO (20:40)
[2025-05-31] MEDS: XARELTO 20 MG PO (20:40)
[2025-05-31] MEDS: MINIPRESS 3 MG PO (20:49)
[2025-06-01] MEDS: TYLENOL PO ×3 (01:15→23:57)
[2025-06-01 03:41] VITALS: BP 131/78
--- NOTE | 2025-06-01 07:56 | W.PN.VS ---
Addendum entered and electronically signed by Nirmal Goldberg III, MD 06/02/25 15:43:
x
Original Note:
Today's Communication / Plan
-
Discussed with Dr. Singh
Assessment/Plan
-
Postop day 5 right BKA
Plan:
Bowel regimen
Continue as needed pain medication
PT/OT
Stump protector when out of bed
Cleared for discharge once placement to rehab is established, case management following
Subjective Data
-
Date of Service: June 01, 2025
Patient seen at bedside this a.m. Patient offers no complaints at this time. No events overnight. Stump site dressing clean, dry, intact.
Objective Data
-
Vital Signs
Temp Pulse Resp BP Pulse Ox
97.4 F 107 20 131/78 95
06/01/25 03:41 06/01/25 03:41 06/01/25 03:41 06/01/25 03:41 06/01/25 03:41
Intake and Output
05/31/25 06/01/25 06/02/25
06:59 06:59 06:59
Intake Total 2940 / 2940 3025 / 3025
Balance 2940 / 2940 3025 / 3025
Intake:
Oral fluids 2940 / 2940 3025 / 3025
Other:
Number of approximated MODERATE 2 2
amounts of urine
Number of approximated LARGE 3 2 1
amounts of urine
Lab Results
05/29/25 07:41
05/27/25 06:25
Calcium 8.5 mg/dl (8.4-10.2) 05/27/25 06:25
Physical Exam
-
Awake alert and oriented
Flat affect
No tachypnea on room air
R BKA dressing clean and intact.
[2025-06-01 08:21] VITALS: BP 130/87
[2025-06-01] MEDS: COLACE 100 MG PO ×2 (09:21→20:48)
[2025-06-01] MEDS: TYLENOL 650 MG PO ×4 (09:21→20:48)
[2025-06-01] MEDS: EFFEXOR XR 75 MG PO (09:21)
[2025-06-01] MEDS: DESENEX/MITRAZOL/ZEASORB 1 APPLIC TOPICAL ×2 (09:22→20:49)
[2025-06-01] MEDS: TOPAMAX 50 MG PO ×2 (09:22→20:50)
[2025-06-01] MEDS: BACTRIM DS 800 MG/160 MG 1 TABLET PO (09:22)
[2025-06-01] MEDS: PEPCID 20 MG PO (09:22)
[2025-06-01] MEDS: TOPROL XL 25 MG PO (09:22)
[2025-06-01] MEDS: DILAUDID 4 MG PO ×3 (09:34→20:56)
[2025-06-01] MEDS: DILAUDID 2 MG PO ×2 (11:48→18:24)
[2025-06-01 11:58] VITALS: BP 142/87
[2025-06-01 15:00] VITALS: BP 129/76
--- NOTE | 2025-06-01 16:11 | CM ---
[facility] [employer] here now to complete Level II PASSR Assessment
Plan: Discharge to [facility]; then transition to [facility] at the facility; pending Level II PASSR approval; and insurance authorization approval
[facility] NPI #: [id number]
Provider, Dr Lauro Mcgregor; NPI #[id number].
Report # [phone]
[2025-06-01 19:00] VITALS: BP 148/98
[2025-06-01] MEDS: MINIPRESS 3 MG PO (20:50)
[2025-06-01] MEDS: SENNA SYRUP 8.8 MG PO (20:50)
[2025-06-01] MEDS: ABILIFY 2 MG PO (20:50)
[2025-06-01] MEDS: ABILIFY 5 MG PO (20:50)
[2025-06-01] MEDS: XARELTO 20 MG PO (20:50)
[2025-06-01] MEDS: REMERON 7.5 MG PO (20:50)
[2025-06-01 23:00] VITALS: BP 142/88
[2025-06-02 03:00] VITALS: BP 118/70
[2025-06-02] MEDS: TYLENOL PO ×2 (04:40→23:15)
[2025-06-02] MEDS: COLACE 100 MG PO ×2 (08:09→21:00)
[2025-06-02] MEDS: TYLENOL 650 MG PO ×4 (08:09→21:00)
[2025-06-02] MEDS: PEPCID 20 MG PO (08:10)
[2025-06-02] MEDS: ROXICODONE 5 MG PO ×2 (08:10→13:29)
[2025-06-02] MEDS: EFFEXOR XR 75 MG PO (08:10)
[2025-06-02] MEDS: TOPROL XL 25 MG PO (08:10)
[2025-06-02] MEDS: TOPAMAX 50 MG PO ×2 (08:10→21:01)
[2025-06-02] MEDS: DESENEX/MITRAZOL/ZEASORB 1 APPLIC TOPICAL ×2 (08:14→21:07)
[2025-06-02 08:28] VITALS: BP 141/87
--- NOTE | 2025-06-02 08:49 | W.PN.UPDATE ---
Update Note
Progress Note Update
Pt seen at bedside this am. No complaints at this time. Remains stable for discharge. CM working on placement/auth/etc
[2025-06-02 11:42] VITALS: BP 121/75
[2025-06-02] MEDS: DILAUDID 2 MG PO (14:58)
--- NOTE | 2025-06-02 16:06 | PN.CDI ---
CDI
- -
CDI:
Physician Documentation Request
Admit Date: 05/26/25 09:08
Dear MAYNOR Ramsey,
Please review the following and provide your response in the progress notes.
Clinical Indicators:
Date of Operation: 05/26/2025
#...Procedure: Right lower extremity amputation below the knee
#...Estimated Blood Loss: 150 cc
Laboratory Tests
05/26/25 05/26/25 05/27/25
09:45 18:26 06:25
Hgb 12.0 12.0 9.8 L
Hct 37.6 39.3 31.3 L
05/29/25
07:41
Hgb 10.2 L
Hct 32.5 L
Based on the above and your clinical assessment, please clarify, in the progress note, which of the following is the most likely diagnosis/condition evaluated, monitored and/or treated?
Acute blood loss anemia
Acute blood loss anemia with baseline chronic anemia (Specify type)
Other(please specify)
Use of terms such as suspected, likely, concern for, or probable (associated with a specific diagnosis that is being evaluated, monitored, or treated as if it exists) are acceptable and can be coded in the inpatient setting, when documented at the
time of discharge.
Thank you,
Krystal Iyer RN BSN CCDS
CDI Specialist
Please contact via tiger text
Please use your independent medical judgment in providing your response.
--- NOTE | 2025-06-02 16:12 | PN.CDI ---
CDI
- -
CDI:
Physician Documentation Request
Admit Date: 05/26/25 09:08
Dear MAYNOR Ramsey,
Please review the following and provide your response in the progress notes.
Clinical Indicators:
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
wt: CBW 249lbs 6 oz (BMI 45.6- morbidly obese) 05/26.
Please provide an associated diagnosis related to the abnormal BMI, such as:
BMI 45.6, morbidly obese
BMI is not significant
Other(please specify)
BMI > or = to 40
Overweight
Obesity:
Due to excess calories
Drug induced
Due to other cause
Severe or morbid obesity:
With alveolar hypoventilation (Obesity hypoventilation syndrome)
Without alveolar hypoventilation
Use of terms such as suspected, likely, concern for, or probable (associated with a specific diagnosis that is being evaluated, monitored, or treated as if it exists) are acceptable and can be coded in the inpatient setting, when documented at the
time of discharge.
Thank you,
Krystal Iyer RN BSN CCDS
CDI Specialist
Please contact via tiger text
Please use your independent medical judgment in providing your response.
--- NOTE | 2025-06-02 16:17 | PN.CDI ---
CDI
- -
CDI:
Physician Documentation Request
Admit Date: 05/26/25 09:08
Dear MAYNOR Ramsey,
Please review the following and provide your response in the progress notes.
Clinical Indicators:
Date of Operation: 05/26/2025
#...Procedure: Right lower extremity amputation below the knee
#...Estimated Blood Loss: 150 cc
Laboratory Tests
05/26/25 05/26/25 05/27/25
09:45 18:26 06:25
Hgb 12.0 12.0 9.8 L
Hct 37.6 39.3 31.3 L
05/29/25
07:41
Hgb 10.2 L
Hct 32.5 L
Based on the above and your clinical assessment, please clarify, in the progress note, which of the following is the most likely diagnosis/condition evaluated, monitored and/or treated?
Acute blood loss anemia
Acute blood loss anemia with baseline chronic anemia (Specify type)
Abnormal lab value, clinically insignificant
Other(please specify)
Use of terms such as suspected, likely, concern for, or probable (associated with a specific diagnosis that is being evaluated, monitored, or treated as if it exists) are acceptable and can be coded in the inpatient setting, when documented at the
time of discharge.
Thank you,
Krystal Iyer RN BSN CCDS
CDI Specialist
Please contact via tiger text
Please use your independent medical judgment in providing your response.
[2025-06-02 16:26] VITALS: BP 145/91
--- NOTE | 2025-06-02 17:13 | CM ---
[place] for Level II assessment that was completed on 06/01/25. Therapy recommends Acute Rehab. [facility] has declined because patient is for LTC placement. Discharge POC: SNF at [facility] then transition to LTC.
[2025-06-02] MEDS: ABILIFY 5 MG PO (21:01)
[2025-06-02] MEDS: ABILIFY 2 MG PO (21:01)
[2025-06-02] MEDS: SENNA SYRUP PO ×2 (21:01→21:08)
[2025-06-02] MEDS: XARELTO 20 MG PO (21:01)
[2025-06-02] MEDS: REMERON 7.5 MG PO (21:01)
[2025-06-02] MEDS: MINIPRESS 3 MG PO (21:04)
[2025-06-02 23:21] VITALS: BP 141/83
[2025-06-03] MEDS: TYLENOL PO ×3 (04:51→15:37)
[2025-06-03 08:18] VITALS: BP 145/88
[2025-06-03] MEDS: TOPAMAX 50 MG PO ×2 (08:43→19:40)
[2025-06-03] MEDS: TYLENOL 650 MG PO ×3 (08:43→23:43)
[2025-06-03] MEDS: DESENEX/MITRAZOL/ZEASORB TOPICAL ×2 (08:44→20:31)
[2025-06-03] MEDS: COLACE 100 MG PO ×2 (08:44→19:40)
[2025-06-03] MEDS: EFFEXOR XR 75 MG PO (08:44)
[2025-06-03] MEDS: PEPCID 20 MG PO (08:44)
[2025-06-03] MEDS: TOPROL XL 25 MG PO (08:44)
--- NOTE | 2025-06-03 14:48 | W.PN.UPDATE ---
Update Note
Progress Note Update
Patient seen and examined by me.
Mild pain.
Awaiting D/C aut[facility]
No other complaints.
[2025-06-03 15:42] VITALS: BP 119/70
[2025-06-03 16:55] VITALS: BP 157/97
[2025-06-03] MEDS: DILAUDID 2 MG PO (17:26)
[2025-06-03] MEDS: DILAUDID 4 MG PO (19:39)
[2025-06-03] MEDS: DESENEX/MITRAZOL/ZEASORB 1 APPLIC TOPICAL (20:35)
[2025-06-03] MEDS: REMERON 7.5 MG PO (21:48)
[2025-06-03] MEDS: XARELTO 20 MG PO (21:48)
[2025-06-03] MEDS: SENNA SYRUP 8.8 MG PO (21:48)
[2025-06-03] MEDS: ABILIFY 5 MG PO (21:48)
[2025-06-03] MEDS: MINIPRESS 3 MG PO (21:48)
[2025-06-03] MEDS: ABILIFY 2 MG PO (21:48)
[2025-06-03 23:42] VITALS: BP 131/89
[2025-06-04] MEDS: TYLENOL PO (04:42)
[2025-06-04 07:53] VITALS: BP 152/94
--- NOTE | 2025-06-04 08:13 | W.PN.UPDATE ---
Update Note
Progress Note Update
Vascular surgery progress note:
Post op BKA
No patient concerns
Pain controlled
Awaiting D/C [facility].
[2025-06-04] MEDS: TYLENOL 650 MG PO ×4 (08:23→21:20)
[2025-06-04] MEDS: EFFEXOR XR 75 MG PO (08:23)
[2025-06-04] MEDS: COLACE 100 MG PO ×2 (08:23→21:20)
[2025-06-04] MEDS: TOPROL XL 25 MG PO (08:24)
[2025-06-04] MEDS: PEPCID 20 MG PO (08:24)
[2025-06-04] MEDS: TOPAMAX 50 MG PO ×2 (08:24→21:20)
[2025-06-04] MEDS: DESENEX/MITRAZOL/ZEASORB 1 APPLIC TOPICAL ×3 (08:26→21:49)
[2025-06-04] MEDS: DILAUDID 4 MG PO ×2 (12:39→21:20)
--- NOTE | 2025-06-04 14:53 | PTCARENOTE ---
Patient had a large soft formed Bm after 3 days without a bowel movement. patient using Bed side commode. Small amount of blood noted in stool.Pt reports history of hemorrhoids. denies pain or discomfort at this time. Pt AAOx3. Plan of care ongoing.
[2025-06-04 15:24] VITALS: BP 146/85
[2025-06-04] MEDS: MINIPRESS 3 MG PO (21:44)
[2025-06-04] MEDS: ABILIFY 5 MG PO (21:44)
[2025-06-04] MEDS: SENNA SYRUP 8.8 MG PO (21:44)
[2025-06-04] MEDS: REMERON 7.5 MG PO (21:44)
[2025-06-04] MEDS: ABILIFY 2 MG PO (21:44)
[2025-06-04] MEDS: XARELTO 20 MG PO (21:44)
[2025-06-04] MEDS: XANAX 0.25 MG PO (21:58)
[2025-06-04 23:24] VITALS: BP 137/81
[2025-06-05] MEDS: TYLENOL 650 MG PO ×4 (00:13→15:13)
[2025-06-05] MEDS: TYLENOL PO (04:55)
[2025-06-05 07:35] VITALS: BP 123/79
--- NOTE | 2025-06-05 07:47 | W.PN.UPDATE ---
Update Note
Progress Note Update
Pt seen at bedside resting comfortably this am
Remains stable and ready for DC
Appreciate CM working on dispo
[2025-06-05] MEDS: PEPCID 20 MG PO (09:08)
[2025-06-05] MEDS: COLACE 100 MG PO (09:09)
[2025-06-05] MEDS: TOPROL XL 25 MG PO (09:09)
[2025-06-05] MEDS: EFFEXOR XR 75 MG PO (09:09)
[2025-06-05] MEDS: TOPAMAX 50 MG PO (09:09)
[2025-06-05] MEDS: DESENEX/MITRAZOL/ZEASORB 1 APPLIC TOPICAL (09:11)
[2025-06-05] MEDS: DILAUDID 4 MG PO (11:56)
[2025-06-05 11:59] VITALS: BP 146/89; PULSE 108
--- NOTE | 2025-06-05 12:05 | CM ---
Addendum entered by Ashley Caceres 06/05/25 13:32:
[employer] approval received- forwarded to SNF
IMM verbally reviewed with pt
Medical necessity completed
[facility] to arrange for BLS transport
Discharge Disposition- [facility] SNF via BLS
Phone- [phone] Fax- [phone]
Original Note:
CM reviewed chart- pt remains medically ready for dc
POD#10 R. BKA
Approved Level II paperwork received from [facility]
Update to [facility]- bed remains available for STR to LTC transition, level II sent via [facility]
Bedside meeting with pt and she remains in agreement with plan
[employer] auth initiated vis [employer] and pending
Pending [employer] auth # [id number]
Discharge Disposition- [facility] SNF pending auth
[2025-06-05] MEDS: DILAUDID 2 MG PO (15:22)
[2025-06-05 15:55] VITALS: BP 165/96
--- NOTE | 2025-06-07 09:20 | W.PN.UPDATE ---
Update Note
Progress Note Update
CDI:
Physician Documentation Request
Admit Date: 05/26/25 09:08
Please review the following and provide your response in the progress notes.
Clinical Indicators:
Date of Operation: 05/26/2025
#...Procedure: Right lower extremity amputation below the knee
#...Estimated Blood Loss: 150 cc
Laboratory Tests
05/26/25 05/26/25 05/27/25
09:45 18:26 06:25
Hgb 12.0 12.0 9.8 L
Hct 37.6 39.3 31.3 L
05/29/25
07:41
Hgb 10.2 L
Hct 32.5 L
Based on the above and your clinical assessment, please clarify, in the progress note, which of the following is the most likely diagnosis/condition evaluated, monitored and/or treated?
Acute blood loss anemia likely d/t open surgical procedure, monitored throughout stay- never required treatment
CDI:
Physician Documentation Request
Admit Date: 05/26/25 09:08
Please review the following and provide your response in the progress notes.
Clinical Indicators:
International Relations Teacher, 05/26
wt: CBW 249lbs 6 oz (BMI 45.6- morbidly obese) 05/26.
Please provide an associated diagnosis related to the abnormal BMI, such as:
BMI 45.6, morbidly obese
== END 2025-06-05 16:15 | DRG 475 ==
LOC: 2 NORTH 09:08
PROVIDERS: Nurse Practitioner; Nurse Practitioner Acute Care; ADMITTING PHYSICIAN Surgery Vascular Surgery; CONSULT PHYSICIAN Physical Medicine & Rehabilitation; CONSULT PHYSICIAN Psychiatry & Neurology Psychiatry; PRIMARYCARE PHYSICIAN Family Medicine
PROC: 0Y6H0Z2 Detachment at Right Lower Leg, Mid, Open Approach (ICD-10-PCS; 2025-05-26)
DX: S82.891K Other fracture of right lower leg, subsequent encounter for closed fracture with nonunion (principal); D62 Acute posthemorrhagic anemia; F84.0 Autistic disorder; L03.313 Cellulitis of chest wall; X58.XXXD Exposure to other specified factors, subsequent encounter; G89.4 Chronic pain syndrome; Q86.0 Fetal alcohol syndrome (dysmorphic); I73.9 Peripheral vascular disease, unspecified; I10 Essential (primary) hypertension; F60.3 Borderline personality disorder; F70 Mild intellectual disabilities; F43.22 Adjustment disorder with anxiety; F43.10 Post-traumatic stress disorder, unspecified; F25.9 Schizoaffective disorder, unspecified; F32.9 Major depressive disorder, single episode, unspecified; G43.909 Migraine, unspecified, not intractable, without status migrainosus; R05.9 Cough, unspecified; Z79.01 Long term (current) use of anticoagulants; Z79.899 Other long term (current) drug therapy; Z86.718 Personal history of other venous thrombosis and embolism
CPT/HCPCS: 27880; 71046; 80048; 81025; 85027; 85610; 85730; 86850; 86900; 86901; 88307; 88311; 93005; 97112; 97116; 97163; 97167; 97530; 97535